=== PATIENT | female | born 1960 | race Caucasian/White ===

== ENCOUNTER 2016-04-21 11:25 | Inpatient (IN) ==
--- NOTE | 2016-04-21 11:43 | Emergency Department Note ---
Disposition Clinical Impression: Non-cardiac chest pain, Acute kidney injury, Dehydration, Hypokalemia, Tachycardia, Elevated lipase, Elevated alkaline phosphatase level Disposition: Admitted As Inpatient Referrals: Abebe Renee DO [Primary Care Provider] - Forms: ED Satisfaction Letter General Adult HPI - General Chief complaint: ED Chest Pain Stated complaint: MAGALIS / CP Time Seen by Provider: 04/21/16 11:43 Source: patient, family Limitations: no limitations - History of Present Illness HPI Narrative: 55-year-old female reports emergency department complaining of chest pressure and shortness of breath. The patient was seen a few days ago in the emergency department for low potassium levels discharged. The patient states she developed chest pressure and shortness of breath today. She states she takes anticoagulant medication for previous thrombus in the intestinal area. She states she has short gut syndrome and frequently has problems with dehydration. She did have some nonbloody emesis and stool a few days ago, she had had some diarrhea as well, but this has abated. There is no history of fever cough and runny nose here pain or sore throat no leg swelling or pain coughing up blood or syncope. No trouble walking talking hearing seeing or speaking apart from feeling slightly dizzy. The patient has had no unilateral arm weakness or numbness. There is no history of slurred speech or confusion. She does describe some anxiety but denies depressive features there is no history of suicidality or homicidality. The patient denies previous lung or heart problems. She has never had a PE. There is no history of diabetes hypertension or hyperlipidemia. Onset (ago): hour(s) Pain Scale: 5 - Related Data Home Medications Medication Instructions Recorded Confirmed Copper Gluconate [Copper] 5 mg PO DAILY 02/25/15 04/21/16 Cyanocobalamin (Vitamin B-12) 1,000 mcg PO DAILY 02/25/15 04/21/16 [Vitamin B-12] Folic Acid 1 mg PO DAILY 02/25/15 04/21/16 Lipase/Protease/Amylase [Creon Dr 5 tab PO TIDWM 02/25/15 04/21/16 24,000 Units Capsule] Magnesium Oxide [Magnesium] 3 tab PO HS 02/25/15 04/21/16 Mercaptopurine 50 mg PO DAILY 02/25/15 04/21/16 Multivitamin Liquid [Cerovite 9 mg PO DAILY 02/25/15 04/21/16 Liquid] Omeprazole [PriLOSEC] 40 mg PO DAILY 02/25/15 04/21/16 PredniSONE 2.5 mg PO QPM 02/25/15 04/21/16 PredniSONE 5 mg PO QAM 02/25/15 04/21/16 Rivaroxaban [Xarelto] 10 mg PO DAILY 02/25/15 04/21/16 Vitamin A Palmitate [Vitamin A] 10,000 unit PO DAILY 02/25/15 04/21/16 Vitamin D3/Folic Acid [Ortho D 50,000 unit PO QWEEK 02/25/15 04/21/16 3,775 Unit-1 mg Cap] Vitamin E (Dl,Tocopheryl Acet) 100 unit PO DAILY 02/25/15 04/21/16 [Vitamin E] Ergocalciferol (VITAMIN D2) 50,000 unit PO DAILY 04/21/16 04/21/16 [Vitamin D2] Zinc Acetate [Galzin] 25 mg PO DAILY 04/21/16 04/21/16 Allergies Allergy/AdvReac Type Severity Reaction Status Date / Time levofloxacin [From Levaquin] Allergy Hives Verified 02/25/15 10:41 All systems ED: reviewed and negative except as stated. Past Medical History - Past Medical History Medical history: Reports: other (Short gut syndrome, intra-abdominal venous thrombus per patient) Surgical history: Reports: other Psychiatric history: Reports: no psych history - Social History Smoking Status: Never smoker Smokeless Tobacco Status: No Alcohol use: Reports: rarely Drug use: Reports: none Physical Exam - General Limitations: no limitations General appearance: alert, in no apparent distress - Head Head exam: atraumatic, normocephalic, normal inspection - Eye Eye exam: Present: normal appearance, PERRL, EOMI. Absent: scleral icterus, conjunctival injection, miosis, mydriasis - ENT ENT exam: normal exam, normal oropharynx, mucous membranes moist, TM's normal bilaterally, normal external ear exam - Neck Neck exam: Present: normal inspection, full ROM, trachea midline - Chest Chest inspection: Present: symmetric chest wall rise. Absent: tenderness - Respiratory Respiratory exam: Present: normal lung sounds bilaterally. Absent: respiratory distress - Cardiovascular Cardiovascular exam: Present: normal rhythm, tachycardia - Abdominal Exam Abdominal exam: Present: soft, Non-Tender. Absent: tenderness, distention, guarding, rebound, rigidity, pulsatile mass - Extremities Exam Extremities exam: Present: normal inspection, full ROM, normal capillary refill. Absent: tenderness, pedal edema, joint swelling, calf tenderness - Expanded Lower Extremity Exam Hip/Pelvis exam: Present: normal inspection Neurovascular/Tendon exam: Absent: motor deficit, sensory deficit, tendon deficit, extremity cold to touch - Back Exam Back exam: Present: normal inspection. Absent: full ROM, tenderness, CVA tenderness (R), CVA tenderness (L), vertebral tenderness - Neurological Exam Neurological exam: Present: alert, oriented X3, CN II-XII intact. Absent: motor sensory deficit - Psychiatric Psychiatric exam: Present: normal affect, normal mood - Skin Skin exam: Present: warm, dry, intact, normal color. Absent: rash, cyanosis, diaphoresis, erythema, pallor, mottled Course Vital Signs Temperature 97.6 F 04/21/16 11:34 Pulse Rate 121 04/21/16 11:34 Respiratory Rate 18 04/21/16 11:34 Blood Pressure 108/77 04/21/16 11:34 O2 Sat by Pulse Oximetry 91 L 04/21/16 11:34 Temperature 97.6 F 04/21/16 11:34 Pulse Rate 104 04/21/16 13:34 Respiratory Rate 18 04/21/16 13:34 Blood Pressure 126/72 04/21/16 13:34 O2 Sat by Pulse Oximetry 100 04/21/16 13:34 Oxygen Delivery Oxygen Delivery Room Air Medical Decision Making - [facility] Narrative Medical decision making narrative: The patient appears to be developing worsening kidney function, she seems to have acute renal failure, she is hypokalemic, the patient was given IV fluids and potassium. She is describes some chest pain which has been nondescript, she has no history of previous coronary artery disease, diabetes, hypertension, or hyperlipidemia. Her EKG and cardiac enzymes are negative. The patient is well anticoagulated. I suspect she has noncardiac chest pain and most of her symptomatology is from tachycardia and hypokalemia. The patient's d-dimer is slightly elevated, she evidences no leg swelling or pain has not been coughing blood. Will not be able to get a CTA done here, V/Q could be considered. The patient is currently stable. She was recently seen in the ED and discharge, she is not improving and her creatinine is rising. Based on her acute kidney injury, complaints of chest pain, hypokalemia, secondary visit to the ED, elevated d-dimer, I think could be appropriate to admit the patient hospital. I discussed case with the hospitalist on-call who has accepted the patient to their care. - Lab Data Lab results reviewed: Yes I reviewed the patient's lab results. Result diagrams: 04/21/16 12:09 04/21/16 12:09 Lab Results 04/21/16 04/21/16 04/21/16 Range/Units 12:09 12:09 12:09 WBC (4.3-11.1) K/mcL RBC (3.82-4.97) M/mcL Hgb (11.5-15.4) g/dL Hct (35.3-44.9) % MCV (83.0-100.0) fL MCH (28.0-33.3) pg MCHC (31.6-35.5) g/dL RDW (11.5-14.5) % Plt Count (140-400) K/mcL MPV (9.4-12.4) fL Immature Gran % (0-4) % Seg Neutrophils % % Lymphocytes % % Monocytes % % Eosinophils % % Basophils % % Neutrophils # (1.6-8.9) K/mcL Lymphocytes # (0.6-4.6) K/mcL Monocytes # (0.0-1.3) K/mcL Eosinophils # (0.0-0.6) K/mcL Basophils # (0.0-0.2) K/mcL PT 22.0 H (9.4-12.1) Seconds INR 2.0 APTT 43.5 H (26.0-36.0) Seconds D-Dimer 517 H (0-500) ng/mLFEU Sodium 139 (136-145) mEq/L Potassium 2.7 L (3.5-4.5) mEq/L Chloride 120 H (98-109) mEq/L Carbon Dioxide 6 L* (19-29) mEq/L BUN 15 (7-20) mg/dL Creatinine 3.08 H (0.57-1.11) mg/dL Est GFR ( Amer) 19 L (> 60) Est GFR (Non-Af Amer) 16 L (> 60) BUN/Creatinine Ratio 5 L (6-26) Glucose 105 H (70-99) mg/dL Calculated Osmolality 289 (280-300) Lactic Acid 1.1 (0.5-2.2) mmol/L Calcium 8.4 L (8.6-10.8) mg/dL Total Bilirubin 0.4 (0.2-1.2) mg/dL Direct Bilirubin 0.2 (0.0-0.5) mg/dL Indirect Bilirubin 0.2 (0.0-1.2) mg/dL AST 14 (5-34) Units/L ALT 22 (0-55) Units/L Alkaline Phosphatase 185 H (38-126) Units/L Troponin I (0-0.03) ng/mL C-Reactive Protein 13 H (Less than 5) mg/L B-Natriuretic Peptide (0-100) pg/mL Serum Total Protein 7.0 (6.0-8.3) g/dL Albumin 3.1 L (3.5-5.0) g/dL Globulin 3.9 H (2.4-3.5) g/dL Albumin/Globulin Ratio 0.8 L (1.1-2.2) Lipase 222 H (8-78) Units/L 04/21/16 04/21/16 04/21/16 Range/Units 12:09 12:09 12:09 WBC 10.1 (4.3-11.1) K/mcL RBC 3.82 (3.82-4.97) M/mcL Hgb 13.5 (11.5-15.4) g/dL Hct 41.0 (35.3-44.9) % MCV 107.3 H (83.0-100.0) fL MCH 35.3 H (28.0-33.3) pg MCHC 32.9 (31.6-35.5) g/dL RDW 14.2 (11.5-14.5) % Plt Count 259 (140-400) K/mcL MPV 10.2 (9.4-12.4) fL Immature Gran % 1.0 (0-4) % Seg Neutrophils % 59.8 % Lymphocytes % 23.0 % Monocytes % 13.8 % Eosinophils % 1.9 % Basophils % 0.5 % Neutrophils # 6.0 (1.6-8.9) K/mcL Lymphocytes # 2.3 (0.6-4.6) K/mcL Monocytes # 1.4 H (0.0-1.3) K/mcL Eosinophils # 0.2 (0.0-0.6) K/mcL Basophils # 0.1 (0.0-0.2) K/mcL PT (9.4-12.1) Seconds INR APTT (26.0-36.0) Seconds D-Dimer (0-500) ng/mLFEU Sodium (136-145) mEq/L Potassium (3.5-4.5) mEq/L Chloride (98-109) mEq/L Carbon Dioxide (19-29) mEq/L BUN (7-20) mg/dL Creatinine (0.57-1.11) mg/dL Est GFR ( Amer) (> 60) Est GFR (Non-Af Amer) (> 60) BUN/Creatinine Ratio (6-26) Glucose (70-99) mg/dL Calculated Osmolality (280-300) Lactic Acid (0.5-2.2) mmol/L Calcium (8.6-10.8) mg/dL Total Bilirubin (0.2-1.2) mg/dL Direct Bilirubin (0.0-0.5) mg/dL Indirect Bilirubin (0.0-1.2) mg/dL AST (5-34) Units/L ALT (0-55) Units/L Alkaline Phosphatase (38-126) Units/L Troponin I 0.00 (0-0.03) ng/mL C-Reactive Protein (Less than 5) mg/L B-Natriuretic Peptide 31 (0-100) pg/mL Serum Total Protein (6.0-8.3) g/dL Albumin (3.5-5.0) g/dL Globulin (2.4-3.5) g/dL Albumin/Globulin Ratio (1.1-2.2) Lipase (8-78) Units/L - Radiology Data Radiology results reviewed: Yes I reviewed the patient's radiology results.
[2016-04-21] MEDS ORDERED: 0.9 % Sodium Chloride 1,000 ML IVC ONE ×2 (11:59→12:58)
[2016-04-21 12:18] LABS: Basophils # 0.1 K/mcL (0.0-0.2); Basophils % 0.5 %; Eosinophils # 0.2 K/mcL (0.0-0.6); Eosinophils % 1.9 %; Hemoglobin 13.5 g/dL (11.5-15.4); Lymphocytes # 2.3 K/mcL (0.6-4.6); Mean Corpuscular HGB Conc 32.9 g/dL (31.6-35.5); Mean Corpuscular Hemoglobin 35.3 pg (28.0-33.3); Mean Corpuscular Volume 107.3 fL (83.0-100.0); Mean Platelet Volume 10.2 fL (9.4-12.4); Monocytes # 1.4 K/mcL (0.0-1.3); Monocytes % 13.8 %; Platelet Count 259 K/mcL (140-400); Red Blood Count 3.82 M/mcL (3.82-4.97); Red Cell Distribution Width 14.2 % (11.5-14.5); Segmented Neutrophils % 59.8 %
[2016-04-21 12:25] LABS: Activated Partial Thrombo Time 43.5 Seconds (26.0-36.0)
[2016-04-21 12:34] LABS: Albumin 3.1 g/dL (3.5-5.0); Albumin/Globulin Ratio 0.8 (1.1-2.2); Bilirubin,Direct 0.2 mg/dL (0.0-0.5); Bilirubin,Indirect 0.2 mg/dL (0.0-1.2); Bilirubin,Total 0.4 mg/dL (0.2-1.2); Calcium 8.4 mg/dL (8.6-10.8); Globulin 3.9 g/dL (2.4-3.5); Potassium 2.7 mEq/L (3.5-4.5)
[2016-04-21] MEDS ORDERED: Naloxone 0.4 MG/ML INJ IVP PRN (15:42)
[2016-04-21] MEDS ORDERED: Acetaminophen 325 MG TABLET PO PRN (15:42)
[2016-04-21] MEDS ORDERED: Ondansetron 4 MG/2 ML VIAL IVP PRN (15:42)
[2016-04-21] MEDS ORDERED: Sodium Bicarbonate 150 MEQ in D5% in Water 1,000 ML IVC SCH ×2 (15:44→21:33)
--- NOTE | 2016-04-21 16:32 | Internal Med History&Physical ---
Date of Encounter: 04/21/16 Time of Encounter: 15:20 Assessment and Plan (1) Nausea Current visit: Yes Status: Acute Likely secondary to electrolyte abnormalities. (2) Dehydration Current visit: Yes Status: Acute Secondary to poor intake after food poisoning a week ago. IV fluid hydration. (3) Tachycardia Current visit: Yes Status: Acute Secondary to dehydration and hypokalemia. IV fluids. Replete potassium. (4) Non-cardiac chest pain Current visit: Yes Status: Acute Secondary to hypokalemia. (5) Acute kidney injury Current visit: Yes Status: Acute Baseline creatinine and GFR is in the 1.4 and 40 range. Secondary to severe dehydration. IV fluids. Close monitoring of kidney function. Avoid nephrotoxins as possible. (6) Metabolic acidosis Current visit: Yes Status: Acute Patient has chronic metabolic acidosis due to short bowel syndrome. She takes sodium bicarbonate 3 times a day. Severe metabolic acidosis with bicarbonate 6. Start IV bicarbonate drip. busher helper. BMP twice daily. (7) Hypokalemia Current visit: Yes Status: Acute replet (8) Acute worsening of stage 3 chronic kidney disease Current visit: Yes Status: Acute plan as above (9) Short bowel syndrome Current visit: Yes Status: Chronic nutrition services consulted for TF. 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 stop Xarelto due to MELANIA. INR is 2. will resume anticoagulation when INR < 2. 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 Qualifiers: Ulcerative colitis location: unspecified ulcerative colitis location Digestive disease complication type: other complication Qualified Code(s): K51.918 - Ulcerative colitis, unspecified with other complication (12) Old cerebrovascular accident (CVA) without late effect Current visit: Yes Status: Acute in 2002 Internal Medicine - H&P: HPI Chief complaint: shortness of breath and chest pain this morning. Admitted From: Home Plans for Post Hospital Care: Home History of present illness: Ms. 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 During that hospitalization, she developed mesenteric vein thrombosis for which she takes Xarelto and had PEG tube placement for nutritional supplementation (she is supposed to eat 6 small meals daily and have 3 cans thru PEG tube). A week ago, the patient ate a bad pizza that made her sick. She felt very nauseous and had multiple episodes of diarrhea. Her diarrhea resolved within 24 hours but her nausea and poor appetite persisted. She has not taken any of her medications for the past week and she feels that the food tastes bad so her oral intake is almost none. No vomiting. No abdominal pain. No fever. No upper respiratory symptoms. No cough. Yesterday, the patient developed generalized malaise associated with muscle ache and this morning she she felt short of breath and had upper chest pain. Her symptoms were mild and lasted less than an hour. No bleeding. No headaches. No urinary complaints. No vision problem. No focal deficit. No LE edema. In the ED, she was tachycardic HR 129, potassium was 2.7, bicarbonate 6, creatinine 3.08, GFR 16, chloride 120. She received IV potassium and IV fluids. Past Med Surg Social Fam HX - Past Medical History Medical history: other (Short gut syndrome, intra-abdominal venous thrombus per patient) Psychiatric history: no psych history - Past Surgical History Surgical History: other - Social History Smoking Status: Never smoker Smokeless Tobacco Status: No Alcohol use: rarely Drug use: none Internal Medicine - H&P: Meds Copper Gluconate [Copper] 5 mg PO DAILY 02/25/15 [History] Cyanocobalamin (Vitamin B-12) [Vitamin B-12] 1,000 mcg PO DAILY 02/25/15 [ History] Folic Acid 1 mg PO DAILY 02/25/15 [History] Lipase/Protease/Amylase [Creon Dr 24,000 Units Capsule] 5 tab PO TIDWM 02/25/15 [History] Magnesium Oxide [Magnesium] 3 tab PO HS 02/25/15 [History] Mercaptopurine 50 mg PO DAILY 02/25/15 [History] Multivitamin Liquid [Cerovite Liquid] 9 mg PO DAILY 02/25/15 [History] Omeprazole [PriLOSEC] 40 mg PO DAILY 02/25/15 [History] PredniSONE 2.5 mg PO QPM 02/25/15 [History] PredniSONE 5 mg PO QAM 02/25/15 [History] Rivaroxaban [Xarelto] 10 mg PO DAILY 02/25/15 [History] Vitamin A Palmitate [Vitamin A] 10,000 unit PO DAILY 02/25/15 [History] Vitamin D3/Folic Acid [Ortho D 3,775 Unit-1 mg Cap] 50,000 unit PO QWEEK [History] Vitamin E (Dl,Tocopheryl Acet) [Vitamin E] 100 unit PO DAILY 02/25/15 [History] Ergocalciferol (VITAMIN D2) [Vitamin D2] 50,000 unit PO DAILY 04/21/16 [History] Zinc Acetate [Galzin] 25 mg PO DAILY 04/21/16 [History] Allergies levofloxacin [From Levaquin] Allergy (Verified 02/25/15 10:41) Hives All Systems PM: A 10-system review of systems was performed and is negative for pertinent findings except as documented above in the HPI. - Constitutional Vitals: Temp Pulse Resp BP Pulse Ox 97.6 F 104 18 121/59 100 04/21/16 11:34 04/21/16 13:34 04/21/16 15:27 04/21/16 15:27 04/21/16 13:34 General appearance: Present: cooperative, A&O X 3, pleasant, no acute distress, answers questions appropriately - Eye Eye exam: Present: PERRL, sclera anicteric - ENT ENT exam: Present: mucous membranes dry - Neck Neck exam general surgery: Present: supple, trachea midline. Absent: lymphadenopathy - Respiratory Respiratory exam: Present: CTAB - Cardiovascular Cardiovascular exam: Present: tachycardia - GI/Abdominal GI/Abdominal exam: Present: normal bowel sounds, soft. Absent: distended, tenderness Additional comments: PEG tube in place. - Extremities Exam Extremities exam: Present: radial pulses palpable and symetrical. Absent: joint swelling, pedal edema - Back Exam Back exam: Absent: CVA tenderness (L), CVA tenderness (R) - Neurological Exam Neurological exam: Present: alert, oriented X3, no focal deficits. Absent: facial droop, speech deficit - Skin Skin exam: Present: rash (small papules in upper back likely contact dermatitis. ) Internal Med - H&P Results - Labs CBC & Chem 7: 04/21/16 12:09 04/21/16 12:09 - EKG Data Prior EKG available for review: yes When compared to previous EKG: there are significant changes EKG comments: 04/21/16 17:11 sinus tachycardia HR 103. No acute ischemic changes. - Diagnostic Studies Chest x-ray Status: image reviewed by me (no acute process)
[2016-04-21] MEDS: Pantoprazole 40 MG VIAL IVP SCH (16:48)
[2016-04-21] MEDS ORDERED: Magnesium Sulfate 1 GM in D5% in Water 100 ML IVPB ONE (16:56)
[2016-04-21] MEDS: predniSONE 5 MG TABLET PO SCH (17:18)
[2016-04-21] MEDS ORDERED: Potassium Chloride Elixir 20 MEQ/15 ML UDC GTUBE ONE (17:20)
[2016-04-21 20:54] LABS: Calcium 7.3 mg/dL (8.6-10.8)
[2016-04-21 22:11] LABS: Ionized Calcium 1.13 mmol/L (1.15-1.35)
[2016-04-21 22:15] LABS: VBG HCO3 8.9 mEq/L (21-27)
[2016-04-21 22:18] LABS: Magnesium 1.4 mg/dL (1.6-2.6); Phosphorous 2.6 mg/dL (2.3-4.7)
[2016-04-21 22:19] LABS: VBG PH 7.16 pH Units (7.32-7.42)
[2016-04-21] MEDS ORDERED: Calcium Gluconate 1,000 MG in D5% in Water 100 ML IVPB ONE (22:32)
[2016-04-21] MEDS ORDERED: Magnesium Sulfate 2 GM in D5% in Water 100 ML IVPB ONE (22:32)
[2016-04-22 06:53] LABS: INR 2.3; Prothrombin Time 25.2 Seconds (9.4-12.1)
[2016-04-22 06:56] LABS: Activated Partial Thrombo Time 36.3 Seconds (26.0-36.0)
[2016-04-22 07:41] LABS: Hematocrit 29.5 % (35.3-44.9); Hemoglobin 10.2 g/dL (11.5-15.4); Immature Platelets 3.6 % (1.1-6.1); Mean Corpuscular HGB Conc 34.6 g/dL (31.6-35.5); Mean Corpuscular Hemoglobin 34.9 pg (28.0-33.3); Mean Platelet Volume 10.3 fL (9.4-12.4); Platelet Count 210 K/mcL (140-400); Red Blood Count 2.92 M/mcL (3.82-4.97); Red Cell Distribution Width 13.7 % (11.5-14.5)
[2016-04-22 08:27] LABS: Basophils # 0.2 K/mcL (0.0-0.2); Eosinophils # 0.2 K/mcL (0.0-0.6); Lymphocytes # 2.7 K/mcL (0.6-4.6); Monocytes # 0.5 K/mcL (0.0-1.3); Neutrophils # 4.1 K/mcL (1.6-8.9); Platelet Clumps Few (Not Present)
[2016-04-22 08:30] LABS: Reactive Lymphocytes Present (Not Present)
[2016-04-22] MEDS: Pantoprazole 40 MG VIAL IVP SCH (08:32)
[2016-04-22] MEDS: Cyanocobalamin (B-12) 1,000 MCG TABLET PO SCH (08:32)
[2016-04-22] MEDS: Folic Acid 1 MG TABLET PO SCH (08:32)
[2016-04-22] MEDS: predniSONE 5 MG TABLET PO SCH ×2 (08:32→17:35)
[2016-04-22] MEDS: (Vitamin A Palmitate [Vitamin A] 10,000 UNIT) PO SCH (08:34)
[2016-04-22] MEDS ORDERED: Sodium Bicarbonate 150 MEQ in D5% in Water 1,000 ML IVC SCH (09:00)
[2016-04-22] MEDS ORDERED: *HR* Rivaroxaban 10 MG TABLET PO SCH (09:00)
[2016-04-22] MEDS ORDERED: Multivitamin Liquid 15 ML UDC PO SCH (09:00)
[2016-04-22] MEDS: COPPER GLUCONATE PO SCH (10:00)
[2016-04-22] MEDS: ZINC GLUCONATE 25 MG PO SCH (10:01)
[2016-04-22] MEDS: VITAMIN E 400 UNIT PO SCH (10:01)
--- NOTE | 2016-04-22 10:25 | Internal Med Progress Note ---
Date of Encounter: 04/22/16 Time of Encounter: 08:00 - Assessment and plan (1) Acute kidney injury Current Visit: Yes Status: Acute Assessment and plan: Continue IV hydration. Awaiting CMP results today. Creatinine improved to 2.36. Moderate risk for complications (2) Acute worsening of stage 3 chronic kidney disease Current Visit: Yes Status: Acute (3) Chronic thrombosis of mesenteric vein Current Visit: Yes Status: Acute Assessment and plan: Currently holding anticoagulation due to acute kidney injury. Will resume xarelto as renal function improves. (4) Metabolic acidosis Current Visit: Yes Status: Acute Assessment and plan: Bicarbonate was 6. Continue intravenous bicarbonate infusion. (5) Non-cardiac chest pain Current Visit: Yes Status: Resolved (6) Tachycardia Current Visit: Yes Status: Resolved (7) Short bowel syndrome Current Visit: Yes Status: Chronic Assessment and plan: Continue Creon, oral supplements. (8) Ulcerative colitis Current Visit: No Status: Chronic Assessment and plan: Supportive care. Patient on prednisone. Qualifiers: Ulcerative colitis location: unspecified ulcerative colitis location Digestive disease complication type: other complication Qualified Code(s): K51.918 - Ulcerative colitis, unspecified with other complication - Constitutional Vitals: Temp Pulse Resp BP Pulse Ox 98.7 F 85 14 84/51 100 04/22/16 06:27 04/22/16 06:27 04/22/16 06:27 04/22/16 06:27 04/22/16 06:27 General appearance: Present: cooperative, A&O X 3, pleasant, no acute distress, answers questions appropriately Internal Medicine: Result - Labs CBC & Chem 7: 04/22/16 07:30 04/21/16 20:09 Labs: Short CBC 04/22/16 Range/Units 07:30 WBC 7.5 (4.3-11.1) K/mcL Hgb 10.2 L D (11.5-15.4) g/dL Hct 29.5 L (35.3-44.9) % Plt Count 210 (140-400) K/mcL Neutrophils # 4.1 (1.6-8.9) K/mcL BMP 04/21/16 20:09 Sodium 139 Potassium 3.0 L Chloride 124 H Carbon Dioxide 6 L* BUN 13 Creatinine 2.36 H Glucose 109 H Calcium 7.3 L - ABG Interpretation ABG results: PT/INR, D-dimer PT 25.2 Seconds (9.4-12.1) H 04/22/16 05:13 D-Dimer 517 ng/mLFEU (0-500) H 04/21/16 12:09 Consult Discharge Plan - Plan Referrals: Abebe Renee DO [Primary Care Provider] - - Attending Attestation This document has been at least partially created by [employer] recognition technology by Dr. Novoa. Errors in grammar, wording or other phrases may exist. If errors are found after the documentation is signed, they will be addressed individually in the addendum section of this document when appropriate.
[2016-04-22 10:40] LABS: Albumin 2.1 g/dL (3.5-5.0); Albumin/Globulin Ratio 0.8 (1.1-2.2); Bilirubin,Total 0.3 mg/dL (0.2-1.2); Calcium 7.2 mg/dL (8.6-10.8); Globulin 2.5 g/dL (2.4-3.5); Magnesium 1.6 mg/dL (1.6-2.6); Phosphorous 1.8 mg/dL (2.3-4.7); Total Protein 4.6 g/dL (6.0-8.3)
[2016-04-22 10:47] LABS: Potassium 2.4 mEq/L (3.5-4.5)
[2016-04-22] MEDS ORDERED: Potassium Chloride 40 MEQ, Lidocaine 1% 2 ML in D5% in Water 500 ML IVPB ONE (10:52)
[2016-04-22] MEDS: Potassium Chloride Elixir 20 MEQ/15 ML UDC PO SCH ×2 (11:53→22:46)
[2016-04-22] MEDS: Multivit/Ca/Min/Fe/FA 1 TAB TABLET PO SCH (11:54)
[2016-04-22] MEDS: Magnesium Oxide 400 MG TABLET PO SCH (22:48)
[2016-04-23 06:20] LABS: Basophils % 0.4 %; Eosinophils # 0.3 K/mcL (0.0-0.6); Eosinophils % 3.4 %; Hematocrit 31.8 % (35.3-44.9); Hemoglobin 10.5 g/dL (11.5-15.4); Immature Granulocytes % 0.6 % (0-4); Lymphocytes # 1.6 K/mcL (0.6-4.6); Lymphocytes % 17.5 %; Mean Corpuscular Hemoglobin 34.3 pg (28.0-33.3); Mean Corpuscular Volume 103.9 fL (83.0-100.0); Mean Platelet Volume 10.1 fL (9.4-12.4); Monocytes % 9.3 %; Nucleated Red Blood Cells 0.2 /100 WBC (0); Platelet Count 223 K/mcL (140-400); Red Blood Count 3.06 M/mcL (3.82-4.97); Red Cell Distribution Width 14.3 % (11.5-14.5); Segmented Neutrophils % 68.8 %
[2016-04-23 06:24] LABS: Monocytes # 0.9 K/mcL (0.0-1.3); Neutrophils # 6.3 K/mcL (1.6-8.9)
[2016-04-23 06:39] LABS: Calcium 7.5 mg/dL (8.6-10.8); Potassium 3.1 mEq/L (3.5-4.5)
[2016-04-23 06:55] LABS: Platelet Estimate Normal (Normal)
[2016-04-23] MEDS ORDERED: 0.9 % Sodium Chloride 1,000 ML IV ONE (06:58)
[2016-04-23] MEDS: predniSONE 5 MG TABLET PO SCH ×2 (07:52→16:40)
[2016-04-23] MEDS: Potassium Chloride Elixir 20 MEQ/15 ML UDC PO SCH ×2 (07:52→20:22)
[2016-04-23] MEDS: Multivit/Ca/Min/Fe/FA 1 TAB TABLET PO SCH (07:52)
[2016-04-23] MEDS: Pantoprazole 40 MG VIAL IVP SCH (07:52)
[2016-04-23] MEDS: Cyanocobalamin (B-12) 1,000 MCG TABLET PO SCH (07:52)
[2016-04-23] MEDS: Folic Acid 1 MG TABLET PO SCH (07:52)
[2016-04-23] MEDS: COPPER GLUCONATE PO SCH (08:02)
[2016-04-23] MEDS: ZINC GLUCONATE 25 MG PO SCH (08:03)
[2016-04-23] MEDS: (Vitamin A Palmitate [Vitamin A] 10,000 UNIT) PO SCH (08:03)
[2016-04-23] MEDS: VITAMIN E 400 UNIT PO SCH (08:03)
[2016-04-23 08:56] LABS: ABG Base Excess -16.4 mEq/L (-2.0 to 3.0); ABG HCO3 9.6 mEQ/L (21-27); ABG Oxygen Saturation 99 % (95-98); ABG PCO2 23 mmHg (35-45); ABG PH 7.23 pH Units (7.32-7.45); ABG PO2 135 mmHg (85-104); ABG TCO2 10.3 mEq/L (20-26)
[2016-04-23 08:58] LABS: Blood Gas FiO2 21 %
--- NOTE | 2016-04-23 14:18 | Discharge Summary ---
Date of Encounter: 04/23/16 Time of Encounter: 10:25 - Discharge Diagnosis (1) Acute kidney injury Priority: Primary Status: Acute (2) Acute worsening of stage 3 chronic kidney disease Priority: Secondary Status: Acute (3) Chronic thrombosis of mesenteric vein Priority: Secondary Status: Acute (4) Metabolic acidosis Priority: Secondary Status: Chronic (5) Non-cardiac chest pain Priority: Secondary Status: Resolved (6) Tachycardia Priority: Secondary Status: Resolved (7) Short bowel syndrome Priority: Secondary Status: Chronic (8) Ulcerative colitis Priority: Secondary Status: Chronic Qualifiers: Ulcerative colitis location: unspecified ulcerative colitis location Digestive disease complication type: other complication Qualified Code(s): K51.918 - Ulcerative colitis, unspecified with other complication - Discharge Medications Home Medications: Copper Gluconate [Copper] 5 mg PO DAILY 02/25/15 [History] Cyanocobalamin (Vitamin B-12) [Vitamin B-12] 1,000 mcg PO DAILY 02/25/15 [ History] Folic Acid 1 mg PO DAILY 02/25/15 [History] Lipase/Protease/Amylase [Creon Dr 24,000 Units Capsule] 5 tab PO TIDWM 02/25/15 [History] Magnesium Oxide [Magnesium] 3 tab PO HS 02/25/15 [History] Mercaptopurine 50 mg PO DAILY 02/25/15 [History] Multivitamin Liquid [Cerovite Liquid] 9 mg PO DAILY 02/25/15 [History] Omeprazole [PriLOSEC] 40 mg PO DAILY 02/25/15 [History] PredniSONE 2.5 mg PO QPM 02/25/15 [History] PredniSONE 5 mg PO QAM 02/25/15 [History] Rivaroxaban [Xarelto] 10 mg PO DAILY 02/25/15 [History] Vitamin A Palmitate [Vitamin A] 10,000 unit PO DAILY 02/25/15 [History] Vitamin D3/Folic Acid [Ortho D 3,775 Unit-1 mg Cap] 50,000 unit PO QWEEK [History] Vitamin E (Dl,Tocopheryl Acet) [Vitamin E] 100 unit PO DAILY 02/25/15 [History] Ergocalciferol (VITAMIN D2) [Vitamin D2] 50,000 unit PO DAILY 04/21/16 [History] Zinc Acetate [Galzin] 25 mg PO DAILY 04/21/16 [History] Sodium Bicarbonate 1,300 mg PO TID tablet 04/23/16 [Rx] Allergies/Adverse Reactions: Allergies levofloxacin [From Levaquin] Allergy (Verified 02/25/15 10:41) Hives Date of admission: 04/21/16 16:04 Primary care physician: Abebe Renee Consults: 04/21/16 16:42 Consult to Nutrition [CONS] Stat Comment: Consulting Provider: NUTRITION Reason for Dietary Consult: TF Start and Manage 04/23/16 10:14 Consult to Occupational Therapy [CONS] Routine Comment: Evaluate, develop and implement POC Consult to Physical Therapy [CONS] Routine Comment: Evaluate, develop and implement POC Discharging clinician: Ashley Novoa Anticipated date of discharge: 04/23/16 - Patient Status Disposition: Home, Self-Care Condition: Good Functional capacity at discharge: independent ambulation Overall status at discharge: patient is progressing back to baseline - Discharge Instructions Follow Up With: Abebe Renee DO [Primary Care Provider] - (In 1-2 weeks) - Diet and Activity Activity: increase activity as tolerated Diet: regular diet Hospital course: Ms. Rice is a 55 year old female - Time Spent with Patient Total time spent providing and/or coordinating discharge services: Greater than 30 minutes (35 min) - Constitutional Vitals: Temp Pulse Resp BP Pulse Ox 98.1 F 78 16 94/58 95 04/23/16 11:35 04/23/16 11:35 04/23/16 11:35 04/23/16 11:35 04/23/16 11:35 General appearance: Present: cooperative, A&O X 3, pleasant, no acute distress, answers questions appropriately - Respiratory Respiratory exam: Present: CTAB. Absent: accessory muscle use, rales, rhonchi, wheezes - Cardiovascular Cardiovascular exam: Present: RRR, +S1, +S2. Absent: diastolic murmur, gallop, rubs, systolic murmur - GI/Abdominal GI/Abdominal exam: Present: normal bowel sounds, soft, no peritoneal signs. Absent: distended, tenderness - Extremities Exam Extremities exam: Present: warm, radial pulses palpable and symetrical. Absent : calf tenderness, cyanotic, pedal edema - Attending Attestation This document has been at least partially created by [employer] recognition technology by Dr. Ameda. Errors in grammar, wording or other phrases may exist. If errors are found after the documentation is signed, they will be addressed individually in the addendum section of this document when appropriate.
[2016-04-23 15:09] LABS: Calcium 7.7 mg/dL (8.6-10.8); Potassium 3.7 mEq/L (3.5-4.5)
--- NOTE | 2016-04-23 15:23 | Internal Med Progress Note ---
Date of Encounter: 04/23/16 Time of Encounter: 15:21 - Assessment and plan (1) Acute kidney injury Current Visit: Yes Status: Acute Assessment and plan: Improving. Continue IV hydration (2) Acute worsening of stage 3 chronic kidney disease Current Visit: Yes Status: Acute (3) Chronic thrombosis of mesenteric vein Current Visit: Yes Status: Acute Assessment and plan: Resume anticoagulation. (4) Metabolic acidosis Current Visit: Yes Status: Chronic Assessment and plan: This persists. Started back on oral sodium bicarbonate. Continue IV sodium bicarbonate as bicarbonate level remains low. Moderate risk for complications. 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 Continue tube feeds per nutrition recommendations. (8) Ulcerative colitis Current Visit: No Status: Chronic Assessment and plan: On prednisone Qualifiers: Ulcerative colitis location: unspecified ulcerative colitis location Digestive disease complication type: other complication Qualified Code(s): K51.918 - Ulcerative colitis, unspecified with other complication - Subjective Interval history: Patient is doing well. Tolerating diet well. No new complaints at this time. - Constitutional Vitals: Temp Pulse Resp BP Pulse Ox 98.1 F 78 16 94/58 95 04/23/16 11:35 04/23/16 11:35 04/23/16 11:35 04/23/16 11:35 04/23/16 11:35 General appearance: Present: cooperative, A&O X 3, pleasant, no acute distress, answers questions appropriately - Respiratory Respiratory exam: Present: CTAB. Absent: accessory muscle use, rales, rhonchi, wheezes - Cardiovascular Cardiovascular exam: Present: RRR, +S1, +S2. Absent: diastolic murmur, gallop, rubs, systolic murmur - GI/Abdominal GI/Abdominal exam: Present: normal bowel sounds, soft, no peritoneal signs. Absent: distended, tenderness - Extremities Exam Extremities exam: Present: warm, radial pulses palpable and symetrical. Absent : calf tenderness, cyanotic, pedal edema - Neurological Exam Neurological exam: Present: alert, oriented X3, no focal deficits, strengths equal and symetr throughout. Absent: facial droop, speech deficit Internal Medicine: Result - Labs CBC & Chem 7: 04/23/16 06:09 04/23/16 14:13 Labs: Short CBC 04/23/16 Range/Units 06:09 WBC 9.1 (4.3-11.1) K/mcL Hgb 10.5 L (11.5-15.4) g/dL Hct 31.8 L (35.3-44.9) % Plt Count 223 (140-400) K/mcL Neutrophils # 6.3 (1.6-8.9) K/mcL BMP 04/23/16 04/23/16 06:09 14:13 Sodium 138 139 Potassium 3.1 L 3.7 Chloride 117 H 122 H Carbon Dioxide 10 L* 7 L* BUN 11 9 Creatinine 1.80 H 1.76 H Glucose 116 H 114 H Calcium 7.5 L 7.7 L - ABG Interpretation ABG results: ABG ABG pH 7.23 pH Units (7.32-7.45) L 04/23/16 08:35 ABG pCO2 23 mmHg (35-45) L 04/23/16 08:35 ABG pO2 135 mmHg (85-104) H 04/23/16 08:35 ABG O2 Saturation 99 % (95-98) H 04/23/16 08:35 PT/INR, D-dimer PT 25.2 Seconds (9.4-12.1) H 04/22/16 05:13 D-Dimer 517 ng/mLFEU (0-500) H 04/21/16 12:09 Consult Discharge Plan - Plan Referrals: Abebe Renee DO [Primary Care Provider] - (In 1-2 weeks) - Attending Attestation This document has been at least partially created by [employer] recognition technology by Dr. Novoa. Errors in grammar, wording or other phrases may exist. If errors are found after the documentation is signed, they will be addressed individually in the addendum section of this document when appropriate.
[2016-04-23] MEDS: Sodium Bicarbonate 150 MEQ in D5% in Water 1,000 ML IVC SCH (16:32)
[2016-04-23] MEDS: Magnesium Oxide 400 MG TABLET PO SCH (20:21)
[2016-04-24] MEDS: Sodium Bicarbonate 150 MEQ in D5% in Water 1,000 ML IVC SCH (01:20)
[2016-04-24 07:30] LABS: Hematocrit 25.3 % (35.3-44.9); Hemoglobin 9.1 g/dL (11.5-15.4); Mean Corpuscular Hemoglobin 36.1 pg (28.0-33.3); Mean Corpuscular Volume 100.4 fL (83.0-100.0); Mean Platelet Volume 10.6 fL (9.4-12.4); Platelet Count 232 K/mcL (140-400); Red Blood Count 2.52 M/mcL (3.82-4.97); Red Cell Distribution Width 13.6 % (11.5-14.5)
[2016-04-24 07:31] VITALS: BP 92/60
[2016-04-24 07:45] LABS: Calcium 7.1 mg/dL (8.6-10.8); Potassium 3.1 mEq/L (3.5-4.5)
[2016-04-24 07:59] LABS: Eosinophils # 0.2 K/mcL (0.0-0.6); Lymphocytes # 1.5 K/mcL (0.6-4.6); Monocytes # 0.4 K/mcL (0.0-1.3); Neutrophils # 5.5 K/mcL (1.6-8.9)
[2016-04-24 08:00] LABS: Platelet Estimate Normal (Normal)
[2016-04-24 08:01] LABS: Toxic Granulation Present (Not Present)
[2016-04-24] MEDS: Folic Acid 1 MG TABLET PO SCH (08:36)
[2016-04-24] MEDS: Cyanocobalamin (B-12) 1,000 MCG TABLET PO SCH (08:37)
[2016-04-24] MEDS: Multivit/Ca/Min/Fe/FA 1 TAB TABLET PO SCH (08:37)
[2016-04-24] MEDS: Potassium Chloride Elixir 20 MEQ/15 ML UDC PO SCH (08:37)
[2016-04-24] MEDS: predniSONE 5 MG TABLET PO SCH (08:37)
[2016-04-24] MEDS: Pantoprazole 40 MG VIAL IVP SCH (08:37)
[2016-04-24] MEDS: (Vitamin A Palmitate [Vitamin A] 10,000 UNIT) PO SCH (08:40)
[2016-04-24] MEDS: VITAMIN E 400 UNIT PO SCH (08:40)
[2016-04-24] MEDS: COPPER GLUCONATE PO SCH (08:40)
[2016-04-24] MEDS: ZINC GLUCONATE 25 MG PO SCH (08:40)
--- NOTE | 2016-04-24 09:00 | Discharge Summary ---
Date of Encounter: 04/24/16 Time of Encounter: 08:45 - Discharge Diagnosis (1) Acute kidney injury Priority: Primary Status: Acute (2) Acute worsening of stage 3 chronic kidney disease Priority: Secondary Status: Acute (3) Chronic thrombosis of mesenteric vein Priority: Secondary Status: Acute (4) Metabolic acidosis Priority: Secondary Status: Chronic (5) Non-cardiac chest pain Priority: Secondary Status: Resolved (6) Tachycardia Priority: Secondary Status: Resolved (7) Short bowel syndrome Priority: Secondary Status: Chronic (8) Ulcerative colitis Priority: Secondary Status: Chronic Qualifiers: Ulcerative colitis location: unspecified ulcerative colitis location Digestive disease complication type: other complication Qualified Code(s): K51.918 - Ulcerative colitis, unspecified with other complication (9) Anemia Priority: Secondary Status: Chronic Comments: Patient has acute on chronic anemia. Presented with a hemoglobin of 13.5 but patient was dehydrated then. With hydration her hemoglobin level has been going on. Patient does have chronic shortness syndrome and ulcerative colitis. She gets colonoscopies done every year at [facility]. No recent abnormalities found. She does have follow-up with [facility] tomorrow. At this time as patient is asymptomatic and has chronic anemia, she is stable to be discharged and will follow up with [facility] for further management. Her anemia could be related to her chronic diseases and dietary deficiency. Qualifiers: Anemia type: other cause Other causes of anemia: chronic disease, other Qualified Code(s): D63.8 - Anemia in other chronic diseases classified elsewhere - Discharge Medications Prescriptions: Potassium Chloride 20 meq PO DAILY #30 packet Home Medications: Copper Gluconate [Copper] 5 mg PO DAILY 02/25/15 [History] Cyanocobalamin (Vitamin B-12) [Vitamin B-12] 1,000 mcg PO DAILY 02/25/15 [ History] Folic Acid 1 mg PO DAILY 02/25/15 [History] Lipase/Protease/Amylase [Creon Dr 24,000 Units Capsule] 5 tab PO TIDWM 02/25/15 [History] Magnesium Oxide [Magnesium] 3 tab PO HS 02/25/15 [History] Mercaptopurine 50 mg PO DAILY 02/25/15 [History] Multivitamin Liquid [Cerovite Liquid] 9 mg PO DAILY 02/25/15 [History] Omeprazole [PriLOSEC] 40 mg PO DAILY 02/25/15 [History] PredniSONE 2.5 mg PO QPM 02/25/15 [History] PredniSONE 5 mg PO QAM 02/25/15 [History] Rivaroxaban [Xarelto] 10 mg PO DAILY 02/25/15 [History] Vitamin A Palmitate [Vitamin A] 10,000 unit PO DAILY 02/25/15 [History] Vitamin D3/Folic Acid [Ortho D 3,775 Unit-1 mg Cap] 50,000 unit PO QWEEK [History] Vitamin E (Dl,Tocopheryl Acet) [Vitamin E] 100 unit PO DAILY 02/25/15 [History] Ergocalciferol (VITAMIN D2) [Vitamin D2] 50,000 unit PO DAILY 04/21/16 [History] Zinc Acetate [Galzin] 25 mg PO DAILY 04/21/16 [History] Sodium Bicarbonate 1,300 mg PO TID tablet 04/23/16 [Rx] Potassium Chloride 20 meq PO DAILY #30 packet 04/24/16 [Rx] Allergies/Adverse Reactions: Allergies levofloxacin [From Levaquin] Allergy (Verified 02/25/15 10:41) Hives Date of admission: 04/21/16 16:04 Primary care physician: Abebe Renee Consults: 04/21/16 16:42 Consult to Nutrition [CONS] Stat Comment: Consulting Provider: NUTRITION Reason for Dietary Consult: TF Start and Manage 04/23/16 10:14 Consult to Occupational Therapy [CONS] Routine Comment: Evaluate, develop and implement POC Consult to Physical Therapy [CONS] Routine Comment: Evaluate, develop and implement POC Discharging clinician: Ashley Novoa Anticipated date of discharge: 04/24/16 - Patient Status Disposition: Home, Self-Care Condition: Good Functional capacity at discharge: independent ambulation Overall status at discharge: patient is back to baseline - Discharge Instructions Follow Up With: Abebe Renee DO [Primary Care Provider] - (web.request 04/23/16) - Diet and Activity Activity: increase activity as tolerated Diet: advance to your usual diet Hospital course: Ms. Rice is a 55 year old female with history of short bowel syndrome, ulcerative colitis who presented to the ER with nausea and multiple episodes of diarrhea after eating pizza. She was diagnosed with dehydration and acute kidney injury with severe metabolic acidosis. Patient has chronic metabolic acidosis and takes sodium bicarbonate at home. She was treated with IV fluids and intravenous sodium bicarbonate with improvement in her acidosis. She was placed back on oral sodium bicarbonate. Her renal function has improved since then. She is feeling much better now and is stable to be discharged home. Patient does have chronic anemia with baseline hemoglobin of around 10. On presentation her hemoglobin was 13 and patient was dehydrated then. She received intravenous fluids and her hemoglobin level today is 9.1. This could be related to hemodilution and chronic anemia. Patient does get colonoscopy every year for her ulcerative colitis at [facility] and she is to follow up in [facility] tomorrow. She is not having any overt hematemesis or melena at this time. As such she is stable to be discharged home and will follow up with her primary care provider and with [facility] as scheduled. - Time Spent with Patient Total time spent providing and/or coordinating discharge services: Less than 30 minutes (25 min) - Constitutional Vitals: Temp Pulse Resp BP Pulse Ox 98.5 F 85 16 92/60 100 04/24/16 07:27 04/24/16 07:27 04/24/16 07:27 04/24/16 07:27 04/24/16 07:27 General appearance: Present: cooperative, A&O X 3, pleasant, no acute distress, answers questions appropriately - Respiratory Respiratory exam: Present: CTAB. Absent: accessory muscle use, rales, rhonchi, wheezes - Cardiovascular Cardiovascular exam: Present: RRR, +S1, +S2. Absent: diastolic murmur, gallop, rubs, systolic murmur - Extremities Exam Extremities exam: Present: warm, radial pulses palpable and symetrical. Absent : calf tenderness, cyanotic, pedal edema - Attending Attestation This document has been at least partially created by [employer] recognition technology by Dr. Novoa. Errors in grammar, wording or other phrases may exist. If errors are found after the documentation is signed, they will be addressed individually in the addendum section of this document when appropriate.
--- NOTE | 2016-04-25 08:17 | Electrocardiograph Report ---
[facility] Test Date: 2016-04-21 Pat Name: Wendy Rice Department: 104 Room: 2A11 Gender: F Nurse Care Manager: : [id number] Requested By: Jose Langford Order Number: [id number] Reading MD: Guy Davila MD Measurements Intervals [place] Rate: 103 P: 69 RI: 145 QRS: 57 QRSD: 98 T: -51 QT: 269 QTc: 329 Interpretive Statements SINUS TACHYCARDIA ST DEVIATION AND MODERATE T-WAVE ABNORMALITY, CONSIDER INFERIOR ISCHEMIA Electronically Signed On 04-25-2016 8:15:44 EST by Guy Davila MD
== END 2016-04-24 11:25 | disposition home or self-care (01) | DRG 682 ==
LOC: EMEROO 11:25 → 2ANU 11:25 → SUATTDRO 16:04 → 2ANU 16:06
PROVIDERS: ADMIT Internal Medicine; ATTEND Internal Medicine

== ENCOUNTER 2016-05-03 09:10 | Observation (INO) ==
[2016-05-03] MEDS ORDERED: *HR* HYDROmorphone (PF) 1 MG/ML SYRINGE IVP ONE ×2 (09:20→12:18)
[2016-05-03] MEDS ORDERED: Ondansetron 4 MG/2 ML VIAL IVP ONE ×2 (09:24→09:27)
--- NOTE | 2016-05-03 09:25 | Emergency Department Note ---
Disposition Clinical Impression: Humerus fracture Qualifiers: Encounter type: subsequent encounter Humerus Location: shaft Fracture type: closed Fracture morphology: unspecified fracture morphology Laterality: unspecified laterality Fracture healing: with routine healing Qualified Code(s) : S42.309D - Unspecified fracture of shaft of humerus, unspecified arm, subsequent encounter for fracture with routine healing Disposition: Admitted As Inpatient Condition: Fair General Adult HPI - General Chief complaint: ED Extremity Injury, Upper Stated complaint: R hand problem Time Seen by Provider: 05/03/16 09:13 Source: patient, EMS Mode of arrival: EMS Limitations: no limitations Nursing Notes Reviewed: Yes Vital Signs Reviewed: Yes - History of Present Illness HPI Narrative: Patient is a 55 year old female who sustained a fall about 2 days ago and was evaluated here at [facility] ED and orthopedic surgeon. Determine to have right humeral fracture, also sustained right knee trauma and lip trauma from fall. Plan to have surgery with Dr. Burrell tomorrow This morning brought in by squad from home. Patient woke up this morning and reports severe 10/10 pain and numbing and pins/needles of her hand and finger on the right. Upon arrival patient appears distressed in pain and uncomfortable with any movement including light touch of right hand. Patient reports some chills and sweats. Patient denies fever, headache, changes in vision or hearing, chest pain, shortness of breath, nausea, vomiting, abdominal pain, changes in bladder. Patient has regular diarrhea due to tpn. Onset (ago): hour(s) Pain Scale: 10 - Related Data Home Medications Medication Instructions Recorded Confirmed Copper Gluconate [Copper] 5 mg PO DAILY 02/25/15 05/03/16 Folic Acid 1 mg PO DAILY 02/25/15 05/03/16 Lipase/Protease/Amylase [Melodyon Dr 5 tab PO TIDWM 02/25/15 05/03/16 24,000 Units Capsule] Magnesium Oxide [Magnesium] 3 tab PO HS 02/25/15 05/03/16 Mercaptopurine 50 mg PO DAILY 02/25/15 05/03/16 Multivitamin Liquid [Cerovite 9 mg PO DAILY 02/25/15 05/03/16 Liquid] Omeprazole [PriLOSEC] 40 mg PO DAILY 02/25/15 05/03/16 PredniSONE 2.5 mg PO QPM 02/25/15 05/03/16 PredniSONE 5 mg PO QAM 02/25/15 05/03/16 Rivaroxaban [Xarelto] 10 mg PO DAILY 02/25/15 05/03/16 Vitamin A Palmitate [Vitamin A] 10,000 unit PO DAILY 02/25/15 05/03/16 Vitamin D3/Folic Acid [Ortho D 50,000 unit PO QWEEK 02/25/15 05/03/16 3,775 Unit-1 mg Cap] Vitamin E (Dl,Tocopheryl Acet) 100 unit PO DAILY 02/25/15 05/03/16 [Vitamin E] Ergocalciferol (VITAMIN D2) 50,000 unit PO DAILY 04/21/16 05/03/16 [Vitamin D2] Zinc Acetate [Galzin] 25 mg PO DAILY 04/21/16 05/03/16 Cyanocobalamin (B-12) [Vitamin B12] 1 ml IJ QMONTH 05/03/16 05/03/16 Nutritional Supplement [Osmolite 1 can GTUBE TID 05/03/16 05/03/16 1.2 Glenn] Previous Rx's Medication Instructions Recorded Sodium Bicarbonate 1,300 mg PO TID tablet 04/23/16 Potassium Chloride 20 meq PO DAILY #30 packet 04/24/16 Allergies Allergy/AdvReac Type Severity Reaction Status Date / Time levofloxacin [From Levaquin] Allergy Hives Verified 02/25/15 10:41 Constitutional: Reports: as per HPI, chills, weakness Eyes: Reports: as per HPI ENT ED: Reports: as per HPI Cardiovascular: Reports: as per HPI. Denies: chest pain Respiratory: Reports: as per HPI. Denies: dyspnea Gastrointestinal: Reports: as per HPI, diarrhea. Denies: abdominal pain, nausea , vomiting, hematemesis, melena Genitourinary: Reports: as per HPI. Denies: dysuria, hematuria Musculoskeletal: Reports: as per HPI Integumentary: Reports: as per HPI, lesions (lip stitches from fall) Neurological: Reports: as per HPI, numbness. Denies: headache Psychiatric: Denies: anxiety, depression, suicidal thoughts, homicidal thoughts , auditory hallucinations, visual hallucinations Hematological/Lymphatic: Reports: as per HPI Allergic/Immunologic: Denies: facial swelling, urticaria Past Medical History - Past Medical History Medical history: Reports: other Surgical history: Reports: other Psychiatric history: Reports: no psych history - Social History Smoking Status: Never smoker Smokeless Tobacco Status: No Alcohol use: Reports: rarely Drug use: Reports: none Physical Exam - General Limitations: no limitations General appearance: alert, in distress - Head Head exam: atraumatic, normocephalic, normal inspection, other (lip lesion with stitches) - Eye Eye exam: Present: normal appearance, PERRL, EOMI - ENT ENT exam: normal exam, normal oropharynx, mucous membranes moist - Neck Neck exam: Present: normal inspection, full ROM, trachea midline - Chest Chest inspection: Present: normal inspection, symmetric chest wall rise, other ( Right upper chest line) - Respiratory Respiratory exam: Present: normal lung sounds bilaterally - Cardiovascular Cardiovascular exam: Present: regular rate, normal rhythm, normal heart sounds - Abdominal Exam Abdominal exam: Present: soft, Non-Tender, normal bowel sounds. Absent: distention - Extremities Exam Extremities exam: Present: other (right arm: in sling, normal capillary refill , normal pulse, warm and dry. No swelling or edema. Severe pain with minimal movement including movement of fingers.) - Expanded Upper Extremity Exam Shoulder exam: Present: normal inspection, tenderness, other (in sling, ROM unable to elicit). Absent: swelling, abrasion Hand exam: Present: normal inspection - Neurological Exam Neurological exam: Present: alert, oriented X3, motor sensory deficit (right hand decreased sensation compared to left hand.) - Skin Skin exam: Present: warm, dry, intact, normal color Course - Consultations Consultation #1: Discussed with Dr. Burrell, recommends admission to Hospitalist. Plan for surgery tomorrow. Time: 11:16 Consultation #2: Spoke with Hospitalist Dr. Potts regarding admission. Recommended additional labs including BC, cmp, PT/INR, and lipids. Will order, but results to be followed by hospitalist. Time: 11:22 Vital Signs Temperature 98.1 F 05/03/16 09:14 Pulse Rate 82 05/03/16 09:14 Respiratory Rate 18 05/03/16 09:14 Blood Pressure 113/64 05/03/16 09:14 O2 Sat by Pulse Oximetry 99 05/03/16 09:14 Temperature 98.2 F 05/03/16 14:18 Pulse Rate 81 05/03/16 14:18 Respiratory Rate 18 05/03/16 14:18 Blood Pressure 103/67 05/03/16 14:18 O2 Sat by Pulse Oximetry 95 05/03/16 14:18 Oxygen Delivery Oxygen Delivery Room Air Medical Decision Making - Lab Data Result diagrams: 05/03/16 11:35 05/03/16 11:35 Lab Results 05/03/16 05/03/16 05/03/16 Range/Units 11:35 11:35 11:35 WBC 10.0 (4.3-11.1) K/mcL RBC 2.46 L (3.82-4.97) M/mcL Hgb 8.7 L (11.5-15.4) g/dL Hct 26.1 L (35.3-44.9) % MCV 106.1 H D (83.0-100.0) fL MCH 35.4 H (28.0-33.3) pg MCHC 33.3 (31.6-35.5) g/dL RDW 14.1 (11.5-14.5) % Plt Count 201 (140-400) K/mcL MPV 9.5 (9.4-12.4) fL Immature Gran % 0.7 (0-4) % Seg Neutrophils % 75.2 % Lymphocytes % 9.9 % Monocytes % 13.1 % Eosinophils % 0.8 % Basophils % 0.3 % Neutrophils # 7.5 (1.6-8.9) K/mcL Lymphocytes # 1.0 (0.6-4.6) K/mcL Monocytes # 1.3 (0.0-1.3) K/mcL Eosinophils # 0.1 (0.0-0.6) K/mcL Basophils # 0.0 (0.0-0.2) K/mcL PT 19.8 H D (9.4-12.1) Seconds INR 1.8 D Sodium 137 (136-145) mEq/L Potassium 5.6 H D (3.5-4.5) mEq/L Chloride 100 (98-109) mEq/L Carbon Dioxide 34 H D (19-29) mEq/L BUN 12 (7-20) mg/dL Creatinine 1.17 H (0.57-1.11) mg/dL Est GFR ( Amer) 58 L (> 60) Est GFR (Non-Af Amer) 48 L (> 60) BUN/Creatinine Ratio 10 (6-26) Glucose 100 H (70-99) mg/dL Calculated Osmolality 284 (280-300) Calcium 7.5 L (8.6-10.8) mg/dL Total Bilirubin 0.4 (0.2-1.2) mg/dL AST 17 (5-34) Units/L ALT 20 (0-55) Units/L Alkaline Phosphatase 112 (38-126) Units/L Serum Total Protein 4.3 L (6.0-8.3) g/dL Albumin 1.9 L (3.5-5.0) g/dL Globulin 2.4 (2.4-3.5) g/dL Albumin/Globulin Ratio 0.8 L (1.1-2.2) Triglycerides 57 (< 150) mg/dL Cholesterol 67 (< 200) mg/dL LDL Cholesterol, Calc 28 (0-99) mg/dL VLDL Cholesterol, Calc 11 (< 31) mg/dL HDL Cholesterol 28 L (40-59) mg/dL Cholesterol/HDL Ratio 2.4 (0-4.9) Attestation Statement - Attestation Attestation: I examined this patient and my medical decision-making was reviewed with the TONE REGULATOR/PA/Advanced Practice Nurse/Resident Physician. I agree with the documented findings, disposition and treatment plan as described except to the extent set forth below. 55-year-old who was seen here 2 days ago with a midshaft humerus fracture. Comes in with severe pain and tingling in the hand. Physical examination patient does have good pulses distally good cap refill. She can feel me touch her fingers but says that they're tingly. We will repeat the x-ray and then we will discuss the case with orthopedics.
[2016-05-03] MEDS ORDERED: 0.9 % Sodium Chloride 1,000 ML ONE (09:32)
[2016-05-03 11:42] LABS: Basophils % 0.3 %; Eosinophils # 0.1 K/mcL (0.0-0.6); Eosinophils % 0.8 %; Hematocrit 26.1 % (35.3-44.9); Hemoglobin 8.7 g/dL (11.5-15.4); Immature Granulocytes % 0.7 % (0-4); Lymphocytes % 9.9 %; Mean Corpuscular HGB Conc 33.3 g/dL (31.6-35.5); Mean Corpuscular Hemoglobin 35.4 pg (28.0-33.3); Mean Corpuscular Volume 106.1 fL (83.0-100.0); Mean Platelet Volume 9.5 fL (9.4-12.4); Monocytes # 1.3 K/mcL (0.0-1.3); Monocytes % 13.1 %; Neutrophils # 7.5 K/mcL (1.6-8.9); Platelet Count 201 K/mcL (140-400); Red Blood Count 2.46 M/mcL (3.82-4.97); Red Cell Distribution Width 14.1 % (11.5-14.5); Segmented Neutrophils % 75.2 %
[2016-05-03 11:48] LABS: INR 1.8; Prothrombin Time 19.8 Seconds (9.4-12.1)
[2016-05-03 11:56] LABS: Albumin/Globulin Ratio 0.8 (1.1-2.2); Bilirubin,Total 0.4 mg/dL (0.2-1.2); Calcium 7.5 mg/dL (8.6-10.8); Chol/HDL Ratio 2.4 (0-4.9); Globulin 2.4 g/dL (2.4-3.5); Total Protein 4.3 g/dL (6.0-8.3)
[2016-05-03 12:01] LABS: Albumin 1.9 g/dL (3.5-5.0); Potassium 5.6 mEq/L (3.5-4.5)
[2016-05-03] MEDS ORDERED: Naloxone 0.4 MG/ML INJ IVP PRN (14:35)
[2016-05-03] MEDS ORDERED: Ondansetron 4 MG/2 ML VIAL IVP PRN (14:35)
[2016-05-03] MEDS ORDERED: *HR* HYDROcodone/Acet 5/325 mg TABLET PO PRN (14:35)
[2016-05-03] MEDS ORDERED: *HR* HYDROmorphone (PF) 1 MG/ML SYRINGE IVP PRN (14:35)
[2016-05-03] MEDS ORDERED: Acetaminophen 325 MG TABLET PO PRN (14:35)
[2016-05-03] MEDS ORDERED: MOM Conc 10 ML UD.LIQ PO PRN (14:35)
[2016-05-03] MEDS ORDERED: 0.9 % Sodium Chloride 1,000 ML IVC SCH (14:45)
--- NOTE | 2016-05-03 14:49 | Internal Med History&Physical ---
<Glenny Gan - Last Filed: 05/03/16 17:14> Date of Encounter: 05/03/16 Time of Encounter: 14:15 Assessment and Plan (1) Humeral shaft fracture Current visit: No Status: Acute Pt fell at home 2 nights ago, slipped on hardwood floor in socks while trying to move IV pole for TPN and her tube feed. Was seen here that night in the ED, dx with R humerus fracture. Today she started experiencing numbness in her R hand and was told by home health to return to ED for evaluation. Dr Burrell was contacted by the ED and requested that she be admitted. Her xray today shows acute traumatic complex mildly angulated displaced fracture of the proximal humeral diaphysis. Her JENNIFER wrap was loosened while in the ED and she received some relief. She is getting minimal relief from her pain medication in the ED. Pt can move her fingers, make a fist, and move her wrist with pain, +1 R radial pulse. Dilaudid 1mg q2h prn Keep sling and splint in place Surgery tomorrow- NPO after midnight Remove rings from R hand Qualifiers: Encounter type: subsequent encounter Fracture type: closed Fracture morphology: comminuted Fracture alignment: displaced Laterality: right Fracture healing: with nonunion Qualified Code(s): S42.351K - Displaced comminuted fracture of shaft of humerus, right arm, subsequent encounter for fracture with nonunion (2) Dehydration Current visit: No Status: Chronic Pt has hospitalizations in the last 2 weeks for dehydration. History of short bowel syndrome, which causes frequent bouts of dehydration. Pt is now receiving TPN that was prescribed at [facility], which was started 4 days ago and that she and her manage at home. Pt's is bringing bag from home and it will be checked into pharmacy. IVF 0.9NS at 75ml/hour TPN from home Monitor labs (3) Anemia Current visit: No Status: Chronic Pt was just diagnosed with anemia at [facility] within the last week. She states that they are uncertain of the cause and that they are working her up for it. Qualifiers: Anemia type: other cause Other causes of anemia: chronic disease, other Qualified Code(s): D63.8 - Anemia in other chronic diseases classified elsewhere (4) Short bowel syndrome Current visit: No Status: Chronic Pt also does tube feeds via PEG, 3 cans of Osmolyte 2.1 at night. She does also eat a regular diet. Abd is distended, hyperactive bs x 4, non tender. We will start the tube feed earlier than normal so that she can be NPO for surgery. TPN will run as scheduled. (5) Stage 3 chronic kidney disease Current visit: Yes Status: Chronic Will continue to monitor labs, avoid nephrotoxins and NSAIDS. (6) Addisons disease Current visit: Yes Status: Chronic Will continue to monitor pt and labs. Continue prednisone home dose. (7) Mesenteric ischemia Current visit: Yes Status: Resolved Pt had DVT in mesenteric artery, was put on Xarelto, has since stopped per order of physician at [facility]. Internal Medicine - H&P: HPI Chief complaint: R humerus fx, increasing pain/numbness Admitted From: Home Plans for Post Hospital Care: Home History of present illness: Ms. Rice is a 55 year old female with a history of ulcerative colitis, Stage III CKD, short bowel syndrome, [place]'s, and newly diagnosed anemia that the [facility] diagnosed in the last few days and are working her up for that. Pt was hospitalized here for nausea and dehydration from 04/21-04/24. On 04/25 she went to her regular check up at [facility] and was found to be dehydrated again and was admitted from 04/25-04/29. They created a TPN for her and she attempted to get up from the couch while the IV was hanging and slipped on the hardwood floor trying to grab the pole to move it. She has a R complex mildly angulated displaced fx of her R proximal humeral diaphysis. Today she experienced numbness to her R hand and her home health aide told her to come to the ER. ER physician has already spoken to Dr. Burrell, she was already scheduled to have surgery tomorrow. Her hand is swollen, she is getting little pain relief from the pain medication. She can move all of her fingers, make a fist, cap refill is brisk, and she does have a +1 R radial pulse. Her arm is splinted with orthoglass and she said that she did receive some relief when ER loosened her JENNIFER wrap. I have spoken with her nurse about removing her rings from her R hand. Past Med Surg Social Fam HX - Past Medical History Medical history: other Psychiatric history: no psych history - Past Surgical History Surgical History: other - Social History Smoking Status: Never smoker Smokeless Tobacco Status: No Alcohol use: rarely Drug use: none Internal Medicine - H&P: Meds Copper Gluconate [Copper] 5 mg PO DAILY 02/25/15 [History] Folic Acid 1 mg PO DAILY 02/25/15 [History] Lipase/Protease/Amylase [Creon Dr 24,000 Units Capsule] 5 tab PO TIDWM 02/25/15 [History] Magnesium Oxide [Magnesium] 3 tab PO HS 02/25/15 [History] Mercaptopurine 50 mg PO DAILY 02/25/15 [History] Multivitamin Liquid [Cerovite Liquid] 9 mg PO DAILY 02/25/15 [History] Omeprazole [PriLOSEC] 40 mg PO DAILY 02/25/15 [History] PredniSONE 2.5 mg PO QPM 02/25/15 [History] PredniSONE 5 mg PO QAM 02/25/15 [History] Rivaroxaban [Xarelto] 10 mg PO DAILY 02/25/15 [History] Vitamin A Palmitate [Vitamin A] 10,000 unit PO DAILY 02/25/15 [History] Vitamin D3/Folic Acid [Ortho D 3,775 Unit-1 mg Cap] 50,000 unit PO QWEEK [History] Vitamin E (Dl,Tocopheryl Acet) [Vitamin E] 100 unit PO DAILY 02/25/15 [History] Ergocalciferol (VITAMIN D2) [Vitamin D2] 50,000 unit PO DAILY 04/21/16 [History] Zinc Acetate [Galzin] 25 mg PO DAILY 04/21/16 [History] Sodium Bicarbonate 1,300 mg PO TID tablet 04/23/16 [Rx] Potassium Chloride 20 meq PO DAILY #30 packet 04/24/16 [Rx] Cyanocobalamin (B-12) [Vitamin B12] 1 ml IJ QMONTH 05/03/16 [History] Nutritional Supplement [Osmolite 1.2 Glenn] 1 can GTUBE TID 05/03/16 [History] Allergies levofloxacin [From Levaquin] Allergy (Verified 02/25/15 10:41) Hives All Systems PM: A 10-system review of systems was performed and is negative for pertinent findings except as documented above in the HPI. - Constitutional Constitutional: falls, no weakness - Cardiovascular Cardiovascular ROS IM: no chest pain, no dyspnea, no dyspnea on exertion, no edema, no palpitations - Respiratory Respiratory: no cough, no wheezing, no chest congestion - Gastrointestinal Gastrointestinal: no abdominal pain, no diarrhea, no nausea, no vomiting - Genitourinary Genitourinary: no dysuria - Musculoskeletal Musculoskeletal ROS IM: limited range of motion, numbness Additional comments: Limited ROM to R arm d/t splint and pain. Numbness to R hand. - Neurological Neurological ROS: no dizziness, no vertigo - Constitutional Vitals: Temp Pulse Resp BP Pulse Ox 98.2 F 81 18 103/67 95 05/03/16 14:18 05/03/16 14:18 05/03/16 14:18 05/03/16 14:18 05/03/16 14:18 General appearance: Present: cooperative, A&O X 3, pleasant, answers questions appropriately. Absent: no acute distress Exam: Pt appears to be in pain, grimacing, wincing if touched. - Head Head exam: Present: atraumatic - ENT ENT exam: Present: mucous membranes moist, normal exam - Neck Neck exam general surgery: Absent: lymphadenopathy, tenderness - Respiratory Respiratory exam: Present: CTAB. Absent: chest wall tenderness, decreased breath sounds, respiratory distress, stridor, wheezes - Cardiovascular Cardiovascular exam: Present: RRR, +S1, +S2. Absent: clicks, distant heart sounds, rubs, systolic murmur, tachycardia - GI/Abdominal GI/Abdominal exam: Present: distended, hyperactive bowel sounds. Absent: tenderness Additional comments: Pt has PEG tube - Extremities Exam Extremities exam: Present: normal capillary refill, warm. Absent: pedal edema, tenderness Additional comments: As per HPI, pt has +1 R radial pulse, +2 L radial. R arm in orthoglass splint, JENNIFER, and sling. R hand swollen and movement is painful. - Expanded Upper Extremities Exam Shoulder exam: Present: normal inspection. Absent: full ROM Upper Arm exam: Present: swelling, tenderness. Absent: full ROM Hand wrist exam: Present: swelling - Neurological Exam Neurological exam: Present: alert, oriented X3, no focal deficits. Absent: facial droop, speech deficit Internal Med - H&P Results - Labs CBC & Chem 7: 05/03/16 11:35 05/03/16 11:35 <Anila Vega Jesenia - Last Filed: 05/04/16 07:29> Date of Encounter: 05/04/16 Internal Medicine - H&P: HPI History of present illness: Ms. Rice is a 55 year old female All Systems PM: A 10-system review of systems was performed and is negative for pertinent findings except as documented above in the HPI. - Constitutional Vitals: Temp Pulse Resp BP Pulse Ox 98.0 F 80 18 100/64 95 05/04/16 06:26 05/04/16 06:26 05/04/16 06:26 05/04/16 06:26 05/04/16 06:26 Internal Med - H&P Results - Labs CBC & Chem 7: 05/03/16 11:35 05/03/16 19:05 - Attending Attestation I examined this patient and reviewed laboratory, imaging and all diagnostic data on 05/03/16. My medical decision-making was reviewed with ZULEIKA Gan. I agree with the documented findings, disposition and treatment plan as described above. 55-year-old female with past medical history significant for ulcerative colitis, short bowel syndrome, Stage III CKD, Kalia's, and newly diagnosed anemia. She was recently started on TPN a few weeks ago at the [facility]. 3 days ago, she fell, sustained a R humerus fracture and was scheduled for an outpatient surgery. She came to our Ed because her pain was unbearable despite taking pain medications. Examination revealed swelling in right arm, present radial pulses and neuro intact. PLAN: pain control with IV dilaudid, dr Burrell to perform ORIF of right humerus today.
[2016-05-03] MEDS ORDERED: VITAMIN D3 PO SCH (17:00)
[2016-05-03] MEDS ORDERED: CYANOCOBALAMIN IJ SCH (17:00)
[2016-05-03] MEDS ORDERED: FOLIC ACID PO SCH (17:00)
[2016-05-03] MEDS ORDERED: Acetaminophen IV 1,000 MG/100 ML INFUS..BTL IVPB PRN (17:38)
[2016-05-03] MEDS: *HR* OxyCODONE Immed Rel 5 MG TABLET PO PRN ×2 (17:48→23:59)
[2016-05-03] MEDS ORDERED: predniSONE 5 MG TABLET PO SCH (18:00)
[2016-05-03] MEDS: 0.9 % Sodium Chloride 1,000 ML IVC SCH (18:55)
[2016-05-03] MEDS ORDERED: NON-FORMULARY MEDICATION 1 EACH EACH IV SCH (20:40)
[2016-05-03] MEDS ORDERED: Magnesium Oxide 400 MG TABLET PO SCH (21:00)
[2016-05-03] MEDS ORDERED: NUTRITIONAL SUPPLEMENT GTUBE SCH (21:00)
[2016-05-03] MEDS ORDERED: TPN MC SCH (21:00)
[2016-05-03] MEDS ORDERED: 0.9 % Sodium Chloride 500 ML IVC ONE (21:13)
[2016-05-03] MEDS: *HR* Morphine 2 MG/ML SYRINGE IVP PRN (22:18)
[2016-05-03] MEDS: Albumin 25% 25gram/100mL 25 GM/100 ML IV.SOLN IVC SCH (22:56)
[2016-05-03 23:17] LABS: Magnesium 1.4 mg/dL (1.6-2.6)
[2016-05-03] MEDS ORDERED: Calcium Gluconate 1,000 MG in D5% in Water 100 ML IVPB ONE (23:52)
[2016-05-03] MEDS ORDERED: Magnesium Sulfate 2 GM in D5% in Water 100 ML IVPB ONE (23:53)
[2016-05-04] MEDS: Albumin 25% 25gram/100mL 25 GM/100 ML IV.SOLN IVC SCH (00:36)
[2016-05-04 01:02] LABS: Bilirubin,Urine Negative (Negative); Blood,Urine Small (Negative); Clarity,Urine Clear (Clear); Color,Urine Yellow (Yellow); Glucose,Urine (UA) Normal (Normal); Ketones,Urine Negative (Negative); Leukocyte Esterase,Urine Negative (Negative); Nitrite,Urine Negative (Negative); Protein,Urine Negative (Neg-Trace); Specific Gravity,Urine 1.012 (1.010-1.025); Urobilinogen,Urine Normal (Normal)
[2016-05-04 01:05] LABS: Bacteria,Urine None Seen per hpf (None-Few); Hyaline Casts,Urine None Seen per lpf (None-Few); RBC,Urine 15-30 per hpf (0-3); Squamous Epithelial Cell,Urine Many per lpf (None-Few); WBC,Urine 0-3 per hpf (0-3)
[2016-05-04] MEDS: *HR* Morphine 2 MG/ML SYRINGE IVP PRN ×3 (03:57→12:06)
--- NOTE | 2016-05-04 06:25 | Orthopedics Progress Note ---
Date of Encounter: 05/04/16 Time of Encounter: 06:23 Subjective Interval history: Patient seen this morning has a displaced right proximal humerus fracture. Patient to surgery today open reduction internal fixation. Physical exam Right upper extremity neurovascularly intact Hand swelling no evidence of compartment syndrome Patient to surgery today open reduction internal fixation right humerus risks benefits as well as recovery were reviewed. Objective Vital signs: Vital Signs Temp Pulse Resp BP BP BP BP 05/04/16 04:39 05/04/16 04:00 97.9 F 82 16 94/54 05/04/16 00:00 98.9 F 84 17 106/59 05/03/16 21:26 103/67 87/59 91/52 05/03/16 20:00 98.1 F 91 16 88/58 05/03/16 14:18 98.2 F 81 18 103/67 05/03/16 13:46 18 91/57 Pulse Ox 05/04/16 04:39 97 05/04/16 04:00 95 05/04/16 00:00 97 05/03/16 21:26 05/03/16 20:00 97 05/03/16 14:18 95 05/03/16 13:46 Intake and Output 05/03/16 05/03/16 05/04/16 15:59 23:59 07:59 Intake Total 0 / 0 100 / 100 414 / 414 Output Total 900 / 900 Balance 0 / 0 100 / 100 -486 / -486 Intake: IV Fluids 100 / 100 414 / 414 Flexbumin 25 gm In 100 ml 200 / 200 @ 60 mls/hr IVC .Q1H40M ARIANE Rx#:[id number] Ofirmev 1,000 mg In 100 100 / 100 ml @ 400 mls/hr IVPB Q6HR PRN Rx#:[id number] Calcium Gluconate 1,000 110 / 110 MG In Dextrose 5% 100 ML @ 220 mls/hr IVPB ONCE ONE Rx#:[id number] Magnesium Sulfate 2 GM In 104 / 104 Dextrose 5% 100 ML @ 100 mls/hr IVPB ONCE ONE Rx# :[id number] Oral 0 / 0 0 / 0 Output: Urine 900 / 900 Other: Blood Glucose* 88 176 - Labs CBC & BMP: 05/03/16 11:35 05/03/16 19:05 Labs: Abnormal lab results RBC 2.46 M/mcL (3.82-4.97) L 05/03/16 11:35 Hgb 8.7 g/dL (11.5-15.4) L 05/03/16 11:35 Hct 26.1 % (35.3-44.9) L 05/03/16 11:35 MCV 106.1 fL (83.0-100.0) H D 05/03/16 11:35 MCH 35.4 pg (28.0-33.3) H 05/03/16 11:35 PT 19.8 Seconds (9.4-12.1) H D 05/03/16 11:35 Potassium 5.1 mEq/L (3.5-4.5) H 05/03/16 19:05 Carbon Dioxide 34 mEq/L (19-29) H D 05/03/16 11:35 Creatinine 1.17 mg/dL (0.57-1.11) H 05/03/16 11:35 Est GFR ( Amer) 58 (> 60) L 05/03/16 11:35 Est GFR (Non-Af Amer) 48 (> 60) L 05/03/16 11:35 Glucose 100 mg/dL (70-99) H 05/03/16 11:35 Calcium 7.5 mg/dL (8.6-10.8) L 05/03/16 11:35 Ionized Calcium 1.02 mmol/L (1.15-1.35) L 05/03/16 22:46 Phosphorus 5.0 mg/dL (2.3-4.7) H 05/03/16 22:46 Magnesium 1.4 mg/dL (1.6-2.6) L 05/03/16 22:46 Serum Total Protein 4.3 g/dL (6.0-8.3) L 05/03/16 11:35 Albumin 1.9 g/dL (3.5-5.0) L 05/03/16 11:35 Albumin/Globulin Ratio 0.8 (1.1-2.2) L 05/03/16 11:35 HDL Cholesterol 28 mg/dL (40-59) L 05/03/16 11:35 Urine Blood Small (Negative) H 05/04/16 00:54 Urine Microscopic RBC 15-30 per hpf (0-3) H 05/04/16 00:54 Ur Squamous Epith Cells Many per lpf (None-Few) H 05/04/16 00:54 Consult Discharge Plan - Plan Referrals: Abebe Renee DO [Primary Care Provider] -
[2016-05-04 07:14] LABS: Calcium 7.9 mg/dL (8.6-10.8); Magnesium 3.1 mg/dL (1.6-2.6); Phosphorous 5.6 mg/dL (2.3-4.7)
[2016-05-04 07:44] LABS: Ionized Calcium 1.04 mmol/L (1.15-1.35)
[2016-05-04] MEDS ORDERED: Patient Taking Own Medication 1 EACH PO SCH (09:00)
[2016-05-04] MEDS ORDERED: COPPER GLUCONATE PO SCH (09:00)
[2016-05-04] MEDS ORDERED: Folic Acid 1 MG TABLET PO SCH (09:00)
[2016-05-04] MEDS ORDERED: predniSONE 5 MG TABLET PO SCH (09:00)
[2016-05-04] MEDS ORDERED: Multivitamin Liquid 15 ML UDC PO SCH (09:00)
[2016-05-04] MEDS ORDERED: VITAMIN A PALMITATE 10000 UNIT PO SCH (09:00)
[2016-05-04] MEDS ORDERED: ZINC ACETATE 25 MG PO SCH (09:00)
[2016-05-04] MEDS ORDERED: Cholecalciferol (D-3) 1,000 UNIT TABLET PO SCH (09:00)
[2016-05-04] MEDS: 0.9 % Sodium Chloride 1,000 ML IVC SCH (11:43)
[2016-05-04] MEDS ORDERED: *HR* Promethazine 25 MG/ML VIAL IVP PRN (13:16)
--- NOTE | 2016-05-04 13:19 | Anesthesia Evaluation PreOp ---
Date of Encounter: 05/04/16 Time of Encounter: 13:19 - Past History Planned Operation: r humerus orif Cardiac History: Denies any Significant Hx Pulmonary History: Snore LANDSCAPE SPECIALIST History: CVA (15 years ago, lost strength in ext's but resolved) Other Medical History: Renal (ckd stage 3), Thyroid, GERD, Other (peg, tube feeds for short bowel syndrome. merced's dz, UC) Anesthesia History: No Prior Anesthetic Complications, Past Anesthesia (small bowel rsxn, peg) Alcohol Use: rarely Drug use: none Medications and Allergies Copper Gluconate [Copper] 5 mg PO DAILY 02/25/15 [History] Folic Acid 1 mg PO DAILY 02/25/15 [History] Lipase/Protease/Amylase [Creon Dr 24,000 Units Capsule] 5 tab PO TIDWM 02/25/15 [History] Magnesium Oxide [Magnesium] 3 tab PO HS 02/25/15 [History] Mercaptopurine 50 mg PO DAILY 02/25/15 [History] Multivitamin Liquid [Cerovite Liquid] 9 mg PO DAILY 02/25/15 [History] Omeprazole [PriLOSEC] 40 mg PO DAILY 02/25/15 [History] PredniSONE 2.5 mg PO QPM 02/25/15 [History] PredniSONE 5 mg PO QAM 02/25/15 [History] Rivaroxaban [Xarelto] 10 mg PO DAILY 02/25/15 [History] Vitamin A Palmitate [Vitamin A] 10,000 unit PO DAILY 02/25/15 [History] Vitamin D3/Folic Acid [Ortho D 3,775 Unit-1 mg Cap] 50,000 unit PO QWEEK [History] Vitamin E (Dl,Tocopheryl Acet) [Vitamin E] 100 unit PO DAILY 02/25/15 [History] Ergocalciferol (VITAMIN D2) [Vitamin D2] 50,000 unit PO DAILY 04/21/16 [History] Zinc Acetate [Galzin] 25 mg PO DAILY 04/21/16 [History] Sodium Bicarbonate 1,300 mg PO TID tablet 04/23/16 [Rx] Potassium Chloride 20 meq PO DAILY #30 packet 04/24/16 [Rx] Cyanocobalamin (B-12) [Vitamin B12] 1 ml IJ QMONTH 05/03/16 [History] Nutritional Supplement [Osmolite 1.2 Glenn] 1 can GTUBE TID 05/03/16 [History] Allergies levofloxacin [From Levaquin] Allergy (Verified 02/25/15 10:41) Hives - Meds/Allergy Pre-op Review Medications Reviewed: Yes (takes xarelto at home) Allergies Reviewed: Yes Beta Blockers on Current Med List: No Anesthesia Results - Labs 05/03/16 11:35 05/04/16 06:40 - Imaging EKG: report reviewed (sr) Anesthesia Exam Vital Signs/O2 Sat/Glucose, Most Current Temp Pulse Resp BP Pulse Ox 05/04/16 11:27 98.4 F 86 18 105/69 97 Height: 1.7 Weight: 58 NPO (# of Hours): >8 - HEENT Pupil (Motor): Pupils equal, EOMI Mallampati: II Teeth: Normal Oral Opening: Greater than 3 (good underbite) - LANDSCAPE SPECIALIST LOC: Oriented LANDSCAPE SPECIALIST Motor: Normal LUE, Normal RLE, Normal LLE, Normal Face, Deficit RUE LANDSCAPE SPECIALIST Sensory: Normal: LUE, RLE, LLE, Face, Deficit: RUE - Cardiac Rhythm: Regular Murmur: None - Pulmonary Breath Sounds: bilateral Clear Respiratory Effort: Symmetrical Anesthesia Assess/Plan ASA Score: 2 Modified Nolan Scale for Level of Consciousness: Cooperative, oriented, and tranquil Anesthetic Plan: General Monitoring Plan: Standard Monitors Recovery Plan: PACU
[2016-05-04] MEDS ORDERED: Hydrocortisone Sodium Succ 100 MG/2 ML VIAL ONE (13:21)
[2016-05-04] MEDS ORDERED: Dexamethasone 4 MG/ML VIAL ONE (13:26)
[2016-05-04] MEDS ORDERED: *HR* Midazolam HCl 2 MG/2 ML VIAL ONE ×2 (13:26→15:31)
[2016-05-04] MEDS ORDERED: *HR* FentaNYL (PF) 100 MCG/2 ML VIAL ONE ×3 (13:26→14:46)
[2016-05-04] MEDS ORDERED: Lidocaine -MPF 4% 5 ML AMPUL ONE (13:26)
[2016-05-04] MEDS ORDERED: *HR* Succinylcholine 200 MG/10 ML VIAL IVP ONE (13:26)
[2016-05-04] MEDS ORDERED: Lidocaine -MPF 2% 2 ML VIAL ONE (13:26)
[2016-05-04] MEDS ORDERED: Ondansetron 4 MG/2 ML VIAL ONE (13:26)
[2016-05-04] MEDS ORDERED: *HR* Propofol 200 MG/20 ML VIAL IVP ONE (13:26)
--- NOTE | 2016-05-04 15:01 | Orthopedic Operative Note ---
Date of procedure: 05/04/16 Pre-op diagnosis: Displaced comminuted right proximal humerus shaft fracture Post-op diagnosis: same Procedure: Procedure: Right open reduction internal fixation Humerus proximal humerus Estimated blood loss: 100 cc Hardware: Synthes 6-hole proximal humeral locking plate, 2 3.5 cortical screws , 8 3.5 Locking screws to superficial Procedural Notes: Comminuted fracture proximal third humeral shaft Operative procedure: The patient was brought to the operating room and placed on the operating room table. After general anesthesia was administered the operative arm was prepped and draped in the sterile surgical fashion The patient received IV antibiotics prior to skin incision. A standard extended deltopectoral approach was made to the humerus, the incision is made to the skin and subcutaneous tissue. Hemostasis was obtained with Bovie cautery. Using careful blunt dissection the deltopectoral interval was developed, exposing the fracture site. The 2 major fragments were reduced and the plate was approximated to the anterolateral aspect of the proximal humerus. It was fixed proximally with 2 locking screws and distally with one 3.5 cortical screw. Position of the hardware as well as fracture reduction was found to be acceptable with fluoroscopic assistance. The butterfly fragment was then reduced to the construct and secured with 2 super cables. These were passed subperiosteally. Fixation was completed with additional one 3.5 cortical screw and 63.5 locking screws fluoroscopic assistance confirmed good position of the hardware and good reduction of the fracture. The wound was irrigated the fracture site was packed with 5 mL of DBX bone similarly protein. the deltopectoral closed with a running #1 PDS suture case tissues irrigated and closed deep with 0 PDS suture superficially with 0 PDS suture the skin waswith skin fletcher, the patient was placed in a sterile dressing and posterior splint The patient was extubated, and then transferred to the recovery room in stable condition. Anesthesia: GETA Surgeon: Nacho Burrell Condition: stable Disposition: PACU
[2016-05-04] MEDS: *HR* HYDROmorphone (PF) 1 MG/ML SYRINGE IVP PRN ×2 (15:21→15:26)
[2016-05-04] MEDS ORDERED: Bupivacaine/Clonidine Syringe 1 EACH SYRINGE ONE (15:34)
[2016-05-04] MEDS ORDERED: *HR* Midazolam HCl 2 MG/2 ML VIAL IVP ONE (15:35)
--- NOTE | 2016-05-04 15:47 | Anesthesia Procedures ---
Date of Encounter: 05/04/16 Time of Encounter: 15:45 Procedures: Anesthesia - Nerve Block Procedure Date: 05/04/16 Time: 15:45 Allergies/Adv Reactions: levaquin Pre-op Diagnosis: r humerus fx Surgical Procedure: r humerus orif Checklist: Correct Patient Identifier, Correct procedure, History checked Correct side: Right Blood Thinner: No Monitor Applied: EKG, BP, Pulse Oximetry Supplemental Oxygen via Nasal Cannula (L/min): 2 Sedation: Versed (mg): 2 Indication: Post Op Analgesia (request by dr hutson) Block Type: Interscalene Catheter placed: No Sterile Technique: Yes Ultrasound used: Yes Anatomy identified: Yes Visual spread of Local: Yes Neuro Stimulation: No Blood on Needle Aspiration: No Smooth Injection of Local: Yes Pain with Injection of Local: No Prep: Chlorhexadine Needle: 22 x 50 mm Stimuplex Local: 0.25% Bupivicaine w/Clonidine 20 mcg/cc Volume (cc): 40 Number of Attempts: 1 Complications: None/effective block Vitals: see rn psychiatric note
[2016-05-04] MEDS ORDERED: Ringers Solution, Lactated 1,000 ML ONE (16:08)
--- NOTE | 2016-05-04 16:23 | Anesthesia Evaluation Post Op ---
Date of Encounter: 05/04/16 Time of Encounter: 16:23 - Vital Signs Vital Signs: Vital Signs/O2 Sat/Glucose, Most Current Temp Pulse Resp BP Pulse Ox 05/04/16 16:14 78 14 88/65 98 05/04/16 16:04 97.0 F L 80 14 86/61 97 05/04/16 15:54 85 14 81/55 97 05/04/16 15:44 81 14 92/58 99 05/04/16 15:34 97.1 F L 84 16 123/72 94 L 05/04/16 15:24 82 16 127/69 94 L 05/04/16 15:14 78 16 139/68 100 05/04/16 15:04 97.0 F L 75 16 141/80 99 - Lungs Lungs: Clear Ascult./Percussion - Airway Airway: Non-obstructed - Cardiovascular Regular Rate - Mental Status Mental Status: Alert & Oriented, Answers Appropriately - Pain Pain Scale: 0 - Nausea Vomiting Nausea Vomiting: Not Present - Hydration Hydration: NPO - Discharge PostOp Status: Transfer Patient to floor
[2016-05-04] MEDS ORDERED: Naloxone 0.4 MG/ML INJ IVP PRN (16:40)
[2016-05-04] MEDS ORDERED: ceFAZolin 2,000 MG in D5% in Water 100 ML IVPB SCH (16:40)
[2016-05-04] MEDS ORDERED: Temazepam 15 MG CAPSULE PO PRN (16:40)
[2016-05-04] MEDS ORDERED: Sennosides 8.6 MG TABLET PO PRN (16:40)
[2016-05-04] MEDS ORDERED: Calcium Gluconate 1,000 MG in D5% in Water 100 ML IVPB ONE (17:12)
[2016-05-04] MEDS ORDERED: Acetaminophen 325 MG TABLET PO PRN (17:12)
--- NOTE | 2016-05-04 17:14 | Internal Med Progress Note ---
<Vladimir Dai - Last Filed: 05/04/16 17:09> Date of Encounter: 05/04/16 Time of Encounter: 17:09 - Assessment and plan (1) Humerus fracture Current Visit: Yes Status: Acute Assessment and plan: Secondary to mechanical fall. POD day # 0 ORIF Postoperative care per orthopedic surgery. Currently pain is well controlled. We will give her a stress dose of steroids as she has Addisons. Qualifiers: Encounter type: subsequent encounter Humerus Location: shaft Fracture type: closed Fracture morphology: unspecified fracture morphology Laterality : unspecified laterality Fracture healing: with routine healing Qualified Code(s): S42.309D - Unspecified fracture of shaft of humerus, unspecified arm, subsequent encounter for fracture with routine healing (2) Addisons disease Current Visit: Yes Status: Chronic Assessment and plan: stress dose of steroids ordered post operatively. continue home dose of prednisone (3) Mesenteric ischemia Current Visit: Yes Status: Resolved Assessment and plan: resume Xarelto in AM (4) Macrocytic anemia Current Visit: Yes Status: Acute Assessment and plan: continue folic acid. Monitor for worsening anemia on the post operative period. (5) Hyperkalemia Current Visit: Yes Status: Acute Assessment and plan: mild trending down (6) Ulcerative colitis Current Visit: Yes Status: Acute Assessment and plan: continue mercaptopurine (7) Short bowel syndrome Current Visit: Yes Status: Acute Assessment and plan: Nutrition consulted continue TPN and tube feeds. (8) CKD (chronic kidney disease) Current Visit: Yes Status: Acute Assessment and plan: CKD 3a stable and at baseline avoid nephrotoxins and renally adjust medications as needed. (9) Hypocalcemia Current Visit: Yes Status: Acute Assessment and plan: replete (10) Hypoalbuminemia Current Visit: Yes Status: Acute Assessment and plan: continue nutrition supplementation (11) Muscular deconditioning Current Visit: Yes Status: Acute Assessment and plan: PT/OT needed agreeable to inpatient rehab if needed. (12) Protein calorie malnutrition Current Visit: Yes Status: Acute (13) DVT prophylaxis Current Visit: Yes Status: Acute Assessment and plan: EPCDs in place - Subjective Interval history: Mrs. Rice is a very pleasant 55 y.o. female with pmh of UC and Short bowel sydrome secondary to mesenteric ischemia. She is admitted after she had a mechanical fall and developed a proximal right humerus fracture. Patient is POD # 0 for right ORIF of the humerus. She also had a interscalene nerve block post surgery due to uncontrolled pain. At this time she is alert and orientated. She states that her pain is well controlled. She has some numbness in the right arm after the nerve block. She has no difficulty moving her fingers. she has no difficulty breathing. she has no further complaints or concerns at this time. Her family is present and do have some concerns that she has not had her TPN in a few days due to her hospitalizations. They will bring in tonight for her. no further complaints or concerns at this time. - Constitutional Vitals: Temp Pulse Resp BP Pulse Ox 97.6 F 94 16 100/66 100 05/04/16 16:44 05/04/16 16:44 05/04/16 16:44 05/04/16 16:44 05/04/16 16:44 General appearance: Present: cooperative, A&O X 3, pleasant, answers questions appropriately. Absent: no acute distress - Head Head exam: Present: atraumatic, normal inspection, normocephalic - Eye Eye exam: Present: PERRL, conjuntiva pink, sclera anicteric Pupils: Present: PERRL - ENT ENT exam: Present: mucous membranes moist - Neck Neck exam general surgery: Present: supple, trachea midline - Respiratory Respiratory exam: Present: CTAB. Absent: accessory muscle use, rales, rhonchi, wheezes Additional comments: she has a port in the right anterior chest wall. - Cardiovascular Cardiovascular exam: Present: RRR, +S1, +S2. Absent: diastolic murmur, gallop, rubs, systolic murmur - GI/Abdominal GI/Abdominal exam: Present: normal bowel sounds, soft, no peritoneal signs. Absent: distended, tenderness Additional comments: Peg tube in place - Extremities Exam Extremities exam: Present: warm, radial pulses palpable and symetrical. Absent : calf tenderness, cyanotic, pedal edema Additional comments: The right hand is warm to the touch. she is able to move all of her digits. radial pulse present 2+ - Skin Skin exam: Present: dry, intact Internal Medicine: Result - Labs CBC & Chem 7: 05/03/16 11:35 05/04/16 06:40 Labs: BMP 05/04/16 06:40 Sodium 139 Potassium 5.0 H Chloride 97 L Carbon Dioxide 34 H BUN 15 Creatinine 1.23 H Glucose 105 H Calcium 7.9 L - ABG Interpretation ABG results: PT/INR, D-dimer PT 19.8 Seconds (9.4-12.1) H D 05/03/16 11:35 - Impressions Impressions Fluoroscopy 05/04/16 13:55 IMPRESSION: Intraprocedural fluoroscopic spot images as above. See separate procedure report for more information. D/ / Tee Cooley MD / Tee Cooley MD Interpreting Provider: Tee Cooley MD Humerus X-Ray 05/04/16 13:55 IMPRESSION: Intraprocedural fluoroscopic spot images as above. See separate procedure report for more information. D/ / Tee Cooley MD / Tee Cooley MD Interpreting Provider: Tee Cooley MD Humerus X-Ray 05/04/16 14:55 IMPRESSION: Intraprocedural fluoroscopic spot images as above. See separate procedure report for more information. D/ / Tee Cooley MD / Tee Cooley MD Interpreting Provider: Tee Cooley MD - VTE Documentation of Mechanical Device: Intermittent pneumatic compression device Consult Discharge Plan - Plan Referrals: Lynn Coyle, PAC [Physician Socket Puller] - 05/13/16 11:00 am Abebe Renee DO [Primary Care Provider] - 10/12/16 10:30 am <Bolivar Finch H - Last Filed: 05/04/16 17:34> - Constitutional Vitals: Temp Pulse Resp BP Pulse Ox 97.7 F 96 16 91/65 98 05/04/16 17:30 05/04/16 17:30 05/04/16 17:30 05/04/16 17:30 05/04/16 17:30 Internal Medicine: Result - Labs CBC & Chem 7: 05/03/16 11:35 05/04/16 06:40 Labs: BMP 05/04/16 06:40 Sodium 139 Potassium 5.0 H Chloride 97 L Carbon Dioxide 34 H BUN 15 Creatinine 1.23 H Glucose 105 H Calcium 7.9 L - ABG Interpretation ABG results: PT/INR, D-dimer PT 19.8 Seconds (9.4-12.1) H D 05/03/16 11:35 - Impressions Impressions Fluoroscopy 05/04/16 13:55 IMPRESSION: Intraprocedural fluoroscopic spot images as above. See separate procedure report for more information. D/ / Tee Cooley MD / Tee Cooley MD Interpreting Provider: Tee Cooley MD Humerus X-Ray 05/04/16 13:55 IMPRESSION: Intraprocedural fluoroscopic spot images as above. See separate procedure report for more information. D/ / Tee Cooley MD / Tee Cooley MD Interpreting Provider: Tee Cooley MD Humerus X-Ray 05/04/16 14:55 IMPRESSION: Intraprocedural fluoroscopic spot images as above. See separate procedure report for more information. D/ / Tee Cooley MD / Tee Cooley MD Interpreting Provider: Tee Cooley MD - Attending Attestation hold Xarelto , hold potassium for mild hyperkalemia 5.1. recheck cbc in am. COntinue prednisone. I examined this patient and my medical decision-making was reviewed with the POWER REACTOR OPERATOR/PA/Advanced Practice Nurse/Resident Physician. I agree with the documented findings, disposition and treatment plan as described except to the extent set forth below.
[2016-05-04] MEDS ORDERED: Ondansetron 4 MG/2 ML VIAL IVP PRN (17:16)
[2016-05-04] MEDS ORDERED: Dexamethasone 4 MG/ML VIAL IVP ONE (17:25)
[2016-05-04] MEDS: predniSONE 5 MG TABLET PO SCH (19:54)
[2016-05-04] MEDS: ceFAZolin 2,000 MG in D5% in Water 100 ML IVPB SCH (23:11)
[2016-05-05] MEDS: ceFAZolin 2,000 MG in D5% in Water 100 ML IVPB SCH (05:31)
[2016-05-05 05:51] LABS: Hematocrit 20.5 % (35.3-44.9); Hemoglobin 6.6 g/dL (11.5-15.4); Immature Platelets 3.4 % (1.1-6.1); Mean Corpuscular HGB Conc 32.2 g/dL (31.6-35.5); Mean Corpuscular Hemoglobin 35.1 pg (28.0-33.3); Mean Platelet Volume 9.7 fL (9.4-12.4); Red Blood Count 1.88 M/mcL (3.82-4.97); Red Cell Distribution Width 14.3 % (11.5-14.5)
[2016-05-05 05:53] LABS: Calcium 7.9 mg/dL (8.6-10.8); Magnesium 1.8 mg/dL (1.6-2.6); Phosphorous 5.2 mg/dL (2.3-4.7); Potassium 4.3 mEq/L (3.5-4.5)
[2016-05-05] MEDS ORDERED: 0.9 % Sodium Chloride 250 ML IVC PRN (06:21)
[2016-05-05] MEDS ORDERED: Furosemide 20 MG/2 ML VIAL IVP ONE ×2 (06:21→15:38)
[2016-05-05] MEDS: *HR* Rivaroxaban 10 MG TABLET PO SCH (07:52)
[2016-05-05] MEDS: predniSONE 5 MG TABLET PO SCH ×2 (07:52→22:03)
[2016-05-05] MEDS: Folic Acid 1 MG TABLET PO SCH (07:52)
--- NOTE | 2016-05-05 08:47 | Orthopedics Progress Note ---
Date of Encounter: 05/05/16 Time of Encounter: 08:47 Subjective Interval history: Patient was seen this morning doing well without complaints. Afebrile vital signs stable. Operative extremity: No status still compromised from interscalene block Dressing clean dry and intact Calves nontender Assessment and plan: Continue with postoperative care Hemoglobin below 7 transfuse 2 units. Objective Vital signs: Vital Signs Temp Pulse Resp BP Pulse Ox 05/05/16 06:21 98.2 F 85 16 102/55 96 05/05/16 05:19 93 L 05/05/16 04:00 98.1 F 77 17 91/57 93 L 05/05/16 00:00 97.9 F 88 17 97/57 98 05/04/16 19:45 98.6 F 110 16 88/63 98 05/04/16 18:15 98.9 F 93 16 99/69 98 05/04/16 17:30 97.7 F 96 16 91/65 98 05/04/16 16:44 97.6 F 94 16 100/66 100 05/04/16 16:24 97.9 F 83 14 92/62 98 05/04/16 16:14 78 14 88/65 98 05/04/16 16:04 97.0 F L 80 14 86/61 97 05/04/16 15:54 85 14 81/55 97 05/04/16 15:44 81 14 92/58 99 05/04/16 15:34 97.1 F L 84 16 123/72 94 L 05/04/16 15:24 82 16 127/69 94 L 05/04/16 15:14 78 16 139/68 100 05/04/16 15:04 97.0 F L 75 16 141/80 99 05/04/16 11:27 98.4 F 86 18 105/69 97 Intake and Output 05/04/16 05/05/16 05/05/16 23:59 07:59 15:59 Intake Total 450 / 450 1026 / 1026 Output Total 450 / 450 350 / 350 Balance 0 / 0 / 676 Intake: IV Fluids 100 / 100 100 / 100 Ancef 2,000 MG In 100 / 100 100 / 100 Dextrose 5% 100 ML @ 200 mls/hr IVPB Q8H COUNTS INCLUDE 234 BEDS AT THE [facility] Rx#: [id number] Oral 350 / 350 250 / 250 Tube Feeding 676 / 676 Output: Urine 450 / 450 350 / 350 Other: Blood Glucose* 139 171 - Labs CBC & BMP: 05/05/16 05:46 05/05/16 04:50 Labs: Abnormal lab results RBC 1.88 M/mcL (3.82-4.97) L 05/05/16 05:46 Hgb 6.6 g/dL (11.5-15.4) L D 05/05/16 05:46 Hct 20.5 % (35.3-44.9) L 05/05/16 05:46 MCV 109.0 fL (83.0-100.0) H 05/05/16 05:46 MCH 35.1 pg (28.0-33.3) H 05/05/16 05:46 PT 19.8 Seconds (9.4-12.1) H D 05/03/16 11:35 Creatinine 1.42 mg/dL (0.57-1.11) H 05/05/16 04:50 Est GFR ( Amer) 47 (> 60) L 05/05/16 04:50 Est GFR (Non-Af Amer) 39 (> 60) L 05/05/16 04:50 Glucose 177 mg/dL (70-99) H 05/05/16 04:50 POC Glucose 219 (58-89) H 05/05/16 00:28 Calcium 7.9 mg/dL (8.6-10.8) L 05/05/16 04:50 Ionized Calcium 1.04 mmol/L (1.15-1.35) L 05/04/16 06:40 Phosphorus 5.2 mg/dL (2.3-4.7) H 05/05/16 04:50 Serum Total Protein 4.3 g/dL (6.0-8.3) L 05/03/16 11:35 Albumin 1.9 g/dL (3.5-5.0) L 05/03/16 11:35 Albumin/Globulin Ratio 0.8 (1.1-2.2) L 05/03/16 11:35 HDL Cholesterol 28 mg/dL (40-59) L 05/03/16 11:35 Urine Blood Small (Negative) H 05/04/16 00:54 Urine Microscopic RBC 15-30 per hpf (0-3) H 05/04/16 00:54 Ur Squamous Epith Cells Many per lpf (None-Few) H 05/04/16 00:54 - VTE Documentation of Mechanical Device: Venous foot pump, device Consult Discharge Plan - Plan Referrals: Lynn Coyle, PAC [Physician Press Tender Smoke Signal] - 05/13/16 11:00 am Abebe Renee DO [Primary Care Provider] - 10/12/16 10:30 am
[2016-05-05] MEDS ORDERED: Multivitamin Liquid 15 ML UDC GTUBE SCH (09:00)
[2016-05-05] MEDS: *HR* OxyCODONE Immed Rel 5 MG TABLET PO PRN ×3 (09:27→22:04)
[2016-05-05] MEDS: *HR* HYDROmorphone (PF) 1 MG/ML SYRINGE IVP PRN ×4 (11:48→23:32)
--- NOTE | 2016-05-05 14:04 | Internal Med Progress Note ---
<Vladimir Dai - Last Filed: 05/05/16 13:56> Date of Encounter: 05/05/16 Time of Encounter: 13:58 - Assessment and plan (1) Humerus fracture Current Visit: Yes Status: Acute Assessment and plan: Secondary to mechanical fall. ORIF of the right humerus on 05/04/15 Postoperative care per orthopedic surgery. Currently pain is well controlled. hand is neurovascularly in tact. Qualifiers: Encounter type: subsequent encounter Humerus Location: shaft Fracture type: closed Fracture morphology: unspecified fracture morphology Laterality : unspecified laterality Fracture healing: with routine healing Qualified Code(s): S42.309D - Unspecified fracture of shaft of humerus, unspecified arm, subsequent encounter for fracture with routine healing (2) Addisons disease Current Visit: Yes Status: Chronic Assessment and plan: continue home dose of prednisone (3) Mesenteric ischemia Current Visit: Yes Status: Resolved Assessment and plan: resume Xarelto (4) Macrocytic anemia Current Visit: Yes Status: Acute Assessment and plan: continue folic acid. Hg dropped to 6.6. Likely from operative losses. 2 orders PRBC ordered this AM. However she is just now receiving her first unit. follow up Hg post transfusion. additionally she states she has not been taking her B12 for several weeks. Has also not been taking her copper ( rare cause of anemia but can happen in patients with short bowel syndrome) check B12 and copper. (5) Hyperkalemia Current Visit: Yes Status: Acute Assessment and plan: resolved (6) Ulcerative colitis Current Visit: Yes Status: Acute Assessment and plan: continue mercaptopurine (7) Short bowel syndrome Current Visit: Yes Status: Acute Assessment and plan: Nutrition consulted continue TPN and tube feeds. (8) CKD (chronic kidney disease) Current Visit: Yes Status: Acute Assessment and plan: CKD 3a mild trend up and at baseline continue hydration. Also getting 2 units of blood. avoid nephrotoxins and renally adjust medications as needed. (9) Hypoalbuminemia Current Visit: Yes Status: Acute Assessment and plan: continue nutrition supplementation (10) Muscular deconditioning Current Visit: Yes Status: Acute Assessment and plan: PT/OT needed agreeable to inpatient rehab if needed. (11) Protein calorie malnutrition Current Visit: Yes Status: Acute (12) DVT prophylaxis Current Visit: Yes Status: Acute Assessment and plan: EPCDs in place On Xarelto - Subjective Interval history: Mrs. Rice is a very pleasant 55 y.o. female with pmh of Ulcerative colitis and Short bowel syndrome secondary to mesenteric ischemia. She is admitted after she had a mechanical fall and developed a proximal right humerus fracture. Patient is POD # 1 for right ORIF of the humerus. She also had a interscalene nerve block post surgery due to uncontrolled pain. Today she states that she is feeling much better. She states that her pain is well controlled. She is using the Incentive spirometer. She denies any chest pain, cough or wheeze. She has had no bowel movements sne surgery. She is passing flatus. Seh states that she has had a meal and tolerated this. she is also receiving her home tube feeds. She denies any syncope or presyncope. She has no further complaints or concerns a this time. - Constitutional Vitals: Temp Pulse Resp BP Pulse Ox 98.8 F 82 16 117/70 98 05/05/16 11:44 05/05/16 11:44 05/05/16 11:44 05/05/16 11:44 05/05/16 11:44 General appearance: Present: cooperative, A&O X 3, pleasant, answers questions appropriately. Absent: no acute distress - Head Head exam: Present: atraumatic, normal inspection, normocephalic - Eye Eye exam: Present: PERRL, conjuntiva pink, sclera anicteric Pupils: Present: PERRL - ENT ENT exam: Present: mucous membranes moist - Neck Neck exam general surgery: Present: supple, trachea midline. Absent: lymphadenopathy - Respiratory Respiratory exam: Present: CTAB. Absent: accessory muscle use, rales, rhonchi, wheezes - Cardiovascular Cardiovascular exam: Present: RRR, +S1, +S2. Absent: diastolic murmur, gallop, rubs, systolic murmur - GI/Abdominal GI/Abdominal exam: Present: normal bowel sounds, soft, no peritoneal signs. Absent: distended, tenderness Additional comments: Peg tube in place. - Extremities Exam Extremities exam: Present: warm, radial pulses palpable and symetrical. Absent : calf tenderness, cyanotic, pedal edema Additional comments: The right hand is wam. She is able to move all her digits. Normal sensation. pulses in tact. - Skin Skin exam: Present: dry, intact Internal Medicine: Result - Labs CBC & Chem 7: 05/05/16 05:46 05/05/16 04:50 Labs: Short CBC 05/05/16 Range/Units 05:46 WBC 7.0 (4.3-11.1) K/mcL Hgb 6.6 L D (11.5-15.4) g/dL Hct 20.5 L (35.3-44.9) % Plt Count 171 (140-400) K/mcL BMP 05/05/16 04:50 Sodium 141 Potassium 4.3 Chloride 106 Carbon Dioxide 26 BUN 18 Creatinine 1.42 H Glucose 177 H Calcium 7.9 L - ABG Interpretation ABG results: PT/INR, D-dimer PT 19.8 Seconds (9.4-12.1) H D 05/03/16 11:35 - Impressions Impressions Fluoroscopy 05/04/16 13:55 IMPRESSION: Intraprocedural fluoroscopic spot images as above. See separate procedure report for more information. D/ / Tee Cooley MD / Tee Cooley MD Interpreting Provider: Tee Cooley MD Humerus X-Ray 05/04/16 13:55 IMPRESSION: Intraprocedural fluoroscopic spot images as above. See separate procedure report for more information. D/ / Tee Cooley MD / Tee Cooley MD Interpreting Provider: Tee Cooley MD Humerus X-Ray 05/04/16 14:55 IMPRESSION: Intraprocedural fluoroscopic spot images as above. See separate procedure report for more information. D/ / Tee Cooley MD / Tee Cooley MD Interpreting Provider: Tee Cooley MD - VTE Documentation of Mechanical Device: Venous foot pump, device Consult Discharge Plan - Plan Referrals: Lynn Coyle, PAC [Physician Hydraulic Boom Operator] - 05/13/16 11:00 am Abebe Renee DO [Primary Care Provider] - 10/12/16 10:30 am <Bolivar Finch H - Last Filed: 05/05/16 15:35> - Constitutional Vitals: Temp Pulse Resp BP Pulse Ox 98.8 F 82 16 117/72 97 05/05/16 15:05 05/05/16 11:44 05/05/16 15:05 05/05/16 15:05 05/05/16 15:05 Internal Medicine: Result - Labs CBC & Chem 7: 05/05/16 05:46 05/05/16 04:50 Labs: Short CBC 05/05/16 Range/Units 05:46 WBC 7.0 (4.3-11.1) K/mcL Hgb 6.6 L D (11.5-15.4) g/dL Hct 20.5 L (35.3-44.9) % Plt Count 171 (140-400) K/mcL BMP 05/05/16 04:50 Sodium 141 Potassium 4.3 Chloride 106 Carbon Dioxide 26 BUN 18 Creatinine 1.42 H Glucose 177 H Calcium 7.9 L - ABG Interpretation ABG results: PT/INR, D-dimer PT 19.8 Seconds (9.4-12.1) H D 05/03/16 11:35 - Attending Attestation transfuse 2 units of RBCs today. May use Lasix 20 mg IV one time recheck CBC in am , consider discharging in am if stable and placement is found I examined this patient and my medical decision-making was reviewed with the TOOL SHARPENER/PA/Advanced Practice Nurse/Resident Physician. I agree with the documented findings, disposition and treatment plan as described except to the extent set forth below.
[2016-05-06] MEDS: *HR* HYDROmorphone (PF) 1 MG/ML SYRINGE IVP PRN ×4 (03:11→13:59)
[2016-05-06 04:01] LABS: Bilirubin,Total 0.6 mg/dL (0.2-1.2); Calcium 8.3 mg/dL (8.6-10.8); Globulin 2.4 g/dL (2.4-3.5); Magnesium 1.6 mg/dL (1.6-2.6); Phosphorous 2.7 mg/dL (2.3-4.7); Potassium 4.8 mEq/L (3.5-4.5); Total Protein 4.8 g/dL (6.0-8.3)
[2016-05-06 04:02] LABS: Hematocrit 28.8 % (35.3-44.9); Immature Granulocytes % 0.7 % (0-4); Lymphocytes # 1.2 K/mcL (0.6-4.6); Lymphocytes % 14.5 %; Mean Corpuscular HGB Conc 32.6 g/dL (31.6-35.5); Mean Corpuscular Hemoglobin 32.4 pg (28.0-33.3); Mean Platelet Volume 9.8 fL (9.4-12.4); Monocytes # 0.5 K/mcL (0.0-1.3); Monocytes % 5.9 %; Neutrophils # 6.3 K/mcL (1.6-8.9); Platelet Count 166 K/mcL (140-400); Red Cell Distribution Width 21.5 % (11.5-14.5); Segmented Neutrophils % 78.9 %
[2016-05-06 04:05] LABS: Albumin 2.4 g/dL (3.5-5.0)
[2016-05-06] MEDS: *HR* OxyCODONE Immed Rel 5 MG TABLET PO PRN ×3 (04:20→18:25)
[2016-05-06 04:30] LABS: Hemoglobin 9.4 g/dL (11.5-15.4); Mean Corpuscular Volume 99.3 fL (83.0-100.0)
[2016-05-06 05:02] LABS: Ionized Calcium 1.19 mmol/L (1.15-1.35)
--- NOTE | 2016-05-06 08:35 | Discharge Summary ---
- Discharge Medications Prescriptions: Clindamycin [Cleocin] 150 mg PO Q6HR #8 capsule OxyCODONE Immed Rel [Roxicodone 5 MG] 5 - 10 mg PO Q6HR PRN #40 tablet PRN Reason: Pain Home Medications: Copper Gluconate [Copper] 5 mg PO DAILY 02/25/15 [History] Folic Acid 1 mg PO DAILY 02/25/15 [History] Lipase/Protease/Amylase [Creon Dr 24,000 Units Capsule] 5 tab PO TIDWM 02/25/15 [History] Magnesium Oxide [Magnesium] 3 tab PO HS 02/25/15 [History] Mercaptopurine 50 mg PO DAILY 02/25/15 [History] Multivitamin Liquid [Cerovite Liquid] 9 mg PO DAILY 02/25/15 [History] Omeprazole [PriLOSEC] 40 mg PO DAILY 02/25/15 [History] PredniSONE 2.5 mg PO QPM 02/25/15 [History] PredniSONE 5 mg PO QAM 02/25/15 [History] Rivaroxaban [Xarelto] 10 mg PO DAILY 02/25/15 [History] Vitamin A Palmitate [Vitamin A] 10,000 unit PO DAILY 02/25/15 [History] Vitamin D3/Folic Acid [Ortho D 3,775 Unit-1 mg Cap] 50,000 unit PO QWEEK [History] Vitamin E (Dl,Tocopheryl Acet) [Vitamin E] 100 unit PO DAILY 02/25/15 [History] Ergocalciferol (VITAMIN D2) [Vitamin D2] 50,000 unit PO DAILY 04/21/16 [History] Zinc Acetate [Galzin] 25 mg PO DAILY 04/21/16 [History] Sodium Bicarbonate 1,300 mg PO TID tablet 04/23/16 [Rx] Potassium Chloride 20 meq PO DAILY #30 packet 04/24/16 [Rx] Cyanocobalamin (B-12) [Vitamin B12] 1 ml IJ QMONTH 05/03/16 [History] Nutritional Supplement [Osmolite 1.2 Glenn] 1 can GTUBE TID 05/03/16 [History] Clindamycin [Cleocin] 150 mg PO Q6HR #8 capsule 05/06/16 [Rx] OxyCODONE Immed Rel [Roxicodone 5 MG] 5 - 10 mg PO Q6HR PRN #40 tablet 05/06/16 [Rx] Allergies/Adverse Reactions: Allergies levofloxacin [From Levaquin] Allergy (Verified 02/25/15 10:41) Hives Labs on day of discharge: Labs from last 24 hours 05/06/16 05/06/16 05/03/16 03:35 03:35 23:25 WBC 8.0 RBC 2.90 L Hgb 9.4 L D Hct 28.8 L MCV 99.3 D MCH 32.4 MCHC 32.6 RDW 21.5 H Plt Count 166 MPV 9.8 Immature Gran % 0.7 Seg Neutrophils % 78.9 Lymphocytes % 14.5 Monocytes % 5.9 Eosinophils % 0.0 Basophils % 0.0 Neutrophils # 6.3 Lymphocytes # 1.2 Monocytes # 0.5 Eosinophils # 0.0 Basophils # 0.0 Sodium 140 Potassium 4.8 H Chloride 107 Carbon Dioxide 26 BUN 18 Creatinine 1.42 H Est GFR ( Amer) 47 L Est GFR (Non-Af Amer) 39 L BUN/Creatinine Ratio 13 Glucose 105 H Calculated Osmolality 292 Calcium 8.3 L Ionized Calcium 1.19 Phosphorus 2.7 Magnesium 1.6 Total Bilirubin 0.6 AST 24 ALT 10 Alkaline Phosphatase 120 Serum Total Protein 4.8 L Albumin 2.4 L D Globulin 2.4 Albumin/Globulin Ratio 1.0 L Blood Type A NEGATIVE Antibody Screen NEGATIVE Crossmatch See Detail - Impressions ITS Impressions Fluoroscopy 05/04/16 13:55 IMPRESSION: Intraprocedural fluoroscopic spot images as above. See separate procedure report for more information. D/ / Tee Cooley MD / Tee Cooley MD Interpreting Provider: Tee Cooley MD Humerus X-Ray 05/04/16 13:55 IMPRESSION: Intraprocedural fluoroscopic spot images as above. See separate procedure report for more information. D/ / Tee Cooley MD / Tee Cooley MD Interpreting Provider: Tee Cooley MD Humerus X-Ray 05/04/16 14:55 IMPRESSION: Intraprocedural fluoroscopic spot images as above. See separate procedure report for more information. D/ / Tee Cooley MD / Tee Cooley MD Interpreting Provider: Tee Cooley MD Date of admission: 05/03/16 13:16 Primary care physician: Abebe Renee Consults: 05/04/16 16:40 Consult to Occupational Therapy [CONS] Routine Comment: post shoulder surgery - wrist motion only Consult to Physical Therapy [CONS] Routine Comment: post shoulder surgery - wrist motion only RT Post Op Consult [CONS] Routine 05/04/16 17:51 Consult to Occupational Therapy [CONS] Routine Comment: Evaluate, develop and implement POC Consult to Physical Therapy [CONS] Routine Comment: Evaluate, develop and implement POC Consult to Coil Winder [CONS] Routine Reason for SW Consult: . - Patient Status Condition: Fair - Discharge Instructions Follow Up With: Lynn Coyle PAC [Physician Hammer Setter] - 05/13/16 11:00 am Abebe Renee DO [Primary Care Provider] - 10/12/16 10:30 am - Hospital Course Hospital course: Ms. Rice is a 55 year old female - Time Spent with Patient Total time spent providing and/or coordinating discharge services: - VTE Documentation of Mechanical Device: Intermittent pneumatic compression device
--- NOTE | 2016-05-06 08:38 | Orthopedics Progress Note ---
Date of Encounter: 05/06/16 Time of Encounter: 08:36 - Assessment and Plan (1) Humerus fracture Current Visit: Yes Status: Acute Patient doing well - Afebrile; Vitals stable. Improved H/H - Transfused yesterday. Dressing - 75% saturated with blood; no erythema, minimal ecchymosis. Shoulder ROM limited. Hand and finger ROM intact; NV intact distally. No Shoulder ROM, Remain in brace at all times. Hand and Wrist ROM as tolerated. ICE and elevate as tolerated Plan for D/C to [facility] today. Ortho Signing off. Subjective Principal diagnosis: Humerus ORIF Interval history: Patient doing well - Afebrile; Vitals stable. Improved H/H Dressing - 75% saturated with blood; no erythema, minimal ecchymosis. Shoulder ROM limited. Hand and finger ROM intact; NV intact distally. No Shoulder ROM, Remain in brace Objective Vital signs: Vital Signs Temp Pulse Resp BP Pulse Ox 05/06/16 06:25 98.6 F 77 18 154/85 100 05/06/16 00:15 98.0 F 91 19 109/99 94 L 05/05/16 19:30 99.2 F 85 14 111/67 97 05/05/16 17:01 99.1 F 84 16 114/75 96 05/05/16 17:00 99.2 F 85 14 111/67 97 05/05/16 16:45 99 F 83 18 126/76 98 05/05/16 15:15 99.4 F 83 16 114/72 97 05/05/16 15:05 98.8 F 16 117/72 97 05/05/16 11:44 98.8 F 82 16 117/70 98 05/05/16 11:29 98.6 F 88 16 114/70 99 05/05/16 10:20 98.6 F 97 16 104/69 97 Intake and Output 05/05/16 05/06/16 05/06/16 23:59 07:59 15:59 Intake Total 500 / 500 Output Total 400 / 400 300 / 300 Balance 100 / 100 -300 / -300 Intake: Oral 200 / 200 Blood Product 300 / 300 Rbcs Leuko Poor As-1 300 / 300 Unit [id number] Output: Urine 400 / 400 300 / 300 Other: Stool Size Large Stool Consistency liquid Stool Characteristics Normal for Patient Stool Color Brown # Voids 2 Incision: swollen, clean and dry - Labs CBC & BMP: 05/06/16 03:35 05/06/16 03:35 Labs: Abnormal lab results RBC 2.90 M/mcL (3.82-4.97) L 05/06/16 03:35 Hgb 9.4 g/dL (11.5-15.4) L D 05/06/16 03:35 Hct 28.8 % (35.3-44.9) L 05/06/16 03:35 RDW 21.5 % (11.5-14.5) H 05/06/16 03:35 PT 19.8 Seconds (9.4-12.1) H D 05/03/16 11:35 Potassium 4.8 mEq/L (3.5-4.5) H 05/06/16 03:35 Creatinine 1.42 mg/dL (0.57-1.11) H 05/06/16 03:35 Est GFR ( Amer) 47 (> 60) L 05/06/16 03:35 Est GFR (Non-Af Amer) 39 (> 60) L 05/06/16 03:35 Glucose 105 mg/dL (70-99) H 05/06/16 03:35 POC Glucose 219 (58-89) H 05/05/16 00:28 Calcium 8.3 mg/dL (8.6-10.8) L 05/06/16 03:35 Serum Total Protein 4.8 g/dL (6.0-8.3) L 05/06/16 03:35 Albumin 2.4 g/dL (3.5-5.0) L D 05/06/16 03:35 Albumin/Globulin Ratio 1.0 (1.1-2.2) L 05/06/16 03:35 HDL Cholesterol 28 mg/dL (40-59) L 05/03/16 11:35 Urine Blood Small (Negative) H 05/04/16 00:54 Urine Microscopic RBC 15-30 per hpf (0-3) H 05/04/16 00:54 Ur Squamous Epith Cells Many per lpf (None-Few) H 05/04/16 00:54 - VTE Documentation of Mechanical Device: Intermittent pneumatic compression device Consult Discharge Plan - Plan Referrals: Lynn Coyle, PAC [Physician Washtub Worker Helper] - 05/13/16 11:00 am Abebe Renee DO [Primary Care Provider] - 10/12/16 10:30 am Prescriptions: Clindamycin [Cleocin] 150 mg PO Q6HR #8 capsule OxyCODONE Immed Rel [Roxicodone 5 MG] 5 - 10 mg PO Q6HR PRN #40 tablet PRN Reason: Pain
[2016-05-06] MEDS ORDERED: Multivit/Ca/Min/Fe/FA 1 TAB TABLET PO SCH (09:00)
[2016-05-06] MEDS: predniSONE 5 MG TABLET PO SCH (09:57)
[2016-05-06] MEDS: *HR* Rivaroxaban 10 MG TABLET PO SCH (09:57)
[2016-05-06] MEDS: Folic Acid 1 MG TABLET PO SCH (09:57)
--- NOTE | 2016-05-06 12:12 | Discharge Summary ---
<SuhasVladimir - Last Filed: 05/06/16 12:52> Date of Encounter: 05/06/16 Time of Encounter: 12:08 - Discharge Diagnosis (1) Humerus fracture Priority: Primary Status: Acute Qualifiers: Encounter type: subsequent encounter Humerus Location: shaft Fracture type: closed Fracture morphology: unspecified fracture morphology Laterality : unspecified laterality Fracture healing: with routine healing Qualified Code(s): S42.309D - Unspecified fracture of shaft of humerus, unspecified arm, subsequent encounter for fracture with routine healing (2) Addisons disease Priority: Secondary Status: Chronic (3) Mesenteric ischemia Priority: Secondary Status: Resolved (4) Macrocytic anemia Priority: Secondary Status: Acute (5) Hyperkalemia Priority: Secondary Status: Acute (6) Ulcerative colitis Priority: Secondary Status: Acute (7) Short bowel syndrome Priority: Secondary Status: Acute (8) CKD (chronic kidney disease) Priority: Secondary Status: Acute (9) Hypoalbuminemia Priority: Secondary Status: Acute (10) Muscular deconditioning Priority: Secondary Status: Acute (11) Protein calorie malnutrition Priority: Secondary Status: Acute (12) DVT prophylaxis Priority: Secondary Status: Acute - Discharge Medications Prescriptions: OxyCODONE Immed Rel [Roxicodone 5 MG] 10 mg PO Q6HR PRN 28 Days PRN Reason: moderate pain Home Medications: Copper Gluconate [Copper] 5 mg PO DAILY 02/25/15 [History] Folic Acid 1 mg PO DAILY 02/25/15 [History] Lipase/Protease/Amylase [Creon Dr 24,000 Units Capsule] 5 tab PO TIDWM 02/25/15 [History] Magnesium Oxide [Magnesium] 3 tab PO HS 02/25/15 [History] Mercaptopurine 50 mg PO DAILY 02/25/15 [History] Multivitamin Liquid [Cerovite Liquid] 9 mg PO DAILY 02/25/15 [History] Omeprazole [PriLOSEC] 40 mg PO DAILY 02/25/15 [History] PredniSONE 2.5 mg PO QPM 02/25/15 [History] PredniSONE 5 mg PO QAM 02/25/15 [History] Rivaroxaban [Xarelto] 10 mg PO DAILY 02/25/15 [History] Vitamin A Palmitate [Vitamin A] 10,000 unit PO DAILY 02/25/15 [History] Vitamin D3/Folic Acid [Ortho D 3,775 Unit-1 mg Cap] 50,000 unit PO QWEEK [History] Vitamin E (Dl,Tocopheryl Acet) [Vitamin E] 100 unit PO DAILY 02/25/15 [History] Ergocalciferol (VITAMIN D2) [Vitamin D2] 50,000 unit PO DAILY 04/21/16 [History] Zinc Acetate [Galzin] 25 mg PO DAILY 04/21/16 [History] Sodium Bicarbonate 1,300 mg PO TID tablet 04/23/16 [Rx] Potassium Chloride 20 meq PO DAILY #30 packet 04/24/16 [Rx] Cyanocobalamin (B-12) [Vitamin B12] 1 ml IJ QMONTH 05/03/16 [History] Nutritional Supplement [Osmolite 1.2 Lgenn] 1 can GTUBE TID 05/03/16 [History] Ergocalciferol (VITAMIN D2) [Drisdol (50,000 Unit)] 50,000 unit PO QWEEK capsule 05/06/16 [Rx] Multivit/Ca/Min/Fe/FA [Thera M Plus] 1 tab PO DAILY tablet 05/06/16 [Rx] OxyCODONE Immed Rel [Roxicodone 5 MG] 10 mg PO Q6HR PRN 28 Days 05/06/16 [Rx] Allergies/Adverse Reactions: Allergies levofloxacin [From Levaquin] Allergy (Verified 02/25/15 10:41) Hives Date of admission: 05/03/16 13:16 Primary care physician: Abebe Renee Consults: 05/04/16 16:40 Consult to Occupational Therapy [CONS] Routine Comment: post shoulder surgery - wrist motion only Consult to Physical Therapy [CONS] Routine Comment: post shoulder surgery - wrist motion only RT Post Op Consult [CONS] Routine 05/04/16 17:51 Consult to Occupational Therapy [CONS] Routine Comment: Evaluate, develop and implement POC Consult to Physical Therapy [CONS] Routine Comment: Evaluate, develop and implement POC Consult to Quarantine Officer [CONS] Routine Reason for SW Consult: . Discharging clinician: Vladimir Dai Anticipated date of discharge: 05/06/16 - Patient Status Disposition: Transfer SNF Condition: Fair Functional capacity at discharge: independent ambulation Overall status at discharge: patient is progressing back to baseline - Ambulatory Orders Ambulatory Orders: Basic Metabolic Panel [CHEM] Time Frame: 3 Days, Location: Any lab Ionized Calcium [CHEM] Time Frame: 3 Days, Location: Any lab Complete Blood Count [HEME] Time Frame: 3 Days, Location: Any lab Magnesium [CHEM] Time Frame: 3 Days, Location: any lab Phosphorous [CHEM] Time Frame: 3 Days, Location: any lab - Discharge Instructions Follow Up With: Lynn Coyle PAC [Physician Roof Bolter Operator] - 05/13/16 11:00 am Abebe Renee DO [Primary Care Provider] - 10/12/16 10:30 am - Diet and Activity Activity: as per physical therapy Diet: advance to your usual diet, other (continue home TPN and tube feedings. ) Hospital course: Ms. Rice is a 55 year old female with PMH of ulcerative colitis, short bowel syndrome, and chronic mesenteric ischemia ( on Xarelto). She was admitted after she had a mechanical fall and had a fracture of the proximal humerus. She would undergo ORIF of the right humerus. She alos had anemia when she was admitted. After The surgical procedure she did require 2 units of PRBC. Her Hg mick appropriately. No signs of any bleeding. She did states that she had been off of her folic acid , copper and B12 for the past several weeks. I think this is likely the etiology of her anemia given it is macrocytic. We did check a MMa and copper which are pending. She will resume her supplements. Today her hand is neurovascularly intact. No major abnormalities on her lab work. Vital stable. Afebrile. She is tolerating a diet and having her normal bowel movements ( loose)We will discharge her to inpatient rehab with f/u to her PCP and Orhtopedics. We will discharge her with some PO pain medications. Other jett no changes to her home med list. She is agreeable to and voices understanding of this plan. - Time Spent with Patient Total time spent providing and/or coordinating discharge services: Greater than 30 minutes (approximately 52 minutes spent discuusing with patient and social sciences chair.) - Constitutional Vitals: Temp Pulse Resp BP Pulse Ox 98.5 F 78 18 131/88 99 05/06/16 11:03 05/06/16 11:03 05/06/16 11:03 05/06/16 11:03 05/06/16 11:03 General appearance: Present: cooperative, A&O X 3, pleasant, answers questions appropriately. Absent: no acute distress - Head Head exam: Present: atraumatic, normocephalic - Eye Eye exam: Present: PERRL, conjuntiva pink, sclera anicteric Pupils: Present: PERRL - Neck Neck exam general surgery: Present: supple, trachea midline. Absent: lymphadenopathy - Respiratory Respiratory exam: Present: CTAB. Absent: accessory muscle use, rales, rhonchi, wheezes - Cardiovascular Cardiovascular exam: Present: RRR, +S1, +S2. Absent: diastolic murmur, gallop, rubs, systolic murmur - GI/Abdominal GI/Abdominal exam: Present: normal bowel sounds, soft, no peritoneal signs. Absent: distended, tenderness Additional comments: PEG tube in place - Extremities Exam Extremities exam: Present: warm, radial pulses palpable and symetrical. Absent : calf tenderness, cyanotic, pedal edema Additional comments: Right arm well dressed with minimal shadowing. right hand is neurovascularly in tact. - Skin Skin exam: Present: dry, intact - VTE Documentation of Mechanical Device: Intermittent pneumatic compression device <Bolivar Finch - Last Filed: 05/06/16 13:21> Date of admission: 05/03/16 13:16 Primary care physician: Abebe Renee Consults: 05/04/16 16:40 Consult to Occupational Therapy [CONS] Routine Comment: post shoulder surgery - wrist motion only Consult to Physical Therapy [CONS] Routine Comment: post shoulder surgery - wrist motion only RT Post Op Consult [CONS] Routine 05/04/16 17:51 Consult to Occupational Therapy [CONS] Routine Comment: Evaluate, develop and implement POC Consult to Physical Therapy [CONS] Routine Comment: Evaluate, develop and implement POC Consult to Quarantine Officer [CONS] Routine Reason for SW Consult: . Hospital course: Ms. Rice is a 55 year old female - Time Spent with Patient Total time spent providing and/or coordinating discharge services: - Constitutional Vitals: Temp Pulse Resp BP Pulse Ox 98.5 F 78 18 131/88 99 05/06/16 11:03 05/06/16 11:03 05/06/16 11:03 05/06/16 11:03 05/06/16 11:03 - Attending Attestation discharge if placement is arranged I examined this patient and my medical decision-making was reviewed with the ETL DATABASE DEVELOPER/PA/Advanced Practice Nurse/Resident Physician. I agree with the documented findings, disposition and treatment plan as described except to the extent set forth below.
--- NOTE | 2016-05-06 12:26 | Physician Discharge Referral ---
<Vladimir Dai - Last Filed: 05/06/16 12:24> [facility] Referral Info Transfer To: ECF Provider in Charge: Dr. Barnett Provider in Charge after Transfer: PCP Institutional Level of Care: Skilled - Diagnosis (1) Humerus fracture Priority: Primary Status: Acute (2) Addisons disease Status: Chronic (3) Mesenteric ischemia Status: Resolved (4) Macrocytic anemia Status: Acute (5) Hyperkalemia Status: Acute (6) Ulcerative colitis Status: Acute (7) Short bowel syndrome Status: Acute (8) CKD (chronic kidney disease) Status: Acute (9) Hypoalbuminemia Status: Acute (10) Muscular deconditioning Status: Acute (11) Protein calorie malnutrition Status: Acute (12) DVT prophylaxis Status: Acute - Transfer Medications Prescriptions: OxyCODONE Immed Rel [Roxicodone 5 MG] 10 mg PO Q6HR PRN 28 Days PRN Reason: moderate pain Home Medications: Copper Gluconate [Copper] 5 mg PO DAILY 02/25/15 [History] Folic Acid 1 mg PO DAILY 02/25/15 [History] Lipase/Protease/Amylase [Lexus Dr 24,000 Units Capsule] 5 tab PO TIDWM 02/25/15 [History] Magnesium Oxide [Magnesium] 3 tab PO HS 02/25/15 [History] Mercaptopurine 50 mg PO DAILY 02/25/15 [History] Multivitamin Liquid [Cerovite Liquid] 9 mg PO DAILY 02/25/15 [History] Omeprazole [PriLOSEC] 40 mg PO DAILY 02/25/15 [History] PredniSONE 2.5 mg PO QPM 02/25/15 [History] PredniSONE 5 mg PO QAM 02/25/15 [History] Rivaroxaban [Xarelto] 10 mg PO DAILY 02/25/15 [History] Vitamin A Palmitate [Vitamin A] 10,000 unit PO DAILY 02/25/15 [History] Vitamin D3/Folic Acid [Ortho D 3,775 Unit-1 mg Cap] 50,000 unit PO QWEEK [History] Vitamin E (Dl,Tocopheryl Acet) [Vitamin E] 100 unit PO DAILY 02/25/15 [History] Ergocalciferol (VITAMIN D2) [Vitamin D2] 50,000 unit PO DAILY 04/21/16 [History] Zinc Acetate [Galzin] 25 mg PO DAILY 04/21/16 [History] Sodium Bicarbonate 1,300 mg PO TID tablet 04/23/16 [Rx] Potassium Chloride 20 meq PO DAILY #30 packet 04/24/16 [Rx] Cyanocobalamin (B-12) [Vitamin B12] 1 ml IJ QMONTH 05/03/16 [History] Nutritional Supplement [Osmolite 1.2 Glenn] 1 can GTUBE TID 05/03/16 [History] Ergocalciferol (VITAMIN D2) [Drisdol (50,000 Unit)] 50,000 unit PO QWEEK capsule 05/06/16 [Rx] Multivit/Ca/Min/Fe/FA [Thera M Plus] 1 tab PO DAILY tablet 05/06/16 [Rx] OxyCODONE Immed Rel [Roxicodone 5 MG] 10 mg PO Q6HR PRN 28 Days 05/06/16 [Rx] Allergies/Adverse Reactions: Allergies levofloxacin [From Levaquin] Allergy (Verified 02/25/15 10:41) Hives - Respiratory Orders Smoking Cessation: Smoking cessation has been advised. For more information, call the [employer] Campaign Line at 6-100-YIYU-NOW. - Advance Directives Living Will: No Power of Rn Tele: No Code Status: Full Code - Mobility Orders Other (As per PT/OT) - Rehabiliation Orders Rehab Potential: Good Rehab Orders: Evaluation for Physical Therapy, Evaluation for Occupational Therapy - Diet Orders Regular (with tube feedings and TPN) CERTIFICATION: I certify that the transfer of the above named patient to an Extended Care Facility is necessary for the continuing treatment of the diagnosis listed. The above information is true and accurate reflection of patient's current condition. Confidential - Redisclosure prohibited without a patient's written consent. <Bolivar Finch - Last Filed: 05/09/16 17:29> - Respiratory Orders Smoking Cessation: Smoking cessation has been advised. For more information, call the [employer] Quit Line at 0-135-ZWIBNOW. CERTIFICATION: I certify that the transfer of the above named patient to an Extended Care Facility is necessary for the continuing treatment of the diagnosis listed. The above information is true and accurate reflection of patient's current condition. Confidential - Redisclosure prohibited without a patient's written consent.
[2016-05-06 14:58] VITALS: BP 113/76
[2016-05-06] MEDS ORDERED: *HR* HYDROmorphone 2 MG TABLET PO ONE (16:43)
[2016-05-10 07:58] LABS: MMA (VIT B12 STATUS) 1.79 umol/L (0.00-0.40)
== END 2016-05-06 19:23 ==
LOC: EMEROO 09:10 → 3NENU 09:10 → SUATTDRO 05-04 06:33
PROVIDERS: ADMIT Internal Medicine; ATTEND Internal Medicine

== ENCOUNTER 2017-08-07 17:03 | Inpatient (IN) ==
--- NOTE | 2017-08-07 18:58 | Emergency Department Note ---
Disposition Clinical Impression: Anemia Qualifiers: Anemia type: unspecified type Qualified Code(s): D64.9 - Anemia, unspecified Chronic kidney disease (CKD) Qualifiers: Chronic kidney disease stage: unspecified stage Qualified Code(s): N18.9 - Chronic kidney disease, unspecified Leukopenia Qualifiers: Leukopenia type: unspecified Qualified Code(s): D72.819 - Decreased white blood cell count, unspecified Disposition: Admitted As Inpatient Condition: Fair Forms: ED Satisfaction Letter Time of Disposition: 20:09 General Adult HPI - General Chief complaint: ED Recheck/Abnormal Lab/Rx Stated complaint: Low hemoglobin Time Seen by Provider: 08/07/17 18:32 Source: patient Mode of arrival: ambulatory Limitations: no limitations Nursing Notes Reviewed: Yes Vital Signs Reviewed: Yes - History of Present Illness HPI Narrative: Patient is a 57-year-old female that presents the emergency department due to low hemoglobin. Patient states that she was notified by an outside provider that her hemoglobin was no low on routine laboratory testing. She stated that she was notified that her hemoglobin was 5.9 and was recommended to come to the emergency department. She states that she has been feeling somewhat tired and fatigued and took a nap in her car yesterday for approximately 20 minutes. Patient also reports that she has been having the sensation of palpitations over the past couple weeks. Patient denies any other symptoms at this time. Patient states that she does take iron regularly. Pain Scale: 0 - Related Data Home Medications Medication Instructions Recorded Confirmed Copper Gluconate [Copper] 5 mg PO DAILY 02/25/15 05/15/17 Folic Acid 1 mg PO DAILY 02/25/15 05/15/17 Lipase/Protease/Amylase [Melodyon Dr 3 cap PO TIDWM 02/25/15 05/15/17 24,000 Units Capsule] Magnesium Oxide [Magnesium] 1,200 mg PO HS 02/25/15 05/15/17 Mercaptopurine 50 mg PO DAILY 02/25/15 05/15/17 Omeprazole [PriLOSEC] 40 mg PO DAILY 02/25/15 05/15/17 Rivaroxaban [Xarelto] 5 mg PO DAILY 02/25/15 05/15/17 Vitamin A Palmitate [Vitamin A] 10,000 unit PO DAILY 02/25/15 05/15/17 Vitamin E (Dl,Tocopheryl Acet) 100 unit PO DAILY 02/25/15 05/15/17 [Vitamin E] predniSONE [PredniSONE] 5 mg PO BID 02/25/15 05/15/17 Zinc Acetate [Galzin] 25 mg PO DAILY 04/21/16 05/15/17 Cyanocobalamin (B-12) [Vitamin B12] 1 ml IJ QWEEK 05/03/16 05/15/17 Nutritional Supplement [Osmolite 3 can GTUBE HS 05/03/16 05/15/17 1.2 Glenn] Ergocalciferol (VITAMIN D2) 100,000 unit PO DAILY 05/15/17 05/15/17 [Drisdol (50,000 Unit)] Ferrous Gluconate 324 mg PO BID 05/15/17 05/15/17 Lipase/Protease/Amylase [Creon Dr 2 each PO AD 05/15/17 05/15/17 24,000 Units Capsule] Multivitamin [Flintstones] 1 each PO DAILY 05/15/17 05/15/17 Previous Rx's Medication Instructions Recorded Sodium Bicarbonate 1,300 mg PO TID tablet 04/23/16 Allergies Allergy/AdvReac Type Severity Reaction Status Date / Time levofloxacin [From Levaquin] Allergy Hives Verified 08/07/17 19:48 All systems ED: reviewed and negative except as stated. Constitutional: Reports: weakness. Denies: fever, chills Cardiovascular: Reports: palpitations. Denies: chest pain Respiratory: Reports: dyspnea Gastrointestinal: Denies: abdominal pain, nausea, vomiting Endocrine: Reports: fatigue Past Medical History - Past Medical History Medical history: Reports: osteoporosis, other Surgical history: Reports: other Psychiatric history: Reports: no psych history GUEST SERVICES AMBASSADOR history: Reports: no GUEST SERVICES AMBASSADOR history - Social History Smoking Status: Never smoker Smokeless Tobacco Status: No Alcohol use: Reports: rarely Drug use: Reports: none Physical Exam - General Limitations: no limitations General appearance: alert, in no apparent distress - Head Head exam: atraumatic, normocephalic - Eye Eye exam: Present: normal appearance, EOMI - Neck Neck exam: Present: normal inspection, full ROM, trachea midline - Respiratory Respiratory exam: Present: normal lung sounds bilaterally. Absent: respiratory distress, wheezes - Cardiovascular Cardiovascular exam: Present: regular rate, normal rhythm, normal heart sounds, +S1, +S2 - Abdominal Exam Abdominal exam: Present: soft, Non-Tender, normal bowel sounds - Neurological Exam Neurological exam: Present: alert, oriented X3 - Psychiatric Psychiatric exam: Present: normal affect, normal mood - Skin Skin exam: Present: warm, dry, intact Course Vital Signs Temperature 98.5 F 08/07/17 17:36 Pulse Rate 88 08/07/17 17:36 Respiratory Rate 18 08/07/17 17:36 Blood Pressure 103/62 08/07/17 17:36 O2 Sat by Pulse Oximetry 95 08/07/17 17:36 Temperature 97.7 F 08/07/17 19:45 Pulse Rate 85 08/07/17 19:45 Respiratory Rate 14 08/07/17 19:45 Blood Pressure 96/51 08/07/17 19:45 O2 Sat by Pulse Oximetry 100 08/07/17 19:45 Oxygen Delivery Oxygen Delivery Room Air Medical Decision Making - MDM Narrative Medical decision making narrative: Due to the patient presenting to the emergency department with a low hemoglobin we will obtain basic laboratory tests including a CBC, BMP, troponin chest x- ray and EKG. We will also obtain a type and screen ordered 2 units of packed red blood cells to be ready to that the patient to be transfused. Patient did have a hemoglobin of 6.4. Patient had an elevated creatinine which is consistent with her chronic kidney disease. Her troponin was negative. Chest x -ray did not show any acute cardial ulnar process. Her EKG was a sinus rhythm with no acute ischemic changes. Due to the patient having a hemoglobin of 6.4 we will transfuse the patient with 2 units and admitted to the hospital for further evaluation and management. The patient's web mobile designer Dr. Rodriges has been contacted and a consult has been placed. I called and spoke with the admitting hospitalist and he has accepted the patient to their service. The patient will be admitted to the hospital at this time for further evaluation and management. - Lab Data Lab results reviewed: Yes I reviewed the patient's lab results. Result diagrams: 08/07/17 19:05 08/07/17 19:05 Lab Results 08/07/17 08/07/17 08/07/17 Range/Units 19:05 19:05 19:05 WBC 4.0 L (4.3-11.1) K/mcL RBC 1.72 L (3.82-4.97) M/mcL Hgb 6.4 L (11.5-15.4) g/dL Hct 20.1 L (35.3-44.9) % MCV 116.9 H (83.0-100.0) fL MCH 37.2 H (28.0-33.3) pg MCHC 31.8 (31.6-35.5) g/dL RDW 15.0 H (11.5-14.5) % Plt Count 157 (140-400) K/mcL MPV 10.0 (9.4-12.4) fL Immature Gran % 0.5 (0-4) % Seg Neutrophils % 72.1 % Lymphocytes % 16.3 % Monocytes % 10.0 % Eosinophils % 0.8 % Basophils % 0.3 % Neutrophils # 2.9 (1.6-8.9) K/mcL Lymphocytes # 0.7 (0.6-4.6) K/mcL Monocytes # 0.4 (0.0-1.3) K/mcL Eosinophils # 0.0 (0.0-0.6) K/mcL Basophils # 0.0 (0.0-0.2) K/mcL Platelet Estimate Normal (Normal) Hypochromasia Present A (Not Present) Macrocytosis Present A (Not Present) PT 10.5 (9.4-12.1) Seconds INR 1.0 APTT 26.7 (26.0-36.0) Seconds Sodium 139 (136-145) mEq/L Potassium 5.0 (3.5-5.1) mEq/L Chloride 111 H (98-107) mEq/L Carbon Dioxide 20 L (23-29) mEq/L BUN 17 (6-20) mg/dL Creatinine 2.19 H (0.60-1.20) mg/dL Est GFR ( Amer) 28 L (> 60) Est GFR (Non-Af Amer) 23 L (> 60) BUN/Creatinine Ratio 8 (6-26) Glucose 117 H (70-105) mg/dL Calculated Osmolality 291 (280-300) Calcium 8.7 (8.6-10.3) mg/dL Troponin I < 0.03 (< 0.04) ng/mL Blood Type Antibody Screen Crossmatch 08/07/17 Range/Units 19:05 WBC (4.3-11.1) K/mcL RBC (3.82-4.97) M/mcL Hgb (11.5-15.4) g/dL Hct (35.3-44.9) % MCV (83.0-100.0) fL MCH (28.0-33.3) pg MCHC (31.6-35.5) g/dL RDW (11.5-14.5) % Plt Count (140-400) K/mcL MPV (9.4-12.4) fL Immature Gran % (0-4) % Seg Neutrophils % % Lymphocytes % % Monocytes % % Eosinophils % % Basophils % % Neutrophils # (1.6-8.9) K/mcL Lymphocytes # (0.6-4.6) K/mcL Monocytes # (0.0-1.3) K/mcL Eosinophils # (0.0-0.6) K/mcL Basophils # (0.0-0.2) K/mcL Platelet Estimate (Normal) Hypochromasia (Not Present) Macrocytosis (Not Present) PT (9.4-12.1) Seconds INR APTT (26.0-36.0) Seconds Sodium (136-145) mEq/L Potassium (3.5-5.1) mEq/L Chloride (98-107) mEq/L Carbon Dioxide (23-29) mEq/L BUN (6-20) mg/dL Creatinine (0.60-1.20) mg/dL Est GFR ( Amer) (> 60) Est GFR (Non-Af Amer) (> 60) BUN/Creatinine Ratio (6-26) Glucose (70-105) mg/dL Calculated Osmolality (280-300) Calcium (8.6-10.3) mg/dL Troponin I (< 0.04) ng/mL Blood Type A NEGATIVE Antibody Screen NEGATIVE Crossmatch See Detail - Radiology Data Radiology results reviewed: Yes I reviewed the patient's radiology results. Chest X-Ray 08/07/17 18:50 IMPRESSION: No acute cardiopulmonary findings. D/ / Mannie Horowitz / Mannie Horowitz Interpreting Provider: Mannie Horowitz - EKG Data EKG #1 EKG attestation: Yes I reviewed and interpreted this EKG. EKG results narrative: EKG shows a sinus rhythm rate of 80 bpm, NE interval of 133, QRS duration of 84 , QTc of 377 with a normal axis.
--- NOTE | 2017-08-07 19:04 | Emergency Department Note ---
START Narrative - START START: I examined this patient and my medical decision-making was reviewed with the Resident Physician. I agree with the documented findings, disposition and treatment plan as described except to the extent set forth below. 57yo F here for anemia. Hg was 5.9. 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 pt is undergoing renal problems now secondary to dehydration due to lack of bowel absorption. has been getting TPN as well. we spoke with Nephro. ok with transfusing pt and admission. vss. not hypotensive. alert and oriented. no abd pain. denies blood in stool. on oral Fe supplements as well
[2017-08-07 19:18] LABS: Basophils % 0.3 %; Eosinophils % 0.8 %; Hematocrit 20.1 % (35.3-44.9); Immature Granulocytes % 0.5 % (0-4); Lymphocytes # 0.7 K/mcL (0.6-4.6); Lymphocytes % 16.3 %; Mean Corpuscular HGB Conc 31.8 g/dL (31.6-35.5); Mean Corpuscular Hemoglobin 37.2 pg (28.0-33.3); Mean Corpuscular Volume 116.9 fL (83.0-100.0); Monocytes # 0.4 K/mcL (0.0-1.3); Neutrophils # 2.9 K/mcL (1.6-8.9); Platelet Count 157 K/mcL (140-400); Red Blood Count 1.72 M/mcL (3.82-4.97); Segmented Neutrophils % 72.1 %
[2017-08-07 19:29] LABS: Prothrombin Time 10.5 Seconds (9.4-12.1)
[2017-08-07 19:30] LABS: Hemoglobin 6.4 g/dL (11.5-15.4)
[2017-08-07 19:32] LABS: Activated Partial Thrombo Time 26.7 Seconds (26.0-36.0)
[2017-08-07 19:37] LABS: BUN/Creatinine Ratio 8 (6-26); Blood Urea Nitrogen 17 mg/dL (6-20); Calcium 8.7 mg/dL (8.6-10.3); Carbon Dioxide 20 mEq/L (23-29); Chloride 111 mEq/L (98-107); Glucose 117 mg/dL (70-105); Osmolality,Calculated 291 (280-300); Sodium 139 mEq/L (136-145); Troponin I < 0.03 ng/mL (< 0.04); eGFR For African Americans 28 (> 60); eGFR For Non-African Americans 23 (> 60)
[2017-08-07 19:44] LABS: Hypochromasia Present (Not Present); Macrocytosis Present (Not Present)
[2017-08-07 19:45] LABS: Platelet Estimate Normal (Normal)
[2017-08-07] MEDS ORDERED: 0.9 % Sodium Chloride 250 ML ONE ×2 (20:40→23:42)
[2017-08-07] MEDS ORDERED: NUTRITIONAL SUPPLEMENT GTUBE SCH (22:15)
[2017-08-07] MEDS ORDERED: Acetaminophen 325 MG TABLET PO PRN (22:41)
[2017-08-07] MEDS ORDERED: *HR* HYDROcodone/Acet 5/325 mg TABLET PO PRN (22:41)
[2017-08-07] MEDS ORDERED: Naloxone 0.4 MG/ML INJ IVP PRN (22:41)
--- NOTE | 2017-08-07 23:11 | Internal Med History&Physical ---
Date of Encounter: 08/07/17 Time of Encounter: 22:54 Internal Medicine - H&P: HPI Chief complaint: "I was told to come in for my low blood count" Admitted From: Emergency Dept Plans for Post Hospital Care: Home History of present illness: Ms. Rice is a pleasant 57 year old female who presented to ED today after she was notified by her doctor about low hemoglobin on routine labwork. She has a history of anemia likely secondary to chronic kidney disease. She is not on dialysis. Her only complaints today is maybe some generalized weakness. ED physician has notified roll plugger machine operator Dr. Valle, who wants patient admitted for blood transfusions, and he will see the patient tomorrow. Patient is resting comfortably in bed in no acute distress. She expresses no needs at this time. She denies chest pain, SOB, abdominal pain, nausea, vomiting, changes in bladder, changes in bowel, fever, or chills. Past Med Surg Social Fam HX - Past Medical History Attestation: Yes The following information was validated with the patient. Medical history: CVA, osteoporosis, renal disease, other (Anemia) Psychiatric history: no psych history - Past Surgical History Surgical History: appendectomy, other - Social History Smoking Status: Never smoker Smokeless Tobacco Status: No Alcohol use: rarely Drug use: none - Family History Mother Living Status: Still Living Hx Family Cardiac Disorders: Yes (HTN) Hx Family Cancer: Yes (eye) Father Living Status: Cause of : alzheimers Hx Family Neurologic Disorders: Yes - Additional Family History Additional family history: Family history reviewed with patient. Internal Medicine - H&P: Meds Copper Gluconate [Copper] 5 mg PO DAILY 02/25/15 [History] Lipase/Protease/Amylase [Creon Dr 24,000 Units Capsule] 3 cap PO TIDWM 02/25/15 [History] Magnesium Oxide [Magnesium] 1,200 mg PO HS 02/25/15 [History] Mercaptopurine 50 mg PO DAILY 02/25/15 [History] Vitamin A Palmitate [Vitamin A] 10,000 unit PO DAILY 02/25/15 [History] Vitamin E (Dl,Tocopheryl Acet) [Vitamin E] 100 unit PO DAILY 02/25/15 [History] predniSONE [PredniSONE] 5 mg PO BID 02/25/15 [History] Zinc Acetate [Galzin] 25 mg PO DAILY 04/21/16 [History] Sodium Bicarbonate 1,300 mg PO TID tablet 04/23/16 [Rx] Cyanocobalamin (B-12) [Vitamin B12] 1 ml IJ QWEEK 05/03/16 [History] Nutritional Supplement [Osmolite 1.2 Glenn] 3 can GTUBE HS 05/03/16 [History] Ergocalciferol (VITAMIN D2) [Drisdol (50,000 Unit)] 100,000 unit PO DAILY [History] Ferrous Gluconate 324 mg PO BID 05/15/17 [History] Multivitamin [Flintstones] 1 each PO DAILY 05/15/17 [History] Folic Acid 1 mg PO DAILY 08/07/17 [History] Omeprazole [PriLOSEC] 20 mg PO DAILY 08/07/17 [History] Rivaroxaban [Xarelto] 5 mg PO DAILY 08/07/17 [History] 3 Allergy/AdvReac Type Severity Reaction Status Date / Time levofloxacin [From Levaquin] Allergy Hives Verified 08/07/17 20:25 All Systems PM: A 10-system review of systems was performed and is negative for pertinent findings except as documented above in the HPI. - Constitutional Vitals: Temp Pulse Resp BP Pulse Ox 98.3 F 67 16 95/60 97 08/07/17 22:18 08/07/17 22:18 08/07/17 22:18 08/07/17 22:18 08/07/17 22:18 General appearance: Present: cooperative, A&O X 3, pleasant, no acute distress, answers questions appropriately - Head Head exam: Present: atraumatic, normal inspection, normocephalic - Eye Eye exam: Present: EOMI, normal appearance, PERRL. Absent: conjunctival injection, nystagmus, scleral icterus - ENT ENT exam: Present: mucous membranes moist, normal external ear exam, normal oropharynx - Neck Neck exam general surgery: Present: supple, trachea midline. Absent: lymphadenopathy, tenderness, thyromegaly - Respiratory Respiratory exam: Present: CTAB. Absent: accessory muscle use, rales, rhonchi, wheezes Additional comments: Normal WOB - Cardiovascular Cardiovascular exam: Present: RRR, +S1, +S2. Absent: diastolic murmur, gallop, rubs, systolic murmur Additional comments: No BLE edema - GI/Abdominal GI/Abdominal exam: Present: normal bowel sounds, soft. Absent: distended, hepatomegaly, mass, splenomegaly, tenderness - Neurological Exam Neurological exam: Present: alert, CN II-XII intact, oriented X3, no focal deficits, strengths equal and symetr throughout. Absent: motor sensory deficit , facial droop, speech deficit - Psychiatric Psychiatric exam: Present: normal affect, normal mood. Absent: agitated, anxious, depressed - Skin Skin exam: Present: dry, intact, warm. Absent: cyanosis, rash Internal Med - H&P Results - Labs CBC & Chem 7: 08/07/17 19:05 08/07/17 19:05 - VTE Reasons for not Prescribing Prophylaxis: Medical contraindication (Anemia Requiring Transfusions) - Assessment and plan (1) Anemia requiring transfusions Current Visit: Yes Status: Acute Assessment and plan: Likely secondary to CKD. No signs or symptoms of bleeding. Will check hemoccult. Admit inpatient for transfusions. Nephrology has been consulted by ED physician; Dr. Valle will see tomorrow. Appreciate his input. Give 2 unitis PRBC stat in ED. Will recheck CBC in AM. (2) Mesenteric ischemia Current Visit: Yes Status: Chronic Assessment and plan: Chronic history. Has gastrostomy tube. Will consult nutrition to manage her feeds. Abdominal exam completely normal today. Will monitor closely. If Hgb not improved in AM after 2 units PRBC, we can pursue CT abdomen/pelvis at that time. (3) Short bowel syndrome Current Visit: Yes Status: Chronic Assessment and plan: Management as per above. (4) Addisons disease Current Visit: Yes Status: Chronic Assessment and plan: Continue home medications. (5) Stage 3 chronic kidney disease Current Visit: No Status: Chronic Assessment and plan: Nephrology consulted; appreciate their input. (6) Ulcerative colitis Current Visit: No Status: Chronic Assessment and plan: Management as per above. Continue home medications. Qualifiers: Ulcerative colitis location: unspecified ulcerative colitis location Digestive disease complication type: other complication Qualified Code(s): K51.918 - Ulcerative colitis, unspecified with other complication (7) DVT prophylaxis Current Visit: No Status: Acute Assessment and plan: Will defer anticoagulation at this time due to acute anemia requiring transfusions. Start SCDs. - Time Spent With Patient Total time spent is greater than 50% in coordination of care (as documented) at patient's floor/unit and/or counseling patient: less than 15 minutes
[2017-08-08] MEDS: Magnesium Oxide 400 MG TABLET PO SCH ×2 (00:54→20:13)
[2017-08-08] MEDS: predniSONE 5 MG TABLET PO SCH ×3 (00:54→20:13)
[2017-08-08] MEDS: 0.9 % Sodium Chloride 1,000 ML IVC SCH ×2 (04:20→22:05)
[2017-08-08 07:23] LABS: Basophils % 0.3 %; Eosinophils % 0.9 %; Hematocrit 24.4 % (35.3-44.9); Immature Granulocytes % 0.3 % (0-4); Lymphocytes # 0.9 K/mcL (0.6-4.6); Lymphocytes % 25.6 %; Mean Corpuscular HGB Conc 32.8 g/dL (31.6-35.5); Mean Corpuscular Hemoglobin 33.6 pg (28.0-33.3); Mean Platelet Volume 10.2 fL (9.4-12.4); Monocytes # 0.4 K/mcL (0.0-1.3); Neutrophils # 2.2 K/mcL (1.6-8.9); Nucleated Red Blood Cells 0.6 /100 WBC (0); Platelet Count 145 K/mcL (140-400); Red Blood Count 2.38 M/mcL (3.82-4.97); Segmented Neutrophils % 61.9 %
[2017-08-08 07:29] LABS: Mean Corpuscular Volume 102.5 fL (83.0-100.0)
[2017-08-08 07:44] LABS: Potassium 5.9 mEq/L (3.5-5.1)
[2017-08-08 07:45] LABS: Calcium 8.2 mg/dL (8.6-10.3)
[2017-08-08] MEDS: Multivit/Ca/Min/Fe/FA 1 TAB TABLET PO SCH (08:57)
[2017-08-08] MEDS: Folic Acid 1 MG TABLET PO SCH (08:58)
[2017-08-08] MEDS ORDERED: Cyanocobalamin (B-12) 1,000 MCG/ML VIAL SQ SCH (09:00)
[2017-08-08] MEDS ORDERED: ZINC ACETATE 25 MG PO SCH (09:00)
[2017-08-08] MEDS ORDERED: COPPER GLUCONATE PO SCH (09:00)
[2017-08-08] MEDS ORDERED: VITAMIN E 100 UNIT PO SCH (09:00)
[2017-08-08] MEDS ORDERED: [UNRECOGNIZED DRUG - OTHER] PO SCH (09:00)
[2017-08-08] MEDS ORDERED: VITAMIN A PALMITATE 10000 UNIT PO SCH (09:00)
[2017-08-08 09:16] LABS: Anisocytosis 2+ (Not Present); Microcytosis Present (Not Present); Platelet Estimate Normal (Normal)
--- NOTE | 2017-08-08 10:59 | Nephrology Consult Note ---
Date of Encounter: 08/08/17 Time of Encounter: 10:45 Assessment and Plan (1) CKD (chronic kidney disease) Current Visit: Yes Status: Acute Avoid nephrotoxins and renal dose all medications. Renal Diet. Could be contributing to Anemia, will start Aranesp and do Iron profile. Scr 2.04 down from 2.19. Qualifiers: Chronic kidney disease stage: unspecified stage Qualified Code(s): N18.9 - Chronic kidney disease, unspecified (2) Anemia requiring transfusions Current Visit: Yes Status: Acute Per primary. (3) Hyperkalemia Current Visit: Yes Status: Acute Serum K 5.9, repeat 5.3, ordered Kayexalate. (4) Short bowel syndrome Current Visit: Yes Status: Chronic Per primary. History of Present Illness - Reason for Consult Consult date: 08/08/17 Chronic Kidney Disease - Chief Complaint Weakness - History of Present Illness Ms Rice is a 57 year old patient with PMH: short bowel syndrome, anemia and CKD IV. She has routine labwork at [facility] and was told to come to ED for a Hgb of 5.9. She did receive 2 units PRBC's. She was supposed to see Dr. Rodriges in the office today, but had to cancel. Denies chest pain, SOB, nausea , vomiting, diarrhea. Past Med Surg Social Fam HX - Past Medical History Medical history: CVA, osteoporosis, renal disease, other (Anemia) Psychiatric history: no psych history - Past Surgical History Surgical History: appendectomy, other - Social History Smoking Status: Never smoker Smokeless Tobacco Status: No Alcohol use: rarely Drug use: none - Family History Mother Living Status: Still Living Hx Family Cardiac Disorders: Yes (HTN) Hx Family Cancer: Yes (eye) Father Living Status: Cause of : alzheimers Hx Family Neurologic Disorders: Yes Medications and Allergies Copper Gluconate [Copper] 5 mg PO DAILY 02/25/15 [History] Lipase/Protease/Amylase [Lexus Mcarthur 24,000 Units Capsule] 3 cap PO TIDWM 02/25/15 [History] Magnesium Oxide [Magnesium] 1,200 mg PO HS 02/25/15 [History] Mercaptopurine 50 mg PO DAILY 02/25/15 [History] Vitamin A Palmitate [Vitamin A] 10,000 unit PO DAILY 02/25/15 [History] Vitamin E (Dl,Tocopheryl Acet) [Vitamin E] 100 unit PO DAILY 02/25/15 [History] predniSONE [PredniSONE] 5 mg PO BID 02/25/15 [History] Zinc Acetate [Galzin] 25 mg PO DAILY 04/21/16 [History] Sodium Bicarbonate 1,300 mg PO TID tablet 04/23/16 [Rx] Cyanocobalamin (B-12) [Vitamin B12] 1 ml IJ QWEEK 05/03/16 [History] Nutritional Supplement [Osmolite 1.2 Glenn] 3 can GTUBE HS 05/03/16 [History] Ergocalciferol (VITAMIN D2) [Drisdol (50,000 Unit)] 100,000 unit PO DAILY [History] Ferrous Gluconate 324 mg PO BID 05/15/17 [History] Multivitamin [Flintstones] 1 each PO DAILY 05/15/17 [History] Folic Acid 1 mg PO DAILY 08/07/17 [History] Omeprazole [PriLOSEC] 20 mg PO DAILY 08/07/17 [History] Rivaroxaban [Xarelto] 5 mg PO DAILY 08/07/17 [History] 3 Allergy/AdvReac Type Severity Reaction Status Date / Time levofloxacin [From Levaquin] Allergy Hives Verified 08/07/17 20:25 Exam - Vital Signs Vital signs: Initial Vital Signs Temp Pulse Resp BP Pulse Ox 98.5 F 88 18 103/62 95 08/07/17 17:36 08/07/17 17:36 08/07/17 17:36 08/07/17 17:36 08/07/17 17:36 Vital Signs - Last 8 Hours Temp Pulse Resp BP Pulse Ox 08/08/17 07:12 98.7 F 63 14 109/62 96 08/08/17 03:50 98.3 F 66 17 115/66 97 08/08/17 03:16 98.4 F 59 16 106/65 96 Intake and Output 08/07/17 08/08/17 08/08/17 23:59 07:59 15:59 Intake Total 350 / 350 700 / 700 Output Total 1100 / 1100 Balance 350 / 350 -400 / -400 Intake: Blood Product 350 / 350 700 / 700 Rbcs Leuko Poor As-1 Unit 350 / 350 [id number] Rbcs Leuko Poor As-1 Unit 700 / 700 [id number] Output: Urine 1100 / 1100 Other: # Voids 1 Weight 59.5 kg Patient Weight 08/08/17 23:59 Weight 59.5 kg Results - Lab Results 08/08/17 04:00 08/08/17 10:50 Most recent lab results Calcium 8.2 mg/dL (8.6-10.3) L 08/08/17 04:00 Consult Discharge Plan - Plan Referrals: Abebe Renee DO [Primary Care Provider] -
--- NOTE | 2017-08-08 17:05 | Electrocardiograph Report ---
[address] [place], [place] [address] Test Date: 2017-08-07 Pat Name: Wendy Rice Department: 103 Room: 3B16 Gender: F Senior Civil Engineer: NAVIN : 1960 Requested By: Sergei Espinoza Order Number: [id number] Reading MD: Jeanne Gaona Measurements Intervals [place] Rate: 80 P: 51 VT: 153 QRS: 26 QRSD: 84 T: 39 QT: 341 QTc: 377 Interpretive Statements SINUS RHYTHM Electronically Signed On 08-08-2017 17:03:07 EDT by Jeanne Gaona
--- NOTE | 2017-08-08 19:23 | Internal Med Progress Note ---
Date of Encounter: 08/08/17 Time of Encounter: 12:00 - Assessment and plan (1) Anemia requiring transfusions Current Visit: Yes Status: Acute Assessment and plan: 1 this is multifactorial she does have a history of anemia CK D she has been receiving IV fluids outpatient -which could have dilutional effect possible GI loss- She had a colonoscopy approximately one year ago which she states was negative she also had an EGD last month and had button PEG tube placed without any difficulty. She also has a history of short bowel syndrome. She is followed by [facility] and was recently started on outpatient IV fluid. Notified of dropping Hgb as outpatient She did receive 2 units PRBCs during this admission. She was seen by nephrology and will be initiated on Aranesp today and will be receiving monthly Aranesp per anemia protocol. Hemoccult was negative We will continue to monitor H&H (2) Ulcerative colitis Current Visit: No Status: Chronic Qualifiers: Ulcerative colitis location: unspecified ulcerative colitis location Digestive disease complication type: other complication Qualified Code(s): K51.918 - Ulcerative colitis, unspecified with other complication (3) Stage 3 chronic kidney disease Current Visit: No Status: Chronic Assessment and plan: Nephrology consulted; progressive CK disease stage IV due to chronic volume depletion was recently started on outpatient IV fluid. (4) Addisons disease Current Visit: Yes Status: Chronic Assessment and plan: Continue home medications. (5) Mesenteric ischemia Current Visit: Yes Status: Chronic Assessment and plan: Chronic history. Has gastrostomy tube which was recently replaced approximately a month ago-nutrition has been consulted-Hemoccult was negative- patient is monitored per [facility]-follow-up as outpatient (6) Short bowel syndrome Current Visit: Yes Status: Chronic Assessment and plan: Patient is seen at [facility] follow-up as outpatient (7) DVT prophylaxis Current Visit: No Status: Acute Assessment and plan: Will defer anticoagulation at this time due to anemia continue SCDs. - Time Spent With Patient Total time spent is greater than 50% in coordination of care (as documented) at patient's floor/unit and/or counseling patient: - Subjective Interval history: This patient is new to me she was seen and examined at bedside. Patient denies any visible blood loss, and urine hemoptysis or stool. She denies any abdominal pain nausea vomiting diarrhea chest pain or shortness of breath. She is tolerating oral intake - Constitutional Vitals: Temp Pulse Resp BP Pulse Ox 97.6 F 72 16 123/77 99 08/08/17 19:13 08/08/17 19:13 08/08/17 19:13 08/08/17 19:13 08/08/17 19:13 General appearance: Present: cooperative, A&O X 3, pleasant, no acute distress, answers questions appropriately - Head Head exam: Present: atraumatic, normocephalic - Eye Eye exam: Present: PERRL, conjuntiva pink, sclera anicteric Pupils: Present: PERRL - Neck Neck exam general surgery: Present: supple, trachea midline. Absent: lymphadenopathy - Respiratory Respiratory exam: Present: CTAB. Absent: accessory muscle use, rales, rhonchi, wheezes - Cardiovascular Cardiovascular exam: Present: RRR, +S1, +S2. Absent: diastolic murmur, gallop, rubs, systolic murmur - GI/Abdominal GI/Abdominal exam: Present: normal bowel sounds, soft, no peritoneal signs. Absent: distended, tenderness - Extremities Exam Extremities exam: Present: warm, radial pulses palpable and symmetrical. Absent : calf tenderness, cyanotic, pedal edema - Neurological Exam Neurological exam: Present: CN II-XII intact, oriented X3, no focal deficits. Absent: pronater drift, facial droop, speech deficit - Skin Skin exam: Present: dry, intact Internal Medicine: Result - Labs CBC & Chem 7: 08/08/17 04:00 08/08/17 10:50 Labs: Short CBC 08/08/17 Range/Units 04:00 WBC 3.5 L (4.3-11.1) K/mcL Hgb 8.0 L D (11.5-15.4) g/dL Hct 24.4 L (35.3-44.9) % Plt Count 145 (140-400) K/mcL Neutrophils # 2.2 (1.6-8.9) K/mcL BMP 08/08/17 08/08/17 04:00 10:50 Sodium 139 Potassium 5.9 H 5.4 H Chloride 111 H Carbon Dioxide 22 L BUN 22 H Creatinine 2.04 H Glucose 83 Calcium 8.2 L - ABG Interpretation ABG results: PT/INR, D-dimer PT 10.5 Seconds (9.4-12.1) 08/07/17 19:05 - VTE Reasons for not Prescribing Prophylaxis: Medical contraindication (Anemia Requiring Transfusions) Consult Discharge Plan - Plan Referrals: Abebe Renee DO [Primary Care Provider] -
[2017-08-09 06:27] LABS: Basophils % 0.3 %; Eosinophils % 0.6 %; Hematocrit 24.5 % (35.3-44.9); Hemoglobin 7.8 g/dL (11.5-15.4); Immature Granulocytes % 0.6 % (0-4); Lymphocytes # 0.7 K/mcL (0.6-4.6); Lymphocytes % 19.5 %; Mean Corpuscular HGB Conc 31.8 g/dL (31.6-35.5); Mean Corpuscular Hemoglobin 33.3 pg (28.0-33.3); Mean Corpuscular Volume 104.7 fL (83.0-100.0); Mean Platelet Volume 9.9 fL (9.4-12.4); Monocytes # 0.3 K/mcL (0.0-1.3); Monocytes % 8.3 %; Neutrophils # 2.5 K/mcL (1.6-8.9); Platelet Count 139 K/mcL (140-400); Red Blood Count 2.34 M/mcL (3.82-4.97); Red Cell Distribution Width 22.5 % (11.5-14.5); Segmented Neutrophils % 70.7 %
[2017-08-09 06:44] LABS: % Iron Saturation 40 % (15-50); Ferritin 392 ng/ml (10-120); Iron 90 mcg/dL (50-170); Transferrin 162 mg/dL (203-362)
[2017-08-09 06:48] LABS: Calcium 7.8 mg/dL (8.6-10.3); Magnesium 1.9 mg/dL (1.6-2.6); Phosphorous 3.9 mg/dL (2.7-4.5); Potassium 3.9 mEq/L (3.5-5.1)
[2017-08-09 07:21] LABS: Folate > 22.3 ng/mL (3.0-16.0); Vitamin B12 > 1500 pg/mL (250-1100)
[2017-08-09] MEDS: Multivit/Ca/Min/Fe/FA 1 TAB TABLET PO SCH (08:07)
[2017-08-09] MEDS: predniSONE 5 MG TABLET PO SCH ×2 (08:07→20:18)
[2017-08-09] MEDS: Folic Acid 1 MG TABLET PO SCH (08:07)
--- NOTE | 2017-08-09 10:44 | Nephrology Progress Note ---
Date of Encounter: 08/09/17 Time of Encounter: 10:41 - Assessment and Plan (1) CKD (chronic kidney disease) Current Visit: Yes Status: Acute Continue to renal dose and avoid nephrotoxins. Scr 2.06 up from 2.04 yesterday. GFR 25 unchanged from yesterday. Recommend getting CBC and BMP in 1 week and follow up with Dr. Rodriges in the office. Qualifiers: Chronic kidney disease stage: unspecified stage Qualified Code(s): N18.9 - Chronic kidney disease, unspecified (2) Anemia requiring transfusions Current Visit: Yes Status: Acute Will defer transfusions to primary team. Iron studies reflect plenty of Iron store, Aranesp started yesterday and should work effectively. (3) Hyperkalemia Current Visit: Yes Status: Acute Resolved K 3.9 today. (4) Short bowel syndrome Current Visit: Yes Status: Chronic Per primary team. Subjective Principal diagnosis: Low Hgb Interval history: Pt seen and examined. No CP,SOB,nausea/vomiting. Objective - Vital Signs Vital signs: Vital Signs Temp Pulse Resp BP Pulse Ox 08/09/17 07:30 98 F 73 16 116/70 98 08/09/17 03:19 98.2 F 72 16 97/64 97 08/08/17 22:33 98.2 F 75 16 102/63 97 08/08/17 19:13 97.6 F 72 16 123/77 99 08/08/17 15:20 98.7 F 63 14 113/63 97 08/08/17 11:30 98.9 F 78 14 124/74 96 Intake and Output 08/08/17 08/09/17 08/09/17 23:59 07:59 15:59 Intake Total 1690 / 1690 360 / 360 Output Total 950 / 950 1300 / 1300 Balance 740 / 740 -1300 / -1300 360 / 360 Intake: IV Fluids 1000 / 1000 0.9 % Sodium Chloride 1,000 ML 1000 / 1000 @ 50 mls/hr IVC .Q20H ARIANE Rx#: [id number] Oral 240 / 240 360 / 360 Free Water 450 / 450 Output: Urine 950 / 950 1300 / 1300 Other: Meal Dinner Breakfast Percent of Meal Consumed 100% 100% Weight 59.3 kg Patient Weight 08/09/17 23:59 Weight 59.3 kg - General Appearance General appearance: Present: chronically ill, fatigue EENT: Present: ATNC, hearing intact, vision intact Neck: Present: supple Respiratory: Present: clear Cardiology: Present: no edema, normal S1, normal S2 Gastrointestinal: Present: normoactive bowel sounds, no tenderness, no guarding Integumentary: Present: no rash, warm and dry Neurologic: Present: alert and oriented x3 Psychiatric: Present: mood/affect appropriate, cooperative - Lab 08/09/17 06:00 08/09/17 06:00 Most recent lab results Calcium 7.8 mg/dL (8.6-10.3) L 08/09/17 06:00 Phosphorus 3.9 mg/dL (2.7-4.5) 08/09/17 06:00 Magnesium 1.9 mg/dL (1.6-2.6) 08/09/17 06:00 - VTE Reasons for not Prescribing Prophylaxis: Medical contraindication (Anemia Requiring Transfusions) Consult Discharge Plan - Plan Referrals: Abebe Renee DO [Primary Care Provider] -
--- NOTE | 2017-08-09 13:13 | Internal Med Progress Note ---
Date of Encounter: 08/09/17 Time of Encounter: 13:13 - Assessment and plan (1) Anemia requiring transfusions Current Visit: Yes Status: Acute Assessment and plan: this is multifactorial she does have a history of anemia CK D she has been receiving IV fluids outpatient -which could have dilutional effect possible GI loss- She had a colonoscopy approximately one year ago which she states was negative she also had an EGD last month and had button PEG tube placed without any difficulty. She also has a history of short bowel syndrome. She is followed by [facility] and was recently started on outpatient IV fluid. Notified of dropping Hgb as outpatient She did receive 2 units PRBCs during this admission. She was seen by nephrology and was initiated on Aranesp and will be receiving monthly Aranesp per anemia protocol. Hemoccult was negative. She is on folate and B12 Iron stores are sufficient. Hgb was 7.8 today I did discuss this case with DR Mccarthy recommending transfusing 2 more units in order to have patient at baseline prior to discharge. I did discuss this with Dr Rodriges who verbalized agreement Recheck CBC in am (2) Ulcerative colitis Current Visit: No Status: Chronic Assessment and plan: Management as per above. Continue home medications. Qualifiers: Ulcerative colitis location: unspecified ulcerative colitis location Digestive disease complication type: other complication Qualified Code(s): K51.918 - Ulcerative colitis, unspecified with other complication (3) Stage 3 chronic kidney disease Current Visit: No Status: Chronic Assessment and plan: Nephrology consulted; progressive CK disease stage IV due to chronic volume depletion was recently started on outpatient IV fluid. Avoid nephrotoxins (4) Addisons disease Current Visit: Yes Status: Chronic Assessment and plan: Continue home medications. (5) Mesenteric ischemia Current Visit: Yes Status: Chronic Assessment and plan: Chronic history. Has gastrostomy tube which was recently replaced approximately a month ago-nutrition has been consulted-Hemoccult was negative- patient is monitored per [facility]-follow-up as outpatient (6) Short bowel syndrome Current Visit: Yes Status: Chronic Assessment and plan: Patient is seen at [facility] follow-up as outpatient continue with TF per nutrition recommendations (7) DVT prophylaxis Current Visit: No Status: Acute Assessment and plan: Will defer anticoagulation at this time due to anemia continue SCDs. - Time Spent With Patient Total time spent is greater than 50% in coordination of care (as documented) at patient's floor/unit and/or counseling patient: - Subjective Interval history: Patient was seen and examined at bedside. States that does feel somewhat better however she is feeling tired. NO CP or SOB - Constitutional Vitals: Temp Pulse Resp BP Pulse Ox 98.4 F 66 16 115/66 98 08/09/17 10:54 08/09/17 10:54 08/09/17 10:54 08/09/17 10:54 08/09/17 10:54 General appearance: Present: cooperative, A&O X 3, pleasant, no acute distress, answers questions appropriately - Head Head exam: Present: atraumatic, normocephalic - Eye Eye exam: Present: PERRL, conjuntiva pink, sclera anicteric Pupils: Present: PERRL - Neck Neck exam general surgery: Present: supple, trachea midline. Absent: lymphadenopathy - Respiratory Respiratory exam: Present: CTAB. Absent: accessory muscle use, rales, rhonchi, wheezes - Cardiovascular Cardiovascular exam: Present: RRR, +S1, +S2. Absent: diastolic murmur, gallop, rubs, systolic murmur - GI/Abdominal GI/Abdominal exam: Present: normal bowel sounds, soft, no peritoneal signs. Absent: distended, tenderness - Extremities Exam Extremities exam: Present: warm, radial pulses palpable and symmetrical. Absent : calf tenderness, cyanotic, pedal edema - Neurological Exam Neurological exam: Present: CN II-XII intact, oriented X3, no focal deficits. Absent: pronater drift, facial droop, speech deficit - Skin Skin exam: Present: dry, intact Internal Medicine: Result - Labs CBC & Chem 7: 08/09/17 06:00 08/09/17 06:00 Labs: Short CBC 08/09/17 Range/Units 06:00 WBC 3.5 L (4.3-11.1) K/mcL Hgb 7.8 L (11.5-15.4) g/dL Hct 24.5 L (35.3-44.9) % Plt Count 139 L (140-400) K/mcL Neutrophils # 2.5 (1.6-8.9) K/mcL BMP 08/09/17 06:00 Sodium 142 Potassium 3.9 D Chloride 113 H Carbon Dioxide 18 L BUN 20 Creatinine 2.06 H Glucose 132 H Calcium 7.8 L - ABG Interpretation ABG results: PT/INR, D-dimer PT 10.5 Seconds (9.4-12.1) 08/07/17 19:05 - VTE Reasons for not Prescribing Prophylaxis: Medical contraindication (Anemia Requiring Transfusions) Consult Discharge Plan - Plan Referrals: Abebe Renee DO [Primary Care Provider] -
[2017-08-09] MEDS ORDERED: 0.9 % Sodium Chloride 500 ML ONE ×2 (14:27→17:39)
[2017-08-09] MEDS: Magnesium Oxide 400 MG TABLET PO SCH (22:16)
[2017-08-09] MEDS: 0.9 % Sodium Chloride 1,000 ML IVC SCH (22:16)
[2017-08-10 05:51] LABS: Basophils % 0.6 %; Eosinophils % 0.6 %; Hematocrit 33.1 % (35.3-44.9); Immature Granulocytes % 0.6 % (0-4); Lymphocytes # 0.7 K/mcL (0.6-4.6); Lymphocytes % 19.7 %; Mean Corpuscular HGB Conc 31.1 g/dL (31.6-35.5); Mean Corpuscular Hemoglobin 31.4 pg (28.0-33.3); Mean Corpuscular Volume 100.9 fL (83.0-100.0); Mean Platelet Volume 9.8 fL (9.4-12.4); Monocytes # 0.4 K/mcL (0.0-1.3); Monocytes % 11.6 %; Neutrophils # 2.3 K/mcL (1.6-8.9); Platelet Count 142 K/mcL (140-400); Red Blood Count 3.28 M/mcL (3.82-4.97); Red Cell Distribution Width 21.4 % (11.5-14.5); Segmented Neutrophils % 66.9 %
[2017-08-10 06:00] LABS: Hemoglobin 10.3 g/dL (11.5-15.4)
[2017-08-10 06:09] LABS: Potassium 3.9 mEq/L (3.5-5.1)
[2017-08-10] MEDS: Multivit/Ca/Min/Fe/FA 1 TAB TABLET PO SCH (10:26)
[2017-08-10] MEDS: Folic Acid 1 MG TABLET PO SCH (10:26)
[2017-08-10] MEDS: predniSONE 5 MG TABLET PO SCH ×2 (10:26→18:13)
--- NOTE | 2017-08-10 10:29 | Nephrology Progress Note ---
Date of Encounter: 08/10/17 Time of Encounter: 10:27 - Assessment and Plan (1) CKD (chronic kidney disease) Current Visit: Yes Status: Acute Continue to renal dose and avoid nephrotoxins. Scr 2.08 up from 2.06 yesterday. GFR 25 unchanged from the last 3 days. Recommend getting CBC and BMP in 1 week and follow up with Dr. Rodriges in the office. Qualifiers: Chronic kidney disease stage: unspecified stage Qualified Code(s): N18.9 - Chronic kidney disease, unspecified (2) Anemia requiring transfusions Current Visit: Yes Status: Acute Will defer transfusions to primary team. Aranesp started 08/09/17. Has received a total of 4 units PRBC's. (3) Hyperkalemia Current Visit: Yes Status: Acute Resolved K 3.9 today. (4) Short bowel syndrome Current Visit: Yes Status: Chronic Per primary team. Subjective Principal diagnosis: Low Hgb Interval history: Pt seen and examined. No CP,SOB,nausea/vomiting. Objective - Vital Signs Vital signs: Vital Signs Temp Pulse Resp BP Pulse Ox 08/10/17 06:43 98.9 F 67 16 122/70 96 08/10/17 04:10 98.1 F 63 16 109/67 97 08/09/17 23:29 98.1 F 68 16 90/55 97 08/09/17 20:33 97 08/09/17 20:15 98.1 F 72 15 90/51 97 08/09/17 20:02 98.2 F 72 16 96/60 95 08/09/17 18:02 98.0 F 62 18 116/70 08/09/17 17:47 98.6 F 70 18 114/67 100 08/09/17 17:23 98.2 F 63 18 103/61 08/09/17 15:29 98.2 F 65 18 100/58 100 08/09/17 15:15 98.3 F 65 18 94/55 99 08/09/17 14:57 98 F 76 16 101/59 98 08/09/17 10:54 98.4 F 66 16 115/66 98 Intake and Output 08/09/17 08/10/17 08/10/17 23:59 07:59 15:59 Intake Total 1847 / 1847 240 / 240 Output Total 700 / 700 Balance 1147 / 1147 240 / 240 Intake: IV Fluids 1000 / 1000 0.9 % Sodium Chloride 1,000 ML 1000 / 1000 @ 50 mls/hr IVC .Q20H [facility] Rx#: [id number] Oral 240 / 240 240 / 240 Blood Product 607 / 607 Rbcs Leuko Poor As-1 Unit 300 / 300 [id number] Rbcs Leuko Poor As-1 Unit 307 / 307 [id number] Output: Urine 700 / 700 Other: Meal Dinner Breakfast Percent of Meal Consumed 10% 100% Weight 60 kg Patient Weight 08/10/17 23:59 Weight 60 kg - General Appearance General appearance: Present: chronically ill EENT: Present: ATNC, hearing intact, vision intact Respiratory: Present: clear Cardiology: Present: no edema, normal S1, normal S2 Gastrointestinal: Present: normoactive bowel sounds, no tenderness, no guarding Integumentary: Present: no rash, warm and dry Neurologic: Present: alert and oriented x3 Psychiatric: Present: mood/affect appropriate, cooperative - Lab 08/10/17 05:22 08/10/17 05:22 Most recent lab results Calcium 8.0 mg/dL (8.6-10.3) L 08/10/17 05:22 Phosphorus 3.9 mg/dL (2.7-4.5) 08/09/17 06:00 Magnesium 1.9 mg/dL (1.6-2.6) 08/09/17 06:00 - VTE Reasons for not Prescribing Prophylaxis: Medical contraindication (Anemia Requiring Transfusions) Consult Discharge Plan - Plan Referrals: Abebe Renee, [Primary Care Provider] - (Your appointment has been webrequested. Our offices will call you with an appointment time and date. If you do not hear from our offices please call [phone])
[2017-08-10 15:21] VITALS: BP 125/72
--- NOTE | 2017-08-10 16:04 | Discharge Summary ---
- NOTES TO OUTPATIENT PROVIDER Notes to Outpatient Provider: Started on Aranesp per nephrology, Hemoccult negative Date of Encounter: 08/10/17 Time of Encounter: 15:58 - Discharge Diagnosis (1) Anemia requiring transfusions Priority: Primary Status: Acute (2) Ulcerative colitis Priority: Secondary Status: Chronic Qualifiers: Ulcerative colitis location: unspecified ulcerative colitis location Digestive disease complication type: other complication Qualified Code(s): K51.918 - Ulcerative colitis, unspecified with other complication (3) Stage 3 chronic kidney disease Priority: Secondary Status: Chronic (4) Addisons disease Priority: Secondary Status: Chronic (5) Mesenteric ischemia Priority: Secondary Status: Chronic (6) Short bowel syndrome Priority: Secondary Status: Chronic Hospital course: Ms. 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 She is closely followed by [facility] and recently started on outpatient IVF. She reports many weeks of fatigue but denies any visible blood lossin stool urine or hemoptysis. She was notified by physician that her Hgb was low and to go to ED. In ED Hgb 6.4 SHe was typed and screened nd was given 2 units of PRBC. Anemia work up was completed . She had adequate Iron stores. Hemoccult was negative. Xarelto was initially held and has been resumed . Nephrology was consulted . IVF continued. HGb improved to 7.8 She was given 2 more units of PRBC, HGB up to 10 which her baseline appears to be around 9. Her TF were continued per dietary and she tolerated well She was started Aranesp- Labwork today did show a drop in her bicarb I did discuss with Dr Rodriges who advised to continue with current bicarb and that patient receives IV bicarb at home. He advises that patient receives IV bicarb at home and to have her follow up with him next week. She has weekly lab draws per home health. Patient states that she feels better there is no s/sx of active bleeding - Advised patient to follow up with PCP [facility] and nephrology. I answered her questions . She is hemodynamically stable and ready for discharge Discharge discussed with: patient - Time Spent with Patient Total time spent providing and/or coordinating discharge services: - Discharge Medications Home Medications: Copper Gluconate [Copper] 5 mg PO DAILY 02/25/15 [History] Lipase/Protease/Amylase [Creon Dr 24,000 Units Capsule] 3 cap PO TIDWM 02/25/15 [History] Magnesium Oxide [Magnesium] 1,200 mg PO HS 02/25/15 [History] Mercaptopurine 50 mg PO DAILY 02/25/15 [History] Vitamin A Palmitate [Vitamin A] 10,000 unit PO DAILY 02/25/15 [History] Vitamin E (Dl,Tocopheryl Acet) [Vitamin E] 100 unit PO DAILY 02/25/15 [History] predniSONE [PredniSONE] 5 mg PO BID 02/25/15 [History] Zinc Acetate [Galzin] 25 mg PO DAILY 04/21/16 [History] Sodium Bicarbonate 1,300 mg PO TID tablet 04/23/16 [Rx] Cyanocobalamin (B-12) [Vitamin B12] 1 ml IJ QWEEK 05/03/16 [History] Nutritional Supplement [Osmolite 1.2 Glenn] 3 can GTUBE HS 05/03/16 [History] Ergocalciferol (VITAMIN D2) [Drisdol (50,000 Unit)] 100,000 unit PO DAILY [History] Ferrous Gluconate 324 mg PO BID 05/15/17 [History] Multivitamin [Flintstones] 1 each PO DAILY 05/15/17 [History] Folic Acid 1 mg PO DAILY 08/07/17 [History] Omeprazole [PriLOSEC] 20 mg PO DAILY 08/07/17 [History] Rivaroxaban [Xarelto] 5 mg PO DAILY 08/07/17 [History] Allergies/Adverse Reactions: 3 Allergy/AdvReac Type Severity Reaction Status Date / Time levofloxacin [From Levaquin] Allergy Hives Verified 08/07/17 20:25 Date of admission: 08/07/17 22:41 Primary care physician: Abebe Renee Discharging clinician: Adela Presley Anticipated date of discharge: 08/10/17 - Constitutional Vitals: Temp Pulse Resp BP Pulse Ox 98.6 F 58 15 125/72 97 08/10/17 15:19 08/10/17 15:19 08/10/17 15:19 08/10/17 15:19 08/10/17 15:19 General appearance: Present: cooperative, A&O X 3, pleasant, no acute distress, answers questions appropriately - Head Head exam: Present: atraumatic, normocephalic - Eye Eye exam: Present: PERRL, conjuntiva pink, sclera anicteric Pupils: Present: PERRL - Neck Neck exam general surgery: Present: supple, trachea midline. Absent: lymphadenopathy - Respiratory Respiratory exam: Present: CTAB. Absent: accessory muscle use, rales, rhonchi, wheezes - Cardiovascular Cardiovascular exam: Present: RRR, +S1, +S2. Absent: diastolic murmur, gallop, rubs, systolic murmur - GI/Abdominal GI/Abdominal exam: Present: normal bowel sounds, soft, no peritoneal signs. Absent: distended, tenderness - Extremities Exam Extremities exam: Present: warm, radial pulses palpable and symmetrical. Absent : calf tenderness, cyanotic, pedal edema - Neurological Exam Neurological exam: Present: CN II-XII intact, oriented X3, no focal deficits. Absent: pronater drift, facial droop, speech deficit - Skin Skin exam: Present: dry, intact - Patient Status Disposition: Home Health Service Condition: Fair - Discharge Instructions Follow Up With: Abebe Renee DO [Primary Care Provider] - (Your appointment has been webrequested. Our offices will call you with an appointment time and date. If you do not hear from our offices please call [phone]) Art Rodriges DO [Partnered Physician] - - Diet and Activity Activity: increase activity as tolerated Diet: advance to your usual diet - VTE Reasons for not Prescribing Prophylaxis: Medical contraindication (Anemia Requiring Transfusions)
[2017-08-10] MEDS ORDERED: *HR* Rivaroxaban 10 MG TABLET PO SCH (17:00)
--- NOTE | 2017-08-10 18:05 | Physician Discharge Referral ---
Home Health/Hosp Referral Info Transfer to: Home Health Attending Provider: Adela Presley Provider in Charge Post Discharge: PCP - Diagnosis (1) Anemia requiring transfusions Priority: Primary Status: Acute (2) Ulcerative colitis Priority: Secondary Status: Chronic (3) Stage 3 chronic kidney disease Priority: Secondary Status: Chronic (4) Addisons disease Priority: Secondary Status: Chronic (5) Mesenteric ischemia Priority: Secondary Status: Chronic (6) Short bowel syndrome Priority: Secondary Status: Chronic - Respiratory Orders Smoking Cessation: Smoking cessation has been advised. For more information, call the [place] Tobacco Quit Line at 2-167-SIFA-NOW. - Diet/Nutrition Diet/Nutrition Orders: Regular - Services Needed Following services are medically necessary services: Nursing - Transfer Medications Home Medications: Copper Gluconate [Copper] 5 mg PO DAILY 02/25/15 [History] Lipase/Protease/Amylase [Creon Dr 24,000 Units Capsule] 3 cap PO TIDWM 02/25/15 [History] Magnesium Oxide [Magnesium] 1,200 mg PO HS 02/25/15 [History] Mercaptopurine 50 mg PO DAILY 02/25/15 [History] Vitamin A Palmitate [Vitamin A] 10,000 unit PO DAILY 02/25/15 [History] Vitamin E (Dl,Tocopheryl Acet) [Vitamin E] 100 unit PO DAILY 02/25/15 [History] predniSONE [PredniSONE] 5 mg PO BID 02/25/15 [History] Zinc Acetate [Galzin] 25 mg PO DAILY 04/21/16 [History] Sodium Bicarbonate 1,300 mg PO TID tablet 04/23/16 [Rx] Cyanocobalamin (B-12) [Vitamin B12] 1 ml IJ QWEEK 05/03/16 [History] Nutritional Supplement [Osmolite 1.2 Glenn] 3 can GTUBE HS 05/03/16 [History] Ergocalciferol (VITAMIN D2) [Drisdol (50,000 Unit)] 100,000 unit PO DAILY [History] Ferrous Gluconate 324 mg PO BID 05/15/17 [History] Multivitamin [Flintstones] 1 each PO DAILY 05/15/17 [History] Folic Acid 1 mg PO DAILY 08/07/17 [History] Omeprazole [PriLOSEC] 20 mg PO DAILY 08/07/17 [History] Rivaroxaban [Xarelto] 5 mg PO DAILY 08/07/17 [History] Allergies/Adverse Reactions: 3 Allergy/AdvReac Type Severity Reaction Status Date / Time levofloxacin [From Levaquin] Allergy Hives Verified 08/07/17 20:25 Certification: Further, I certify that my clinical findings support that this patient is homebound (i.e. absences from home require considerable and taxing effort and are for medical reasons or orthodox services or infrequently or short duration when for other reasons) because: Homebound Reason: Leaving home requires considerable and taxing effort due to condition Attestation: My signature below is to certify that this patient is under my care and that I, or nurse practitioner, or a physician's library serials assistant working with me, has a face-to -face encounter with this patient.
[2017-08-10] MEDS: 0.9 % Sodium Chloride 1,000 ML IVC SCH (18:46)
== END 2017-08-10 18:58 | disposition home health service (06) | DRG 683 ==
LOC: EMEROO 17:03 → 3BNU 17:03
PROVIDERS: ADMIT Family Medicine; ATTEND Family Medicine

== ENCOUNTER 2018-01-01 22:19 | Observation (INO) ==
--- NOTE | 2018-01-01 23:14 | Emergency Department Note ---
Disposition Clinical Impression: Metabolic acidosis Disposition: Admitted As Inpatient Condition: Good Forms: ED Satisfaction Letter Time of Disposition: 01:00 General Adult HPI - General Chief complaint: ED Recheck/Abnormal Lab/Rx Stated complaint: "Abnormal Labs/Dehydration" Time Seen by Provider: 01/01/18 22:58 Source: patient Mode of arrival: ambulatory Limitations: no limitations - History of Present Illness HPI Narrative: This is a 57-year-old female with a history of short bowel syndrome and chronic metabolic acidosis, with a regular regimen of 8 sodium bicarbonate pills daily. , Who comes to emergency department stating that she had a blood test earlier today showing a bicarbonate of only 9. This is quite low for her. She states that she was doing fine 2 days ago, but had diarrhea yesterday because of consumption of inappropriate foods at a green party. She feels very tired. Pain Scale: 4 - Related Data Home Medications Medication Instructions Recorded Confirmed Copper Gluconate [Copper] 5 mg PO DAILY 02/25/15 08/07/17 Lipase/Protease/Amylase [Creon Dr 3 cap PO TIDWM 02/25/15 08/07/17 24,000 Units Capsule] Magnesium Oxide [Magnesium] 1,200 mg PO HS 02/25/15 08/07/17 Mercaptopurine 50 mg PO DAILY 02/25/15 08/07/17 Vitamin A Palmitate [Vitamin A] 10,000 unit PO DAILY 02/25/15 08/07/17 Vitamin E (Dl,Tocopheryl Acet) 100 unit PO DAILY 02/25/15 08/07/17 [Vitamin E] predniSONE [PredniSONE] 5 mg PO BID 02/25/15 08/07/17 Zinc Acetate [Galzin] 25 mg PO DAILY 04/21/16 08/07/17 Cyanocobalamin (B-12) [Vitamin B12] 1 ml IJ QWEEK 05/03/16 08/07/17 Nutritional Supplement [Osmolite 3 can GTUBE HS 05/03/16 08/07/17 1.2 Glenn] Ergocalciferol (VITAMIN D2) 100,000 unit PO DAILY 05/15/17 08/07/17 [Drisdol (50,000 Unit)] Ferrous Gluconate 324 mg PO BID 05/15/17 08/07/17 Multivitamin [Flintstones] 1 each PO DAILY 05/15/17 08/07/17 Folic Acid 1 mg PO DAILY 08/07/17 08/07/17 Omeprazole [PriLOSEC] 20 mg PO DAILY 08/07/17 08/07/17 Rivaroxaban [Xarelto] 5 mg PO DAILY 08/07/17 08/07/17 Previous Rx's Medication Instructions Recorded Sodium Bicarbonate 1,300 mg PO TID tablet 04/23/16 Allergies Allergy/AdvReac Type Severity Reaction Status Date / Time levofloxacin [From Levaquin] Allergy Hives Verified 08/07/17 20:25 All systems ED: reviewed and negative except as stated. Constitutional: Reports: other (Fatigue) Gastrointestinal: Reports: diarrhea Past Medical History - Past Medical History Medical history: Reports: CVA, osteoporosis, renal disease, other Surgical history: Reports: appendectomy, other Psychiatric history: Reports: no psych history NETWORK TECHNICAL ANALYST history: Reports: no NETWORK TECHNICAL ANALYST history - Social History Smoking Status: Never smoker Smokeless Tobacco Status: No Alcohol use: Reports: rarely Drug use: Reports: none Physical Exam - General Limitations: no limitations General appearance: alert, in no apparent distress - Head Head exam: atraumatic, normocephalic, normal inspection - Eye Eye exam: Present: normal appearance, PERRL, EOMI - Chest Chest inspection: Present: normal inspection, symmetric chest wall rise - Respiratory Respiratory exam: Present: normal lung sounds bilaterally - Cardiovascular Cardiovascular exam: Present: regular rate, normal rhythm, normal heart sounds - Abdominal Exam Abdominal exam: Present: soft, Non-Tender. Absent: tenderness, distention, guarding, rebound, rigidity - Extremities Exam Extremities exam: Present: normal inspection, full ROM. Absent: tenderness, pedal edema - Neurological Exam Neurological exam: Present: alert, oriented X3 - Psychiatric Psychiatric exam: Present: normal affect, normal mood - Skin Skin exam: Present: warm, dry, intact, normal color Course Course Narrative: This is a 57-year-old female with metabolic acidosis apparently secondary to short-bowel syndrome. Vital Signs Temperature 98.1 F 01/01/18 22:33 Pulse Rate 84 01/01/18 22:33 Respiratory Rate 16 01/01/18 22:33 Blood Pressure 113/73 01/01/18 22:33 O2 Sat by Pulse Oximetry 100 01/01/18 22:33 Temperature 98.1 F 01/01/18 22:33 Pulse Rate 84 01/01/18 22:33 Respiratory Rate 16 01/01/18 22:33 Blood Pressure 113/73 01/01/18 22:33 O2 Sat by Pulse Oximetry 100 01/01/18 22:33 Oxygen Delivery Oxygen Delivery Room Air Medical Decision Making - MDM Narrative Medical decision making narrative: This is a 57-year-old female with short bowel syndrome and metabolic acidosis secondary to diarrhea. She was started on bicarbonate infusion for treatment and hydration, and I discussed her case with the on-call hospitalist, who accepted her for observation. - Lab Data Lab results reviewed: Yes I reviewed the patient's lab results. Lab results narrative: CBC shows anemia at 7.6 and 23.8 BMP shows elevated chloride at 1:15, bicarbonate is low at 12, creatinine is elevated at 2.74 Lactate is normal at 1.0 Result diagrams: 01/01/18 23:16 01/01/18 23:16 Lab Results 01/01/18 01/01/18 01/01/18 Range/Units 23:16 23:16 23:16 WBC 4.8 (4.3-11.1) K/mcL RBC 2.13 L (3.82-4.97) M/mcL Hgb 7.6 L (11.5-15.4) g/dL Hct 23.8 L (35.3-44.9) % MCV 111.7 H (83.0-100.0) fL MCH 35.7 H (28.0-33.3) pg MCHC 31.9 (31.6-35.5) g/dL RDW 14.1 (11.5-14.5) % Plt Count 151 (140-400) K/mcL MPV 10.8 (9.4-12.4) fL Immature Gran % 0.2 (0-4) % Seg Neutrophils % 67.7 % Lymphocytes % 21.3 % Monocytes % 9.4 % Eosinophils % 1.0 % Basophils % 0.4 % Neutrophils # 3.3 (1.6-8.9) K/mcL Lymphocytes # 1.0 (0.6-4.6) K/mcL Monocytes # 0.5 (0.0-1.3) K/mcL Eosinophils # 0.1 (0.0-0.6) K/mcL Basophils # 0.0 (0.0-0.2) K/mcL Platelet Estimate Normal (Normal) Immature Plt Fraction 4.3 (1.1-6.1) % Macrocytosis Present A (Not Present) Sodium 141 (136-145) mEq/L Potassium 4.1 (3.5-5.1) mEq/L Chloride 115 H (98-107) mEq/L Carbon Dioxide 12 L (23-29) mEq/L BUN 18 (6-20) mg/dL Creatinine 2.74 H (0.60-1.20) mg/dL Est GFR ( Amer) 22 L (> 60) Est GFR (Non-Af Amer) 18 L (> 60) BUN/Creatinine Ratio 7 (6-26) Glucose 85 (70-105) mg/dL Calculated Osmolality 293 (280-300) Lactic Acid 1.0 (0.5-2.2) mmol/L Calcium 8.3 L (8.6-10.3) mg/dL Critical Care Time Critical Care Time: Yes Total Critical Care Time: 20 Attestation: 20 minutes of critical care time was invested independent of separately billable procedures
[2018-01-01 23:34] LABS: Basophils % 0.4 %; Eosinophils # 0.1 K/mcL (0.0-0.6); Hematocrit 23.8 % (35.3-44.9); Hemoglobin 7.6 g/dL (11.5-15.4); Immature Granulocytes % 0.2 % (0-4); Immature Platelets 4.3 % (1.1-6.1); Lymphocytes % 21.3 %; Mean Corpuscular HGB Conc 31.9 g/dL (31.6-35.5); Mean Corpuscular Hemoglobin 35.7 pg (28.0-33.3); Mean Corpuscular Volume 111.7 fL (83.0-100.0); Mean Platelet Volume 10.8 fL (9.4-12.4); Monocytes # 0.5 K/mcL (0.0-1.3); Monocytes % 9.4 %; Neutrophils # 3.3 K/mcL (1.6-8.9); Platelet Count 151 K/mcL (140-400); Red Blood Count 2.13 M/mcL (3.82-4.97); Red Cell Distribution Width 14.1 % (11.5-14.5); Segmented Neutrophils % 67.7 %
[2018-01-01 23:44] LABS: Calcium 8.3 mg/dL (8.6-10.3); Potassium 4.1 mEq/L (3.5-5.1)
[2018-01-01 23:51] LABS: Macrocytosis Present (Not Present); Platelet Estimate Normal (Normal)
--- NOTE | 2018-01-02 00:49 | Internal Med History&Physical ---
<Addy Garcia - Last Filed: 01/02/18 01:39> Date of Encounter: 01/02/18 Time of Encounter: 01:00 Internal Medicine - H&P: HPI Chief complaint: Low bicarb Admitted From: Emergency Dept Plans for Post Hospital Care: Home History of present illness: Ms. Rice is a 57 year old female with history of ulcerative colitis, short bowel syndrome, CVA, CKD, anemia, osteoporosis who presents to the emergency department due to low bicarbonate as reported by her outpatient provider. The patient was at a family get together yesterday and had food which apparently upset her stomach and caused diarrhea over the past 24 hours which stopped as of 8 AM this morning. Additionally, the patient had been noncompliant with medications for the two days prior to this event due to life events which were keeping her occupied. Since that time she has been feeling weak, unsteady on her feet and she felt that maybe her bicarbonate was low. This is not unusual for her since she has had short bowel syndrome for the past 15 years. This is due to her ulcerative colitis which has resulted in a large portion of her small bowel being removed. She contacted her home health agency who then harper blood and shortly thereafter was called because her bicarbonate was 9. According to the patient, she typically runs at approximately 20, and that is because she takes 8 pills per day. She was told to come to the hospital for fluids. The patient does have history of significant nutrient deficiencies requiring tube feeds at night. At this time she has no other acute complaints. She says she is otherwise feeling well. Past Med Surg Social Fam HX - Past Medical History Medical history: CVA, osteoporosis, renal disease, other Additional medical history: Blood clot intestines, Psychiatric history: no psych history - Past Surgical History Surgical History: appendectomy, other Additional surgical history: 07/31/17-RIGHT GROSHONG IN CHEST. replaced 05/2017- FEEDING TUBE LUQ. 2000-small intestine surgically removed except for 2 feet. 2017-shattered JOSEFA has plates and screws. opened up tear ducts in both eyes - Social History Smoking Status: Never smoker Smokeless Tobacco Status: No Alcohol use: rarely Drug use: none - Family History Mother Living Status: Still Living Hx Family Cardiac Disorders: Yes (HTN) Hx Family Cancer: Yes (eye) Father Living Status: Hx Family Neurologic Disorders: Yes Internal Medicine - H&P: Meds Copper Gluconate [Copper] 5 mg PO DAILY 02/25/15 [History] Lipase/Protease/Amylase [Creon Dr 24,000 Units Capsule] 3 cap PO TIDWM 02/25/15 [History] Magnesium Oxide [Magnesium] 1,200 mg PO HS 02/25/15 [History] Mercaptopurine 50 mg PO DAILY 02/25/15 [History] Vitamin A Palmitate [Vitamin A] 10,000 unit PO DAILY 02/25/15 [History] Vitamin E (Dl,Tocopheryl Acet) [Vitamin E] 100 unit PO DAILY 02/25/15 [History] predniSONE [PredniSONE] 5 mg PO BID 02/25/15 [History] Zinc Acetate [Galzin] 25 mg PO DAILY 04/21/16 [History] Sodium Bicarbonate 1,300 mg PO TID tablet 04/23/16 [Rx] Cyanocobalamin (B-12) [Vitamin B12] 1 ml IJ QWEEK 05/03/16 [History] Nutritional Supplement [Osmolite 1.2 Glenn] 3 can GTUBE HS 05/03/16 [History] Ergocalciferol (VITAMIN D2) [Drisdol (50,000 Unit)] 100,000 unit PO DAILY [History] Ferrous Gluconate 324 mg PO BID 05/15/17 [History] Multivitamin [Flintstones] 1 each PO DAILY 05/15/17 [History] Folic Acid 1 mg PO DAILY 08/07/17 [History] Omeprazole [PriLOSEC] 20 mg PO DAILY 08/07/17 [History] Rivaroxaban [Xarelto] 5 mg PO DAILY 08/07/17 [History] 3 Allergy/AdvReac Type Severity Reaction Status Date / Time levofloxacin [From Levaquin] Allergy Hives Verified 08/07/17 20:25 All Systems PM: A 10-system review of systems was performed and is negative for pertinent findings except as documented above in the HPI. Review of systems: Constitutional: Denies fevers, chills, weight loss. Admits to generalized fatigue. Head/Neck: Denies RIDDLE, neck stiffness EENT: Denies vision changes/blurriness, rhinorrhea, congestion, sore throat CVS: Denies chest pain, palpitations, JACOBS, orthopnea, edema, PND Pulm: Denies SOB, cough, sputum, hemoptysis, wheezing GI: Admits to significant diarrhea which has now stopped. Denies abdominal pain , nausea, vomiting, constipation, melena, hematemasis : Denies dysuria, increased frequency, urgency, hematuria Heme: Denies ease of bleeding or bruising MSK: Denies joint pain, limited ROM Skin: Denies rashes, ulcers, color changes Neuro: Denies RIDDLE, paresthesias, focal deficits, ataxia - Constitutional Vitals: Temp Pulse Resp BP Pulse Ox 98.1 F 84 16 113/73 100 01/01/18 22:33 01/01/18 22:33 01/01/18 22:33 01/01/18 22:33 01/01/18 22:33 Exam: Gen: Vitals noted. No acute distress. HEENT: Normocephalic, atraumatic Neck: Supple. No adenopathy. Cardiac: RRR, no murmur, +S1/S2 Chest: Patient has central line that is permanent and right upper chest with no redness or erythema surrounding Pulmonary: CTA bilaterally, no wheezes, rales or rhonchi, equal chest expansion Abdomen: soft, nontender, no guarding Back: Nontender throughout. MSK: ROM intact, no joint swelling noted Extremities: no BLE edema, nontender calf, no cyanosis or clubbing Neuro: moves all extremities, no focal deficits. A&Ox3 Psych: Appropriate mood and behavior Internal Med - H&P Results - Labs CBC & Chem 7: 01/01/18 23:16 01/01/18 23:16 Labs: Short CBC 01/01/18 Range/Units 23:16 WBC 4.8 (4.3-11.1) K/mcL Hgb 7.6 L (11.5-15.4) g/dL Hct 23.8 L (35.3-44.9) % Plt Count 151 (140-400) K/mcL Neutrophils # 3.3 (1.6-8.9) K/mcL BMP 01/01/18 23:16 Sodium 141 Potassium 4.1 Chloride 115 H Carbon Dioxide 12 L BUN 18 Creatinine 2.74 H Glucose 85 Calcium 8.3 L - Assessment and plan (1) Metabolic acidosis Current Visit: Yes Status: Acute Assessment and plan: Metabolic acidosis secondary to short bowel syndrome with acute diarrhea Patient had poor appetite resulting in diarrhea for several hours In addition of this she was noncompliant with medication for several days She was placed on a bicarbonate drip per the ED We will continue this bicarbonate drip overnight, continue oral medications in the morning Recheck bicarbonate in the morning via BMP (2) Anemia Current Visit: Yes Status: Chronic Assessment and plan: Worsening anemia, Hg 7.6 Patient received injections of Aranesp Was scheduled to receive shot tomorrow We will give one dose while she is here Qualifiers: Anemia type: unspecified type Qualified Code(s): D64.9 - Anemia, unspecified (3) CKD (chronic kidney disease) Current Visit: No Status: Chronic Assessment and plan: CKD, typical GFR ~16 Patient GFR is stable at 18 Avoid nephrotoxic agents Qualifiers: Chronic kidney disease stage: unspecified stage Qualified Code(s): N18.9 - Chronic kidney disease, unspecified (4) Short bowel syndrome Current Visit: No Status: Chronic Assessment and plan: History of shortbowel syndrome (5) DVT prophylaxis Current Visit: No Status: Acute Assessment and plan: Patient is on Xarelto - Time Spent With Patient Total time spent is greater than 50% in coordination of care (as documented) at patient's floor/unit and/or counseling patient: <TeressaMart - Last Filed: 01/02/18 05:06> Date of Encounter: 01/02/18 All Systems PM: A 10-system review of systems was performed and is negative for pertinent findings except as documented above in the HPI. 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 She states that yesterday she had a democrat in her house and indulged in excessive eating of numerous meals that left her with diarrhea couple by the fact that she did not take her bicarbonate pills and now she feels significantly fatigued and tired. She had blood drawn by her visiting nurse earlier in the morning and was reported to have a bicarbonate of only 9 however she reports typically being around 20. He was then advised she come to the ER for fluid resuscitation. Here on repeat she seemed to have a level of 12. Based on calculation she has a very mild high anion gap metabolic acidosis at 14. She has been started on bicarbonate infusion and is admitted for observation. At this time she reports feeling well and has no complaints. She denies abdominal pain. She reports a history of ulcerative colitis to begin with as well coupled with her current condition she has intermittent episodes of diarrheic depositions. She denies fever, chills. Medical history remarkable for stage IV chronic kidney disease and anemia of chronic disease for which she receives monthly iron injections. Surgical history remarkable for colectomy. Denies smoking history. Family history is noncontributory. 10 point review of systems was done and negative except as noted above. Physical exam remarkable for a well-appearing white female with pale skin and partially dry mucous membranes. Skin is supple and warm. No LAD or thyromegaly. CTA BL. Normal S1-S2. Abdomen non-distended and soft with no tenderness to palpation. No pedal edema is present. AAO 3. No focal deficits apparent. Affect appropriate. Vitals within normal limits. No inflammatory signs around her tunneled port on her right upper chest. Labs reviewed and noted above. Has decreasing hemoglobin currently at 7.6. Creatinine stable. Will admit for metabolic acidosis due to GI losses and supplement with IV bicarb for now and resume oral medications in the morning. Check electrolytes and supplement accordingly. Can receive EPO tomorrow as scheduled prior to discharge. Continue rivaroxaban. [place] [facility].
[2018-01-02] MEDS: Sodium Bicarbonate 150 MEQ in D5% in Water 1,000 ML IVC SCH ×3 (05:49→10:37)
[2018-01-02 06:07] LABS: Calcium 7.8 mg/dL (8.6-10.3); Magnesium 1.7 mg/dL (1.6-2.6); Phosphorous 2.6 mg/dL (2.7-4.5); Potassium 3.9 mEq/L (3.5-5.1)
[2018-01-02] MEDS ORDERED: *HR* Rivaroxaban 10 MG TABLET PO SCH (09:00)
[2018-01-02] MEDS ORDERED: Folic Acid 1 MG TABLET PO SCH (09:00)
[2018-01-02 10:28] VITALS: BP 99/61
--- NOTE | 2018-01-02 14:02 | Discharge Summary ---
- NOTES TO OUTPATIENT PROVIDER Notes to Outpatient Provider: Follow up bmp within 1 week Date of Encounter: 01/02/18 Time of Encounter: 13:59 Hospital course: Ms. Rice is a 57 year old female with history of ulcerative colitis, short bowel syndrome s/p colectomy, CVA, CKD, anemia, osteoporosis who was admitted due to low bicarbonate as well as fatigue. She has not taken her medication for 2 days. She was also feeling fatigued and weak and unsteady in her feet. She also has history of sort of syndrome and has diarrhea on a usual basis. She has a history of nutritional deficiencies which requires every feeding at night. She was admitted due to metabolic acidosis and was started on IV bicarbonate. Patient improved significantly after IV fluids with bicarbonate. Labs normalized the next day. Patient does run low with her hemoglobin and got EPO shot today. Hemoglobin relatively at her baseline. Patient wants to go home given without any symptoms and normalization of her bicarbonate. We will discharge her home with home health. Asked to resume her oral bicarbonate at home. Discharge discussed with: patient, family, nurse (40) - Time Spent with Patient Total time spent providing and/or coordinating discharge services: Greater than 30 minutes - Discharge Medications Home Medications: Copper Gluconate [Copper] 5 mg PO DAILY 02/25/15 [History] Lipase/Protease/Amylase [Creon Dr 24,000 Units Capsule] 3 cap PO TIDWM 02/25/15 [History] Mercaptopurine 50 mg PO DAILY 02/25/15 [History] Vitamin A Palmitate [Vitamin A] 10,000 unit PO DAILY 02/25/15 [History] Vitamin E (Dl,Tocopheryl Acet) [Vitamin E] 100 unit PO DAILY 02/25/15 [History] predniSONE [PredniSONE] 5 mg PO QAM 02/25/15 [History] Zinc Acetate [Galzin] 25 mg PO DAILY 04/21/16 [History] Cyanocobalamin (B-12) [Vitamin B12] 1 ml IM QMONTH 05/03/16 [History] Nutritional Supplement [Osmolite 1.2 Glenn] 3 can GTUBE HS 05/03/16 [History] Ergocalciferol (VITAMIN D2) [Drisdol (50,000 Unit)] 100,000 unit PO DAILY [History] Multivitamin [Flintstones] 1 each PO DAILY 05/15/17 [History] Folic Acid 1 mg PO DAILY 08/07/17 [History] Omeprazole [PriLOSEC] 20 mg PO DAILY 08/07/17 [History] Rivaroxaban [Xarelto] 5 mg PO DAILY 08/07/17 [History] Calcitriol 0.5 mcg PO DAILY 01/02/18 [History] Darbepoetin [Aranesp] 200 mcg IV QMONTH 01/02/18 [History] Ferrous Sulfate 325 mg PO BID tablet 01/02/18 [Rx] Lipase/Protease/Amylase [Lexus Dr 24,000 Units Capsule] 2 cap PO TID 01/02/18 [ History] Sodium Bicarbonate 1,300 mg PO TID 01/02/18 [History] predniSONE [PredniSONE] 2.5 mg PO QPM 01/02/18 [History] Allergies/Adverse Reactions: 3 Allergy/AdvReac Type Severity Reaction Status Date / Time levofloxacin [From Levaquin] Allergy Hives Verified 08/07/17 20:25 Date of admission: 01/02/18 01:11 Primary care physician: Abebe Renee Consults: 01/02/18 10:20 Consult to Nutrition [CONS] Routine Comment: Consulting Provider: NUTRITION Reason for Dietary Consult: Tube Feed Start & Manage Discharging clinician: Felicitas Whyte - Constitutional Vitals: Temp Pulse Resp BP Pulse Ox 98.2 F 90 16 99/61 98 01/02/18 10:24 01/02/18 10:24 01/02/18 10:24 01/02/18 10:24 01/02/18 10:24 Exam: Gen: Vitals noted. No acute distress. HEENT: Moist mucus membrane. Neck: Supple. No adenopathy. Cardiac: RRR, no MRG, +S1/S2, Has central line that is permanent and right upper chest with no redness or erythema surrounding Pulmonary: CTA bilaterally, no wheezes, rales or rhonchi, equal chest expansion Abdomen: soft, BS present, nontender, no guarding, Extremities: no BLE edema, nontender calf, no cyanosis or clubbing Neuro: A&Ox3 no focal deficits. - Patient Status Disposition: Home Health Service - Discharge Instructions Follow Up With: Abebe Renee DO [Primary Care Provider] - - Diet and Activity Activity: resume usual activities as tolerated
--- NOTE | 2018-01-02 14:09 | Physician Discharge Referral ---
Home Health/Hosp Referral Info Transfer to: Home Health - Respiratory Orders Smoking Cessation: Smoking cessation has been advised. For more information, call the [place] Tobacco Quit Line at 9-013-YHBB-NOW. - Services Needed Following services are medically necessary services: Nursing - Transfer Medications Home Medications: Copper Gluconate [Copper] 5 mg PO DAILY 02/25/15 [History] Lipase/Protease/Amylase [Lexus [place] 24,000 Units Capsule] 3 cap PO TIDWM 02/25/15 [History] Mercaptopurine 50 mg PO DAILY 02/25/15 [History] Vitamin A Palmitate [Vitamin A] 10,000 unit PO DAILY 02/25/15 [History] Vitamin E (Dl,Tocopheryl Acet) [Vitamin E] 100 unit PO DAILY 02/25/15 [History] predniSONE [PredniSONE] 5 mg PO QAM 02/25/15 [History] Zinc Acetate [Galzin] 25 mg PO DAILY 04/21/16 [History] Cyanocobalamin (B-12) [Vitamin B12] 1 ml IM QMONTH 05/03/16 [History] Nutritional Supplement [Osmolite 1.2 Glenn] 3 can GTUBE HS 05/03/16 [History] Ergocalciferol (VITAMIN D2) [Drisdol (50,000 Unit)] 100,000 unit PO DAILY [History] Multivitamin [Flintstones] 1 each PO DAILY 05/15/17 [History] Folic Acid 1 mg PO DAILY 08/07/17 [History] Omeprazole [PriLOSEC] 20 mg PO DAILY 08/07/17 [History] Rivaroxaban [Xarelto] 5 mg PO DAILY 08/07/17 [History] Calcitriol 0.5 mcg PO DAILY 01/02/18 [History] Darbepoetin [Aranesp] 200 mcg IV QMONTH 01/02/18 [History] Lipase/Protease/Amylase [Lexus [place] 24,000 Units Capsule] 2 cap PO TID 01/02/18 [ History] predniSONE [PredniSONE] 2.5 mg PO QPM 01/02/18 [History] Allergies/Adverse Reactions: 3 Allergy/AdvReac Type Severity Reaction Status Date / Time levofloxacin [From Levaquin] Allergy Hives Verified 08/07/17 20:25 Certification: Further, I certify that my clinical findings support that this patient is homebound (i.e. absences from home require considerable and taxing effort and are for medical reasons or mosque services or infrequently or short duration when for other reasons) because: Homebound Reason: Patient requires assistance of a person or device to safely leave home Attestation: My signature below is to certify that this patient is under my care and that I, or nurse practitioner, or a physician's assistant portfolio manager working with me, has a face-to -face encounter with this patient.
[2018-01-02] MEDS ORDERED: predniSONE 5 MG TABLET PO SCH (18:00)
[2018-01-02] MEDS ORDERED: Magnesium Oxide 400 MG TABLET PO SCH (21:00)
[2018-01-03] MEDS ORDERED: Cholecalciferol (D-3) 1,000 UNIT TABLET PO SCH (09:00)
[2018-01-03] MEDS ORDERED: predniSONE 5 MG TABLET PO SCH (09:00)
== END 2018-01-02 18:35 | disposition home health service (06) ==
LOC: EMEROOARM 22:19 → 3ANU 22:19 → SUATTDRO 01-02 01:11 → 3ANU 01-02 01:58
PROVIDERS: ADMIT Internal Medicine; ATTEND Internal Medicine

== ENCOUNTER 2018-07-23 23:29 | Observation (INO) ==
--- NOTE | 2018-07-23 23:34 | Emergency Department Note ---
Disposition Clinical Impression: Elevated troponin Chest pain Qualifiers: Chest pain type: unspecified Qualified Code(s): R07.9 - Chest pain, unspecified Disposition: Admitted As Inpatient Condition: Undetermined Time of Disposition: 04:13 General Adult HPI - General Stated complaint: chest pain Time Seen by Provider: 07/23/18 23:33 Source: patient, family Mode of arrival: ambulatory Limitations: no limitations Nursing Notes Reviewed: Yes Vital Signs Reviewed: Yes - History of Present Illness HPI Narrative: 53-year-old female past medical history of ulcerative colitis, short-bowel syndrome, chronic kidney disease, CVA presenting for one half hour history of chest pain, shortness of breath and left arm pain. Patient states that she has been very nervous about an upcoming graft placement in her left arm at the [facility] for dialysis treatment. Patient feels that her symptoms may be related to anxiety/panic Patient states that she is currently on TPN for supplementation for chronic kidney disease Patient states that she was taking TPN has been for past couple of days which she was very anxious about, patient is concerned she may have had a reaction to the TPN. Patient states partially half hour ago she experienced 10 out of 10 tightness in the midsternal region without radiation, patient stated to be very flushed during this time with mild diaphoresis, patient also reports to left forearm pain with "bulging" veins in her arm. Patient denies any history of cardiac pathology. Patient states that her symptoms are progressively lessening and are now 5 out of 10 on the pain scale without intervention. Onset (ago): Just [employer] Location: chest Radiation: non-radiation Pain Severity: severe Pain Scale: 10 Quality: other (Tightness) Consistency: Improving Improves with: nothing Worsens with: nothing Associated symptoms: Reports: shortness of breath Treatments Prior to Arrival: none - Related Data Home Medications Medication Instructions Recorded Confirmed Copper Gluconate [Copper] 5 mg PO DAILY 02/25/15 07/24/18 Lipase/Protease/Amylase [Creon Dr 3 cap PO TIDWM 02/25/15 07/24/18 24,000 Units Capsule] Mercaptopurine 50 mg PO Q48H 02/25/15 07/24/18 Vitamin A Palmitate [Vitamin A] 10,000 unit PO DAILY 02/25/15 07/24/18 Vitamin E (Dl,Tocopheryl Acet) 100 unit PO DAILY 02/25/15 07/24/18 [Vitamin E] predniSONE [PredniSONE] 5 mg PO QAM 02/25/15 07/24/18 Zinc Acetate [Galzin] 25 mg PO DAILY 04/21/16 07/24/18 Cyanocobalamin (B-12) [Vitamin B12] 1 ml IM QMONTH 05/03/16 07/24/18 Nutritional Supplement [Osmolite 3 can GTUBE HS 05/03/16 07/24/18 1.2 Glenn] Ergocalciferol (VITAMIN D2) 100,000 unit PO DAILY 05/15/17 07/24/18 [Drisdol (50,000 Unit)] Multivitamin [Flintstones] 1 each PO DAILY 05/15/17 07/24/18 Folic Acid 1 mg PO DAILY 08/07/17 07/24/18 Omeprazole [PriLOSEC] 20 mg PO DAILY 08/07/17 07/24/18 Rivaroxaban [Xarelto] 5 mg PO DAILY 08/07/17 07/24/18 Calcitriol 0.5 mcg PO DAILY 01/02/18 07/24/18 Darbepoetin [Aranesp] 200 mcg IV QMONTH 01/02/18 07/24/18 Sodium Bicarbonate 1,300 mg PO TID 01/02/18 07/24/18 predniSONE [PredniSONE] 2.5 mg PO QPM 01/02/18 07/24/18 Ferrous Gluconate 324 mg PO BID 03/31/18 07/24/18 Allergies Allergy/AdvReac Type Severity Reaction Status Date / Time levofloxacin [From Levaquin] Allergy Hives Verified 05/26/18 13:50 NSAIDS (Non-Steroidal AdvReac See Verified 05/26/18 13:50 Anti-Inflamma Comments Review of Systems: Patient admits to chest pain initially 10 out of 10 on the pain scale described as tightness occurred approximately half hour ago. Patient states without intervention chest pain has spontaneously resolved to 5 out of 10 on the pain scale Patient also admits to shortness of breath, flushing, diaphoresis, and pain in her left forearm with prominent veins. Patient denies recent fever/chills, abdominal pain/nausea/vomiting, recent hematochezia/hematuria, no cough, no new neck or back pain, no new numbness or paresthesias. All systems ED: reviewed and negative except as stated. Review of Systems: As Per HPI Past Medical History - Past Medical History Source: patient Medical history: Reports: renal disease Surgical history: Reports: appendectomy, other Psychiatric history: Reports: anxiety, depression INOCULATOR history: Reports: no INOCULATOR history - Social History Smoking Status: Never smoker Smokeless Tobacco Status: No Alcohol use: Reports: occasionally Drug use: Reports: none Physical Exam - General Limitations: no limitations General appearance: alert, in no apparent distress - Head Head exam: atraumatic, normocephalic, normal inspection - Eye Eye exam: Present: normal appearance, PERRL, EOMI, other. Absent: scleral icterus, conjunctival injection - Neck Neck exam: Present: normal inspection, trachea midline - Chest Chest inspection: Present: normal inspection, symmetric chest wall rise. Absent: tenderness - Respiratory Respiratory exam: Present: normal lung sounds bilaterally. Absent: respiratory distress, wheezes, stridor, accessory muscle use, prolonged expiratory phase - Cardiovascular Cardiovascular exam: Present: regular rate, normal rhythm, +S1, +S2. Absent: systolic murmur, diastolic murmur, rubs, gallop, clicks, JVD, +S3, +S4 - Abdominal Exam Abdominal exam: Present: soft, Non-Tender, normal bowel sounds. Absent: distention, guarding, rebound, rigidity, organomegaly - Neurological Exam Neurological exam: Present: alert, oriented X3 - Psychiatric Psychiatric exam: Present: anxious - Skin Skin exam: Present: warm, dry, intact, normal color. Absent: rash, cyanosis, diaphoresis, erythema, pallor, mottled Course Course Narrative: Concern for cardiopulmonary pathology Patient had CBC drawn with CRP this morning by home health care unremarkable results BMP, hepatic panel, troponin, 2 view chest x-ray, EKG/old EKG for further workup. Vital Signs Temperature 98.9 F 07/23/18 23:33 Pulse Rate 76 07/23/18 23:33 Respiratory Rate 18 07/23/18 23:33 Blood Pressure 129/76 07/23/18 23:33 O2 Sat by Pulse Oximetry 100 07/23/18 23:33 Temperature 98.2 F 07/24/18 03:53 Pulse Rate 63 07/24/18 03:53 Respiratory Rate 16 07/24/18 03:53 Blood Pressure 108/66 07/24/18 03:53 O2 Sat by Pulse Oximetry 99 07/24/18 03:53 Oxygen Delivery Oxygen Delivery Room Air Medical Decision Making - MDM Narrative Medical decision making narrative: Patient admitted to hospitalist medicine service for ACS rule out in the setting of elevated troponin and new onset chest pain. Patient verbalizes her understanding and agreement this plan. - Lab Data Lab results reviewed: Yes I reviewed the patient's lab results. Result diagrams: 07/23/18 23:50 Lab Results 07/23/18 Range/Units 23:50 Sodium 138 (136-145) mEq/L Potassium 5.6 H (3.5-5.1) mEq/L Chloride 105 (98-107) mEq/L Carbon Dioxide 24 (23-29) mEq/L BUN 20 (6-20) mg/dL Creatinine 2.76 H (0.60-1.20) mg/dL Est GFR ( Amer) 21 L (> 60) Est GFR (Non-Af Amer) 18 L (> 60) BUN/Creatinine Ratio 7 (6-26) Glucose 82 (70-105) mg/dL Calculated Osmolality 288 (280-300) Calcium 7.5 L (8.6-10.3) mg/dL Total Bilirubin 0.3 (0.3-1.0) mg/dL Direct Bilirubin 0.1 (0.0-0.2) mg/dL Indirect Bilirubin 0.2 (0.0-1.2) mg/dL AST 20 (13-39) Units/L ALT 17 (7-52) Units/L Alkaline Phosphatase 72 (34-104) Units/L Troponin I 0.07 H* (< 0.04) ng/mL Serum Total Protein 5.3 L (6.4-8.9) g/dL Albumin 3.2 L (3.5-5.7) g/dL Globulin 2.1 L (2.4-3.5) g/dL Albumin/Globulin Ratio 1.5 (1.1-2.2) - Radiology Data Radiology results reviewed: Yes I reviewed the patient's radiology results. Chest X-Ray 07/24/18 23:46 IMPRESSION: No acute disease. D/ / Krystal Rajan Cha, MD / Krystal Rajan Cha, MD Interpreting Provider: Krystal Rajan Cha, MD - EKG Data EKG #1 EKG attestation: Yes I reviewed and interpreted this EKG. EKG results narrative: Patient EKG shows a sinus rhythm with a ventricular rate of 73 bpm, OK interval of 160 ms, QRS duration of 90 ms, QT/QTc interval 406/448 ms respectively. There are no significant ST segment elevations, depressions, pathologic Q waves, abnormal T-wave inversions, or other signs of acute ischemic change. This EKG performed today is generally consistent with prior EKG performed on 03/31/2018. Attestation Statement - Attestation Attestation: Dr. Arzate note: Patient seen in conjunction with ER resident Dr. Noah Machado; please see his charting for complete documentation. Spent [id number] time with the patient and I agree with patient's treatment and disposition. Left arm pain and chest pain around 10 PM after taking a bag of TPN through her right chest wall port. She has taken the same TPN 4-5 times a week for the past year. Arrives without any pain or symptoms. Denies prior history of chest pain and left arm pain. Reports a stress test years ago but no known heart disease and no prior heart catheterization initial troponin noted with baseline history of renal disease. Will be admitted for serial enzymes and additional observation. Patient pain- free at time of admission to hospitalist Dr. Davis
[2018-07-24 00:40] LABS: Troponin I 0.07 ng/mL (< 0.04)
[2018-07-24 00:46] LABS: Albumin 3.2 g/dL (3.5-5.7); Albumin/Globulin Ratio 1.5 (1.1-2.2); Bilirubin,Direct 0.1 mg/dL (0.0-0.2); Bilirubin,Indirect 0.2 mg/dL (0.0-1.2); Bilirubin,Total 0.3 mg/dL (0.3-1.0); Calcium 7.5 mg/dL (8.6-10.3); Globulin 2.1 g/dL (2.4-3.5); Potassium 5.6 mEq/L (3.5-5.1); Total Protein 5.3 g/dL (6.4-8.9)
[2018-07-24] MEDS ORDERED: *HR* Rivaroxaban 15 MG TABLET PO STA (02:34)
[2018-07-24] MEDS ORDERED: Aspirin 325 MG TABLET PO ONE (02:35)
[2018-07-24] MEDS ORDERED: *HR* Rivaroxaban 10 MG TABLET PO ONE (02:53)
[2018-07-24] MEDS ORDERED: Ondansetron 4 MG/2 ML VIAL IVP PRN (08:20)
[2018-07-24] MEDS ORDERED: *HR* HYDROcodone/Acet 5/325 mg TABLET PO PRN (08:20)
[2018-07-24] MEDS ORDERED: Naloxone 0.4 MG/ML INJ IVP PRN (08:20)
[2018-07-24] MEDS ORDERED: Acetaminophen 325 MG TABLET PO PRN (08:20)
[2018-07-24] MEDS ORDERED: Multivit/Ca/Min/Fe/FA 1 TAB TABLET PO SCH (09:00)
[2018-07-24] MEDS ORDERED: predniSONE 5 MG TABLET PO SCH ×2 (09:00→18:00)
[2018-07-24] MEDS ORDERED: ZINC ACETATE 25 MG PO SCH (09:00)
[2018-07-24] MEDS ORDERED: Folic Acid 1 MG TABLET PO SCH (09:00)
[2018-07-24] MEDS ORDERED: VITAMIN A PALMITATE 10000 UNIT PO SCH (09:00)
[2018-07-24 09:50] LABS: Chol/HDL Ratio 1.7 (0-4.9)
[2018-07-24 09:55] LABS: Troponin I 0.07 ng/mL (< 0.04)
--- NOTE | 2018-07-24 13:19 | Internal Med History&Physical ---
Date of Encounter: 07/24/18 Time of Encounter: 09:30 Internal Medicine - H&P: HPI Chief complaint: chest pain and left arm pain Admitted From: Emergency Dept Plans for Post Hospital Care: Home History of present illness: Ms. Rice is a 58 year old female past medical history of ulcerative colitis, short-bowel syndrome, chronic kidney disease stage 4, CVA, on chronic anti coag with Xareleto 5mg due to her h/o intra abdominal thrombi, and on TPN through chemo port pt presented to ER with chest pain and left arm pain started last night developed 2 hrs after she took TPN. Pt stated initially she felt severe burning pain in left arm, later it radiated to her left chest wall region. She denied any active CP now. She denied any SOB. Denied any GI / symptoms. In the ER her initial Trop elevated @ 0.07. Her EKG showed normal sinus rhythm, nonspecific T wave changes, no acute ischemic changes noticed. Past Med Surg Social Fam HX - Past Medical History Medical history: CVA, renal disease, other Additional medical history: ulcerative colitis, short bowel syndrome, addisons diease, CKD stage 4, factor 5, Psychiatric history: anxiety, depression, panic disorder - Past Surgical History Surgical History: appendectomy Additional surgical history: fistula placed04/20/18, groshong placement, peg tube placement, bilat eye surgery for tear duct. - Social History Smoking Status: Never smoker Smokeless Tobacco Status: No Alcohol use: occasionally Drug use: none - Family History Mother Living Status: Still Living Hx Family Cardiac Disorders: Yes (HTN) Hx Family Cancer: Yes (eye) Hx Family Endocrine Disorder: Yes Father Living Status: Hx Family Neurologic Disorders: Yes Internal Medicine - H&P: Meds Copper Gluconate [Copper] 5 mg PO DAILY 02/25/15 [History] Lipase/Protease/Amylase [Creon Dr 24,000 Units Capsule] 3 cap PO TIDWM 02/25/15 [History] Mercaptopurine 50 mg PO Q48H 02/25/15 [History] Vitamin A Palmitate [Vitamin A] 10,000 unit PO DAILY 02/25/15 [History] Vitamin E (Dl,Tocopheryl Acet) [Vitamin E] 100 unit PO DAILY 02/25/15 [History] predniSONE [PredniSONE] 5 mg PO QAM 02/25/15 [History] Zinc Acetate [Galzin] 25 mg PO DAILY 04/21/16 [History] Cyanocobalamin (B-12) [Vitamin B12] 1 ml IM QMONTH 05/03/16 [History] Nutritional Supplement [Osmolite 1.2 Glenn] 3 can GTUBE HS 05/03/16 [History] Ergocalciferol (VITAMIN D2) [Drisdol (50,000 Unit)] 100,000 unit PO DAILY 05/15/17 [History] Multivitamin [Flintstones] 1 each PO DAILY 05/15/17 [History] Folic Acid 1 mg PO DAILY 08/07/17 [History] Omeprazole [PriLOSEC] 20 mg PO DAILY 08/07/17 [History] Rivaroxaban [Xarelto] 5 mg PO DAILY 08/07/17 [History] Calcitriol 0.5 mcg PO DAILY 01/02/18 [History] Darbepoetin [Aranesp] 200 mcg IV QMONTH 01/02/18 [History] Sodium Bicarbonate 1,300 mg PO TID 01/02/18 [History] predniSONE [PredniSONE] 2.5 mg PO QPM 01/02/18 [History] Ferrous Gluconate 324 mg PO BID 03/31/18 [History] Allergy/AdvReac Type Severity Reaction Status Date / Time levofloxacin [From Levaquin] Allergy Hives Verified 05/26/18 13:50 NSAIDS (Non-Steroidal AdvReac See Verified 05/26/18 13:50 Anti-Inflamma Comments All Systems PM: A 10-system review of systems was performed and is negative for pertinent findings except as documented above in the HPI. Review of systems: All the systems are reviewed everything is benign except the systems and symptoms I mentioned in the history of present illness - Constitutional Vitals: Temp Pulse Resp BP Pulse Ox 98.2 F 75 14 102/68 99 07/24/18 11:12 07/24/18 11:12 07/24/18 11:12 07/24/18 11:12 07/24/18 11:12 General appearance: Present: A&O X 3, no acute distress, answers questions appropriately Exam: a - Head Head exam: Present: atraumatic, normal inspection - Neck Neck exam general surgery: Present: supple - Respiratory Respiratory exam: Present: decreased breath sounds. Absent: rales, respiratory distress, rhonchi, wheezes - Cardiovascular Cardiovascular exam: Present: RRR, +S1, +S2. Absent: tachycardia - GI/Abdominal GI/Abdominal exam: Present: normal bowel sounds, soft. Absent: rebound, rigid, tenderness - Extremities Exam Extremities exam: Absent: calf tenderness, pedal edema, tenderness - Back Exam Back exam: Absent: CVA tenderness (L), CVA tenderness (R) - Neurological Exam Neurological exam: Present: alert, oriented X3, strengths equal and symetr throughout - Psychiatric Psychiatric exam: Present: normal affect, normal mood - Skin Skin exam: Absent: rash Internal Med - H&P Results - Labs CBC & Chem 7: 07/23/18 23:50 Labs: BMP 07/23/18 23:50 Sodium 138 Potassium 5.6 H Chloride 105 Carbon Dioxide 24 BUN 20 Creatinine 2.76 H Glucose 82 Calcium 7.5 L Cardiac Enzymes 07/23/18 07/24/18 Range/Units 23:50 09:03 Troponin I 0.07 H* 0.07 H* (< 0.04) ng/mL Liver Function 07/23/18 Range/Units 23:50 Total Bilirubin 0.3 (0.3-1.0) mg/dL Direct Bilirubin 0.1 (0.0-0.2) mg/dL AST 20 (13-39) Units/L ALT 17 (7-52) Units/L Alkaline Phosphatase 72 (34-104) Units/L Albumin 3.2 L (3.5-5.7) g/dL - Impressions ITS Impressions Chest X-Ray 07/24/18 23:46 IMPRESSION: No acute disease. D/ / Krystal Rajan Cha, MD / Krystal Rajan Cha, MD Interpreting Provider: Krystal Rajan Cha, MD - Assessment and Plan (1) Chest pain Current Visit: Yes Status: Acute Assessment and plan: Will admit the pt into Tele for observation Will place pt on percher initial troponin slightly elevated at 0.07 check serial troponin EKG reviewed - NSR, No ST changes, no acute ischemic changes noticed Cont pt on ASA and Nitro PRN for pain Will check FLP in AM Consulted Card for further eval 2D Echo - P Qualifiers: Chest pain type: unspecified Qualified Code(s): R07.9 - Chest pain, unspecified (2) Elevated troponin Current Visit: Yes Status: Acute Assessment and plan: Mostly due to demand ischemia and CKD-4 continue trending on troponin so far they are stable and adynamic @ 0.07 (3) Hyperkalemia Current Visit: No Status: Acute Assessment and plan: repeat labs (4) CKD (chronic kidney disease), stage IV Current Visit: No Status: Chronic (5) Short bowel syndrome Current Visit: No Status: Chronic Assessment and plan: resume TPN Cont diet - Time Spent With Patient Total time spent is greater than 50% in coordination of care (as documented) at patient's floor/unit and/or counseling patient:
[2018-07-24] MEDS ORDERED: Nitroglycerin 0.4 MG TAB.SUBL SL PRN (13:55)
--- NOTE | 2018-07-24 14:12 | Cardiology Consult Note ---
<Pearl Dyer - Last Filed: 07/24/18 14:03> Date of Encounter: 07/24/18 Time of Encounter: 13:00 Assessment and Plan (1) Elevated troponin Current Visit: Yes Status: Acute Per cardiology: -Troponins 0.07 x 2 in the setting of CKD. -Atypical symptoms in the setting of possible infusion reaction. -ECG with no acute ischemic changes. -TTE pending. -No previous cardiac history. -Demand ischemia, no cardiac rehab consult warranted. -If LVEF normal, no wall motion abnormalities, no further inpatient cardiac testing warranted. -Can consider outpatient stress test. (2) CKD (chronic kidney disease), stage IV Current Visit: No Status: Chronic Per cardiology: -Known CKD. -Follows with nephrology. -Management per primary service. Discussion w patient/family: The assessment and plan as outlined above was discussed with the patient and/or family members who expressed understanding and agreement. All questions were answered. Thank you for involving us in the care of your patient. Please call with any questions. Discussed and reviewed with . History of Present Illness Consult date: 07/24/18 Requesting physician: Sue Camejo Consult reason: elevated troponin Chief complaint: left arm pain History of present illness: Ms. Rice is a 58 year old female with a relevant past medical history of ulcerative colitis, s/p small bowel resection, short bowel syndrome, CVA, anemia, severe protein malnutrition, thyroid disorder, factor V, CKD stage IV, immature left arm fistula, PEG tube placement, who presented to [facility] with complaints of left arm burning after connecting to her TPN. 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 Patient states she stopped infusion and flushed her line. Pateint states her noticed her TPN was and she states she started to panic. Pateint states she had some chest discomfort. Pateint states her symptoms lessened after disconnecting from TPN and flushing line. Pateint states symptoms lasted about 20 minutes and then resolved. Patient also reports a new rash on her arms. Patient denies recurrence of symptoms. Past Med Surg Social Fam HX - Past Medical History Attestation: Yes The following information was validated with the patient. Source: patient, old records reviewed Medical history: CVA, renal disease, other Additional medical history: ulcerative colitis, short bowel syndrome, addisons diease, CKD stage 4, factor 5, Psychiatric history: anxiety, depression, panic disorder - Past Surgical History Surgical History: appendectomy Additional surgical history: fistula placed04/20/18, groshong placement, peg tube placement, bilat eye surgery for tear duct. - Social History Smoking Status: Never smoker Smokeless Tobacco Status: No Alcohol use: occasionally Drug use: none - Family History Mother Living Status: Still Living Hx Family Cardiac Disorders: Yes (HTN) Hx Family Cancer: Yes (eye) Hx Family Endocrine Disorder: Yes Father Living Status: Hx Family Neurologic Disorders: Yes Medications and Allergies Copper Gluconate [Copper] 5 mg PO DAILY 02/25/15 [History] Lipase/Protease/Amylase [Creon Dr 24,000 Units Capsule] 3 cap PO TIDWM 02/25/15 [History] Mercaptopurine 50 mg PO Q48H 02/25/15 [History] Vitamin A Palmitate [Vitamin A] 10,000 unit PO DAILY 02/25/15 [History] Vitamin E (Dl,Tocopheryl Acet) [Vitamin E] 100 unit PO DAILY 02/25/15 [History] predniSONE [PredniSONE] 5 mg PO QAM 02/25/15 [History] Zinc Acetate [Galzin] 25 mg PO DAILY 04/21/16 [History] Cyanocobalamin (B-12) [Vitamin B12] 1 ml IM QMONTH 05/03/16 [History] Nutritional Supplement [Osmolite 1.2 Glenn] 3 can GTUBE HS 05/03/16 [History] Ergocalciferol (VITAMIN D2) [Drisdol (50,000 Unit)] 100,000 unit PO DAILY 05/15/17 [History] Multivitamin [Flintstones] 1 each PO DAILY 05/15/17 [History] Folic Acid 1 mg PO DAILY 08/07/17 [History] Omeprazole [PriLOSEC] 20 mg PO DAILY 08/07/17 [History] Rivaroxaban [Xarelto] 5 mg PO DAILY 08/07/17 [History] Calcitriol 0.5 mcg PO DAILY 01/02/18 [History] Darbepoetin [Aranesp] 200 mcg IV QMONTH 01/02/18 [History] Sodium Bicarbonate 1,300 mg PO TID 01/02/18 [History] predniSONE [PredniSONE] 2.5 mg PO QPM 01/02/18 [History] Ferrous Gluconate 324 mg PO BID 03/31/18 [History] Allergy/AdvReac Type Severity Reaction Status Date / Time levofloxacin [From Levaquin] Allergy Hives Verified 05/26/18 13:50 NSAIDS (Non-Steroidal AdvReac See Verified 05/26/18 13:50 Anti-Inflamma Comments All Systems Review: The remainder of the systems were reviewed and are negative - Cardiovascular Cardiovascular: as per HPI, chest pain at rest Physical Examination Vital Signs, Last 4 Hours Temp Pulse Resp BP Pulse Ox 07/24/18 11:12 98.2 F 75 14 102/68 99 General: Conversant, No Apparent Distress HEENT: Atraumatic, Normocephaly, Mucus Membranes Moist Neck: No JVD, Normal carotid pulses Cardiac: Reg Rate and Rhythm, Normal S1 and S2, No Murmur Lungs: Normal Breath Sounds, No Wheeze, Rales, Rhonchi Neuro: Alert and responsive, No focal deficits noted Abdomen: Soft, Non-Tender Skin: No rashes noted on visualized skin, Other (Right chest wall port noted. ) Musculoskeletal: No Chest Wall Tenderness Extremities: No Clubbing, No Cyanosis, No Edema, Normal Pulses Results 07/23/18 23:50 Lab Results Impressions Chest X-Ray 07/24/18 23:46 IMPRESSION: No acute disease. D/ / Krystal Rajan Cha, MD / Krystal Rajan Cha, MD Interpreting Provider: Krystal Rajan Cha, MD Active Medications Acetaminophen (Tylenol) 650 mg PO Q6HR PRN PRN Reason: Mild Pain/Fever Stop: 01/23/19 08:21 Hydrocodone Bitart/Acetaminophen (Steele 5-325 Mg) 1 tab PO Q6HR PRN PRN Reason: Moderate Pain Stop: 01/23/19 08:21 Lipase/Protease/Amylase (Creon Dr 6,000 Units Capsule) 12 each PO TIDWM [facility] Stop: 01/23/19 12:01 Aspirin (Aspirin Ec) 81 mg PO DAILY [facility] Stop: 01/24/19 09:01 Calcitriol (Rocaltrol) 0.5 mcg PO DAILY [facility] Stop: 01/23/19 09:01 Ferrous Sulfate (Ferrous Sulfate) 324 mg PO BIDWM [facility] Stop: 01/23/19 09:01 Folic Acid (Folic Acid) 1 mg PO DAILY [facility] Stop: 01/23/19 09:01 Multivitamins/Calcium (Thera M Plus) 1 tab PO DAILY [facility] Stop: 01/23/19 09:01 Naloxone HCl (Narcan) 0.4 mg IVP Q2MPRN PRN PRN Reason: SEE COMMENTS Stop: 01/23/19 08:21 Nitroglycerin (Nitroglycerin) 0.4 mg SL Q5MPRN PRN PRN Reason: Chest Pain Stop: 01/23/19 13:56 Omeprazole (Prilosec) 20 mg PO DAILY [facility]; Protocol Stop: 01/23/19 09:01 Ondansetron HCl (Zofran) 4 mg IVP Q8HR PRN PRN Reason: Nausea And Vomiting Stop: 01/23/19 08:21 Prednisone (Prednisone) 2.5 mg PO QPM [facility] Stop: 01/23/19 18:01 Prednisone (Prednisone) 5 mg PO QAM [facility] Stop: 01/23/19 09:01 Sodium Bicarbonate (Sodium Bicarbonate) 1,300 mg PO TID [facility] Stop: 01/23/19 09:01 Vitamin E (Vitamin E) 200 unit PO DAILY [facility] Stop: 01/23/19 09:01 Laboratory Tests 07/23/18 07/23/18 07/24/18 10:40 23:50 09:03 Hgb 8.4 L Potassium 5.6 H Creatinine 2.76 H Troponin I 0.07 H* 0.07 H* - Imaging and Cardiology Chest Xray: report reviewed Echo: pending - EKG Interpretation EKG results cardiology: personally reviewed (ECG with SR< HR 73.), other (Telemetry reviewed with average HR previous 12 hours noted to be 72, SR. PVCs and PACs noted.) Consult Discharge Plan - Plan Referrals: NONE,PCP [Primary Care Provider] - <Jeanne Gaona - Last Filed: 07/24/18 14:27> Date of Encounter: 07/24/18 - Attending Attestation I examined this patient and my medical decision-making was reviewed with the Resident Physician. I agree with the documented findings, disposition and mark tment plan as described. Ms. Rice presented with atypical chest and arm pain. Describes developing left arm discomfort while infusing her TPN also associated with transient chest tightness. Once infusion stopped, symptoms slowly resolved and have not returned. Troponins flat and adynamic in setting of CKD. ECG without acute findings. Echo pending. Further recommendations to follow. Assessment and Plan Discussion w patient/family: The assessment and plan as outlined above was discussed with the patient and/or family members who expressed understanding and agreement. All questions were answered. Thank you for involving us in the care of your patient. Please call with any questions. History of Present Illness History of present illness: Ms. Rice is a 58 year old female All Systems Review: The remainder of the systems were reviewed and are negative Physical Examination Vital Signs, Last 4 Hours Temp Pulse Resp BP Pulse Ox 07/24/18 11:12 98.2 F 75 14 102/68 99 Results 07/23/18 23:50 Lab Results 07/23/18 07/24/18 23:50 09:03 Sodium 138 Potassium 5.6 H Chloride 105 Carbon Dioxide 24 BUN 20 Creatinine 2.76 H Glucose 82 Calcium 7.5 L Total Bilirubin 0.3 AST 20 ALT 17 Alkaline Phosphatase 72 Troponin I 0.07 H* 0.07 H*
[2018-07-24 15:31] VITALS: BP 92/58
--- NOTE | 2018-07-24 15:45 | Electrocardiograph Report ---
[place] [id number] Test Date: 2018-07-23 Pat Name: Wendy Rice Department: [id number] Room: 3B Gender: F Car Wrecker: : 1960 Requested By: Km Pina Order Number: [id number] Reading MD: Anibal Grullon Measurements Intervals [place] Rate: 73 P: 54 RI: 162 QRS: 33 QRSD: 92 T: 37 QT: 406 QTc: 448 Interpretive Statements Sinus rhythm Low voltage, precordial leads Electronically Signed On 07-24-2018 15:44:13 EDT by Anibal Grullon
[2018-07-24 15:48] LABS: Calcium 7.6 mg/dL (8.6-10.3); Potassium 5.3 mEq/L (3.5-5.1)
[2018-07-24 15:56] LABS: Troponin I 0.07 ng/mL (< 0.04)
--- NOTE | 2018-07-24 16:09 | Discharge Summary ---
- NOTES TO OUTPATIENT PROVIDER Notes to Outpatient Provider: Follow up with PCP in one week. Follow-up with cardiology in one week. Need to go for out pt stress test. Orders not resulted at time of discharge: Pending orders 07/25/18 04:00 Basic Metabolic Panel AM 0400 Magnesium AM 0400 Date of Encounter: 07/24/18 Time of Encounter: 16:07 - Discharge Diagnosis (1) Chest pain Priority: Primary Status: Acute Qualifiers: Chest pain type: unspecified Qualified Code(s): R07.9 - Chest pain, unspecified (2) Elevated troponin Priority: Primary Status: Acute (3) Hyperkalemia Priority: Secondary Status: Acute (4) CKD (chronic kidney disease), stage IV Priority: Secondary Status: Chronic (5) Short bowel syndrome Priority: Secondary Status: Chronic Hospital course: Ms. Rice is a 58 year old female past medical history of ulcerative colitis, short-bowel syndrome, chronic kidney disease stage 4, CVA, on chronic anti coag with Xareleto 5mg due to her h/o intra abdominal thrombi, and on TPN through chemo port pt presented to ER with chest pain and left arm pain started last night developed 2 hrs after she took TPN. Pt stated initially she felt severe burning pain in left arm, later it radiated to her left chest wall region. She denied any active CP now. She denied any SOB. Denied any GI / symptoms. In the ER her initial Trop elevated @ 0.07. Her EKG showed normal sinus rhythm, nonspecific T wave changes, no acute ischemic changes noticed. She was admitted in the hospital placed on cardiac specialist. Her troponin slightly elevated at 0.07 and adynamic. Pt was evaluated by electronic game developer who thinks her elevated troponin mostly due to demand ischemia. Her echocardiogram showed no septal/wall most abnormalities. So at this point cardiology recommended to follow up with them as outpatient for possible outpatient stress test - Time Spent with Patient Total time spent providing and/or coordinating discharge services: - Discharge Medications Prescriptions: Continued predniSONE [PredniSONE] 5 mg PO QAM Vitamin E (Dl,Tocopheryl Acet) [Vitamin E] 100 unit PO DAILY Vitamin A Palmitate [Vitamin A] 10,000 unit PO DAILY Mercaptopurine 50 mg PO Q48H Lipase/Protease/Amylase [Creon Dr 24,000 Units Capsule] 3 cap PO TIDWM Copper Gluconate [Copper] 5 mg PO DAILY Zinc Acetate [Galzin] 25 mg PO DAILY Cyanocobalamin (B-12) [Vitamin B12] 1 ml IM QMONTH Nutritional Supplement [Osmolite 1.2 Glenn] 3 can GTUBE HS Ergocalciferol (VITAMIN D2) [Drisdol (50,000 Unit)] 100,000 unit PO DAILY Multivitamin [Flintstones] 1 each PO DAILY Folic Acid 1 mg PO DAILY Rivaroxaban [Xarelto] 5 mg PO DAILY Omeprazole [PriLOSEC] 20 mg PO DAILY predniSONE [PredniSONE] 2.5 mg PO QPM Darbepoetin [Aranesp] 200 mcg IV QMONTH Calcitriol 0.5 mcg PO DAILY Sodium Bicarbonate 1,300 mg PO TID Ferrous Gluconate 324 mg PO BID Home Medications: Copper Gluconate [Copper] 5 mg PO DAILY 02/25/15 [History] Lipase/Protease/Amylase [Creon Dr 24,000 Units Capsule] 3 cap PO TIDWM 02/25/15 [History] Mercaptopurine 50 mg PO Q48H 02/25/15 [History] Vitamin A Palmitate [Vitamin A] 10,000 unit PO DAILY 02/25/15 [History] Vitamin E (Dl,Tocopheryl Acet) [Vitamin E] 100 unit PO DAILY 02/25/15 [History] predniSONE [PredniSONE] 5 mg PO QAM 02/25/15 [History] Zinc Acetate [Galzin] 25 mg PO DAILY 04/21/16 [History] Cyanocobalamin (B-12) [Vitamin B12] 1 ml IM QMONTH 05/03/16 [History] Nutritional Supplement [Osmolite 1.2 Glenn] 3 can GTUBE HS 05/03/16 [History] Ergocalciferol (VITAMIN D2) [Drisdol (50,000 Unit)] 100,000 unit PO DAILY 05/15/17 [History] Multivitamin [Flintstones] 1 each PO DAILY 05/15/17 [History] Folic Acid 1 mg PO DAILY 08/07/17 [History] Omeprazole [PriLOSEC] 20 mg PO DAILY 08/07/17 [History] Rivaroxaban [Xarelto] 5 mg PO DAILY 08/07/17 [History] Calcitriol 0.5 mcg PO DAILY 01/02/18 [History] Darbepoetin [Aranesp] 200 mcg IV QMONTH 01/02/18 [History] Sodium Bicarbonate 1,300 mg PO TID 01/02/18 [History] predniSONE [PredniSONE] 2.5 mg PO QPM 01/02/18 [History] Ferrous Gluconate 324 mg PO BID 03/31/18 [History] Allergies/Adverse Reactions: Allergy/AdvReac Type Severity Reaction Status Date / Time levofloxacin [From Levaquin] Allergy Hives Verified 05/26/18 13:50 NSAIDS (Non-Steroidal AdvReac See Verified 05/26/18 13:50 Anti-Inflamma Comments Date of admission: 07/24/18 02:22 Primary care physician: PCP NONE Consults: 07/24/18 11:34 Consult to Cardiology [CONS] Routine Comment: Consulting Provider: Cardiology Elmo Reason for Consult: elevated troponin Time Notified: 11:34 Call Completed: Yes 07/24/18 13:54 Consult to Nutrition [CONS] Routine Comment: Consulting Provider: NUTRITION Reason for Dietary Consult: TPN Start and Manage - Constitutional Vitals: Temp Pulse Resp BP Pulse Ox 98.1 F 84 16 92/58 96 07/24/18 15:29 07/24/18 15:29 07/24/18 15:29 07/24/18 15:29 07/24/18 15:29 General appearance: Present: A&O X 3, no acute distress, answers questions appropriately Exam: a - Head Head exam: Present: atraumatic, normal inspection - Cardiovascular Cardiovascular exam: Present: RRR, +S1, +S2. Absent: tachycardia - GI/Abdominal GI/Abdominal exam: Present: normal bowel sounds, soft. Absent: rebound, rigid, tenderness - Extremities Exam Extremities exam: Absent: calf tenderness, pedal edema, tenderness - Back Exam Back exam: Absent: CVA tenderness (L), CVA tenderness (R) - Patient Status Disposition: Home, Self-Care Condition: Good Overall status at discharge: patient is back to baseline - Discharge Instructions Follow Up With: NONE,PCP [Primary Care Provider] - Art Rodriges DO [Partnered Physician] - Jeanne Gaona DO [Partnered Physician] - Forms: ED Satisfaction Letter - Diet and Activity Activity: increase activity as tolerated Diet: low salt diet
[2018-07-24] MEDS ORDERED: NUTRITIONAL SUPPLEMENT GTUBE SCH (21:00)
[2018-07-25] MEDS ORDERED: Aspirin Enteric Coated 81 MG Tablet PO SCH (09:00)
== END 2018-07-24 17:51 | disposition home or self-care (01) ==
LOC: 3BNU 23:29 → EMEROOARM 23:29 → 3BNU 07-24 03:25
PROVIDERS: ADMIT Pediatrics; ATTEND Pediatrics

== ENCOUNTER 2018-08-13 22:01 | Inpatient (IN) ==
[2018-08-13 23:16] LABS: Basophils % 0.2 %; Eosinophils # 0.1 K/mcL (0.0-0.6); Eosinophils % 1.1 %; Hematocrit 17.1 % (35.3-44.9); Immature Granulocytes % 0.4 % (0-4); Lymphocytes # 1.1 K/mcL (0.6-4.6); Lymphocytes % 23.1 %; Mean Corpuscular HGB Conc 30.4 g/dL (31.6-35.5); Mean Corpuscular Hemoglobin 37.1 pg (28.0-33.3); Mean Corpuscular Volume 122.1 fL (83.0-100.0); Mean Platelet Volume 9.7 fL (9.4-12.4); Monocytes # 0.5 K/mcL (0.0-1.3); Monocytes % 9.9 %; Neutrophils # 3.1 K/mcL (1.6-8.9); Platelet Count 198 K/mcL (140-400); Red Cell Distribution Width 15.6 % (11.5-14.5); Segmented Neutrophils % 65.3 %
[2018-08-13 23:22] LABS: Hemoglobin 5.2 g/dL (11.5-15.4)
[2018-08-13 23:23] LABS: INR 1.5; Prothrombin Time 16.5 Seconds (9.4-12.1)
[2018-08-13 23:24] LABS: Macrocytosis Present (Not Present)
[2018-08-13 23:33] LABS: Albumin 3.1 g/dL (3.5-5.7); Albumin/Globulin Ratio 1.6 (1.1-2.2); Bilirubin,Direct 0.1 mg/dL (0.0-0.2); Bilirubin,Indirect 0.3 mg/dL (0.0-1.2); Bilirubin,Total 0.4 mg/dL (0.3-1.0); Globulin 1.9 g/dL (2.4-3.5); Potassium 3.6 mEq/L (3.5-5.1)
[2018-08-14 00:04] LABS: Vitamin B12 > 1500 pg/mL (250-1100)
--- NOTE | 2018-08-14 00:06 | Emergency Department Note ---
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 She had routine outpatient labs this morning and was called to come to the ER as her hemoglobin is in the 5's. Patient feels slightly weak otherwise feels fine. Patient has history of remote small bowel ischemia necessitating substantial resection of her small bowel causing decreased digestion and absorbtion problems. She does take food by mouth however also received TPN and G-tube feeds to maintain hydration and nutrition. CKD IV suspected secondary to prior dehydration. ROS: Pos: mild generalized weakness Neg: fever, chills, nausea, vomiting, diarrhea, constipation, dyspnea, diaphoresis, abdominal pain, hematochezia, melena. - Related Data Home Medications Medication Instructions Recorded Confirmed Copper Gluconate [Copper] 5 mg PO DAILY 02/25/15 08/13/18 Lipase/Protease/Amylase [Creon Dr 3 cap PO TIDWM 02/25/15 08/13/18 24,000 Units Capsule] Mercaptopurine 50 mg PO Q48H 02/25/15 08/13/18 Vitamin A Palmitate [Vitamin A] 10,000 unit PO DAILY 02/25/15 08/13/18 Vitamin E (Dl,Tocopheryl Acet) 100 unit PO DAILY 02/25/15 08/13/18 [Vitamin E] predniSONE [PredniSONE] 5 mg PO QAM 02/25/15 08/13/18 Zinc Acetate [Galzin] 25 mg PO DAILY 04/21/16 08/13/18 Cyanocobalamin (B-12) [Vitamin B12] 1 ml IM QMONTH 05/03/16 08/13/18 Nutritional Supplement [Osmolite 3 can GTUBE HS 05/03/16 08/13/18 1.2 Glenn] Ergocalciferol (VITAMIN D2) 100,000 unit PO DAILY 05/15/17 08/13/18 [Drisdol (50,000 Unit)] Multivitamin [Flintstones] 1 each PO DAILY 05/15/17 08/13/18 Folic Acid 1 mg PO DAILY 08/07/17 08/13/18 Omeprazole [PriLOSEC] 20 mg PO DAILY 08/07/17 08/13/18 Rivaroxaban [Xarelto] 5 mg PO DAILY 08/07/17 08/13/18 Calcitriol 0.5 mcg PO DAILY 01/02/18 08/13/18 Darbepoetin [Aranesp] 200 mcg IV QMONTH 01/02/18 08/13/18 Sodium Bicarbonate 1,300 mg PO TID 01/02/18 08/13/18 predniSONE [PredniSONE] 2.5 mg PO QPM 01/02/18 08/13/18 Ferrous Gluconate 324 mg PO BID 03/31/18 08/13/18 Allergies Allergy/AdvReac Type Severity Reaction Status Date / Time levofloxacin [From Levaquin] Allergy Hives Verified 08/13/18 23:06 NSAIDS (Non-Steroidal AdvReac See Verified 08/13/18 23:06 Anti-Inflamma Comments All systems ED: reviewed and negative except as stated. Review of Systems: As Per HPI Past Medical History - Past Medical History Medical history: Reports: CVA, renal disease, other Surgical history: Reports: appendectomy Psychiatric history: Reports: anxiety, depression, panic disorder COUPLING MACHINE OPERATOR history: Reports: no COUPLING MACHINE OPERATOR history - Social History Smoking Status: Never smoker Smokeless Tobacco Status: No Alcohol use: Reports: occasionally Drug use: Reports: none Physical Exam Vital Signs Reviewed General: Patient is alert, oriented, and in no acute distress. Head: atraumatic, normocephalic Eye: normal appearance, PERRL, EOMI, no scleral icterus, no conjunctival injection ENT: mucous membranes moist, normal external ear exam Neck: normal inspection, trachea midline, full ROM Chest: normal inspection, symmetric chest rise port in midline upper chest wall is well-appearing with no purulence and no strong cellulitis. Respiratory: Good respiratory effort. Bilateral breath sounds are clear without wheezing, crackles, or rhonchi. Cardiovascular: Regular rate and rhythm. No clicks, rubs, gallops, or murmors. Normal heart sounds. G-tube in the left abdominal wall is clean with no surrounding cellulitis. Bilateral radial posterior tibial pulses 2/4 and equal. Abdomen: Bowel sounds present normoactive. Abdomen is soft, nondistended, and nontender. No guarding or rebound. No organomegaly noted. Musculoskeletal: Spontaneously moving all extremities. Skin: warm, dry, intact. Neuro: GCS 15. No focal neurologic deficits observed. Psych: Patient's affect is appropriate for situation. - General Limitations: no limitations General appearance: alert, in no apparent distress Course Course Narrative: Patient feels and appears surprisingly well given her anemia. She appears to be tolerating her anemia well. I am concerned, however, given the severity and acuity of her anemia from an oxygen-carrying and cardiac standpoint. She is chest pain-free. Hemoglobin at 10 AM this morning was 5.9. Repeat hemoglobin approximately 12 hours later was 5.2; greater than 10% loss in a 12 hour period. Patient has macrocytic anemia. Unlikely acute blood loss or iron deficient anemia. Folate and B12 are not low. Fecal occult blood test is negative. Creatinine elevated at 2.99; consistent with patient's baseline values. Patient is receiving 2 units packed red blood cells. She continues to feel fine with no complaint. EKG #1 EKG dated 08/13/2018 at 22:21 interpreted as sinus rhythm with rate of 81. ID [id number], distress 75, QTC 459. Normal axis. Nonspecific ST-T changes. No previous EKG for comparison. EKG #2 EKG dated 08/07/19 1901:33 interpreted as sinus rhythm with rate of 72. ID [id number], curious 98, QTc 449. Normal axis. Nonspecific ST-T changes. No acute ischemic changes compared EKG #1 above. I discussed the above with the admitting hospitalist, Dr. Gannon, who agrees to accept the patient for continued evaluation monitoring. No obvious source for her macrocytic anemia at this time with a caveat that she is on TPN as well as G-tube feeds. Vital Signs Temperature 97.5 F L 08/13/18 22:02 Pulse Rate 84 08/13/18 22:02 Respiratory Rate 16 08/13/18 22:02 Blood Pressure 113/75 08/13/18 22:02 O2 Sat by Pulse Oximetry 100 08/13/18 22:02 Temperature 97.8 F 08/14/18 00:44 Pulse Rate 76 08/14/18 00:44 Respiratory Rate 18 08/14/18 00:44 Blood Pressure 92/70 08/14/18 00:44 O2 Sat by Pulse Oximetry 100 08/14/18 00:44 Oxygen Delivery Oxygen Delivery Room Air Recheck wound or abnormal lab - Lab Data Result diagrams: 08/13/18 22:45 08/13/18 22:45 Lab Results 08/13/18 08/13/18 08/13/18 Range/Units 22:20 22:45 22:45 WBC 4.7 (4.3-11.1) K/mcL RBC 1.40 L (3.82-4.97) M/mcL Hgb 5.2 L* (11.5-15.4) g/dL Hct 17.1 L (35.3-44.9) % MCV 122.1 H (83.0-100.0) fL MCH 37.1 H (28.0-33.3) pg MCHC 30.4 L (31.6-35.5) g/dL RDW 15.6 H (11.5-14.5) % Plt Count 198 (140-400) K/mcL MPV 9.7 (9.4-12.4) fL Immature Gran % 0.4 (0-4) % Seg Neutrophils % 65.3 % Lymphocytes % 23.1 % Monocytes % 9.9 % Eosinophils % 1.1 % Basophils % 0.2 % Neutrophils # 3.1 (1.6-8.9) K/mcL Lymphocytes # 1.1 (0.6-4.6) K/mcL Monocytes # 0.5 (0.0-1.3) K/mcL Eosinophils # 0.1 (0.0-0.6) K/mcL Basophils # 0.0 (0.0-0.2) K/mcL Macrocytosis Present A (Not Present) PT 16.5 H (9.4-12.1) Seconds INR 1.5 Sodium (136-145) mEq/L Potassium (3.5-5.1) mEq/L Chloride (98-107) mEq/L Carbon Dioxide (23-29) mEq/L BUN (6-20) mg/dL Creatinine (0.60-1.20) mg/dL Est GFR ( Amer) (> 60) Est GFR (Non-Af Amer) (> 60) BUN/Creatinine Ratio (6-26) Glucose (70-105) mg/dL Calculated Osmolality (280-300) Calcium (8.6-10.3) mg/dL Total Bilirubin (0.3-1.0) mg/dL Direct Bilirubin (0.0-0.2) mg/dL Indirect Bilirubin (0.0-1.2) mg/dL AST (13-39) Units/L ALT (7-52) Units/L Alkaline Phosphatase (34-104) Units/L Serum Total Protein (6.4-8.9) g/dL Albumin (3.5-5.7) g/dL Globulin (2.4-3.5) g/dL Albumin/Globulin Ratio (1.1-2.2) Vitamin B12 (250-1100) pg/mL Folate (3.0-16.0) ng/mL Stool Occult Bld Scrn Negative (Negative) Blood Type Antibody Screen Crossmatch 08/13/18 08/13/18 08/13/18 Range/Units 22:45 22:45 22:45 WBC (4.3-11.1) K/mcL RBC (3.82-4.97) M/mcL Hgb (11.5-15.4) g/dL Hct (35.3-44.9) % MCV (83.0-100.0) fL MCH (28.0-33.3) pg MCHC (31.6-35.5) g/dL RDW (11.5-14.5) % Plt Count (140-400) K/mcL MPV (9.4-12.4) fL Immature Gran % (0-4) % Seg Neutrophils % % Lymphocytes % % Monocytes % % Eosinophils % % Basophils % % Neutrophils # (1.6-8.9) K/mcL Lymphocytes # (0.6-4.6) K/mcL Monocytes # (0.0-1.3) K/mcL Eosinophils # (0.0-0.6) K/mcL Basophils # (0.0-0.2) K/mcL Macrocytosis (Not Present) PT (9.4-12.1) Seconds INR Sodium 137 (136-145) mEq/L Potassium 3.6 (3.5-5.1) mEq/L Chloride 106 (98-107) mEq/L Carbon Dioxide 19 L (23-29) mEq/L BUN 19 (6-20) mg/dL Creatinine 2.99 H (0.60-1.20) mg/dL Est GFR ( Amer) 20 L (> 60) Est GFR (Non-Af Amer) 16 L (> 60) BUN/Creatinine Ratio 6 (6-26) Glucose 87 (70-105) mg/dL Calculated Osmolality 286 (280-300) Calcium 7.0 L (8.6-10.3) mg/dL Total Bilirubin 0.4 (0.3-1.0) mg/dL Direct Bilirubin 0.1 (0.0-0.2) mg/dL Indirect Bilirubin 0.3 (0.0-1.2) mg/dL AST 14 (13-39) Units/L ALT 10 (7-52) Units/L Alkaline Phosphatase 88 (34-104) Units/L Serum Total Protein 5.0 L (6.4-8.9) g/dL Albumin 3.1 L (3.5-5.7) g/dL Globulin 1.9 L (2.4-3.5) g/dL Albumin/Globulin Ratio 1.6 (1.1-2.2) Vitamin B12 > 1500 H (250-1100) pg/mL Folate 16.0 (3.0-16.0) ng/mL Stool Occult Bld Scrn (Negative) Blood Type A NEGATIVE Antibody Screen NEGATIVE Crossmatch See Detail Critical Care Time Critical Care Time: Yes Total Critical Care Time: 35 Attestation: Acute anemia requiring blood transfusion emergently Attestation Statement - Attestation Attestation: Dr. Arzate note:/ Attestation: Patient seen in conjunction with emergency medicine resident Dr. Lopez. Please see his charting for complete documentation. Spent [id number] time with the patient and I agree with the patient's treatment and disposition. Progressive worsening anemia over the past 3 weeks. No syncope chest pain shortness of breath or exertional dyspnea today. History of prior blood transfusions and patient does report hemoglobin did fall to this level approximately one year ago. Patient were placed in the left arm a few weeks ago as a possible source of red blood cell consumption. Patient has no change in her stools. She has not vomited blood. She has not had any recent bleeding. She will be admitted for blood transfusion. Macrocytic indices noted.
[2018-08-14] MEDS ORDERED: 0.9 % Sodium Chloride 250 ML ONE ×2 (00:11→04:09)
[2018-08-14] MEDS ORDERED: Naloxone 0.4 MG/ML INJ IVP PRN (02:29)
[2018-08-14] MEDS ORDERED: 0.9 % Sodium Chloride 1,000 ML IVC SCH (02:30)
--- NOTE | 2018-08-14 03:26 | Internal Med History&Physical ---
Date of Encounter: 08/14/18 Time of Encounter: 03:25 Internal Medicine - H&P: HPI Chief complaint: Abnormal labs History of present illness: Ms. 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 Patient reports she has been feeling relatively fine aside from some slight fatigue, weakness and brief lightheadedness when arising. Patient has history of remote small bowel ischemia necessitating substantial resection of her small bowel causing decreased digestion and absorption issues. She does take food by mouth however also receives TPN and G-tube feeds to maintain hydration and nutrition. On arrival hemoglobin was 5.2. Fecal occult blood testing in the ED was negative. Patient denies any dark tarry stools or blood in her stool. No reports of gross hematuria. Patient states that she received a Epo injection about 10 days ago through her sweet pickle maker. Her last colonoscopy was 2 years ago she says was normal. Weight has been stable. Denies any recent illness. She does state that she is currently self tapering her dose of mercaptopurine for her ulcerative colitis after reading that it was no longer the standard of care. Patient underwent surgical evaluation of her left upper extremity AV fistula earlier this month. On arrival patient was hemodynamically stable. She was not tachycardic. Patient was started on 2 units of packed red blood cells in the ED. Past Med Surg Social Fam HX - Past Medical History Medical history: CVA, renal disease, other Additional medical history: ulcerative colitis, short bowel syndrome, addisons diease, CKD stage 4, factor 5, Psychiatric history: anxiety, depression, panic disorder - Past Surgical History Surgical History: appendectomy Additional surgical history: fistula placed04/20/18, groshong placement, peg tube placement, bilat eye surgery for tear duct. - Social History Smoking Status: Never smoker Smokeless Tobacco Status: No Alcohol use: occasionally Drug use: none - Family History Mother Living Status: Still Living Hx Family Cardiac Disorders: Yes (HTN) Hx Family Cancer: Yes (eye) Hx Family Endocrine Disorder: Yes Father Living Status: Hx Family Neurologic Disorders: Yes Internal Medicine - H&P: Meds Copper Gluconate [Copper] 5 mg PO DAILY 02/25/15 [History] Lipase/Protease/Amylase [Lexus Dr 24,000 Units Capsule] 3 cap PO TIDWM 02/25/15 [History] Mercaptopurine 50 mg PO Q48H 02/25/15 [History] Vitamin A Palmitate [Vitamin A] 10,000 unit PO DAILY 02/25/15 [History] Vitamin E (Dl,Tocopheryl Acet) [Vitamin E] 100 unit PO DAILY 02/25/15 [History] predniSONE [PredniSONE] 5 mg PO QAM 02/25/15 [History] Zinc Acetate [Galzin] 25 mg PO DAILY 04/21/16 [History] Cyanocobalamin (B-12) [Vitamin B12] 1 ml IM QMONTH 05/03/16 [History] Nutritional Supplement [Osmolite 1.2 Glenn] 3 can GTUBE HS 05/03/16 [History] Ergocalciferol (VITAMIN D2) [Drisdol (50,000 Unit)] 100,000 unit PO DAILY 05/15/17 [History] Multivitamin [Flintstones] 1 each PO DAILY 05/15/17 [History] Folic Acid 1 mg PO DAILY 08/07/17 [History] Omeprazole [PriLOSEC] 20 mg PO DAILY 08/07/17 [History] Rivaroxaban [Xarelto] 5 mg PO DAILY 08/07/17 [History] Calcitriol 0.5 mcg PO DAILY 01/02/18 [History] Darbepoetin [Aranesp] 200 mcg IV QMONTH 01/02/18 [History] Sodium Bicarbonate 1,300 mg PO TID 01/02/18 [History] predniSONE [PredniSONE] 2.5 mg PO QPM 01/02/18 [History] Ferrous Gluconate 324 mg PO BID 03/31/18 [History] Allergy/AdvReac Type Severity Reaction Status Date / Time [facility] [[facility]] Allergy Hives Verified 08/13/18 23:06 NSAIDS (Non-Steroidal AdvReac See Verified 08/13/18 23:06 Anti-Inflamma Comments All Systems PM: A 10-system review of systems was performed and is negative for pertinent findings except as documented above in the HPI. - Constitutional Constitutional: no chills, no fever(s), no night sweats - EENT Eyes: no change in vision, no discharge, no pain, no photophobia Ears: no ear discharge, no ear pain, no tinnitus Nose, mouth and throat: no dysphagia, no nasal discharge, no neck pain, no sore throat - Cardiovascular Cardiovascular ROS IM: no chest pain, no diaphoresis, no dyspnea, no lightheadedness, no palpitations, no syncope - Respiratory Respiratory: no cough, no dyspnea, no wheezing, no excessive phlegm production - Gastrointestinal Gastrointestinal: no abdominal pain, no diarrhea, no hematemesis, no hematochezia, no melena, no nausea, no vomiting - Genitourinary Genitourinary: no change in urinary stream, no dysuria, no flank pain, no hemat uria - Musculoskeletal Musculoskeletal ROS IM: no numbness, no tingling - Integumentary Integumentary IM: no rash, no unusual bruising - Neurological Neurological ROS: no confusion, no convulsions, no focal weakness, no numbness, no tingling, no tremor(s) - Hematologic/Lymphatic Hematologic/Lymphatic: no easy bruising - Constitutional Vitals: Temp Pulse Resp BP Pulse Ox 98.1 F 63 20 93/67 100 08/14/18 02:45 08/14/18 02:45 08/14/18 02:45 08/14/18 02:45 08/14/18 02:45 Exam: General: Alert and oriented 3 lying in bed in no acute distress Skin:Normal color, no rash, no lesions. HEENT:EOM, pupils equal, round and reactive. Cardiovascular:Normal S1 & S2, no rubs, murmurs or gallops. No JVD. Pulse regular. Lungs:Normal breath sounds, no wheezes or crackles. Abdomen:Soft, non-tender, no rigidity. Extremities: No lower extremity edema. There is a 7 cm well-healing incision on the left upper extremity Neurological:Normal cognition and motor skills. Pulses:Carotid and radial pulses normal +2. Rest of the physical exam is non contributory Internal Med - H&P Results - Labs CBC & Chem 7: 08/13/18 22:45 08/13/18 22:45 Labs: Short CBC 08/13/18 Range/Units 22:45 WBC 4.7 (4.3-11.1) K/mcL Hgb 5.2 L* (11.5-15.4) g/dL Hct 17.1 L (35.3-44.9) % Plt Count 198 (140-400) K/mcL Neutrophils # 3.1 (1.6-8.9) K/mcL BMP 08/13/18 22:45 Sodium 137 Potassium 3.6 Chloride 106 Carbon Dioxide 19 L BUN 19 Creatinine 2.99 H Glucose 87 Calcium 7.0 L Liver Function 08/13/18 Range/Units 22:45 Total Bilirubin 0.4 (0.3-1.0) mg/dL Direct Bilirubin 0.1 (0.0-0.2) mg/dL AST 14 (13-39) Units/L ALT 10 (7-52) Units/L Alkaline Phosphatase 88 (34-104) Units/L Albumin 3.1 L (3.5-5.7) g/dL - Assessment and Plan (1) Symptomatic anemia Current Visit: Yes Status: Acute Assessment and plan: Patient presenting with symptomatic anemia with a hemoglobin of 5.2 in the absence of any history or objective evidence of bleed. Hemoglobin was 8.4 earlier this month. MCV of 122. Patient is currently on Xarelto for history of abdominal thrombosis in the setting of reported history of factor V [place]. Patient underwent evaluation of a previously established AV fistula. I examined the lesion and does not appear to be any evidence of hematoma. Fecal occult blood testing was negative. She does have end-stage renal disease however this appears to be stable from a functional point of view. Patient states she received darbepoetin 10 days ago. Currently on oral iron. Folic acid and B12 levels appear to be within normal limits. Has been taking 6-mercaptopurine for many years. -Patient currently on her second unit of blood. We will repeat hemoglobin once finished and reassess. -Check orthostatics -Iron panel ordered. We will check TSH. -We will hold anticoagulation for now. Resume if bone marrow failure rather than GI bleed suspected. -We will obtain GI consult for possible endoscopy -We will hold 6-mercaptopurine for now. Remainder of patient's cell lines appear to be within normal limits. Consider hematology consult if reticulocyte count unexpectedly low for possible bone marrow failure (2) Short bowel syndrome Current Visit: No Status: Chronic Assessment and plan: Short-bowel syndrome currently on TPN and tube feeds. Hold tube feeds for now in the event patient may require endoscopy. Resume TPN. (3) Ulcerative colitis Current Visit: No Status: Chronic Assessment and plan: History of ulcerative colitis currently taking 6 mercaptopurine for many years which she has been tapering. We 6 mercaptopurine for now due to concern for bone marrow suppression.. Qualifiers: Ulcerative colitis location: unspecified ulcerative colitis location Digestive disease complication type: other complication Qualified Code(s): K51.918 - Ulcerative colitis, unspecified with other complication (4) Chronic kidney disease, stage V Current Visit: Yes Status: Acute Assessment and plan: Patient currently followed by Dr. Valle. Not currently on dialysis but has AV fistula maturing in the left upper extremity. (5) DVT prophylaxis Current Visit: No Status: Acute Assessment and plan: Patient currently on Xarelto. We will and patient on pneumatic compression devices - Time Spent With Patient Total time spent is greater than 50% in coordination of care (as documented) at patient's floor/unit and/or counseling patient:
[2018-08-14 07:52] LABS: Bilirubin,Urine Negative (Negative); Blood,Urine Small (Negative); Clarity,Urine Clear (Clear); Color,Urine Yellow (Yellow); Glucose,Urine (UA) Normal (Normal); Ketones,Urine Negative (Negative); Leukocyte Esterase,Urine Trace (Negative); Nitrite,Urine Negative (Negative); PH,Urine 8.5 pH Units (5.0-8.0); Protein,Urine Trace mg/dL (Neg-Trace); Specific Gravity,Urine < 1.005 (1.010-1.025); Urobilinogen,Urine Normal (Normal)
[2018-08-14 07:54] LABS: Bacteria,Urine None Seen per hpf (None-Few); Hyaline Casts,Urine None Seen per lpf (None-Few); Squamous Epithelial Cell,Urine Few per lpf (None-Few)
[2018-08-14] MEDS ORDERED: Pantoprazole 40 MG VIAL IVP SCH (10:36)
[2018-08-14] MEDS ORDERED: D10% in Water 500 ML IVC PRN (11:03)
[2018-08-14 11:09] LABS: Basophils % 0.5 %; Hematocrit 23.3 % (35.3-44.9); Immature Granulocytes % 0.5 % (0-4); Immature Reticulocyte % 29.5 % (11.0-38.0); Lymphocytes # 1.6 K/mcL (0.6-4.6); Lymphocytes % 38.6 %; Mean Corpuscular HGB Conc 31.8 g/dL (31.6-35.5); Mean Corpuscular Hemoglobin 34.1 pg (28.0-33.3); Mean Platelet Volume 9.9 fL (9.4-12.4); Monocytes # 0.4 K/mcL (0.0-1.3); Monocytes % 8.7 %; Neutrophils # 2.1 K/mcL (1.6-8.9); Platelet Count 188 K/mcL (140-400); Red Blood Count 2.17 M/mcL (3.82-4.97); Red Cell Distribution Width 21.7 % (11.5-14.5); Retculocyte # 0.09 M/mcL (0.05-0.10); Segmented Neutrophils % 50.7 %
[2018-08-14 11:19] LABS: INR 1.4; Prothrombin Time 15.6 Seconds (9.4-12.1)
[2018-08-14 11:24] LABS: Hemoglobin 7.4 g/dL (11.5-15.4)
[2018-08-14 11:30] LABS: Mean Corpuscular Volume 107.4 fL (83.0-100.0)
[2018-08-14 12:02] LABS: Albumin 2.8 g/dL (3.5-5.7); Albumin/Globulin Ratio 1.6 (1.1-2.2); Bilirubin,Total 0.6 mg/dL (0.3-1.0); Calcium 6.9 mg/dL (8.6-10.3); Globulin 1.8 g/dL (2.4-3.5); Magnesium 2.1 mg/dL (1.6-2.6); Potassium 5.1 mEq/L (3.5-5.1); Total Protein 4.6 g/dL (6.4-8.9)
[2018-08-14] MEDS ORDERED: *HR* Propofol 200 MG/20 ML VIAL IVP ONE (12:04)
[2018-08-14] MEDS ORDERED: Lidocaine -MPF 2% 2 ML VIAL ONE (12:04)
--- NOTE | 2018-08-14 12:08 | Anesthesia Evaluation PreOp ---
Date of Encounter: 08/14/18 Time of Encounter: 12:51 - Past History Planned Operation: EGD Cardiac History: Other (anemia s/p 2 units PRBC transfused, Factor V leiden on chronic anticoagulation with Xarelto) Pulmonary History: Denies Any Significant HX SENIOR BIOINFORMATICS SPECIALIST History: CVA (> 15 yrs, intially weakness but since resolved) Other Medical History: Renal (CKD stage 4 AVF in E not currently on dialysis), Thyroid (hypo), GERD, Other (TPN for hx UC with multiple bowel resections) Anesthesia History: No Prior Anesthetic Complications, Past Anesthesia : No Alcohol Use: occasionally Drug use: none Medications and Allergies Copper Gluconate [Copper] 5 mg PO DAILY 02/25/15 [History] Lipase/Protease/Amylase [Creon Dr 24,000 Units Capsule] 3 cap PO TIDWM 02/25/15 [History] Mercaptopurine 50 mg PO Q48H 02/25/15 [History] Vitamin A Palmitate [Vitamin A] 10,000 unit PO DAILY 02/25/15 [History] Vitamin E (Dl,Tocopheryl Acet) [Vitamin E] 100 unit PO DAILY 02/25/15 [History] predniSONE [PredniSONE] 5 mg PO QAM 02/25/15 [History] Zinc Acetate [Galzin] 25 mg PO DAILY 04/21/16 [History] Cyanocobalamin (B-12) [Vitamin B12] 1 ml IM QMONTH 05/03/16 [History] Nutritional Supplement [Osmolite 1.2 Glenn] 3 can GTUBE HS 05/03/16 [History] Ergocalciferol (VITAMIN D2) [Drisdol (50,000 Unit)] 100,000 unit PO DAILY 05/15/17 [History] Multivitamin [Flintstones] 1 each PO DAILY 05/15/17 [History] Folic Acid 1 mg PO DAILY 08/07/17 [History] Omeprazole [PriLOSEC] 20 mg PO DAILY 08/07/17 [History] Rivaroxaban [Xarelto] 5 mg PO DAILY 08/07/17 [History] Calcitriol 0.5 mcg PO DAILY 01/02/18 [History] Darbepoetin [Aranesp] 200 mcg IV QMONTH 01/02/18 [History] Sodium Bicarbonate 1,300 mg PO TID 01/02/18 [History] predniSONE [PredniSONE] 2.5 mg PO QPM 01/02/18 [History] Ferrous Gluconate 324 mg PO BID 03/31/18 [History] Allergy/AdvReac Type Severity Reaction Status Date / Time levofloxacin [From Levaquin] Allergy Hives Verified 08/13/18 23:06 NSAIDS (Non-Steroidal AdvReac See Verified 08/13/18 23:06 Anti-Inflamma Comments - Meds/Allergy Pre-op Review Medications Reviewed: Yes Allergies Reviewed: Yes Beta Blockers on Current Med List: No Anesthesia Results - Labs 08/14/18 10:59 08/14/18 10:59 - Imaging EKG: report reviewed Additional studies: 07/2018 echocardiogram Impressions: LVEF 65-70%. Normal LV chamber size, wall thickness and function. Normal left ventricular diastolic function. Normal right ventricular structure and function. No evidence of pulmonary hypertension. No significant valvular dysfunction. Anesthesia Exam Vital Signs/O2 Sat/Glucose, Most Recent Temp Pulse Resp BP Pulse Ox 98.5 F 63 14 102/68 97 08/14/18 11:49 08/14/18 11:49 08/14/18 11:49 08/14/18 11:49 08/14/18 11:49 Weight: 55 kg - HEENT Pupil (Motor): Pupils equal Mallampati: II Denture Type: Upper: Partial - SENIOR BIOINFORMATICS SPECIALIST LOC: Oriented - Cardiac Rhythm: Regular Murmur: None - Pulmonary Breath Sounds: bilateral Clear Respiratory Effort: Symmetrical Anesthesia Assess/Plan ASA Score: 4 (CKD stage 4, CVA, anemia, UC, TPN) Level of consciousness: Cooperative, Oriented Anesthetic Plan: MAC Monitoring Plan: Standard Monitors Recovery Plan: PACU
[2018-08-14] MEDS ORDERED: Tetracaine/Benzocaine/Butamben 1 SPRAY AEROSOL MM ONE (13:36)
[2018-08-14] MEDS ORDERED: Ferumoxytol 510 MG in 0.9 % Sodium Chloride 100 ML IVPB ONE (13:39)
--- NOTE | 2018-08-14 14:00 | Anesthesia Evaluation Post Op ---
Date of Encounter: 08/14/18 Time of Encounter: 14:00 - Vital Signs Vital Signs: Vital Signs/O2 Sat/Glucose, Most Recent Temp Pulse Resp BP Pulse Ox 98.5 F 71 16 110/71 98 08/14/18 11:49 08/14/18 13:12 08/14/18 13:12 08/14/18 13:12 08/14/18 13:12 - Lungs Lungs: Clear Ascult./Percussion - Airway Airway: Non-obstructed - Cardiovascular Regular Rate - Mental Status Mental Status: Alert & Oriented, Answers Appropriately - Pain Pain Scale: 0 - Nausea Vomiting Nausea Vomiting: Not Present - Hydration Hydration: NPO - Discharge PostOp Status: Transfer Patient to floor
--- NOTE | 2018-08-14 14:35 | Discharge Summary ---
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 Rice is a 58 year old female - Time Spent with Patient Total time spent providing and/or coordinating discharge services: 25min - Discharge Medications Prescriptions: Continued predniSONE [PredniSONE] 5 mg PO QAM Vitamin E (Dl,Tocopheryl Acet) [Vitamin E] 100 unit PO DAILY Vitamin A Palmitate [Vitamin A] 10,000 unit PO DAILY Mercaptopurine 50 mg PO Q48H Lipase/Protease/Amylase [Creon Dr 24,000 Units Capsule] 3 cap PO TIDWM Copper Gluconate [Copper] 5 mg PO DAILY Zinc Acetate [Galzin] 25 mg PO DAILY Cyanocobalamin (B-12) [Vitamin B12] 1 ml IM QMONTH Nutritional Supplement [Osmolite 1.2 Glenn] 3 can GTUBE HS Ergocalciferol (VITAMIN D2) [Drisdol (50,000 Unit)] 100,000 unit PO DAILY Multivitamin [Flintstones] 1 each PO DAILY Folic Acid 1 mg PO DAILY Rivaroxaban [Xarelto] 5 mg PO DAILY Omeprazole [PriLOSEC] 20 mg PO DAILY predniSONE [PredniSONE] 2.5 mg PO QPM Darbepoetin [Aranesp] 200 mcg IV QMONTH Calcitriol 0.5 mcg PO DAILY Sodium Bicarbonate 1,300 mg PO TID Ferrous Gluconate 324 mg PO BID Home Medications: Copper Gluconate [Copper] 5 mg PO DAILY 02/25/15 [History] Lipase/Protease/Amylase [Creon Dr 24,000 Units Capsule] 3 cap PO TIDWM 02/25/15 [History] Mercaptopurine 50 mg PO Q48H 02/25/15 [History] Vitamin A Palmitate [Vitamin A] 10,000 unit PO DAILY 02/25/15 [History] Vitamin E (Dl,Tocopheryl Acet) [Vitamin E] 100 unit PO DAILY 02/25/15 [History] predniSONE [PredniSONE] 5 mg PO QAM 02/25/15 [History] Zinc Acetate [Galzin] 25 mg PO DAILY 04/21/16 [History] Cyanocobalamin (B-12) [Vitamin B12] 1 ml IM QMONTH 05/03/16 [History] Nutritional Supplement [Osmolite 1.2 Glenn] 3 can GTUBE HS 05/03/16 [History] Ergocalciferol (VITAMIN D2) [Drisdol (50,000 Unit)] 100,000 unit PO DAILY 05/15/17 [History] Multivitamin [Flintstones] 1 each PO DAILY 05/15/17 [History] Folic Acid 1 mg PO DAILY 08/07/17 [History] Omeprazole [PriLOSEC] 20 mg PO DAILY 08/07/17 [History] Rivaroxaban [Xarelto] 5 mg PO DAILY 08/07/17 [History] Calcitriol 0.5 mcg PO DAILY 01/02/18 [History] Darbepoetin [Aranesp] 200 mcg IV QMONTH 01/02/18 [History] Sodium Bicarbonate 1,300 mg PO TID 01/02/18 [History] predniSONE [PredniSONE] 2.5 mg PO QPM 01/02/18 [History] Ferrous Gluconate 324 mg PO BID 03/31/18 [History] Allergies/Adverse Reactions: Allergy/AdvReac Type Severity Reaction Status Date / Time levofloxacin [From Levaquin] Allergy Hives Verified 08/13/18 23:06 NSAIDS (Non-Steroidal AdvReac See Verified 08/13/18 23:06 Anti-Inflamma Comments Date of admission: 08/14/18 03:03 Primary care physician: Abebe Renee Consults: 08/14/18 05:26 Consult to Gastroenterology [CONS] Routine Consulting Provider: Gastroenterology Michaela Reason for Consult: Patient presenting with anemia currently on anticoagulation. Unclear if GI source of bleed. Please evaluate. Call Completed: No 08/14/18 07:59 Consult to Nutrition [CONS] Routine Comment: Consulting Provider: NUTRITION Reason for Dietary Consult: TPN Start and Manage - Constitutional Vitals: Temp Pulse Resp BP Pulse Ox 98.5 F 71 16 110/71 98 08/14/18 11:49 08/14/18 13:12 08/14/18 13:12 08/14/18 13:12 08/14/18 13:12 - Patient Status Disposition: Home, Self-Care Condition: Fair - Discharge Instructions Follow Up With: Abebe Renee, [Primary Care Provider] - Art Rodriges DO [Partnered Physician] - Additional Instructions: Please follow-up with Dr. Rodriges as scheduled - please call his office to ask when your next anaresp will be due Please follow-up with your primary care physician in 1-2 weeks Return to the hospital if your symptoms return or worsen - Attending Attestation I examined this patient and my medical decision-making was reviewed with the Resident Physician on 08/14/18. I agree with the documented findings, disposition and treatment plan as described except to the extent set forth below. Ms Rice has been admitted for anemia. She received blood and is now near baseline. She has received iron infusion as well. She underwent EGD with no active bleeding found. She is afebrile and ready for discharge home. Exam Alert comfortable Mucus membranes dry Heart not tachy No wheeze Abd soft No edema Plan D/C home today. <Roney Mccall - Last Filed: 08/14/18 16:02> - NOTES TO OUTPATIENT PROVIDER Notes to Outpatient Provider: Hgb 5.2 on admission, recevied 2U pRBCs and increased to 7.4. EGD negative. Anemia secondary to chronic disease and chronic kidney disease. Given feraheme prior to dischage. 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 Rice is a 58 year old female with PMH of UC, CKD stage IV, CVA, hx of mesenteric ischemia on xarelto, short bowel syndrome, and [place]'s disease, admitted for anemia with hgb 5.2. She was at home when she received a call from her bilingual spanish inbound sales's office instructed her to go to the emergency department for further evaluation for hemoglobin of 5.9. She reports that over the past several days she had had slight fatigue, weakness and brief lightheadedness. No history of bleeding, hemoptysis, hematemesis, hematochezia, melena, or worsening bruising. She does state that she is currently self tapering her dose of mercaptopurine for her ulcerative colitis after reading that it was no longer the standard of care. Patient underwent surgical evaluation of her left upper extremity AV fistula earlier this month, but the site was examined with no evidence of hematoma or bleeding. Orthostatic vital signs are negative. Other work-up included stable renal disease, negative fecal occult blood, no leukocytosis, normal electrolytes and hepatic panel. EGD showed no acute bleeding or clots. Anemia work-up included elevated B12, normal folate, normal iron, low transferrin, and elevated ferritin. She received 2U pRBCs and her Hgb improved to 7.4 (chronically she is 7-9). Her symptoms improved greatly. She was tolerating PO intake and hemodynamically stable. She was given a dose of feraheme during her hospitalization. She is to continue her aranesp with nephrology. Discharge discussed with: patient - Time Spent with Patient Total time spent providing and/or coordinating discharge services: Date of admission: 08/14/18 03:03 Primary care physician: Abebe Renee Consults: 08/14/18 05:26 Consult to Gastroenterology [CONS] Routine Consulting Provider: Gastroenterology Michaela Reason for Consult: Patient presenting with anemia currently on anticoagulation. Unclear if GI source of bleed. Please evaluate. Call Completed: No 08/14/18 07:59 Consult to Nutrition [CONS] Routine Comment: Consulting Provider: NUTRITION Reason for Dietary Consult: TPN Start and Manage Discharging clinician: Roney Mccall Anticipated date of discharge: 08/14/18 - Constitutional Vitals: Temp Pulse Resp BP Pulse Ox 98.5 F 71 16 110/71 98 08/14/18 11:49 08/14/18 13:12 08/14/18 13:12 08/14/18 13:12 08/14/18 13:12 Exam: GEN: No acute distress, A&O3 HEAD: Atraumatic, normocephalic EYES: Pupils symmetric, sclera white, conjunctiva pink HEART: RRR, normal S1 and S2, no murmurs LUNGS: Clear to auscultation bilaterally, no wheezes, rhonchi, or crackles ABD: Soft, nontender, nondistended, bowel sounds present EXT: No edema noted, pulses 2/4, There is a 7 cm well-healing incision on the left upper extremity NEURO: No focal deficits, cooperative with exam - Patient Status Functional capacity at discharge: independent ambulation Overall status at discharge: patient is progressing back to baseline - Diet and Activity Activity: increase activity as tolerated Diet: advance to your usual diet
[2018-08-14 15:24] VITALS: BP 109/72
--- NOTE | 2018-08-14 16:36 | Gastroenterology Consult Note ---
<Ifrah Christensen M - Last Filed: 08/14/18 16:31> Date of Encounter: 08/14/18 Time of Encounter: 09:15 - Assessment and plan (1) Anemia Current Visit: No Status: Chronic Assessment and plan: Likely multifactoral will check EGD for esophagitis, gastritis, duodenitis, PUD, MW tear and avm. May also be related to mercaptapurine which was stopped 2 weeks ago due to insurance coverage. Will check labs for hemolysis. Qualifiers: Anemia type: due to chronic kidney disease Chronic kidney disease stage: stage 4 (severe) Qualified Code(s): N18.4 - Chronic kidney disease, stage 4 (severe); D63.1 - Anemia in chronic kidney disease (2) Ulcerative colitis Current Visit: No Status: Chronic Qualifiers: Ulcerative colitis location: unspecified ulcerative colitis location Digestive disease complication type: other complication Qualified Code(s): K51.918 - Ulcerative colitis, unspecified with other complication - Time Spent With Patient Total time spent is greater than 50% in coordination of care (as documented) at patient's floor/unit and/or counseling patient: GI History of Present Illness - Data of Consult Patient: known to practice within the last 3 years Consult date: 08/14/18 Requesting Physician: Rakesh Perera DO - Consult Narrative Reason for consult: anemia History of present illness: Ms. Rice is a 57 year old female with PMHx of CVA, GERD, hyperlipidemia, hypertension, CKD IV, anxiety, depression, Ulcerative colitis, short bowel syndrome secondary to a blood clot from her ulcerative colitis (she follows with [facility] for UC). She presented with anemia. Hgb on routine labs was 5.2. She reports recent fatigue but attributed it to her recent change to a plant based diet. She denies melena or hematocheia. Stool was negative for occult blood. She dneies any recent nausea and vomiting. She denies diarrhea. She is on TPN and tube feeding at home to help with her with her nutrition. Procedures: Colonoscopy 2 years ago at [facility] EGD 03/09/2015 Dr. Kumari: PEG tube placement. NSAIDs: None Anticoagulation: Xarelto Past Med Surg Social Fam HX - Past Medical History Medical history: CVA, renal disease, other Additional medical history: ulcerative colitis, short bowel syndrome, addisons diease, CKD stage 4, factor 5, Psychiatric history: anxiety, depression, panic disorder - Past Surgical History Surgical History: appendectomy Additional surgical history: fistula placed04/20/18, groshong placement, peg tube placement, bilat eye surgery for tear duct. - Social History Smoking Status: Never smoker Smokeless Tobacco Status: No Alcohol use: occasionally Drug use: none - Family History Mother Age: 79 Living Status: Still Living Hx Family Cardiac Disorders: Yes (HTN) Hx Family Cancer: Yes (eye) Hx Family Genitourinary Disorders: Yes (Renal diease) Hx Family Endocrine Disorder: Yes Father Living Status: Age at : 78 Cause of : ALZ Hx Family Neurologic Disorders: Yes Review of Systems: GI: as per [place] [facility] [place] [facility]: denies fever, has some chills EYES: denies yellow discoloration ENT: denies pain with swallowing or difficulty swallowing CARDIO: denies chest pain, palpitations RESP: Shortness of breath with exertion : denies change in color of urine NEURO: weakness HEME: Denies any bruising MS: denies joint pain, joint swelling or back pain. DERM: denies rash or itching PSYCH: Denies history of anxiety or depression - Constitutional Vitals: Temp Pulse Resp BP Pulse Ox 98.3 F 62 14 109/72 98 08/14/18 15:23 08/14/18 15:23 08/14/18 15:23 08/14/18 15:23 08/14/18 15:23 Exam: CONSTITUTIONAL:alert, no acute distress.HEAD:normocephalic.EYES:no jaundice.NECK:no obvious swelling.HEART:regular rate and rhythm, no murmurs.LUNGS:bilateral good air entry.ABDOMEN:non distended, soft, non tender, no masses palpable, no organomegaly, peg tube noted, scars noted.RECTAL EXAM:Deferred.EXTREMITIES:no clubbing, cyanosis or edema.SKIN:pallor noted, no stigmata of chronic liver disease.NEUROLOGIC:no obvious focal defect. Results - Labs CBC & Chem 7: 08/14/18 10:59 08/14/18 10:59 Labs: Last Result 08/14/18 10:59 Calcium 6.9 L Iron 80 % Saturation 44 Transferrin 131 L Ferritin 511 H Entire Visit 08/14/18 08/14/18 08/14/18 10:59 10:59 10:59 Hgb 7.4 L D Hct 23.3 L PT 15.6 H Ferritin 511 H Total Bilirubin 0.6 AST 13 ALT 8 - ABG ABG results: PT/INR, D-dimer PT 15.6 Seconds (9.4-12.1) H 08/14/18 10:59 Consult Discharge Plan - Plan Additional Instructions: Please follow-up with Dr. Rodriges as scheduled - please call his office to ask when your next anaresp will be due Please follow-up with your primary care physician in 1-2 weeks Return to the hospital if your symptoms return or worsen Referrals: Art Rodriges DO [Partnered Physician] - (A referral has been sent to this physcian. The office will call you with appt. ) Abebe Renee DO [Primary Care Provider] - (A referral has been sent to t his physcian. The office will call you with appt. ) <Piedad Garcia - Last Filed: 08/14/18 18:06> Date of Encounter: 08/14/18 Time of Encounter: 13:00 - Time Spent With Patient Total time spent is greater than 50% in coordination of care (as documented) at patient's floor/unit and/or counseling patient: GI History of Present Illness - Data of Consult Requesting Physician: Rakesh Perera DO - Consult Narrative History of present illness: Ms. Rice is a 58 year old female - Constitutional Vitals: Temp Pulse Resp BP Pulse Ox 98.3 F 62 14 109/72 98 08/14/18 15:23 08/14/18 15:23 08/14/18 15:23 08/14/18 15:23 08/14/18 15:23 Results - Labs CBC & Chem 7: 08/14/18 10:59 08/14/18 10:59 Labs: Last Result 08/14/18 10:59 Calcium 6.9 L Iron 80 % Saturation 44 Transferrin 131 L Ferritin 511 H Entire Visit 08/14/18 08/14/18 08/14/18 10:59 10:59 10:59 Hgb 7.4 L D Hct 23.3 L PT 15.6 H Ferritin 511 H Total Bilirubin 0.6 AST 13 ALT 8 - ABG ABG results: PT/INR, D-dimer PT 15.6 Seconds (9.4-12.1) H 08/14/18 10:59 - Attending Attestation I have personally performed a face to face evaluation on this patient. I have reviewed and agree with the care plan. History and Exam by me shows: Patient seen patient with a history of UC currently in remission now with severe anemia. Denies any GI bleeding. On examination: Patient abd is benign. A: Patient with severe anemia which is multifactorial as patient also has UC and chronic kidney disease. Recommendation: EGD to rule out upper GI causes for anemia. As patient is not having any diarrhea or rectal bleeding no need for colonoscopy
[2018-08-14] MEDS ORDERED: Clinimix E 5%-15% SOLUTION 2,000 ML with MVI, adult with vitamin K 10 ML IVC SCH (17:00)
[2018-08-14 17:40] LABS: Immature Reticulocyte % 30.5 % (11.0-38.0); Retculocyte # 0.09 M/mcL (0.05-0.10); Reticulocyte % 3.7 % (1.6-2.8)
--- NOTE | 2018-08-15 09:22 | Electrocardiograph Report ---
[address] [place], [place] [address] Test Date: 2018-08-13 Pat Name: Wendy Rice Department: EXAM3 Room: 3B46 Gender: F Clinical Resource Director: : 1960 Requested By: Gilson Hernandez Order Number: [id number] Reading MD: Ming Dia Measurements Intervals [place] Rate: 81 P: 59 [place]: 164 QRS: 47 QRSD: 95 T: 120 QT: 395 QTc: 459 Interpretive Statements Sinus rhythm Nonspecific repol abnormality, lateral leads Electronically Signed On 08-15-2018 9:20:53 EDT by Ming Dia
--- NOTE | 2018-08-15 09:24 | Electrocardiograph Report ---
[address] [address] Test Date: 2018-08-14 Pat Name: Wendy Rice Department: EXAM3 Room: 3B46 Gender: F Towboat Pilot: : 1960 Requested By: Gilson Hernandez Order Number: [id number] Reading MD: Ming Dia Measurements Intervals [place] Rate: 72 P: 70 [place]: 172 QRS: 48 QRSD: 98 T: 36 QT: 410 QTc: 449 Interpretive Statements Sinus rhythm Low voltage, precordial leads Electronically Signed On 08-15-2018 9:23:12 EDT by Ming Dia
== END 2018-08-14 18:39 | disposition home or self-care (01) | DRG 812 ==
LOC: EMEROOARM 22:01 → 3BNU 22:01 → SUATTDRO 08-14 03:03 → 3BNU 08-14 03:55
PROVIDERS: ADMIT Internal Medicine; ATTEND Internal Medicine

== ENCOUNTER 2018-10-14 16:12 | Inpatient (IN) ==
[2018-10-14] MEDS ORDERED: 0.9 % Sodium Chloride 1,000 ML IVC ONE ×2 (17:23→22:52)
[2018-10-14 17:25] LABS: Bilirubin,Urine Negative (Negative); Blood,Urine Moderate (Negative); Clarity,Urine Cloudy (Clear); Color,Urine Yellow (Yellow); Glucose,Urine (UA) 100 mg/dL (Normal); Ketones,Urine Negative (Negative); Leukocyte Esterase,Urine Moderate (Negative); Nitrite,Urine Negative (Negative); Protein,Urine 30 mg/dL (Neg-Trace); Specific Gravity,Urine 1.012 (1.010-1.025); Urobilinogen,Urine Normal (Normal)
[2018-10-14 17:26] LABS: Bacteria,Urine Many per hpf (None-Few); Hyaline Casts,Urine Few per lpf (None-Few); Squamous Epithelial Cell,Urine Moderate per lpf (None-Few); WBC,Urine TNTC per hpf (0-3)
[2018-10-14 17:40] LABS: RBC,Urine 0-3 per hpf (0-3); Yeast,Urine Few per hpf (None Seen)
[2018-10-14 18:12] LABS: Basophils % 0.4 %; Eosinophils % 0.4 %; Hematocrit 31.9 % (35.3-44.9); Immature Granulocytes % 0.5 % (0-4); Lymphocytes % 12.4 %; Mean Corpuscular HGB Conc 31.3 g/dL (31.6-35.5); Mean Corpuscular Hemoglobin 36.8 pg (28.0-33.3); Mean Corpuscular Volume 117.3 fL (83.0-100.0); Mean Platelet Volume 11.8 fL (9.4-12.4); Monocytes % 8.2 %; Platelet Count 106 K/mcL (140-400); Red Blood Count 2.72 M/mcL (3.82-4.97); Red Cell Distribution Width 15.5 % (11.5-14.5); Segmented Neutrophils % 78.1 %; White Blood Count 7.9 K/mcL (4.3-11.1)
[2018-10-14 18:15] LABS: Monocytes # 0.7 K/mcL (0.0-1.3); Neutrophils # 6.2 K/mcL (1.6-8.9)
[2018-10-14 18:27] LABS: Calcium 8.5 mg/dL (8.6-10.3); Potassium 3.4 mEq/L (3.5-5.1)
[2018-10-14] MEDS ORDERED: cefTRIAXone 1,000 MG in Water for inj. (sterile) 10 ML IVP ONE (20:25)
[2018-10-14] MEDS ORDERED: Naloxone 0.4 MG/ML INJ IVP PRN (22:26)
[2018-10-14] MEDS ORDERED: Hydrocortisone Sodium Succ 100 MG/2 ML VIAL IVP ONE (22:50)
[2018-10-14] MEDS ORDERED: NUTRITIONAL SUPPLEMENT GTUBE SCH (23:00)
[2018-10-14] MEDS ORDERED: Ondansetron 4 MG/2 ML VIAL IVP PRN (23:30)
[2018-10-14] MEDS ORDERED: 0.9 % Sodium Chloride 1,000 ML ONE (23:36)
[2018-10-14] MEDS: Cefepime HCl 1,000 MG in Water for inj. (sterile) 10 ML IVP SCH (23:53)
[2018-10-15] MEDS ORDERED: Potassium Chloride 40 MEQ, Lidocaine 1% 2 ML in D5% in Water 500 ML IVPB ONE
[2018-10-15 01:55] LABS: Hematocrit 29.5 % (35.3-44.9); Hemoglobin 9.2 g/dL (11.5-15.4); Immature Platelets 6.8 % (1.1-6.1); Mean Corpuscular HGB Conc 31.2 g/dL (31.6-35.5); Mean Corpuscular Hemoglobin 36.1 pg (28.0-33.3); Mean Corpuscular Volume 115.7 fL (83.0-100.0); Mean Platelet Volume 11.7 fL (9.4-12.4); Red Blood Count 2.55 M/mcL (3.82-4.97); Red Cell Distribution Width 15.4 % (11.5-14.5); White Blood Count 6.8 K/mcL (4.3-11.1)
[2018-10-15 02:03] LABS: INR 1.1; Prothrombin Time 12.2 Seconds (9.4-12.1)
[2018-10-15 02:12] LABS: Potassium 3.7 mEq/L (3.5-5.1)
[2018-10-15 02:13] LABS: Albumin 2.9 g/dL (3.5-5.7); Albumin/Globulin Ratio 1.5 (1.1-2.2); Bilirubin,Total 0.3 mg/dL (0.3-1.0); Calcium 7.9 mg/dL (8.6-10.3); Magnesium 2.1 mg/dL (1.6-2.6); Phosphorous 4.8 mg/dL (2.7-4.5); Total Protein 4.9 g/dL (6.4-8.9)
[2018-10-15] MEDS ORDERED: VITAMIN E 100 UNITS PO SCH (09:00)
[2018-10-15] MEDS ORDERED: ZINC ACETATE 25 MG PO SCH (09:00)
[2018-10-15] MEDS ORDERED: VITAMIN A 10000 UNIT PO SCH (09:00)
[2018-10-15] MEDS: Cefepime HCl 1,000 MG in Water for inj. (sterile) 10 ML IVP SCH (09:07)
[2018-10-15] MEDS: predniSONE 5 MG TABLET PO SCH ×2 (09:09→17:21)
[2018-10-15] MEDS: *HR* Rivaroxaban 10 MG TABLET PO SCH (09:09)
[2018-10-15] MEDS ORDERED: Cefepime HCl 1,000 MG in Water for inj. (sterile) 10 ML IVP SCH ×2 (18:00→21:00)
[2018-10-16 02:23] LABS: Acinetobacter baumannii by PCR Not Detected (Not Detect); Candida albicans by PCR Not Detected (Not Detect); Candida glabrata by PCR DETECTED (Not Detect); Candida krusei by PCR Not Detected (Not Detect); Candida parapsilosis by PCR Not Detected (Not Detect); Candida tropicalis by PCR Not Detected (Not Detect); Enterobacter cloacae Cmplx PCR Not Detected (Not Detect); Enterobacteriaceae by PCR Not Detected (Not Detect); Enterococcus by PCR Not Detected (Not Detect); Escherichia coli by PCR Not Detected (Not Detect); Klebsiella oxytoca by PCR Not Detected (Not Detect); Klebsiella pneumoniae by PCR Not Detected (Not Detect); Proteus by PCR Not Detected (Not Detect); Pseudomonas aeruginosa by PCR Not Detected (Not Detect); Serratia marcescens by PCR Not Detected (Not Detect); Staphylococcus aureus by PCR Not Detected (Not Detect); Staphylococcus by PCR Not Detected (Not Detect); Streptococcus agalactiae(B)PCR Not Detected (Not Detect); Streptococcus by PCR Not Detected (Not Detect); Streptococcus pneumoniae PCR Not Detected (Not Detect); Streptococcus pyogenes (A) PCR Not Detected (Not Detect)
[2018-10-16 04:10] LABS: Eosinophils % 0.8 %; Hemoglobin 8.6 g/dL (11.5-15.4); Monocytes % 7.2 %
[2018-10-16 04:12] LABS: Basophils % 0.6 %; Hematocrit 27.3 % (35.3-44.9); Immature Granulocytes % 0.2 % (0-4); Immature Platelets 8.7 % (1.1-6.1); Lymphocytes # 1.2 K/mcL (0.6-4.6); Lymphocytes % 22.8 %; Mean Corpuscular HGB Conc 31.5 g/dL (31.6-35.5); Mean Corpuscular Hemoglobin 36.1 pg (28.0-33.3); Mean Corpuscular Volume 114.7 fL (83.0-100.0); Mean Platelet Volume 11.4 fL (9.4-12.4); Monocytes # 0.4 K/mcL (0.0-1.3); Neutrophils # 3.6 K/mcL (1.6-8.9); Red Blood Count 2.38 M/mcL (3.82-4.97); Segmented Neutrophils % 68.4 %; White Blood Count 5.3 K/mcL (4.3-11.1)
[2018-10-16 04:30] LABS: Calcium 7.7 mg/dL (8.6-10.3); Phosphorous 2.8 mg/dL (2.7-4.5); Potassium 4.4 mEq/L (3.5-5.1)
[2018-10-16 04:34] LABS: Platelet Count 82 K/mcL (140-400)
[2018-10-16 04:35] LABS: Platelet Estimate Decreased (Normal)
[2018-10-16] MEDS: Vitamin E 200 UNIT (90MG) CAPSULE PO SCH (07:30)
[2018-10-16] MEDS: *HR* Rivaroxaban 10 MG TABLET PO SCH (07:30)
[2018-10-16] MEDS: Zinc Sulfate 220 MG CAPSULE PO SCH (07:30)
[2018-10-16] MEDS: Cefepime HCl 1,000 MG in Water for inj. (sterile) 10 ML IVP SCH ×2 (07:30→16:59)
[2018-10-16] MEDS: predniSONE 5 MG TABLET PO SCH ×2 (07:31→16:59)
[2018-10-16 08:56] LABS: Hematocrit 28.2 % (35.3-44.9); Hemoglobin 8.9 g/dL (11.5-15.4); Mean Corpuscular HGB Conc 31.6 g/dL (31.6-35.5)
[2018-10-16 08:58] LABS: Eosinophils # 0.1 K/mcL (0.0-0.6); Immature Platelets 8.7 % (1.1-6.1); Mean Corpuscular Volume 114.2 fL (83.0-100.0); Red Blood Count 2.47 M/mcL (3.82-4.97); White Blood Count 5.1 K/mcL (4.3-11.1)
[2018-10-16 09:00] LABS: Platelet Count 86 K/mcL (140-400)
[2018-10-16] MEDS ORDERED: Micafungin 100 MG in 0.9 % Sodium Chloride Mini Bag 100 ML IVPB SCH ×2 (09:00→10:45)
[2018-10-16 09:45] LABS: Basophils # 0.1 K/mcL (0.0-0.2); Lymphocytes # 1.3 K/mcL (0.6-4.6); Monocytes # 0.3 K/mcL (0.0-1.3); Neutrophils # 3.3 K/mcL (1.6-8.9)
[2018-10-16 09:46] LABS: Macrocytosis Present (Not Present)
[2018-10-16 09:47] LABS: Platelet Estimate Decreased (Normal)
[2018-10-16] MEDS: Micafungin 100 MG in 0.9 % Sodium Chloride Mini Bag 100 ML IVPB SCH (11:14)
[2018-10-17 04:05] LABS: Immature Granulocytes % 0.2 % (0-4)
[2018-10-17 04:07] LABS: Basophils % 0.7 %; Eosinophils % 0.7 %; Hematocrit 27.5 % (35.3-44.9); Hemoglobin 8.8 g/dL (11.5-15.4); Immature Platelets 9.7 % (1.1-6.1); Lymphocytes # 1.2 K/mcL (0.6-4.6); Lymphocytes % 26.8 %; Mean Corpuscular Hemoglobin 37.1 pg (28.0-33.3); Mean Platelet Volume 11.9 fL (9.4-12.4); Monocytes % 7.5 %; Red Blood Count 2.37 M/mcL (3.82-4.97); Segmented Neutrophils % 64.1 %; White Blood Count 4.6 K/mcL (4.3-11.1)
[2018-10-17 04:22] LABS: Albumin 2.8 g/dL (3.5-5.7); Albumin/Globulin Ratio 1.5 (1.1-2.2); Bilirubin,Total 0.3 mg/dL (0.3-1.0); Calcium 7.9 mg/dL (8.6-10.3); Globulin 1.9 g/dL (2.4-3.5); Potassium 4.8 mEq/L (3.5-5.1); Total Protein 4.7 g/dL (6.4-8.9)
[2018-10-17 04:55] LABS: Monocytes # 0.4 K/mcL (0.0-1.3); Platelet Count 91 K/mcL (140-400)
[2018-10-17 04:57] LABS: Macrocytosis Present (Not Present); Platelet Estimate Decreased (Normal)
[2018-10-17] MEDS: Cefepime HCl 1,000 MG in Water for inj. (sterile) 10 ML IVP SCH ×2 (05:07→16:56)
[2018-10-17] MEDS: Micafungin 100 MG in 0.9 % Sodium Chloride Mini Bag 100 ML IVPB SCH (09:15)
[2018-10-17] MEDS: predniSONE 5 MG TABLET PO SCH ×2 (09:18→16:56)
[2018-10-17] MEDS: Vitamin E 200 UNIT (90MG) CAPSULE PO SCH (09:18)
[2018-10-17] MEDS: *HR* Rivaroxaban 10 MG TABLET PO SCH (09:18)
[2018-10-17] MEDS: Zinc Sulfate 220 MG CAPSULE PO SCH (09:19)
[2018-10-18] MEDS: Cefepime HCl 1,000 MG in Water for inj. (sterile) 10 ML IVP SCH ×2 (06:15→16:53)
[2018-10-18 06:32] LABS: Basophils % 0.4 %; Immature Granulocytes % 0.2 % (0-4)
[2018-10-18 06:33] LABS: Eosinophils % 0.4 %; Hematocrit 28.3 % (35.3-44.9); Immature Platelets 9.2 % (1.1-6.1); Lymphocytes # 1.4 K/mcL (0.6-4.6); Lymphocytes % 29.2 %; Mean Corpuscular HGB Conc 31.8 g/dL (31.6-35.5); Mean Corpuscular Hemoglobin 36.4 pg (28.0-33.3); Mean Corpuscular Volume 114.6 fL (83.0-100.0); Mean Platelet Volume 11.9 fL (9.4-12.4); Monocytes # 0.4 K/mcL (0.0-1.3); Monocytes % 8.5 %; Neutrophils # 2.9 K/mcL (1.6-8.9); Red Blood Count 2.47 M/mcL (3.82-4.97); Red Cell Distribution Width 14.8 % (11.5-14.5); Segmented Neutrophils % 61.3 %; White Blood Count 4.8 K/mcL (4.3-11.1)
[2018-10-18 06:34] LABS: Platelet Count 92 K/mcL (140-400)
[2018-10-18 06:49] LABS: Calcium 8.3 mg/dL (8.6-10.3); Potassium 5.1 mEq/L (3.5-5.1)
[2018-10-18 07:18] LABS: Anisocytosis 1+ (Not Present); Macrocytosis Present (Not Present); Platelet Estimate Slight Decrease (Normal)
[2018-10-18] MEDS: Micafungin 100 MG in 0.9 % Sodium Chloride Mini Bag 100 ML IVPB SCH (08:58)
[2018-10-18] MEDS: Vitamin E 200 UNIT (90MG) CAPSULE PO SCH (08:58)
[2018-10-18] MEDS: predniSONE 5 MG TABLET PO SCH ×2 (08:58→16:53)
[2018-10-18] MEDS: *HR* Rivaroxaban 10 MG TABLET PO SCH (08:58)
[2018-10-18] MEDS: Zinc Sulfate 220 MG CAPSULE PO SCH (08:58)
[2018-10-19] MEDS: Cefepime HCl 1,000 MG in Water for inj. (sterile) 10 ML IVP SCH (05:57)
[2018-10-19] MEDS: Vitamin E 200 UNIT (90MG) CAPSULE PO SCH (08:48)
[2018-10-19] MEDS: Zinc Sulfate 220 MG CAPSULE PO SCH (08:48)
[2018-10-19] MEDS: *HR* Rivaroxaban 10 MG TABLET PO SCH (08:49)
[2018-10-19] MEDS: Micafungin 100 MG in 0.9 % Sodium Chloride Mini Bag 100 ML IVPB SCH (08:49)
[2018-10-19] MEDS: predniSONE 5 MG TABLET PO SCH (08:49)
[2018-10-19 10:38] VITALS: BP 106/61
== END 2018-10-19 17:37 | disposition home or self-care (01) | DRG 690 ==
LOC: 2ANU 16:12 → EMEROOARM 16:12 → SUATTDRO 21:38 → 2ANU 22:40 → SUATTDRO 10-16 09:23
PROVIDERS: ADMIT Pediatrics; ATTEND Internal Medicine

== ENCOUNTER 2018-10-24 09:04 | Observation (INO) ==
[2018-10-24 10:02] LABS: Basophils % 0.5 %; Eosinophils % 0.4 %; Hematocrit 28.2 % (35.3-44.9); Hemoglobin 8.5 g/dL (11.5-15.4); Immature Granulocytes % 0.5 % (0-4); Lymphocytes # 1.2 K/mcL (0.6-4.6); Lymphocytes % 22.1 %; Mean Corpuscular HGB Conc 30.1 g/dL (31.6-35.5); Mean Corpuscular Hemoglobin 36.3 pg (28.0-33.3); Mean Corpuscular Volume 120.5 fL (83.0-100.0); Mean Platelet Volume 11.3 fL (9.4-12.4); Monocytes # 0.5 K/mcL (0.0-1.3); Neutrophils # 3.8 K/mcL (1.6-8.9); Platelet Count 144 K/mcL (140-400); Red Blood Count 2.34 M/mcL (3.82-4.97); Red Cell Distribution Width 14.9 % (11.5-14.5); Segmented Neutrophils % 68.5 %; White Blood Count 5.6 K/mcL (4.3-11.1)
[2018-10-24 10:10] LABS: INR 0.9; Prothrombin Time 9.8 Seconds (9.4-12.1)
[2018-10-24 10:13] LABS: Activated Partial Thrombo Time 28.4 Seconds (26.0-36.0)
[2018-10-24 10:24] LABS: Alanine Aminotransferase 23 Units/L (7-52); Albumin 3.2 g/dL (3.5-5.7); Albumin/Globulin Ratio 1.6 (1.1-2.2); Alkaline Phosphatase 133 Units/L (34-104); Aspartate Amino Transferase 13 Units/L (13-39); BUN/Creatinine Ratio 7 (6-26); Bilirubin,Direct 0.1 mg/dL (0.0-0.2); Bilirubin,Indirect 0.1 mg/dL (0.0-1.2); Bilirubin,Total 0.2 mg/dL (0.3-1.0); Blood Urea Nitrogen 20 mg/dL (6-20); Carbon Dioxide 12 mEq/L (23-29); Chloride 104 mEq/L (98-107); Ethanol < 10 mg/dL (Less than 10); Glucose 98 mg/dL (70-105); Osmolality,Calculated 299 (280-300); Potassium 4.9 mEq/L (3.5-5.1); Sodium 143 mEq/L (136-145); Total Protein 5.2 g/dL (6.4-8.9); Troponin I < 0.03 ng/mL (< 0.04); eGFR For African Americans 22 (> 60); eGFR For Non-African Americans 18 (> 60)
[2018-10-24 10:27] LABS: Macrocytosis Present (Not Present)
[2018-10-24 10:29] LABS: Platelet Estimate Normal (Normal)
[2018-10-24 10:41] LABS: Bilirubin,Urine Negative (Negative); Blood,Urine Small (Negative); Clarity,Urine Clear (Clear); Color,Urine Yellow (Yellow); Glucose,Urine (UA) 100 mg/dL (Normal); Ketones,Urine Negative (Negative); Leukocyte Esterase,Urine Negative (Negative); Nitrite,Urine Negative (Negative); Protein,Urine 30 mg/dL (Neg-Trace); Specific Gravity,Urine 1.009 (1.010-1.025); Urobilinogen,Urine Normal (Normal)
[2018-10-24 10:44] LABS: Bacteria,Urine None Seen per hpf (None-Few); Hyaline Casts,Urine None Seen per lpf (None-Few); Squamous Epithelial Cell,Urine Moderate per lpf (None-Few); WBC,Urine 0-3 per hpf (0-3)
[2018-10-24 11:31] LABS: Amphetamine Screen,Urine Negative ng/mL (Cutoff=1000); Barbiturate Screen,Urine Negative ng/mL (Cutoff=200); Benzodiazepines Screen,Urine Negative ng/mL (Cutoff=200); Cannabinoid Screen,Urine Negative ng/mL (Cutoff = 50); Cocaine Screen,Urine Negative ng/mL (Cutoff= 300); Opiate Screen,Urine Negative ng/mL (Cutoff=300); Phencyclidine Screen,Urine Negative ng/mL (Cutoff=25)
[2018-10-24] MEDS ORDERED: Ondansetron ODT 4 MG TAB.RAPDIS SL PRN (12:50)
[2018-10-24] MEDS ORDERED: Naloxone 0.4 MG/ML INJ IVP PRN (12:50)
[2018-10-24] MEDS ORDERED: 0.9 % Sodium Chloride w KCl 20 MEQ/1,000 ML MLS IVC SCH (13:00)
[2018-10-24] MEDS: Micafungin 100 MG in 0.9 % Sodium Chloride Mini Bag 100 ML IVPB SCH (14:17)
[2018-10-24] MEDS ORDERED: Hydrocortisone Sodium Succ 100 MG/2 ML VIAL IVP ONE (14:45)
[2018-10-24] MEDS: Sodium Bicarbonate 150 MEQ in D5% in Water 1,000 ML IVC SCH (19:39)
[2018-10-25 03:49] LABS: Hematocrit 23.7 % (35.3-44.9); Hemoglobin 7.4 g/dL (11.5-15.4); Mean Corpuscular HGB Conc 31.2 g/dL (31.6-35.5); Mean Corpuscular Hemoglobin 36.5 pg (28.0-33.3); Mean Corpuscular Volume 116.7 fL (83.0-100.0); Mean Platelet Volume 10.5 fL (9.4-12.4); Platelet Count 129 K/mcL (140-400); Red Blood Count 2.03 M/mcL (3.82-4.97); Red Cell Distribution Width 14.7 % (11.5-14.5); White Blood Count 5.2 K/mcL (4.3-11.1)
[2018-10-25 04:04] LABS: Albumin 2.6 g/dL (3.5-5.7); Albumin/Globulin Ratio 1.5 (1.1-2.2); Bilirubin,Total 0.2 mg/dL (0.3-1.0); Calcium 7.5 mg/dL (8.6-10.3); Globulin 1.7 g/dL (2.4-3.5); Potassium 4.9 mEq/L (3.5-5.1); Total Protein 4.3 g/dL (6.4-8.9)
[2018-10-25] MEDS: Micafungin 100 MG in 0.9 % Sodium Chloride Mini Bag 100 ML IVPB SCH (08:05)
[2018-10-25] MEDS: Multivit/Ca/Min/Fe/FA 1 TAB TABLET PO SCH (08:20)
[2018-10-25] MEDS: Vitamin E 200 UNIT (90MG) CAPSULE PO SCH (08:21)
[2018-10-25] MEDS: Zinc Sulfate 220 MG CAPSULE PO SCH (08:21)
[2018-10-25] MEDS: Cholecalciferol (D-3) 1,000 UNIT (25MCG) TABLET PO SCH (08:21)
[2018-10-25] MEDS: Folic Acid 1 MG TABLET PO SCH (08:21)
[2018-10-25] MEDS: predniSONE 5 MG TABLET PO SCH (08:21)
[2018-10-25] MEDS: Sodium Bicarbonate 150 MEQ in D5% in Water 1,000 ML IVC SCH (08:25)
[2018-10-25] MEDS ORDERED: Cyanocobalamin (B-12) 1,000 MCG/ML VIAL IM SCH (09:00)
[2018-10-25] MEDS: *HR* Rivaroxaban 10 MG TABLET PO SCH (16:53)
[2018-10-25] MEDS ORDERED: predniSONE 5 MG TABLET PO SCH (18:00)
[2018-10-26] MEDS: *HR* Rivaroxaban 10 MG TABLET PO SCH (07:58)
[2018-10-26] MEDS: Cholecalciferol (D-3) 1,000 UNIT (25MCG) TABLET PO SCH (07:59)
[2018-10-26] MEDS: Zinc Sulfate 220 MG CAPSULE PO SCH (07:59)
[2018-10-26] MEDS: Vitamin E 200 UNIT (90MG) CAPSULE PO SCH (07:59)
[2018-10-26] MEDS: Folic Acid 1 MG TABLET PO SCH (07:59)
[2018-10-26] MEDS: Multivit/Ca/Min/Fe/FA 1 TAB TABLET PO SCH (07:59)
[2018-10-26] MEDS: predniSONE 5 MG TABLET PO SCH (07:59)
[2018-10-26] MEDS: Micafungin 100 MG in 0.9 % Sodium Chloride Mini Bag 100 ML IVPB SCH (08:12)
[2018-10-26 08:32] LABS: Basophils % 0.5 %; Eosinophils % 0.7 %; Hematocrit 26.2 % (35.3-44.9); Hemoglobin 8.5 g/dL (11.5-15.4); Immature Granulocytes % 0.7 % (0-4); Lymphocytes # 2.2 K/mcL (0.6-4.6); Lymphocytes % 38.4 %; Mean Corpuscular HGB Conc 32.4 g/dL (31.6-35.5); Mean Corpuscular Volume 113.9 fL (83.0-100.0); Mean Platelet Volume 10.7 fL (9.4-12.4); Monocytes % 9.4 %; Neutrophils # 2.9 K/mcL (1.6-8.9); Platelet Count 161 K/mcL (140-400); Red Cell Distribution Width 14.6 % (11.5-14.5); Segmented Neutrophils % 50.3 %; White Blood Count 5.8 K/mcL (4.3-11.1)
[2018-10-26 08:35] LABS: Monocytes # 0.6 K/mcL (0.0-1.3)
[2018-10-26 08:56] LABS: Calcium 8.1 mg/dL (8.6-10.3); Potassium 5.6 mEq/L (3.5-5.1)
[2018-10-26 09:02] LABS: Macrocytosis Present (Not Present); Platelet Estimate Normal (Normal)
[2018-10-26 11:54] VITALS: BP 118/75
== END 2018-10-26 14:42 | disposition home health service (06) ==
LOC: 2ANU 09:04 → EMEROOARM 09:04 → SUATTDRO 11:34 → 2ANU 11:58
PROVIDERS: ADMIT Internal Medicine; ATTEND Internal Medicine

== ENCOUNTER 2019-02-26 03:31 | Inpatient (IN) ==
[2019-02-26] MEDS ORDERED: cefTRIAXone 1,000 MG in Water for inj. (sterile) 10 ML IVP ONE (03:44)
[2019-02-26 04:12] LABS: Basophils % 0.3 %; Eosinophils % 0.3 %; Hematocrit 25.6 % (35.3-44.9); Hemoglobin 8.3 g/dL (11.5-15.4); Immature Granulocytes % 0.9 % (0-4); Lymphocytes # 1.4 K/mcL (0.6-4.6); Lymphocytes % 13.4 %; Mean Corpuscular HGB Conc 32.4 g/dL (31.6-35.5); Mean Corpuscular Hemoglobin 35.8 pg (28.0-33.3); Mean Corpuscular Volume 110.3 fL (83.0-100.0); Mean Platelet Volume 10.4 fL (9.4-12.4); Monocytes # 1.1 K/mcL (0.0-1.3); Neutrophils # 7.5 K/mcL (1.6-8.9); Platelet Count 267 K/mcL (140-400); Red Blood Count 2.32 M/mcL (3.82-4.97); Red Cell Distribution Width 15.5 % (11.5-14.5); Segmented Neutrophils % 74.1 %; White Blood Count 10.1 K/mcL (4.3-11.1)
[2019-02-26] MEDS ORDERED: 0.9 % Sodium Chloride 1,000 ML IVC ONE ×3 (04:12→05:54)
[2019-02-26] MEDS ORDERED: Acetaminophen IV 1,000 MG/100 ML INFUS..BTL IVPB ONE (04:13)
[2019-02-26 04:30] LABS: INR 1.7; Prothrombin Time 18.8 Seconds (9.4-12.1)
[2019-02-26 04:32] LABS: Activated Partial Thrombo Time 34.6 Seconds (26.0-36.0)
[2019-02-26 04:33] LABS: Anisocytosis 1+ (Not Present); Macrocytosis Present (Not Present); Platelet Estimate Normal (Normal)
[2019-02-26 04:42] LABS: Alanine Aminotransferase 18 Units/L (7-52); Albumin 2.6 g/dL (3.5-5.7); Alkaline Phosphatase 122 Units/L (34-104); Aspartate Amino Transferase 15 Units/L (13-39); BUN/Creatinine Ratio 5 (6-26); Bilirubin,Direct 0.2 mg/dL (0.0-0.2); Bilirubin,Indirect 0.2 mg/dL (0.0-1.0); Bilirubin,Total 0.4 mg/dL (0.3-1.0); Blood Urea Nitrogen 31 mg/dL (6-20); Calcium 6.4 mg/dL (8.6-10.3); Carbon Dioxide 12 mEq/L (23-29); Chloride 100 mEq/L (98-107); Ethanol < 10 mg/dL (Less than 10); Globulin 2.5 g/dL (2.4-3.5); Glucose 119 mg/dL (70-105); Magnesium 1.7 mg/dL (1.6-2.6); Osmolality,Calculated 302 (280-300); Phosphorous 4.4 mg/dL (2.7-4.5); Potassium 2.5 mEq/L (3.5-5.1); Sodium 142 mEq/L (136-145); Total Protein 5.1 g/dL (6.4-8.9); Troponin I 0.05 ng/mL (< 0.04); eGFR For African Americans 9 (> 60); eGFR For Non-African Americans 7 (> 60)
[2019-02-26 04:43] LABS: Bilirubin,Urine Negative (Negative); Blood,Urine Large (Negative); Clarity,Urine Cloudy (Clear); Color,Urine Yellow (Yellow); Glucose,Urine (UA) 100 mg/dL (Normal); Ketones,Urine Negative (Negative); Leukocyte Esterase,Urine Moderate (Negative); Nitrite,Urine Negative (Negative); Protein,Urine 100 mg/dL (Neg-Trace); Specific Gravity,Urine 1.007 (1.010-1.025); Urobilinogen,Urine Normal (Normal)
[2019-02-26 04:46] LABS: Bacteria,Urine None Seen per hpf (None-Few); Hyaline Casts,Urine Few per lpf (None-Few); RBC,Urine 15-30 per hpf (0-3); Squamous Epithelial Cell,Urine None Seen per lpf (None-Few); WBC,Urine TNTC per hpf (0-3)
[2019-02-26] MEDS ORDERED: Piperacillin/Tazobactam 3.375 GM in Water for inj. (sterile) 20 ML IVP ONE (04:52)
[2019-02-26] MEDS ORDERED: Hydrocortisone Sodium Succ 100 MG/2 ML VIAL IVP ONE (05:36)
[2019-02-26] MEDS ORDERED: Naloxone 0.4 MG/ML INJ IVP PRN (07:28)
[2019-02-26] MEDS ORDERED: Ondansetron 4 MG/2 ML VIAL IVP PRN (07:28)
[2019-02-26] MEDS ORDERED: 0.9 % Sodium Chloride w KCl 40 MEQ/1,000 ML MLS IVC SCH ×2 (07:30→09:00)
[2019-02-26] MEDS ORDERED: *HR* Heparin 5,000 UNIT/ML VIAL IVP PRN ×2 (08:46)
[2019-02-26] MEDS: Heparin 25,000 UNIT/250 ML D5W 25,000 UNIT/250 ML IV.SOLN IVC SCH (11:35)
[2019-02-26] MEDS ORDERED: POTASSIUM CHLORIDE IVC SCH (13:00)
[2019-02-26] MEDS ORDERED: SODIUM CHLORIDE 0.9% IVC SCH (13:00)
[2019-02-26] MEDS ORDERED: SODIUM BICARBONATE IVC SCH (13:00)
[2019-02-26] MEDS: SODIUM BICARBONATE IVC SCH (13:51)
[2019-02-26] MEDS: SODIUM CHLORIDE 0.45% IVC SCH (13:51)
[2019-02-26] MEDS: POTASSIUM CHLORIDE IVC SCH (13:51)
[2019-02-26] MEDS: Hydrocortisone Sodium Succ 100 MG/2 ML VIAL IVP SCH ×2 (13:51→17:09)
[2019-02-26 18:21] LABS: Potassium 3.7 mEq/L (3.5-5.1)
[2019-02-26] MEDS: Calcium Gluconate 1gm/50mL 1 GM/50 ML BAG IVPB SCH ×2 (20:52→21:51)
[2019-02-26] MEDS ORDERED: Calcium Gluconate 1gm/50mL 1 GM/50 ML BAG IVPB ONE (23:08)
[2019-02-27] MEDS: Hydrocortisone Sodium Succ 100 MG/2 ML VIAL IVP SCH ×5 (00:13→22:59)
[2019-02-27 01:37] LABS: Basophils % 0.2 %; Hematocrit 22.9 % (35.3-44.9); Hemoglobin 7.2 g/dL (11.5-15.4); Immature Granulocytes % 0.5 % (0-4); Lymphocytes # 1.3 K/mcL (0.6-4.6); Lymphocytes % 13.5 %; Mean Corpuscular HGB Conc 31.4 g/dL (31.6-35.5); Mean Corpuscular Hemoglobin 35.3 pg (28.0-33.3); Mean Corpuscular Volume 112.3 fL (83.0-100.0); Mean Platelet Volume 10.8 fL (9.4-12.4); Monocytes # 0.4 K/mcL (0.0-1.3); Monocytes % 3.7 %; Neutrophils # 7.7 K/mcL (1.6-8.9); Platelet Count 284 K/mcL (140-400); Red Blood Count 2.04 M/mcL (3.82-4.97); Red Cell Distribution Width 15.4 % (11.5-14.5); Segmented Neutrophils % 82.1 %; White Blood Count 9.4 K/mcL (4.3-11.1)
[2019-02-27 01:54] LABS: Macrocytosis Present (Not Present); Platelet Estimate Normal (Normal)
[2019-02-27 01:55] LABS: Anisocytosis 1+ (Not Present)
[2019-02-27 01:59] LABS: Calcium 6.6 mg/dL (8.6-10.3); Magnesium 1.6 mg/dL (1.6-2.6); Potassium 3.3 mEq/L (3.5-5.1)
[2019-02-27] MEDS: POTASSIUM CHLORIDE IVC SCH (02:59)
[2019-02-27] MEDS: SODIUM CHLORIDE 0.45% IVC SCH (02:59)
[2019-02-27] MEDS: SODIUM BICARBONATE IVC SCH (02:59)
[2019-02-27] MEDS ORDERED: Potassium Chloride 40 MEQ, Lidocaine 1% 2 ML in D5% in Water 500 ML IVPB ONE (07:22)
[2019-02-27] MEDS ORDERED: Potassium Chloride 40 MEQ, Lidocaine 1% 2 ML in 0.9 % Sodium Chloride 500 ML IVPB ONE (07:45)
[2019-02-27] MEDS ORDERED: cefTRIAXone 1,000 MG in Water for inj. (sterile) 10 ML IVP SCH (09:00)
[2019-02-27] MEDS: cefTRIAXone 1,000 MG in 0.9 % Sodium Chloride Mini Bag 100 ML IVPB SCH (09:17)
[2019-02-27] MEDS: Heparin 25,000 UNIT/250 ML D5W 25,000 UNIT/250 ML IV.SOLN IVC SCH (09:19)
[2019-02-27 11:44] LABS: Hematocrit 22.7 % (35.3-44.9)
[2019-02-27] MEDS ORDERED: Sodium Bicarbonate 75 MEQ in 0.45 % Sodium Chloride 1,000 ML IVC SCH (12:00)
[2019-02-27] MEDS: *HR* HYDROcodone/Acet 5/325 mg TABLET PO PRN ×2 (13:51→21:11)
[2019-02-27] MEDS: Pantoprazole 40 MG VIAL IVP SCH ×2 (13:52→16:48)
[2019-02-27] MEDS: Sodium Bicarbonate 75 MEQ in 0.45 % Sodium Chloride 1,000 ML IVC SCH (17:45)
[2019-02-27 21:55] LABS: Hematocrit 20.9 % (35.3-44.9); Hemoglobin 6.8 g/dL (11.5-15.4)
[2019-02-28] MEDS: Hydrocortisone Sodium Succ 100 MG/2 ML VIAL IVP SCH (04:56)
[2019-02-28] MEDS: Pantoprazole 40 MG VIAL IVP SCH (04:56)
[2019-02-28 05:18] LABS: Basophils % 0.1 %; Hematocrit 21.9 % (35.3-44.9); Hemoglobin 7.1 g/dL (11.5-15.4); Immature Granulocytes % 0.7 % (0-4); Lymphocytes # 0.9 K/mcL (0.6-4.6); Lymphocytes % 9.2 %; Mean Corpuscular HGB Conc 32.4 g/dL (31.6-35.5); Mean Corpuscular Hemoglobin 34.8 pg (28.0-33.3); Mean Corpuscular Volume 107.4 fL (83.0-100.0); Mean Platelet Volume 10.4 fL (9.4-12.4); Monocytes # 0.2 K/mcL (0.0-1.3); Monocytes % 2.1 %; Neutrophils # 8.8 K/mcL (1.6-8.9); Platelet Count 324 K/mcL (140-400); Red Blood Count 2.04 M/mcL (3.82-4.97); Red Cell Distribution Width 15.2 % (11.5-14.5); Segmented Neutrophils % 87.9 %; White Blood Count 10.1 K/mcL (4.3-11.1)
[2019-02-28 06:06] LABS: Calcium 6.1 mg/dL (8.6-10.3); Potassium 3.9 mEq/L (3.5-5.1)
[2019-02-28] MEDS ORDERED: Calcium Gluconate 1gm/50mL 1 GM/50 ML BAG IVPB PRN (07:20)
[2019-02-28] MEDS ORDERED: NON-FORMULARY MEDICATION 1 EACH EACH (Lipase/Protease/Amylase [Creon Dr 24,000 Units Capsu PO SCH (07:30)
[2019-02-28] MEDS ORDERED: NON-FORMULARY MEDICATION 1 EACH EACH (Cyanocobalamin (B-12) 1,000 MCG) IM SCH (07:30)
[2019-02-28] MEDS: Folic Acid 1 MG TABLET PO SCH (08:59)
[2019-02-28] MEDS: predniSONE 20 MG TABLET PO SCH (08:59)
[2019-02-28] MEDS: *HR* HYDROcodone/Acet 5/325 mg TABLET PO PRN ×2 (08:59→18:08)
[2019-02-28] MEDS: cefTRIAXone 1,000 MG in 0.9 % Sodium Chloride Mini Bag 100 ML IVPB SCH (08:59)
[2019-02-28] MEDS: Sodium Bicarbonate 75 MEQ in 0.45 % Sodium Chloride 1,000 ML IVC SCH ×3 (09:00→18:12)
[2019-02-28] MEDS: Heparin 25,000 UNIT/250 ML D5W 25,000 UNIT/250 ML IV.SOLN IVC SCH (09:01)
[2019-02-28] MEDS: Calcium Gluconate 1gm/50mL 1 GM/50 ML BAG IVPB SCH ×2 (10:31→12:58)
[2019-02-28] MEDS: Cefepime HCl 1,000 MG in 0.9 % Sodium Chloride Mini Bag 100 ML IVPB SCH (18:03)
[2019-03-01] MEDS: *HR* HYDROcodone/Acet 5/325 mg TABLET PO PRN ×3 (04:37→18:18)
[2019-03-01] MEDS: Cefepime HCl 1,000 MG in 0.9 % Sodium Chloride Mini Bag 100 ML IVPB SCH ×2 (04:38→18:23)
[2019-03-01 05:02] LABS: Hematocrit 21.1 % (35.3-44.9); Hemoglobin 6.6 g/dL (11.5-15.4); Immature Granulocytes % 1.2 % (0-4); Lymphocytes # 1.1 K/mcL (0.6-4.6); Lymphocytes % 16.7 %; Mean Corpuscular HGB Conc 31.3 g/dL (31.6-35.5); Mean Corpuscular Hemoglobin 34.7 pg (28.0-33.3); Mean Corpuscular Volume 111.1 fL (83.0-100.0); Mean Platelet Volume 10.7 fL (9.4-12.4); Monocytes # 0.2 K/mcL (0.0-1.3); Monocytes % 3.5 %; Platelet Count 298 K/mcL (140-400); Red Cell Distribution Width 15.3 % (11.5-14.5); Segmented Neutrophils % 78.6 %; White Blood Count 6.8 K/mcL (4.3-11.1)
[2019-03-01 05:11] LABS: Neutrophils # 5.3 K/mcL (1.6-8.9)
[2019-03-01 05:20] LABS: Calcium 5.7 mg/dL (8.6-10.3); Magnesium 1.5 mg/dL (1.6-2.6); Potassium 3.4 mEq/L (3.5-5.1)
[2019-03-01 05:34] LABS: Platelet Estimate Normal (Normal)
[2019-03-01 05:35] LABS: Macrocytosis Present (Not Present)
[2019-03-01] MEDS: Sodium Bicarbonate 75 MEQ in 0.45 % Sodium Chloride 1,000 ML IVC SCH ×3 (05:59→23:39)
[2019-03-01] MEDS: predniSONE 20 MG TABLET PO SCH (08:36)
[2019-03-01] MEDS: Folic Acid 1 MG TABLET PO SCH (08:36)
[2019-03-01] MEDS: Calcium Gluconate 1gm/50mL 1 GM/50 ML BAG IVPB SCH ×6 (08:38→21:00)
[2019-03-01] MEDS: Heparin 25,000 UNIT/250 ML D5W 25,000 UNIT/250 ML IV.SOLN IVC SCH (08:39)
[2019-03-01] MEDS ORDERED: 0.9 % Sodium Chloride 250 ML ONE (11:18)
[2019-03-01 15:54] LABS: Calcium 5.4 mg/dL (8.6-10.3); Potassium 3.7 mEq/L (3.5-5.1)
[2019-03-01 22:06] LABS: Calcium 6.6 mg/dL (8.6-10.3); Potassium 3.7 mEq/L (3.5-5.1)
[2019-03-02] MEDS: Cefepime HCl 1,000 MG in 0.9 % Sodium Chloride Mini Bag 100 ML IVPB SCH ×3 (06:39→22:22)
[2019-03-02 07:05] LABS: Eosinophils % 0.3 %
[2019-03-02 07:07] LABS: Hematocrit 16.8 % (35.3-44.9); Immature Granulocytes % 3.5 % (0-4); Lymphocytes % 28.7 %; Mean Corpuscular HGB Conc 30.4 g/dL (31.6-35.5); Mean Corpuscular Hemoglobin 33.6 pg (28.0-33.3); Mean Corpuscular Volume 110.5 fL (83.0-100.0); Mean Platelet Volume 10.3 fL (9.4-12.4); Monocytes # 0.2 K/mcL (0.0-1.3); Neutrophils # 2.1 K/mcL (1.6-8.9); Nucleated Red Blood Cells 0.6 /100 WBC (0); Platelet Count 171 K/mcL (140-400); Red Blood Count 1.52 M/mcL (3.82-4.97); Red Cell Distribution Width 18.1 % (11.5-14.5); Segmented Neutrophils % 60.5 %; White Blood Count 3.4 K/mcL (4.3-11.1)
[2019-03-02 07:18] LABS: Hemoglobin 5.1 g/dL (11.5-15.4)
[2019-03-02 07:31] LABS: Calcium 5.9 mg/dL (8.6-10.3); Magnesium 1.8 mg/dL (1.6-2.6); Potassium 3.7 mEq/L (3.5-5.1)
[2019-03-02] MEDS: Folic Acid 1 MG TABLET PO SCH (08:54)
[2019-03-02] MEDS: predniSONE 20 MG TABLET PO SCH (08:54)
[2019-03-02] MEDS: Sodium Bicarbonate 75 MEQ in 0.45 % Sodium Chloride 1,000 ML IVC SCH ×2 (09:10→10:28)
[2019-03-02] MEDS: Calcium Gluconate 1gm/50mL 1 GM/50 ML BAG IVPB SCH ×2 (09:14→10:24)
[2019-03-02] MEDS: Heparin 25,000 UNIT/250 ML D5W 25,000 UNIT/250 ML IV.SOLN IVC SCH (10:27)
[2019-03-02] MEDS: *HR* HYDROcodone/Acet 5/325 mg TABLET PO PRN ×2 (13:26→20:56)
[2019-03-02 21:00] LABS: Hematocrit 37.5 % (35.3-44.9)
[2019-03-02 21:01] LABS: Immature Reticulocyte % 27.8 % (11.0-38.0); Retculocyte # 0.05 M/mcL (0.05-0.10); Reticulocyte % 1.2 % (1.6-2.8)
[2019-03-02 21:29] LABS: Prothrombin Time 11.9 Seconds (9.4-12.1)
[2019-03-03] MEDS: *HR* HYDROcodone/Acet 5/325 mg TABLET PO PRN ×3 (02:56→17:07)
[2019-03-03 03:02] LABS: Basophils # 0.1 K/mcL (0.0-0.2); Basophils % 0.9 %; Hematocrit 38.3 % (35.3-44.9); Hemoglobin 13.2 g/dL (11.5-15.4); Immature Granulocytes % 5.2 % (0-4); Lymphocytes # 1.2 K/mcL (0.6-4.6); Lymphocytes % 20.8 %; Mean Corpuscular HGB Conc 34.5 g/dL (31.6-35.5); Mean Corpuscular Hemoglobin 32.8 pg (28.0-33.3); Mean Platelet Volume 10.4 fL (9.4-12.4); Monocytes # 0.3 K/mcL (0.0-1.3); Monocytes % 5.9 %; Nucleated Red Blood Cells 2.1 /100 WBC (0); Platelet Count 245 K/mcL (140-400); Red Blood Count 4.03 M/mcL (3.82-4.97); Red Cell Distribution Width 19.8 % (11.5-14.5); Segmented Neutrophils % 67.2 %
[2019-03-03 03:03] LABS: Neutrophils # 3.8 K/mcL (1.6-8.9); White Blood Count 5.7 K/mcL (4.3-11.1)
[2019-03-03 03:24] LABS: Albumin 2.6 g/dL (3.5-5.7); Albumin/Globulin Ratio 1.2 (1.1-2.2); Bilirubin,Total 0.5 mg/dL (0.3-1.0); Calcium 6.5 mg/dL (8.6-10.3); Globulin 2.1 g/dL (2.4-3.5); Potassium 3.7 mEq/L (3.5-5.1); Total Protein 4.7 g/dL (6.4-8.9)
[2019-03-03 03:46] LABS: Folate 17.7 ng/mL (3.0-16.0)
[2019-03-03] MEDS ORDERED: predniSONE 20 MG TABLET PO SCH (09:00)
[2019-03-03] MEDS: Cefepime HCl 1,000 MG in 0.9 % Sodium Chloride Mini Bag 100 ML IVPB SCH ×2 (09:59→21:33)
[2019-03-03] MEDS: Folic Acid 1 MG TABLET PO SCH (10:25)
[2019-03-03] MEDS ORDERED: Furosemide 20 MG/2 ML VIAL IVP ONE (13:44)
[2019-03-03] MEDS: *HR* OxyCODONE Immed Rel 5 MG TABLET PO PRN ×2 (13:55→22:00)
[2019-03-04] MEDS: *HR* HYDROcodone/Acet 5/325 mg TABLET PO PRN ×3 (00:05→21:52)
[2019-03-04 02:43] LABS: Basophils % 0.9 %; Eosinophils # 0.1 K/mcL (0.0-0.6); Eosinophils % 1.4 %; Hematocrit 36.6 % (35.3-44.9); Hemoglobin 11.9 g/dL (11.5-15.4); Immature Granulocytes % 4.9 % (0-4); Lymphocytes # 0.9 K/mcL (0.6-4.6); Lymphocytes % 21.1 %; Mean Corpuscular HGB Conc 32.5 g/dL (31.6-35.5); Mean Corpuscular Hemoglobin 32.7 pg (28.0-33.3); Mean Corpuscular Volume 100.5 fL (83.0-100.0); Mean Platelet Volume 10.3 fL (9.4-12.4); Monocytes # 0.3 K/mcL (0.0-1.3); Neutrophils # 2.8 K/mcL (1.6-8.9); Nucleated Red Blood Cells 3.3 /100 WBC (0); Platelet Count 165 K/mcL (140-400); Red Blood Count 3.64 M/mcL (3.82-4.97); Red Cell Distribution Width 19.6 % (11.5-14.5); Segmented Neutrophils % 64.7 %; White Blood Count 4.3 K/mcL (4.3-11.1)
[2019-03-04 02:50] LABS: INR 1.3; Prothrombin Time 14.9 Seconds (9.4-12.1)
[2019-03-04 03:55] LABS: Calcium 5.9 mg/dL (8.6-10.3); Potassium 3.3 mEq/L (3.5-5.1)
[2019-03-04] MEDS ORDERED: Calcium Gluconate 1gm/50mL 1 GM/50 ML BAG IVPB ONE ×2 (04:04→23:00)
[2019-03-04] MEDS: *HR* OxyCODONE Immed Rel 5 MG TABLET PO PRN ×2 (06:09→17:25)
[2019-03-04] MEDS ORDERED: 0.9 % Sodium Chloride 250 ML IVC PRN (06:53)
[2019-03-04] MEDS ORDERED: 0.9 % Sodium Chloride 1,000 ML PRIME SCH (07:00)
[2019-03-04] MEDS ORDERED: Cyanocobalamin (B-12) 1,000 MCG/ML VIAL IM SCH (07:30)
[2019-03-04] MEDS ORDERED: Heparin 1,000 UNITS/500 mL 500 ML ONE (08:05)
[2019-03-04] MEDS ORDERED: *HR* Midazolam HCl 2 MG/2 ML VIAL IVP ONE (09:00)
[2019-03-04] MEDS ORDERED: *HR* FentaNYL (PF) 100 MCG/2 ML VIAL IVP ONE (09:00)
[2019-03-04] MEDS ORDERED: CeFAZolin Premix DUPLEX 2,000 MG/50 ML BAG IVPB ONE (09:00)
[2019-03-04] MEDS ORDERED: 0.9 % Sodium Chloride 500 ML ONE (09:04)
[2019-03-04] MEDS ORDERED: *HR* Midazolam HCl 2 MG/2 ML VIAL ONE (09:12)
[2019-03-04] MEDS ORDERED: *HR* FentaNYL (PF) 100 MCG/2 ML VIAL ONE (09:12)
[2019-03-04] MEDS ORDERED: *HR* Heparin 5,000 UNIT/ML VIAL ONE (09:42)
[2019-03-04] MEDS ORDERED: Isovue-300 50ML VIAL IVP ONE (09:45)
[2019-03-04] MEDS: Folic Acid 1 MG TABLET PO SCH (10:20)
[2019-03-04] MEDS: Cefepime HCl 1,000 MG in 0.9 % Sodium Chloride Mini Bag 100 ML IVPB SCH ×2 (10:21→17:28)
[2019-03-04] MEDS: predniSONE 20 MG TABLET PO SCH (10:55)
[2019-03-04 11:22] LABS: Calcium 6.4 mg/dL (8.6-10.3); Potassium 3.1 mEq/L (3.5-5.1)
[2019-03-04 11:41] LABS: Hepatitis B Surface Antibody 19.95 mIU/mL
[2019-03-04 11:52] LABS: Hepatitis B Surface Antigen Nonreactive (Nonreactive)
[2019-03-04 14:23] LABS: Hepatitis B Core IgM Nonreactive (Nonreactive)
[2019-03-04] MEDS ORDERED: Potassium Chloride Elixir 20 MEQ/15 ML UDC PO ONE (22:50)
[2019-03-05 03:39] LABS: Basophils % 0.7 %; Eosinophils % 0.7 %; Hematocrit 36.7 % (35.3-44.9); Hemoglobin 12.2 g/dL (11.5-15.4); Immature Granulocytes % 3.8 % (0-4); Lymphocytes # 1.1 K/mcL (0.6-4.6); Lymphocytes % 19.3 %; Mean Corpuscular HGB Conc 33.2 g/dL (31.6-35.5); Mean Corpuscular Hemoglobin 32.7 pg (28.0-33.3); Mean Corpuscular Volume 98.4 fL (83.0-100.0); Mean Platelet Volume 11.2 fL (9.4-12.4); Monocytes # 0.4 K/mcL (0.0-1.3); Monocytes % 7.4 %; Nucleated Red Blood Cells 1.7 /100 WBC (0); Platelet Count 143 K/mcL (140-400); Red Blood Count 3.73 M/mcL (3.82-4.97); Red Cell Distribution Width 19.2 % (11.5-14.5); Segmented Neutrophils % 68.1 %; White Blood Count 5.8 K/mcL (4.3-11.1)
[2019-03-05 04:10] LABS: Calcium 6.8 mg/dL (8.6-10.3); Magnesium 1.6 mg/dL (1.6-2.6); Potassium 4.3 mEq/L (3.5-5.1)
[2019-03-05] MEDS: Cefepime HCl 1,000 MG in 0.9 % Sodium Chloride Mini Bag 100 ML IVPB SCH ×2 (05:46→17:31)
[2019-03-05] MEDS ORDERED: Calcium Gluconate 1gm/50mL 1 GM/50 ML BAG IVPB ONE (06:37)
[2019-03-05] MEDS ORDERED: 0.9 % Sodium Chloride 250 ML IVC PRN (06:56)
[2019-03-05] MEDS: Folic Acid 1 MG TABLET PO SCH (08:01)
[2019-03-05] MEDS: predniSONE 20 MG TABLET PO SCH (08:02)
[2019-03-05] MEDS ORDERED: *HR* Heparin 10,000 UNIT/10 ML VIAL IV PRN (11:12)
[2019-03-05] MEDS: *HR* HYDROcodone/Acet 5/325 mg TABLET PO PRN ×2 (12:29→21:51)
[2019-03-05] MEDS: *HR* OxyCODONE Immed Rel 5 MG TABLET PO PRN (15:40)
[2019-03-06] MEDS: *HR* OxyCODONE Immed Rel 5 MG TABLET PO PRN ×2 (00:53→09:03)
[2019-03-06] MEDS: *HR* HYDROcodone/Acet 5/325 mg TABLET PO PRN ×3 (04:41→17:51)
[2019-03-06 05:28] LABS: Calcium 7.3 mg/dL (8.6-10.3); Potassium 3.8 mEq/L (3.5-5.1)
[2019-03-06 05:35] LABS: Basophils % 0.8 %; Eosinophils # 0.1 K/mcL (0.0-0.6); Eosinophils % 2.3 %; Hematocrit 36.2 % (35.3-44.9); Hemoglobin 11.9 g/dL (11.5-15.4); Immature Granulocytes % 4.4 % (0-4); Lymphocytes # 1.3 K/mcL (0.6-4.6); Lymphocytes % 24.4 %; Mean Corpuscular HGB Conc 32.9 g/dL (31.6-35.5); Mean Corpuscular Volume 100.3 fL (83.0-100.0); Mean Platelet Volume 11.5 fL (9.4-12.4); Monocytes # 0.5 K/mcL (0.0-1.3); Nucleated Red Blood Cells 1.2 /100 WBC (0); Platelet Count 121 K/mcL (140-400); Red Blood Count 3.61 M/mcL (3.82-4.97); Red Cell Distribution Width 18.8 % (11.5-14.5); Segmented Neutrophils % 58.1 %; White Blood Count 5.2 K/mcL (4.3-11.1)
[2019-03-06] MEDS: Cefepime HCl 1,000 MG in 0.9 % Sodium Chloride Mini Bag 100 ML IVPB SCH (06:31)
[2019-03-06] MEDS: Folic Acid 1 MG TABLET PO SCH (08:21)
[2019-03-06] MEDS ORDERED: predniSONE 5 MG TABLET PO SCH (09:00)
[2019-03-06 12:37] VITALS: BP 126/72
== END 2019-03-06 18:39 | disposition home or self-care (01) | DRG 853 ==
LOC: CDU 03:31 → EMEROOARM 03:31 → CDU 09:30 → 2ANU 02-27 00:51 → SUATTDRO 02-27 08:43
PROVIDERS: ADMIT Internal Medicine; ATTEND Internal Medicine
PROC: IRPERMA (2019-03-04 10:00)

== ENCOUNTER 2019-04-13 04:26 | Observation (INO) ==
[2019-04-13] MEDS ORDERED: 0.9 % Sodium Chloride 1,000 ML IVC ONE (04:56)
[2019-04-13] MEDS ORDERED: 0.9 % Sodium Chloride 1,000 ML ONE (05:12)
[2019-04-13 05:26] LABS: Bilirubin,Urine Negative (Negative); Blood,Urine Moderate (Negative); Clarity,Urine Turbid (Clear); Color,Urine Yellow (Yellow); Glucose,Urine (UA) 100 mg/dL (Normal); Ketones,Urine Negative (Negative); Leukocyte Esterase,Urine Large (Negative); Nitrite,Urine Positive (Negative); PH,Urine 6.5 pH Units (5.0-8.0); Protein,Urine 30 mg/dL (Neg-Trace); Specific Gravity,Urine 1.009 (1.010-1.025); Urobilinogen,Urine Normal (Normal)
[2019-04-13 05:27] LABS: Bacteria,Urine Moderate per hpf (None-Few); Squamous Epithelial Cell,Urine Many per lpf (None-Few); WBC,Urine TNTC per hpf (0-3)
[2019-04-13 05:32] LABS: Basophils # 0.1 K/mcL (0.0-0.2); Basophils % 0.6 %; Eosinophils # 0.1 K/mcL (0.0-0.6); Eosinophils % 0.7 %; Hematocrit 26.6 % (35.3-44.9); Hemoglobin 8.7 g/dL (11.5-15.4); Immature Granulocytes % 0.7 % (0-4); Lymphocytes # 1.6 K/mcL (0.6-4.6); Lymphocytes % 19.8 %; Mean Corpuscular HGB Conc 32.7 g/dL (31.6-35.5); Mean Corpuscular Hemoglobin 33.1 pg (28.0-33.3); Mean Corpuscular Volume 101.1 fL (83.0-100.0); Mean Platelet Volume 10.4 fL (9.4-12.4); Monocytes # 0.7 K/mcL (0.0-1.3); Monocytes % 8.2 %; Neutrophils # 5.7 K/mcL (1.6-8.9); Platelet Count 221 K/mcL (140-400); Red Blood Count 2.63 M/mcL (3.82-4.97); Red Cell Distribution Width 16.6 % (11.5-14.5); White Blood Count 8.1 K/mcL (4.3-11.1)
[2019-04-13 05:36] LABS: INR 1.3; Prothrombin Time 14.8 Seconds (9.4-12.1)
[2019-04-13 05:55] LABS: Albumin 2.9 g/dL (3.5-5.7); Albumin/Globulin Ratio 1.4 (1.1-2.2); Bilirubin,Total 0.3 mg/dL (0.3-1.0); Calcium 8.4 mg/dL (8.6-10.3); Globulin 2.1 g/dL (2.4-3.5); Magnesium 1.8 mg/dL (1.6-2.6); Phosphorous 3.4 mg/dL (2.7-4.5); Potassium 3.8 mEq/L (3.5-5.1)
[2019-04-13 05:56] LABS: Troponin I 0.03 ng/mL (< 0.04)
[2019-04-13] MEDS ORDERED: Cefepime HCl 1,000 MG in 0.9 % Sodium Chloride Mini Bag 100 ML IVPB ONE (06:19)
[2019-04-13] MEDS ORDERED: Naloxone 0.4 MG/ML INJ IVP PRN (09:57)
[2019-04-13] MEDS ORDERED: *HR* Heparin 10,000 UNIT/10 ML VIAL IV PRN (11:13)
[2019-04-13] MEDS ORDERED: 0.9 % Sodium Chloride 250 ML IVC PRN (11:13)
[2019-04-13] MEDS ORDERED: Cyanocobalamin (B-12) 1,000 MCG/ML VIAL IM SCH (14:00)
[2019-04-13] MEDS: 0.9 % Sodium Chloride 1,000 ML PRIME SCH (19:40)
[2019-04-14 05:03] LABS: Basophils # 0.1 K/mcL (0.0-0.2); Basophils % 0.8 %; Eosinophils # 0.1 K/mcL (0.0-0.6); Eosinophils % 1.8 %; Hematocrit 24.7 % (35.3-44.9); Hemoglobin 8.3 g/dL (11.5-15.4); Immature Granulocytes % 0.3 % (0-4); Lymphocytes # 1.9 K/mcL (0.6-4.6); Lymphocytes % 30.3 %; Mean Corpuscular HGB Conc 33.6 g/dL (31.6-35.5); Mean Corpuscular Hemoglobin 33.1 pg (28.0-33.3); Mean Corpuscular Volume 98.4 fL (83.0-100.0); Mean Platelet Volume 10.1 fL (9.4-12.4); Monocytes # 0.6 K/mcL (0.0-1.3); Monocytes % 9.4 %; Neutrophils # 3.5 K/mcL (1.6-8.9); Platelet Count 223 K/mcL (140-400); Red Blood Count 2.51 M/mcL (3.82-4.97); Red Cell Distribution Width 16.3 % (11.5-14.5); Segmented Neutrophils % 57.4 %; White Blood Count 6.2 K/mcL (4.3-11.1)
[2019-04-14 05:22] LABS: Calcium 7.7 mg/dL (8.6-10.3); Potassium 3.8 mEq/L (3.5-5.1)
[2019-04-14] MEDS: Cefepime HCl 1,000 MG in Water for inj. (sterile) 10 ML IVPB SCH (06:09)
[2019-04-14] MEDS: predniSONE 5 MG TABLET PO SCH (09:11)
[2019-04-14] MEDS: Folic Acid 1 MG TABLET PO SCH (09:11)
[2019-04-14] MEDS: Multivit/Ca/Min/Fe/FA 1 TAB TABLET PO SCH (09:11)
[2019-04-14] MEDS ORDERED: predniSONE 5 MG TABLET PO SCH (18:00)
[2019-04-15] MEDS: Cefepime HCl 1,000 MG in Water for inj. (sterile) 10 ML IVPB SCH (05:57)
[2019-04-15 06:31] LABS: Basophils % 0.4 %; Eosinophils # 0.1 K/mcL (0.0-0.6); Eosinophils % 2.3 %; Hematocrit 22.7 % (35.3-44.9); Hemoglobin 7.5 g/dL (11.5-15.4); Immature Granulocytes % 0.6 % (0-4); Lymphocytes # 1.7 K/mcL (0.6-4.6); Lymphocytes % 31.4 %; Mean Corpuscular Hemoglobin 33.2 pg (28.0-33.3); Mean Corpuscular Volume 100.4 fL (83.0-100.0); Mean Platelet Volume 10.5 fL (9.4-12.4); Monocytes # 0.5 K/mcL (0.0-1.3); Monocytes % 8.8 %; Platelet Count 231 K/mcL (140-400); Red Blood Count 2.26 M/mcL (3.82-4.97); Red Cell Distribution Width 16.5 % (11.5-14.5); Segmented Neutrophils % 56.5 %; White Blood Count 5.3 K/mcL (4.3-11.1)
[2019-04-15 07:23] VITALS: BP 93/60
[2019-04-15] MEDS: predniSONE 5 MG TABLET PO SCH (08:33)
[2019-04-15] MEDS: Folic Acid 1 MG TABLET PO SCH (08:33)
[2019-04-15] MEDS: Multivit/Ca/Min/Fe/FA 1 TAB TABLET PO SCH (08:33)
== END 2019-04-15 13:43 | disposition home or self-care (01) ==
LOC: EMEROOARM 04:26 → 3BNU 04:26
PROVIDERS: ADMIT Internal Medicine; ATTEND Internal Medicine

== ENCOUNTER 2019-05-05 15:52 | Observation (INO) ==
[2019-05-05 16:36] LABS: Basophils % 0.4 %; Eosinophils # 0.1 K/mcL (0.0-0.6); Eosinophils % 1.4 %; Hematocrit 24.9 % (35.3-44.9); Hemoglobin 7.4 g/dL (11.5-15.4); Immature Granulocytes % 0.5 % (0-4); Lymphocytes # 0.8 K/mcL (0.6-4.6); Lymphocytes % 10.2 %; Mean Corpuscular HGB Conc 29.7 g/dL (31.6-35.5); Mean Corpuscular Hemoglobin 34.1 pg (28.0-33.3); Mean Platelet Volume 10.6 fL (9.4-12.4); Monocytes # 0.6 K/mcL (0.0-1.3); Monocytes % 8.1 %; Neutrophils # 6.3 K/mcL (1.6-8.9); Platelet Count 177 K/mcL (140-400); Red Blood Count 2.17 M/mcL (3.82-4.97); Red Cell Distribution Width 21.5 % (11.5-14.5); Segmented Neutrophils % 79.4 %; White Blood Count 7.9 K/mcL (4.3-11.1)
[2019-05-05 16:41] LABS: Mean Corpuscular Volume 114.7 fL (83.0-100.0)
[2019-05-05 16:47] LABS: INR 1.2; Prothrombin Time 13.5 Seconds (9.4-12.1)
[2019-05-05 17:13] LABS: Alanine Aminotransferase 19 Units/L (7-52); Albumin 2.9 g/dL (3.5-5.7); Albumin/Globulin Ratio 1.5 (1.1-2.2); Alkaline Phosphatase 116 Units/L (34-104); Aspartate Amino Transferase 11 Units/L (13-39); BUN/Creatinine Ratio 4 (6-26); Bilirubin,Indirect 0.3 mg/dL (0.0-1.0); Bilirubin,Total 0.3 mg/dL (0.3-1.0); Blood Urea Nitrogen 10 mg/dL (6-20); Calcium 8.3 mg/dL (8.6-10.3); Carbon Dioxide 10 mEq/L (23-29); Chloride 114 mEq/L (98-107); Ethanol < 10 mg/dL (Less than 10); Globulin 1.9 g/dL (2.4-3.5); Glucose 102 mg/dL (70-105); Osmolality,Calculated 297 (280-300); Potassium 2.9 mEq/L (3.5-5.1); Sodium 144 mEq/L (136-145); Total Protein 4.8 g/dL (6.4-8.9); Troponin I 0.05 ng/mL (< 0.04); eGFR For African Americans 23 (> 60); eGFR For Non-African Americans 19 (> 60)
[2019-05-05 17:14] LABS: Hypochromasia Present (Not Present); Macrocytosis Present (Not Present); Platelet Estimate Normal (Normal)
[2019-05-05] MEDS ORDERED: Potassium Chloride 40 MEQ, Lidocaine 1% 2 ML in 0.9 % Sodium Chloride 500 ML IVPB ONE (17:16)
[2019-05-05] MEDS ORDERED: Potassium Chloride Elixir 20 MEQ/15 ML UDC PO ONE (17:37)
[2019-05-05 18:03] LABS: Salicylate < 2.5 mg/dL (15.0-30.0); Thyroid Stimulating Hormone 4.202 mcIU/mL (0.340-5.600)
[2019-05-05] MEDS ORDERED: Naloxone 0.4 MG/ML INJ IVP PRN (18:32)
[2019-05-05] MEDS ORDERED: Ondansetron 4 MG/2 ML VIAL IVP PRN (18:32)
[2019-05-05] MEDS ORDERED: Acetaminophen 325 MG TABLET PO PRN (18:32)
[2019-05-05 18:36] LABS: ABG Base Excess -13 mEq/L (-2 to 3); ABG HCO3 12 mEq/L (21-27); ABG Oxygen Saturation 98 % (95-98); ABG PCO2 22 mmHg (35-45); ABG PH 7.32 pH Units (7.32-7.45); ABG PO2 110 mmHg (85-104); ABG TCO2 12 mEq/L (20-26)
[2019-05-05] MEDS ORDERED: *HR* LORazepam 0.5 MG TABLET PO PRN (21:01)
[2019-05-05] MEDS ORDERED: Ondansetron ODT 4 MG TAB.RAPDIS PO PRN (21:01)
[2019-05-05] MEDS ORDERED: Sodium Bicarbonate 50 MEQ/50 ML VIAL IVP ONE (21:04)
[2019-05-05] MEDS: 0.9 % Sodium Chloride 1,000 ML IVC SCH (21:50)
[2019-05-05 22:24] LABS: Potassium 3.6 mEq/L (3.5-5.1)
[2019-05-05] MEDS ORDERED: Cyanocobalamin (B-12) 1,000 MCG/ML VIAL IM SCH (23:00)
[2019-05-06 05:37] LABS: Bilirubin,Urine Negative (Negative); Blood,Urine Trace (Negative); Color,Urine Yellow (Yellow); Glucose,Urine (UA) 100 mg/dL (Normal); Ketones,Urine Negative (Negative); Leukocyte Esterase,Urine Trace (Negative); Nitrite,Urine Negative (Negative); Protein,Urine Trace mg/dL (Neg-Trace); Specific Gravity,Urine 1.011 (1.010-1.025); Urobilinogen,Urine Normal (Normal)
[2019-05-06 05:38] LABS: Bacteria,Urine None Seen per hpf (None-Few); Hyaline Casts,Urine None Seen per lpf (None-Few); Squamous Epithelial Cell,Urine Many per lpf (None-Few); WBC,Urine 0-3 per hpf (0-3)
[2019-05-06 05:40] LABS: Clarity,Urine Clear (Clear)
[2019-05-06 05:47] LABS: Amphetamine Screen,Urine Negative ng/mL (Cutoff=1000); Barbiturate Screen,Urine Negative ng/mL (Cutoff=200); Benzodiazepines Screen,Urine Negative ng/mL (Cutoff=200); Cannabinoid Screen,Urine Negative ng/mL (Cutoff = 50); Chloride,Urine 82 mEq/L; Cocaine Screen,Urine Negative ng/mL (Cutoff= 300); Opiate Screen,Urine Negative ng/mL (Cutoff=300); Phencyclidine Screen,Urine Negative ng/mL (Cutoff=25); Potassium,Urine 8.8 mEq/L; Sodium, Urine 117.1 mEq/L
[2019-05-06 05:48] LABS: Calcium 7.8 mg/dL (8.6-10.3); Magnesium 1.6 mg/dL (1.6-2.6); Potassium 4.2 mEq/L (3.5-5.1)
[2019-05-06] MEDS: *HR* Heparin 5,000 UNIT/ML VIAL SQ SCH ×2 (07:00→17:06)
[2019-05-06] MEDS ORDERED: 0.9 % Sodium Chloride 250 ML IVC PRN (07:07)
[2019-05-06] MEDS ORDERED: 0.9 % Sodium Chloride 1,000 ML PRIME SCH (07:15)
[2019-05-06 07:18] LABS: Basophils % 0.5 %; Eosinophils # 0.1 K/mcL (0.0-0.6); Eosinophils % 1.6 %; Hematocrit 21.3 % (35.3-44.9); Hemoglobin 6.5 g/dL (11.5-15.4); Immature Granulocytes % 0.2 % (0-4); Lymphocytes # 1.4 K/mcL (0.6-4.6); Lymphocytes % 25.7 %; Mean Corpuscular HGB Conc 30.5 g/dL (31.6-35.5); Mean Corpuscular Hemoglobin 34.2 pg (28.0-33.3); Mean Corpuscular Volume 112.1 fL (83.0-100.0); Mean Platelet Volume 10.4 fL (9.4-12.4); Monocytes # 0.6 K/mcL (0.0-1.3); Monocytes % 9.8 %; Neutrophils # 3.5 K/mcL (1.6-8.9); Platelet Count 159 K/mcL (140-400); Red Cell Distribution Width 21.7 % (11.5-14.5); Segmented Neutrophils % 62.2 %; White Blood Count 5.6 K/mcL (4.3-11.1)
[2019-05-06] MEDS: Multivit/Ca/Min/Fe/FA 1 TAB TABLET PO SCH (07:21)
[2019-05-06] MEDS: Folic Acid 1 MG TABLET PO SCH (07:22)
[2019-05-06] MEDS: Cholecalciferol (D-3) 1,000 UNIT (25MCG) TABLET PO SCH (07:22)
[2019-05-06] MEDS: predniSONE 20 MG TABLET PO SCH (07:22)
[2019-05-06 07:34] LABS: Anisocytosis 1+ (Not Present); Macrocytosis Present (Not Present); Platelet Estimate Normal (Normal); Polychromasia 1+ (Not Present)
[2019-05-06] MEDS ORDERED: Iron Sucrose Complex 400 MG in 0.9 % Sodium Chloride 250 ML IVPB ONE (08:31)
[2019-05-06] MEDS ORDERED: [UNRECOGNIZED DRUG - OTHER] PO SCH (09:00)
[2019-05-06] MEDS ORDERED: VITAMIN E 100 UNIT PO SCH (09:00)
[2019-05-06] MEDS ORDERED: ZINC ACETATE 25 MG PO SCH (09:00)
[2019-05-06] MEDS ORDERED: VITAMIN A PALMITATE 10000 UNIT PO SCH (09:00)
[2019-05-06] MEDS ORDERED: 0.9 % Sodium Chloride 250 ML ONE (10:08)
[2019-05-06] MEDS: 0.9 % Sodium Chloride 1,000 ML IVC SCH (17:20)
[2019-05-06 20:43] LABS: Hematocrit 28.9 % (35.3-44.9)
[2019-05-06] MEDS ORDERED: NUTRITIONAL SUPPLEMENT PO SCH (21:00)
[2019-05-06 21:01] LABS: Hemoglobin 9.6 g/dL (11.5-15.4)
[2019-05-07 04:22] LABS: Basophils % 0.5 %; Calcium 7.7 mg/dL (8.6-10.3); Eosinophils # 0.1 K/mcL (0.0-0.6); Eosinophils % 1.3 %; Hemoglobin 9.4 g/dL (11.5-15.4); Immature Granulocytes % 0.3 % (0-4); Lymphocytes # 2.1 K/mcL (0.6-4.6); Lymphocytes % 33.3 %; Magnesium 1.6 mg/dL (1.6-2.6); Mean Corpuscular HGB Conc 32.4 g/dL (31.6-35.5); Mean Corpuscular Hemoglobin 34.1 pg (28.0-33.3); Mean Corpuscular Volume 105.1 fL (83.0-100.0); Mean Platelet Volume 10.8 fL (9.4-12.4); Monocytes # 0.5 K/mcL (0.0-1.3); Monocytes % 7.1 %; Neutrophils # 3.7 K/mcL (1.6-8.9); Phosphorous 1.5 mg/dL (2.7-4.5); Platelet Count 170 K/mcL (140-400); Potassium 5.1 mEq/L (3.5-5.1); Red Blood Count 2.76 M/mcL (3.82-4.97); Red Cell Distribution Width 22.1 % (11.5-14.5); Segmented Neutrophils % 57.5 %; White Blood Count 6.4 K/mcL (4.3-11.1)
[2019-05-07] MEDS: *HR* Heparin 5,000 UNIT/ML VIAL SQ SCH (05:38)
[2019-05-07] MEDS ORDERED: 0.9 % Sodium Chloride 250 ML IVC PRN (07:00)
[2019-05-07] MEDS: predniSONE 20 MG TABLET PO SCH (07:38)
[2019-05-07] MEDS: Folic Acid 1 MG TABLET PO SCH (07:38)
[2019-05-07] MEDS: Cholecalciferol (D-3) 1,000 UNIT (25MCG) TABLET PO SCH (07:38)
[2019-05-07] MEDS: Multivit/Ca/Min/Fe/FA 1 TAB TABLET PO SCH (07:38)
[2019-05-07] MEDS ORDERED: 0.9 % Sodium Chloride 1,000 ML ONE (08:55)
[2019-05-07] MEDS ORDERED: *HR* Heparin 5,000 UNIT/ML VIAL IVP ONE (09:06)
[2019-05-07] MEDS ORDERED: *HR* Heparin 10,000 UNIT/10 ML VIAL IV PRN (09:06)
[2019-05-07] MEDS ORDERED: 0.9 % Sodium Chloride 1,000 ML IVC ONE ×2 (09:08)
[2019-05-07 11:49] VITALS: BP 131/80
== END 2019-05-07 17:16 | disposition home or self-care (01) ==
LOC: EMEROOARM 15:52 → 2ANU 15:52
PROVIDERS: ADMIT Pharmacist; ATTEND Pharmacist

== ENCOUNTER 2019-06-08 05:45 | Inpatient (IN) ==
[2019-06-08] MEDS ORDERED: 0.9 % Sodium Chloride 1,000 ML IVC ONE (05:53)
[2019-06-08] MEDS ORDERED: Ondansetron 4 MG/2 ML VIAL IVP ONE ×2 (06:02→08:02)
[2019-06-08 06:43] LABS: Bilirubin,Urine Negative (Negative); Blood,Urine Large (Negative); Clarity,Urine Turbid (Clear); Color,Urine Yellow (Yellow); Glucose,Urine (UA) 100 mg/dL (Normal); Ketones,Urine Negative (Negative); Leukocyte Esterase,Urine Large (Negative); Nitrite,Urine Negative (Negative); PH,Urine 6.5 pH Units (5.0-8.0); Protein,Urine 100 mg/dL (Neg-Trace); Specific Gravity,Urine 1.012 (1.010-1.025); Urobilinogen,Urine Normal (Normal)
[2019-06-08 06:45] LABS: Bacteria,Urine None Seen per hpf (None-Few); Hyaline Casts,Urine None Seen per lpf (None-Few); Squamous Epithelial Cell,Urine Many per lpf (None-Few); WBC,Urine TNTC per hpf (0-3)
[2019-06-08 07:04] LABS: RBC,Urine 0-3 per hpf (0-3)
[2019-06-08 07:06] LABS: Basophils # 0.1 K/mcL (0.0-0.2); Basophils % 0.7 %; Eosinophils # 0.2 K/mcL (0.0-0.6); Eosinophils % 1.7 %; Hematocrit 32.7 % (35.3-44.9); Hemoglobin 10.3 g/dL (11.5-15.4); Immature Granulocytes % 0.6 % (0-4); Immature Platelets 13.5 % (1.1-6.1); Lymphocytes % 10.8 %; Mean Corpuscular HGB Conc 31.5 g/dL (31.6-35.5); Mean Corpuscular Hemoglobin 33.3 pg (28.0-33.3); Mean Corpuscular Volume 105.8 fL (83.0-100.0); Mean Platelet Volume 12.6 fL (9.4-12.4); Monocytes # 0.5 K/mcL (0.0-1.3); Monocytes % 5.2 %; Neutrophils # 7.1 K/mcL (1.6-8.9); Nucleated Red Blood Cells 0.6 /100 WBC (0); Red Blood Count 3.09 M/mcL (3.82-4.97); Red Cell Distribution Width 16.1 % (11.5-14.5); White Blood Count 8.8 K/mcL (4.3-11.1)
[2019-06-08 07:26] LABS: Alanine Aminotransferase 27 Units/L (7-52); Albumin 3.2 g/dL (3.5-5.7); Albumin/Globulin Ratio 1.5 (1.1-2.2); Alkaline Phosphatase 167 Units/L (34-104); Amylase 108 Units/L (29-103); Aspartate Amino Transferase 14 Units/L (13-39); BUN/Creatinine Ratio 6 (6-26); Bilirubin,Direct 0.1 mg/dL (0.0-0.2); Bilirubin,Indirect 0.2 mg/dL (0.0-1.0); Bilirubin,Total 0.3 mg/dL (0.3-1.0); Blood Urea Nitrogen 25 mg/dL (6-20); Calcium 7.9 mg/dL (8.6-10.3); Carbon Dioxide 15 mEq/L (23-29); Chloride 107 mEq/L (98-107); Globulin 2.1 g/dL (2.4-3.5); Glucose 116 mg/dL (70-105); Lipase < 3 Units/L (11-82); Osmolality,Calculated 293 (280-300); Potassium 3.5 mEq/L (3.5-5.1); Sodium 139 mEq/L (136-145); Total Protein 5.3 g/dL (6.4-8.9); Troponin I < 0.03 ng/mL (< 0.04); eGFR For African Americans 12 (> 60); eGFR For Non-African Americans 10 (> 60)
[2019-06-08] MEDS ORDERED: CEFEPIME HCL IVPB ONE (07:29)
[2019-06-08] MEDS ORDERED: SODIUM CHLORIDE MINI 0.9% IVPB ONE (07:29)
[2019-06-08] MEDS ORDERED: Cefepime HCl 500 MG in 0.9 % Sodium Chloride Mini Bag 100 ML IVPB ONE (07:32)
[2019-06-08] MEDS ORDERED: WATER FOR INJ IVP ONE (07:45)
[2019-06-08] MEDS ORDERED: CEFEPIME HCL IVP ONE (07:45)
[2019-06-08 07:50] LABS: Platelet Count 59 K/mcL (140-400)
[2019-06-08] MEDS ORDERED: Naloxone 0.4 MG/ML INJ IVP PRN (09:23)
[2019-06-08] MEDS ORDERED: Ondansetron 4 MG/2 ML VIAL IVP PRN (09:23)
[2019-06-08] MEDS: predniSONE 5 MG TABLET PO SCH (11:08)
[2019-06-08] MEDS: Folic Acid 1 MG TABLET PO SCH (11:08)
[2019-06-08] MEDS: Pantoprazole 40 MG VIAL IVP SCH (11:09)
[2019-06-08] MEDS ORDERED: 0.9 % Sodium Chloride 250 ML IVC PRN (11:17)
[2019-06-08] MEDS ORDERED: *HR* Heparin 10,000 UNIT/10 ML VIAL IV PRN ×2 (11:17)
[2019-06-08] MEDS ORDERED: 0.9 % Sodium Chloride 1,000 ML PRIME SCH (11:30)
[2019-06-08 11:52] LABS: C.difficile Toxin A/B Gene PCR Not detected (Not detect); Campylobacter by PCR Not detected (Not detect); Enteroaggregative E.coli(EAEC) Not detected (Not detect); Enteropathogenic E.coli(EPEC) Not detected (Not detect); Enterotoxigenic E.coli (ETEC) Not detected (Not detect); Plesiomonas shigelloides PCR Not detected (Not detect); Salmonella PCR Not detected (Not detect); Vibrio PCR Not detected (Not detect); Vibrio cholerae PCR Not detected (Not detect); Yersinia enterocolitica PCR Not detected (Not detect)
[2019-06-08 11:53] LABS: Adenovirus F 40/41 PCR Not detected (Not detect); Astrovirus PCR Not detected (Not detect); Cryptosporidium by PCR Not detected (Not detect); Cyclospora cayetanensis PCR Not detected (Not detect); E. coli O157 by PCR Not detected (Not detect); Entamoeba histolytica PCR Not detected (Not detect); Giardia lamblia PCR Not detected (Not detect); Norovirus GI/GII PCR Not detected (Not detect); Rotavirus A PCR Not detected (Not detect); Sapovirus PCR Not detected (Not detect); Shig/EnteroinvasiveE coli EIEC Not detected (Not detect); Shigalike tox-prod E coli STEC Not detected (Not detect)
[2019-06-08] MEDS ORDERED: 0.9 % Sodium Chloride 1,000 ML IVC SCH (14:45)
[2019-06-08] MEDS ORDERED: *HR* Heparin 10,000 UNIT/10 ML VIAL ONE (16:08)
[2019-06-08] MEDS: *HR* Heparin 5,000 UNIT/ML VIAL SQ SCH (17:06)
[2019-06-08] MEDS ORDERED: predniSONE 5 MG TABLET PO SCH (21:00)
[2019-06-09] MEDS ORDERED: 0.9 % Sodium Chloride 250 ML ONE (01:05)
[2019-06-09] MEDS ORDERED: 0.9 % Sodium Chloride 250 ML IVC PRN (01:15)
[2019-06-09] MEDS ORDERED: 0.9 % Sodium Chloride 250 ML IVC ONE (02:04)
[2019-06-09] MEDS: *HR* Heparin 5,000 UNIT/ML VIAL SQ SCH ×2 (05:01→18:04)
[2019-06-09 05:36] LABS: Basophils # 0.1 K/mcL (0.0-0.2); Eosinophils # 0.1 K/mcL (0.0-0.6); Eosinophils % 1.4 %; Hematocrit 33.4 % (35.3-44.9); Hemoglobin 10.3 g/dL (11.5-15.4); Immature Granulocytes % 0.5 % (0-4); Lymphocytes # 1.9 K/mcL (0.6-4.6); Lymphocytes % 23.9 %; Mean Corpuscular HGB Conc 30.8 g/dL (31.6-35.5); Mean Corpuscular Hemoglobin 33.8 pg (28.0-33.3); Mean Corpuscular Volume 109.5 fL (83.0-100.0); Monocytes # 0.5 K/mcL (0.0-1.3); Monocytes % 5.9 %; Neutrophils # 5.3 K/mcL (1.6-8.9); Platelet Count 100 K/mcL (140-400); Red Blood Count 3.05 M/mcL (3.82-4.97); Red Cell Distribution Width 16.2 % (11.5-14.5); Segmented Neutrophils % 67.3 %; White Blood Count 7.9 K/mcL (4.3-11.1)
[2019-06-09 05:48] LABS: Calcium 8.2 mg/dL (8.6-10.3); Magnesium 1.8 mg/dL (1.6-2.6); Phosphorous 4.4 mg/dL (2.7-4.5); Potassium 3.4 mEq/L (3.5-5.1)
[2019-06-09] MEDS: Folic Acid 1 MG TABLET PO SCH (08:09)
[2019-06-09] MEDS: predniSONE 5 MG TABLET PO SCH (08:09)
[2019-06-09] MEDS: Multivit/Ca/Min/Fe/FA 1 TAB TABLET PO SCH (08:09)
[2019-06-09] MEDS: Cholecalciferol (D-3) 1,000 UNIT (25MCG) TABLET PO SCH (08:09)
[2019-06-09] MEDS: Pantoprazole 40 MG VIAL IVP SCH (08:10)
[2019-06-09] MEDS ORDERED: VITAMIN E 100 UNIT PO SCH (09:00)
[2019-06-09] MEDS ORDERED: [UNRECOGNIZED DRUG - OTHER] PO SCH (09:00)
[2019-06-09] MEDS ORDERED: ZINC ACETATE 25 MG PO SCH (09:00)
[2019-06-09] MEDS ORDERED: VITAMIN A PALMITATE 10000 UNIT PO SCH (09:00)
[2019-06-09] MEDS: Hydrocortisone Sodium Succ 100 MG/2 ML VIAL IVP SCH ×3 (09:19→18:04)
[2019-06-10] MEDS: Hydrocortisone Sodium Succ 100 MG/2 ML VIAL IVP SCH ×5 (00:08→23:58)
[2019-06-10 02:56] LABS: Hemoglobin 9.1 g/dL (11.5-15.4); Immature Granulocytes % 0.4 % (0-4); Red Cell Distribution Width 16.2 % (11.5-14.5)
[2019-06-10 02:58] LABS: Basophils % 0.4 %; Hematocrit 28.8 % (35.3-44.9); Immature Platelets 9.3 % (1.1-6.1); Lymphocytes # 0.8 K/mcL (0.6-4.6); Lymphocytes % 10.4 %; Mean Corpuscular HGB Conc 31.6 g/dL (31.6-35.5); Mean Corpuscular Hemoglobin 33.8 pg (28.0-33.3); Mean Corpuscular Volume 107.1 fL (83.0-100.0); Mean Platelet Volume 12.5 fL (9.4-12.4); Monocytes # 0.3 K/mcL (0.0-1.3); Monocytes % 3.8 %; Neutrophils # 6.3 K/mcL (1.6-8.9); Red Blood Count 2.69 M/mcL (3.82-4.97); White Blood Count 7.4 K/mcL (4.3-11.1)
[2019-06-10 03:00] LABS: Platelet Count 92 K/mcL (140-400)
[2019-06-10 03:19] LABS: Calcium 7.9 mg/dL (8.6-10.3); Potassium 3.9 mEq/L (3.5-5.1)
[2019-06-10] MEDS: *HR* Heparin 5,000 UNIT/ML VIAL SQ SCH ×2 (03:55→18:24)
[2019-06-10] MEDS ORDERED: 0.9 % Sodium Chloride 250 ML IVC ONE (05:39)
[2019-06-10] MEDS: Pantoprazole 40 MG VIAL IVP SCH (09:23)
[2019-06-10] MEDS: Cholecalciferol (D-3) 1,000 UNIT (25MCG) TABLET PO SCH (09:29)
[2019-06-10] MEDS: Folic Acid 1 MG TABLET PO SCH (09:29)
[2019-06-10] MEDS: Multivit/Ca/Min/Fe/FA 1 TAB TABLET PO SCH (09:29)
[2019-06-11 04:40] LABS: Hematocrit 27.9 % (35.3-44.9); Hemoglobin 8.8 g/dL (11.5-15.4); Mean Corpuscular HGB Conc 31.5 g/dL (31.6-35.5); Mean Corpuscular Hemoglobin 33.6 pg (28.0-33.3); Mean Corpuscular Volume 106.5 fL (83.0-100.0); Mean Platelet Volume 12.8 fL (9.4-12.4); Platelet Count 110 K/mcL (140-400); Red Blood Count 2.62 M/mcL (3.82-4.97); Red Cell Distribution Width 16.2 % (11.5-14.5); White Blood Count 9.4 K/mcL (4.3-11.1)
[2019-06-11 05:16] LABS: Calcium 7.8 mg/dL (8.6-10.3); Potassium 2.3 mEq/L (3.5-5.1)
[2019-06-11] MEDS ORDERED: Potassium Chloride 40 MEQ, Lidocaine 1% 2 ML in 0.9 % Sodium Chloride 500 ML IVPB ONE (05:30)
[2019-06-11] MEDS: *HR* Heparin 5,000 UNIT/ML VIAL SQ SCH ×2 (05:59→17:21)
[2019-06-11] MEDS: Hydrocortisone Sodium Succ 100 MG/2 ML VIAL IVP SCH ×4 (05:59→22:57)
[2019-06-11] MEDS ORDERED: 0.9 % Sodium Chloride 250 ML IVC PRN (07:37)
[2019-06-11] MEDS ORDERED: *HR* Heparin 10,000 UNIT/10 ML VIAL IV PRN ×2 (07:37)
[2019-06-11] MEDS ORDERED: 0.9 % Sodium Chloride 1,000 ML PRIME SCH (07:45)
[2019-06-11] MEDS: Cholecalciferol (D-3) 1,000 UNIT (25MCG) TABLET PO SCH (08:19)
[2019-06-11] MEDS: Multivit/Ca/Min/Fe/FA 1 TAB TABLET PO SCH (08:19)
[2019-06-11] MEDS: Folic Acid 1 MG TABLET PO SCH (08:19)
[2019-06-11] MEDS: Pantoprazole 40 MG VIAL IVP SCH (08:20)
[2019-06-11 18:26] LABS: Calcium 7.5 mg/dL (8.6-10.3); Potassium 2.7 mEq/L (3.5-5.1)
[2019-06-11] MEDS ORDERED: Potassium Chloride Elixir 20 MEQ/15 ML UDC PO ONE ×2 (18:34→23:00)
[2019-06-11 18:50] LABS: Magnesium 1.5 mg/dL (1.6-2.6)
[2019-06-11] MEDS: Calcium Gluconate 1gm/50mL 1 GM/50 ML BAG IVPB SCH ×2 (19:38→20:01)
[2019-06-12 05:25] LABS: Hematocrit 27.1 % (35.3-44.9); Hemoglobin 8.7 g/dL (11.5-15.4); Mean Corpuscular HGB Conc 32.1 g/dL (31.6-35.5); Mean Corpuscular Hemoglobin 33.5 pg (28.0-33.3); Mean Corpuscular Volume 104.2 fL (83.0-100.0); Mean Platelet Volume 12.3 fL (9.4-12.4); Platelet Count 101 K/mcL (140-400); Red Cell Distribution Width 16.3 % (11.5-14.5); White Blood Count 9.8 K/mcL (4.3-11.1)
[2019-06-12 05:27] LABS: VBG Ionized Calcium 1.18 mmol/L (1.15-1.35)
[2019-06-12 05:48] LABS: Calcium 8.2 mg/dL (8.6-10.3); Magnesium 2.5 mg/dL (1.6-2.6); Phosphorous 1.2 mg/dL (2.7-4.5); Potassium 3.7 mEq/L (3.5-5.1)
[2019-06-12] MEDS: Hydrocortisone Sodium Succ 100 MG/2 ML VIAL IVP SCH ×3 (06:10→16:39)
[2019-06-12] MEDS: *HR* Heparin 5,000 UNIT/ML VIAL SQ SCH ×2 (06:10→16:43)
[2019-06-12] MEDS: Folic Acid 1 MG TABLET PO SCH (08:06)
[2019-06-12] MEDS: Cholecalciferol (D-3) 1,000 UNIT (25MCG) TABLET PO SCH (08:07)
[2019-06-12] MEDS: Multivit/Ca/Min/Fe/FA 1 TAB TABLET PO SCH (08:07)
[2019-06-12 11:00] VITALS: BP 129/81
[2019-06-14] MEDS ORDERED: Cyanocobalamin (B-12) 1,000 MCG/ML VIAL IM SCH (09:00)
== END 2019-06-12 17:31 | disposition home health service (06) | DRG 391 ==
LOC: EMEROOARM 05:45 → 2ANU 05:45 → SUATTDRO 06-09 17:46
PROVIDERS: ADMIT Internal Medicine; ATTEND Student in an Organized Health Care Education/Training Program

== ENCOUNTER 2019-07-04 11:05 | Observation (INO) ==
[2019-07-04 12:05] LABS: Basophils % 0.5 %; Hematocrit 19.9 % (35.3-44.9); Hemoglobin 6.5 g/dL (11.5-15.4); Immature Granulocytes % 0.2 % (0-4); Lymphocytes # 1.1 K/mcL (0.6-4.6); Lymphocytes % 25.7 %; Mean Corpuscular HGB Conc 32.7 g/dL (31.6-35.5); Mean Corpuscular Hemoglobin 34.8 pg (28.0-33.3); Mean Corpuscular Volume 106.4 fL (83.0-100.0); Mean Platelet Volume 10.2 fL (9.4-12.4); Monocytes # 0.4 K/mcL (0.0-1.3); Monocytes % 8.8 %; Neutrophils # 2.7 K/mcL (1.6-8.9); Platelet Count 171 K/mcL (140-400); Red Blood Count 1.87 M/mcL (3.82-4.97); Red Cell Distribution Width 15.2 % (11.5-14.5); Segmented Neutrophils % 63.8 %; White Blood Count 4.2 K/mcL (4.3-11.1)
[2019-07-04 12:09] LABS: INR 1.6; Prothrombin Time 17.7 Seconds (9.4-12.1)
[2019-07-04 12:18] LABS: Activated Partial Thrombo Time 30.9 Seconds (26.0-36.0)
[2019-07-04 12:22] LABS: Albumin 2.8 g/dL (3.5-5.7); Albumin/Globulin Ratio 1.5 (1.1-2.2); Bilirubin,Total 0.3 mg/dL (0.3-1.0); Calcium 7.4 mg/dL (8.6-10.3); Globulin 1.9 g/dL (2.4-3.5); Total Protein 4.7 g/dL (6.4-8.9)
[2019-07-04] MEDS ORDERED: Potassium Effervescent 25 MEQ TABLET.EFF PO ONE (12:41)
[2019-07-04] MEDS ORDERED: 0.9 % Sodium Chloride 250 ML ONE ×2 (13:04→17:25)
[2019-07-04] MEDS ORDERED: Ondansetron 4 MG/2 ML VIAL IVP PRN (13:08)
[2019-07-04] MEDS ORDERED: Naloxone 0.4 MG/ML INJ IVP PRN (13:08)
[2019-07-04 19:09] LABS: Bilirubin,Urine Negative (Negative); Blood,Urine Trace (Negative); Clarity,Urine Clear (Clear); Color,Urine Yellow (Yellow); Glucose,Urine (UA) 100 mg/dL (Normal); Ketones,Urine Negative (Negative); Leukocyte Esterase,Urine Trace (Negative); Nitrite,Urine Negative (Negative); PH,Urine 8.5 pH Units (5.0-8.0); Protein,Urine 30 mg/dL (Neg-Trace); Urobilinogen,Urine Normal (Normal)
[2019-07-04 19:11] LABS: Bacteria,Urine None Seen per hpf (None-Few); Hyaline Casts,Urine None Seen per lpf (None-Few); RBC,Urine 0-3 per hpf (0-3); Squamous Epithelial Cell,Urine Many per lpf (None-Few); WBC,Urine 15-30 per hpf (0-3)
[2019-07-05 04:18] LABS: Basophils % 0.8 %; Eosinophils # 0.1 K/mcL (0.0-0.6); Eosinophils % 1.5 %; Hematocrit 26.2 % (35.3-44.9); Hemoglobin 8.1 g/dL (11.5-15.4); Immature Granulocytes % 0.8 % (0-4); Lymphocytes # 1.6 K/mcL (0.6-4.6); Lymphocytes % 38.8 %; Mean Corpuscular HGB Conc 30.9 g/dL (31.6-35.5); Mean Corpuscular Hemoglobin 30.8 pg (28.0-33.3); Mean Corpuscular Volume 99.6 fL (83.0-100.0); Mean Platelet Volume 10.5 fL (9.4-12.4); Monocytes # 0.5 K/mcL (0.0-1.3); Monocytes % 11.3 %; Neutrophils # 1.9 K/mcL (1.6-8.9); Platelet Count 149 K/mcL (140-400); Red Blood Count 2.63 M/mcL (3.82-4.97); Red Cell Distribution Width 19.3 % (11.5-14.5); Segmented Neutrophils % 46.8 %
[2019-07-05 04:33] LABS: Calcium 7.5 mg/dL (8.6-10.3); Magnesium 1.6 mg/dL (1.6-2.6); Phosphorous 2.1 mg/dL (2.7-4.5); Potassium 3.5 mEq/L (3.5-5.1)
[2019-07-05 06:31] VITALS: BP 120/72
== END 2019-07-05 12:43 | disposition home or self-care (01) ==
LOC: 2ANU 11:05 → EMEROOARM 11:05 → SUATTDRO 13:08 → 2ANU 14:45
PROVIDERS: ADMIT Internal Medicine; ATTEND Internal Medicine

== ENCOUNTER 2019-07-27 06:27 | Observation (INO) ==
[2019-07-27 07:05] LABS: INR 1.9; Prothrombin Time 21.2 Seconds (9.4-12.1)
[2019-07-27 07:06] LABS: Bilirubin,Urine Negative (Negative); Blood,Urine Small (Negative); Clarity,Urine Turbid (Clear); Color,Urine Yellow (Yellow); Glucose,Urine (UA) 250 mg/dL (Normal); Ketones,Urine Negative (Negative); Leukocyte Esterase,Urine Large (Negative); Nitrite,Urine Negative (Negative); Protein,Urine 30 mg/dL (Neg-Trace); Specific Gravity,Urine 1.012 (1.010-1.025); Urobilinogen,Urine Normal (Normal)
[2019-07-27 07:08] LABS: Activated Partial Thrombo Time 45.8 Seconds (26.0-36.0)
[2019-07-27 07:08] LABS: Bacteria,Urine Moderate per hpf (None-Few); Hyaline Casts,Urine None Seen per lpf (None-Few); Squamous Epithelial Cell,Urine Many per lpf (None-Few); WBC,Urine TNTC per hpf (0-3)
[2019-07-27 07:09] LABS: Basophils # 0.1 K/mcL (0.0-0.2); Basophils % 0.6 %; Eosinophils # 0.2 K/mcL (0.0-0.6); Eosinophils % 2.3 %; Hematocrit 39.2 % (35.3-44.9); Hemoglobin 11.5 g/dL (11.5-15.4); Immature Granulocytes % 0.8 % (0-4); Lymphocytes # 1.4 K/mcL (0.6-4.6); Lymphocytes % 17.3 %; Mean Corpuscular HGB Conc 29.3 g/dL (31.6-35.5); Mean Corpuscular Hemoglobin 33.1 pg (28.0-33.3); Mean Platelet Volume 11.7 fL (9.4-12.4); Monocytes # 0.5 K/mcL (0.0-1.3); Monocytes % 6.6 %; Neutrophils # 5.7 K/mcL (1.6-8.9); Nucleated Red Blood Cells 0.3 /100 WBC (0); Platelet Count 173 K/mcL (140-400); Red Blood Count 3.47 M/mcL (3.82-4.97); Red Cell Distribution Width 22.9 % (11.5-14.5); Segmented Neutrophils % 72.4 %; White Blood Count 7.9 K/mcL (4.3-11.1)
[2019-07-27] MEDS ORDERED: cefTRIAXone 1,000 MG in 0.9 % Sodium Chloride Mini Bag 100 ML IVPB ONE (07:24)
[2019-07-27 07:25] LABS: Anisocytosis 1+ (Not Present); Macrocytosis Present (Not Present); Platelet Estimate Normal (Normal); Polychromasia 1+ (Not Present)
[2019-07-27 07:29] LABS: Amphetamine Screen,Urine Negative ng/mL (Cutoff=1000); Barbiturate Screen,Urine Negative ng/mL (Cutoff=200); Benzodiazepines Screen,Urine Negative ng/mL (Cutoff=200); Cannabinoid Screen,Urine Negative ng/mL (Cutoff = 50); Cocaine Screen,Urine Negative ng/mL (Cutoff= 300); Opiate Screen,Urine Negative ng/mL (Cutoff=300); Phencyclidine Screen,Urine Negative ng/mL (Cutoff=25)
[2019-07-27 07:30] LABS: Ethanol < 10 mg/dL (Less than 10); Troponin I 0.03 ng/mL (< 0.04)
[2019-07-27] MEDS ORDERED: Cefepime HCl 1,000 MG in 0.9 % Sodium Chloride Mini Bag 100 ML IVPB STA (07:34)
[2019-07-27 08:33] LABS: Albumin/Globulin Ratio 1.5 (1.1-2.2); Bilirubin,Direct 0.1 mg/dL (0.0-0.2); Bilirubin,Indirect 0.2 mg/dL (0.0-1.0); Bilirubin,Total 0.3 mg/dL (0.3-1.0); Calcium 9.4 mg/dL (8.6-10.3); Magnesium 2.1 mg/dL (1.6-2.6); Phosphorous 3.9 mg/dL (2.7-4.5); Potassium 3.8 mEq/L (3.5-5.1)
[2019-07-27] MEDS ORDERED: Naloxone 0.4 MG/ML INJ IVP PRN (09:31)
[2019-07-27] MEDS ORDERED: Ondansetron 4 MG/2 ML VIAL IVP PRN (09:31)
[2019-07-27] MEDS ORDERED: Cefepime HCl 1,000 MG in 0.9 % Sodium Chloride Mini Bag 100 ML IVPB SCH (10:00)
[2019-07-27] MEDS ORDERED: 0.9 % Sodium Chloride 1,000 ML ONE (10:01)
[2019-07-27 10:10] LABS: Thyroid Stimulating Hormone 4.901 mcIU/mL (0.340-5.600)
[2019-07-27] MEDS ORDERED: 0.9 % Sodium Chloride 250 ML IVC PRN (10:40)
[2019-07-27] MEDS ORDERED: *HR* Heparin 10,000 UNIT/10 ML VIAL IV PRN (10:40)
[2019-07-27] MEDS ORDERED: 0.9 % Sodium Chloride 1,000 ML PRIME SCH (10:45)
[2019-07-27] MEDS: *HR* Heparin 5,000 UNIT/ML VIAL SQ SCH ×2 (14:32→21:02)
[2019-07-27] MEDS ORDERED: NUTRITIONAL SUPPLEMENT PO SCH (21:00)
[2019-07-28 05:18] LABS: Basophils % 0.6 %; Eosinophils # 0.1 K/mcL (0.0-0.6); Hematocrit 29.5 % (35.3-44.9); Immature Granulocytes % 0.4 % (0-4); Lymphocytes # 1.5 K/mcL (0.6-4.6); Lymphocytes % 30.1 %; Mean Corpuscular HGB Conc 31.2 g/dL (31.6-35.5); Mean Corpuscular Hemoglobin 32.9 pg (28.0-33.3); Mean Platelet Volume 10.8 fL (9.4-12.4); Monocytes # 0.5 K/mcL (0.0-1.3); Neutrophils # 2.9 K/mcL (1.6-8.9); Platelet Count 143 K/mcL (140-400); Red Cell Distribution Width 21.9 % (11.5-14.5); Segmented Neutrophils % 57.9 %
[2019-07-28 05:19] LABS: Hemoglobin 9.2 g/dL (11.5-15.4); Mean Corpuscular Volume 105.4 fL (83.0-100.0)
[2019-07-28 05:28] LABS: Calcium 7.7 mg/dL (8.6-10.3); Potassium 4.1 mEq/L (3.5-5.1)
[2019-07-28] MEDS: *HR* Heparin 5,000 UNIT/ML VIAL SQ SCH (05:37)
[2019-07-28] MEDS ORDERED: 0.9 % Sodium Chloride 250 ML ONE (05:44)
[2019-07-28] MEDS ORDERED: 0.9 % Sodium Chloride 250 ML IVC ONE (05:59)
[2019-07-28] MEDS ORDERED: Multivit/Ca/Min/Fe/FA 1 TAB TABLET PO SCH (09:00)
[2019-07-28] MEDS ORDERED: Zinc Sulfate 220 MG CAPSULE PO SCH (09:00)
[2019-07-28] MEDS ORDERED: Vitamin E 200 UNIT (90MG) CAPSULE PO SCH (09:00)
[2019-07-28] MEDS ORDERED: Cholecalciferol (D-3) 1,000 UNIT (25MCG) TABLET PO SCH (09:00)
[2019-07-28] MEDS ORDERED: Folic Acid 1 MG TABLET PO SCH (09:00)
[2019-07-28 11:43] VITALS: BP 102/69
[2019-07-28] MEDS ORDERED: Cefepime HCl 500 MG in 0.9 % Sodium Chloride Mini Bag 100 ML IVPB SCH (16:00)
[2019-08-03] MEDS ORDERED: Cyanocobalamin (B-12) 1,000 MCG/ML VIAL IM SCH (09:00)
== END 2019-07-28 12:53 | disposition home or self-care (01) ==
LOC: 2ANU 06:27 → EMEROOARM 06:27 → 2ANU 10:08
PROVIDERS: ADMIT Family Medicine; ATTEND Family Medicine

== ENCOUNTER 2019-09-17 08:58 | Observation (INO) ==
[2019-09-17 09:37] LABS: Basophils % 0.7 %; Eosinophils # 0.2 K/mcL (0.0-0.6); Eosinophils % 3.2 %; Hematocrit 28.6 % (35.3-44.9); Hemoglobin 9.5 g/dL (11.5-15.4); Immature Granulocytes % 0.4 % (0-4); Lymphocytes # 1.6 K/mcL (0.6-4.6); Lymphocytes % 28.2 %; Mean Corpuscular HGB Conc 33.2 g/dL (31.6-35.5); Mean Corpuscular Hemoglobin 35.7 pg (28.0-33.3); Mean Platelet Volume 11.1 fL (9.4-12.4); Monocytes # 0.5 K/mcL (0.0-1.3); Monocytes % 8.8 %; Neutrophils # 3.3 K/mcL (1.6-8.9); Nucleated Red Blood Cells 0.5 /100 WBC (0); Platelet Count 101 K/mcL (140-400); Red Blood Count 2.66 M/mcL (3.82-4.97); Red Cell Distribution Width 17.6 % (11.5-14.5); Segmented Neutrophils % 58.7 %; White Blood Count 5.5 K/mcL (4.3-11.1)
[2019-09-17 09:39] LABS: Mean Corpuscular Volume 107.5 fL (83.0-100.0)
[2019-09-17 09:59] LABS: INR 6.8
[2019-09-17 10:00] LABS: Prothrombin Time 77.5 Seconds (9.4-12.1)
[2019-09-17 10:42] LABS: Alanine Aminotransferase 17 Units/L (7-52); Albumin 2.7 g/dL (3.5-5.7); Albumin/Globulin Ratio 1.6 (1.1-2.2); Alkaline Phosphatase 113 Units/L (34-104); Aspartate Amino Transferase 11 Units/L (13-39); BUN/Creatinine Ratio 3 (6-26); Bilirubin,Total 0.3 mg/dL (0.3-1.0); Blood Urea Nitrogen 12 mg/dL (6-20); Calcium 6.4 mg/dL (8.6-10.3); Carbon Dioxide 19 mEq/L (23-29); Chloride 104 mEq/L (98-107); Globulin 1.7 g/dL (2.4-3.5); Glucose 84 mg/dL (70-105); Magnesium 1.8 mg/dL (1.6-2.6); Osmolality,Calculated 289 (280-300); Phosphorous 2.1 mg/dL (2.7-4.5); Potassium 2.9 mEq/L (3.5-5.1); Sodium 140 mEq/L (136-145); Total Protein 4.4 g/dL (6.4-8.9); Troponin I < 0.03 ng/mL (< 0.04); eGFR For African Americans 14 (> 60); eGFR For Non-African Americans 12 (> 60)
[2019-09-17 10:52] LABS: Thyroid Stimulating Hormone 6.957 mcIU/mL (0.340-5.600)
[2019-09-17] MEDS ORDERED: Naloxone 0.4 MG/ML INJ IVP PRN (12:25)
[2019-09-17] MEDS ORDERED: Ondansetron 4 MG/2 ML VIAL IVP PRN (12:25)
[2019-09-17] MEDS ORDERED: Cyanocobalamin (B-12) 1,000 MCG/ML VIAL IM SCH (12:30)
[2019-09-17 13:19] LABS: INR 7.1
[2019-09-17 13:29] LABS: Prothrombin Time 81.2 Seconds (9.4-12.1)
[2019-09-17] MEDS: predniSONE 5 MG TABLET PO SCH (16:34)
[2019-09-17 16:43] LABS: Activated Partial Thrombo Time 66.1 Seconds (26.0-36.0)
[2019-09-17] MEDS ORDERED: NUTRITIONAL SUPPLEMENT PO SCH (21:00)
[2019-09-18 00:30] LABS: INR 1.5
[2019-09-18 04:41] LABS: Mean Corpuscular HGB Conc 32.7 g/dL (31.6-35.5); Mean Corpuscular Hemoglobin 35.9 pg (28.0-33.3)
[2019-09-18 04:43] LABS: Basophils % 0.4 %; Eosinophils # 0.1 K/mcL (0.0-0.6); Eosinophils % 2.5 %; Hematocrit 25.7 % (35.3-44.9); Hemoglobin 8.4 g/dL (11.5-15.4); Immature Granulocytes % 0.4 % (0-4); Immature Platelets 6.6 % (1.1-6.1); Lymphocytes # 1.2 K/mcL (0.6-4.6); Lymphocytes % 22.9 %; Mean Corpuscular Volume 109.8 fL (83.0-100.0); Mean Platelet Volume 10.9 fL (9.4-12.4); Monocytes # 0.5 K/mcL (0.0-1.3); Monocytes % 8.7 %; Neutrophils # 3.5 K/mcL (1.6-8.9); Red Blood Count 2.34 M/mcL (3.82-4.97); Red Cell Distribution Width 17.2 % (11.5-14.5); Segmented Neutrophils % 65.1 %; White Blood Count 5.3 K/mcL (4.3-11.1)
[2019-09-18 04:45] LABS: INR 1.2
[2019-09-18 04:46] LABS: Platelet Count 78 K/mcL (140-400)
[2019-09-18 05:02] LABS: Anisocytosis 1+ (Not Present); Macrocytosis Present (Not Present); Platelet Estimate Decreased (Normal)
[2019-09-18 05:04] LABS: Calcium 5.9 mg/dL (8.6-10.3); Magnesium 1.8 mg/dL (1.6-2.6); Potassium 3.3 mEq/L (3.5-5.1)
[2019-09-18] MEDS: Calcium Gluconate 1gm/50mL 1 GM/50 ML BAG IVPB SCH ×2 (05:31→06:26)
[2019-09-18 07:01] LABS: Bacteria,Urine Few per hpf (None-Few); Bilirubin,Urine Negative (Negative); Blood,Urine Small (Negative); Clarity,Urine Turbid (Clear); Color,Urine Light-Yellow (Yellow); Glucose,Urine (UA) 200 mg/dL (Normal); Ketones,Urine Trace mg/dL (Negative); Leukocyte Esterase,Urine Large (Negative); Mucus,Urine Few per lpf (None-Few); Nitrite,Urine Negative (Negative); Protein,Urine 30 mg/dL (Neg-Trace); RBC,Urine 15-30 per hpf (0-3); Specific Gravity,Urine 1.008 (1.010-1.025); Squamous Epithelial Cell,Urine Few per hpf (None-Few); Urobilinogen,Urine Normal (Normal); WBC,Urine TNTC per hpf (0-3)
[2019-09-18] MEDS ORDERED: 0.9 % Sodium Chloride 250 ML IVC PRN (07:23)
[2019-09-18] MEDS ORDERED: 0.9 % Sodium Chloride 1,000 ML PRIME SCH (07:30)
[2019-09-18] MEDS: predniSONE 5 MG TABLET PO SCH ×2 (08:02→17:25)
[2019-09-18] MEDS: Folic Acid 1 MG TABLET PO SCH (08:02)
[2019-09-18 17:58] LABS: Hematocrit 26.6 % (35.3-44.9); Hemoglobin 8.7 g/dL (11.5-15.4)
[2019-09-18 23:38] LABS: Hematocrit 24.7 % (35.3-44.9); Hemoglobin 8.2 g/dL (11.5-15.4)
[2019-09-19 05:51] LABS: Hematocrit 26.2 % (35.3-44.9); Hemoglobin 8.2 g/dL (11.5-15.4); Mean Corpuscular HGB Conc 31.3 g/dL (31.6-35.5); Mean Corpuscular Hemoglobin 35.8 pg (28.0-33.3); Mean Corpuscular Volume 114.4 fL (83.0-100.0); Mean Platelet Volume 11.4 fL (9.4-12.4); Red Blood Count 2.29 M/mcL (3.82-4.97); Red Cell Distribution Width 17.1 % (11.5-14.5); White Blood Count 3.7 K/mcL (4.3-11.1)
[2019-09-19 05:52] LABS: Platelet Count 71 K/mcL (140-400)
[2019-09-19 06:10] LABS: Calcium 6.6 mg/dL (8.6-10.3); Potassium 3.1 mEq/L (3.5-5.1)
[2019-09-19 06:35] LABS: Folate 12.8 ng/mL (3.0-16.0)
[2019-09-19 06:41] LABS: Vitamin B12 > 1500 pg/mL (250-1100)
[2019-09-19] MEDS ORDERED: *HR* Heparin 10,000 UNIT/10 ML VIAL IV PRN (07:25)
[2019-09-19] MEDS ORDERED: 0.9 % Sodium Chloride 250 ML IVC PRN (07:25)
[2019-09-19] MEDS: predniSONE 5 MG TABLET PO SCH (07:48)
[2019-09-19] MEDS: Folic Acid 1 MG TABLET PO SCH (07:48)
[2019-09-19 11:57] VITALS: BP 124/83
[2019-09-19] MEDS ORDERED: Cefepime HCl 1,000 MG in Water for inj. (sterile) 10 ML IVP ONE (17:27)
== END 2019-09-19 17:38 | disposition home or self-care (01) ==
LOC: 2ANU 08:58 → EMEROOARM 08:58 → SUATTDRO 12:25 → 2ANU 15:11
PROVIDERS: ADMIT Internal Medicine; ATTEND Student in an Organized Health Care Education/Training Program

== ENCOUNTER 2019-10-15 13:30 | Observation (INO) ==
[2019-10-15] MEDS ORDERED: 0.9 % Sodium Chloride 1,000 ML IVC ONE (13:48)
[2019-10-15 14:27] LABS: Basophils % 0.6 %; Eosinophils # 0.1 K/mcL (0.0-0.6); Eosinophils % 2.1 %; Hematocrit 30.1 % (35.3-44.9); Hemoglobin 9.9 g/dL (11.5-15.4); Immature Granulocytes % 0.6 % (0-4); Lymphocytes # 1.9 K/mcL (0.6-4.6); Lymphocytes % 39.7 %; Mean Corpuscular HGB Conc 32.9 g/dL (31.6-35.5); Mean Corpuscular Hemoglobin 35.7 pg (28.0-33.3); Mean Corpuscular Volume 108.7 fL (83.0-100.0); Mean Platelet Volume 11.1 fL (9.4-12.4); Monocytes # 0.5 K/mcL (0.0-1.3); Monocytes % 11.4 %; Neutrophils # 2.2 K/mcL (1.6-8.9); Nucleated Red Blood Cells 0.4 /100 WBC (0); Platelet Count 100 K/mcL (140-400); Red Blood Count 2.77 M/mcL (3.82-4.97); Red Cell Distribution Width 16.3 % (11.5-14.5); Segmented Neutrophils % 45.6 %; White Blood Count 4.7 K/mcL (4.3-11.1)
[2019-10-15 14:46] LABS: Albumin 2.8 g/dL (3.5-5.7); Albumin/Globulin Ratio 1.9 (1.1-2.2); Bilirubin,Total 0.6 mg/dL (0.3-1.0); Calcium 6.5 mg/dL (8.6-10.3); Globulin 1.5 g/dL (2.4-3.5); Potassium 2.6 mEq/L (3.5-5.1); Total Protein 4.3 g/dL (6.4-8.9)
[2019-10-15 14:48] LABS: INR 1.5; Magnesium 1.5 mg/dL (1.6-2.6); Phosphorous < 1.0 mg/dL (2.7-4.5); Prothrombin Time 16.5 Seconds (9.4-12.1)
[2019-10-15] MEDS ORDERED: Potassium Chloride 40 MEQ, Lidocaine 1% 2 ML in 0.9 % Sodium Chloride 500 ML IVPB ONE (14:51)
[2019-10-15] MEDS ORDERED: Magnesium Sulfate 1 GM/102 ML PIGGYBACK IVPB ONE ×2 (14:52→15:30)
[2019-10-15 15:00] LABS: Thyroid Stimulating Hormone 12.338 mcIU/mL (0.340-5.600)
[2019-10-15] MEDS ORDERED: Calcium Gluconate 1gm/50mL 1 GM/50 ML BAG IVPB SCH (15:00)
[2019-10-15 15:27] LABS: Bacteria,Urine Few per hpf (None-Few); Bilirubin,Urine Negative (Negative); Blood,Urine Trace (Negative); Clarity,Urine Turbid (Clear); Color,Urine Light-Yellow (Yellow); Glucose,Urine (UA) Normal (Normal); Ketones,Urine Negative (Negative); Leukocyte Esterase,Urine Large (Negative); Nitrite,Urine Negative (Negative); Protein,Urine 30 mg/dL (Neg-Trace); Specific Gravity,Urine 1.006 (1.010-1.025); Squamous Epithelial Cell,Urine Few per hpf (None-Few); Urobilinogen,Urine Normal (Normal); WBC,Urine TNTC per hpf (0-3)
[2019-10-15] MEDS ORDERED: 0.9 % Sodium Chloride 500 ML IVC ONE (15:41)
[2019-10-15 15:51] LABS: Triiodothyronine (T3) Free 2.26 pg/mL (2.50-3.90)
[2019-10-15 15:55] LABS: Triiodothyronine (T3) Total 0.38 ng/mL (0.87-1.78)
[2019-10-15] MEDS ORDERED: Calcium Gluconate 1gm/50mL 1 GM/50 ML BAG IVPB PRN (17:08)
[2019-10-15] MEDS ORDERED: Potassium Phosphate 44 MEQ in 0.9 % Sodium Chloride 250 ML IVPB PRN (17:08)
[2019-10-15] MEDS ORDERED: Cyanocobalamin (B-12) 1,000 MCG/ML VIAL IM SCH (17:15)
[2019-10-15] MEDS: Magnesium Oxide 400 MG TABLET PO SCH (20:16)
[2019-10-15] MEDS ORDERED: COPPER GLUCONATE 2 MG PO SCH (21:00)
[2019-10-15] MEDS: predniSONE 5 MG TABLET PO SCH (21:35)
[2019-10-16 00:46] LABS: ABG Ionized Calcium 0.93 mmol/L (1.15-1.35)
[2019-10-16 01:02] LABS: Magnesium 1.8 mg/dL (1.6-2.6); Phosphorous 1.8 mg/dL (2.7-4.5)
[2019-10-16 01:27] LABS: VBG Ionized Calcium 0.93 mmol/L (1.15-1.35)
[2019-10-16] MEDS: Acetaminophen 325 MG TABLET PO PRN ×2 (02:42→12:47)
[2019-10-16 02:58] LABS: VBG Ionized Calcium 0.96 mmol/L (1.15-1.35)
[2019-10-16 03:03] LABS: Hematocrit 27.6 % (35.3-44.9); Hemoglobin 8.8 g/dL (11.5-15.4); Mean Corpuscular HGB Conc 31.9 g/dL (31.6-35.5)
[2019-10-16 03:05] LABS: Immature Platelets 9.7 % (1.1-6.1); Mean Corpuscular Hemoglobin 35.5 pg (28.0-33.3); Mean Corpuscular Volume 111.3 fL (83.0-100.0); Mean Platelet Volume 11.5 fL (9.4-12.4); Red Blood Count 2.48 M/mcL (3.82-4.97); Red Cell Distribution Width 16.6 % (11.5-14.5); White Blood Count 3.6 K/mcL (4.3-11.1)
[2019-10-16 03:20] LABS: Calcium 6.3 mg/dL (8.6-10.3); Phosphorous 1.8 mg/dL (2.7-4.5); Potassium 4.9 mEq/L (3.5-5.1)
[2019-10-16 07:56] LABS: Magnesium 2.5 mg/dL (1.6-2.6); Phosphorous 2.5 mg/dL (2.7-4.5)
[2019-10-16] MEDS: Magnesium Oxide 400 MG TABLET PO SCH ×2 (08:57→19:46)
[2019-10-16] MEDS: predniSONE 5 MG TABLET PO SCH ×2 (08:57→17:28)
[2019-10-16] MEDS: calcitrioL 0.25 MCG CAPSULE PO SCH (08:58)
[2019-10-16] MEDS: Cholecalciferol (D-3) 1,000 UNIT (25MCG) TABLET PO SCH (08:58)
[2019-10-16] MEDS: Folic Acid 1 MG TABLET PO SCH (08:58)
[2019-10-16] MEDS: Vitamin E 200 UNIT (90MG) CAPSULE PO SCH (08:58)
[2019-10-16] MEDS ORDERED: VITAMIN A 10000 UNIT PO SCH (09:00)
[2019-10-16] MEDS: *HR* Heparin 5,000 UNIT/ML VIAL SQ SCH (17:28)
[2019-10-16] MEDS: Calcium Gluconate 1gm/50mL 1 GM/50 ML BAG IVPB SCH ×2 (17:29→19:45)
[2019-10-16] MEDS: PrednisoLONE Acetate 1% Opth 5 ML BOTTLE BOTH EYES SCH (21:31)
[2019-10-16] MEDS: Tobramycin Opth SOLN 5 ML BOTTLE RIGHT EYE SCH (21:32)
[2019-10-17 03:42] LABS: VBG Ionized Calcium 1.07 mmol/L (1.15-1.35)
[2019-10-17 03:42] LABS: Mean Corpuscular Hemoglobin 35.4 pg (28.0-33.3); Mean Corpuscular Volume 114.2 fL (83.0-100.0); Mean Platelet Volume 11.5 fL (9.4-12.4); Red Blood Count 2.54 M/mcL (3.82-4.97); Red Cell Distribution Width 16.8 % (11.5-14.5); White Blood Count 4.3 K/mcL (4.3-11.1)
[2019-10-17 03:59] LABS: Calcium 7.2 mg/dL (8.6-10.3); Magnesium 2.5 mg/dL (1.6-2.6); Phosphorous 3.9 mg/dL (2.7-4.5); Potassium 4.6 mEq/L (3.5-5.1)
[2019-10-17] MEDS: *HR* Heparin 5,000 UNIT/ML VIAL SQ SCH (05:52)
[2019-10-17] MEDS: Magnesium Oxide 400 MG TABLET PO SCH (08:16)
[2019-10-17] MEDS: Vitamin E 200 UNIT (90MG) CAPSULE PO SCH (08:16)
[2019-10-17] MEDS: Folic Acid 1 MG TABLET PO SCH (08:16)
[2019-10-17] MEDS: predniSONE 5 MG TABLET PO SCH (08:17)
[2019-10-17] MEDS: Cholecalciferol (D-3) 1,000 UNIT (25MCG) TABLET PO SCH (08:17)
[2019-10-17] MEDS: calcitrioL 0.25 MCG CAPSULE PO SCH (08:17)
[2019-10-17] MEDS: PrednisoLONE Acetate 1% Opth 5 ML BOTTLE BOTH EYES SCH ×2 (08:17→14:38)
[2019-10-17] MEDS: Tobramycin Opth SOLN 5 ML BOTTLE RIGHT EYE SCH ×2 (08:17→14:38)
[2019-10-17 11:04] VITALS: BP 112/87
== END 2019-10-17 17:20 | disposition home or self-care (01) ==
LOC: EMEROOARM 13:30 → 2ANU 13:30 → SUATTDRO 16:19 → 2ANU 17:38 → 2NNU 17:49
PROVIDERS: ADMIT Internal Medicine; ATTEND Internal Medicine

== ENCOUNTER 2019-11-08 08:57 | Inpatient (IN) ==
[2019-11-08] MEDS ORDERED: Morphine Sulfate 2 MG/ML SYRINGE IVP ONE (09:41)
[2019-11-08] MEDS ORDERED: 0.9 % Sodium Chloride 500 ML IVC ONE ×2 (09:42→14:43)
[2019-11-08] MEDS ORDERED: *HR* FentaNYL (PF) 100 MCG/2 ML VIAL IVP ONE (09:43)
[2019-11-08 09:51] LABS: Basophils % 0.1 %; Eosinophils % 0.2 %
[2019-11-08 09:52] LABS: Hematocrit 35.4 % (35.3-44.9); Hemoglobin 11.7 g/dL (11.5-15.4); Immature Granulocytes % 0.4 % (0-4); Immature Platelets 15.4 % (1.1-6.1); Lymphocytes % 23.1 %; Mean Corpuscular HGB Conc 33.1 g/dL (31.6-35.5); Mean Corpuscular Hemoglobin 36.2 pg (28.0-33.3); Mean Corpuscular Volume 109.6 fL (83.0-100.0); Mean Platelet Volume 12.4 fL (9.4-12.4); Monocytes # 0.5 K/mcL (0.0-1.3); Monocytes % 5.3 %; Red Blood Count 3.23 M/mcL (3.82-4.97); Red Cell Distribution Width 17.3 % (11.5-14.5); Segmented Neutrophils % 70.9 %; White Blood Count 8.5 K/mcL (4.3-11.1)
[2019-11-08 09:54] LABS: Platelet Count 84 K/mcL (140-400)
[2019-11-08 10:00] LABS: Bacteria,Urine Few per hpf (None-Few); Bilirubin,Urine Negative (Negative); Blood,Urine Trace (Negative); Clarity,Urine Turbid (Clear); Color,Urine Light-Yellow (Yellow); Glucose,Urine (UA) Normal (Normal); Ketones,Urine Negative (Negative); Leukocyte Esterase,Urine Large (Negative); Nitrite,Urine Negative (Negative); PH,Urine 8.5 pH Units (5.0-8.0); Protein,Urine 50 mg/dL (Neg-Trace); Specific Gravity,Urine 1.009 (1.010-1.025); Squamous Epithelial Cell,Urine Few per hpf (None-Few); Urobilinogen,Urine Normal (Normal); WBC,Urine TNTC per hpf (0-3)
[2019-11-08 10:12] LABS: Alanine Aminotransferase 38 Units/L (7-52); Albumin 2.7 g/dL (3.5-5.7); Albumin/Globulin Ratio 1.7 (1.1-2.2); Alkaline Phosphatase 113 Units/L (34-104); Amylase 55 Units/L (29-103); Aspartate Amino Transferase 20 Units/L (13-39); BUN/Creatinine Ratio 6 (6-26); Bilirubin,Direct 0.2 mg/dL (0.0-0.2); Bilirubin,Indirect 0.6 mg/dL (0.0-1.0); Bilirubin,Total 0.8 mg/dL (0.3-1.0); Blood Urea Nitrogen 22 mg/dL (6-20); Carbon Dioxide 37 mEq/L (23-29); Chloride 89 mEq/L (98-107); Globulin 1.6 g/dL (2.4-3.5); Glucose 99 mg/dL (70-105); Osmolality,Calculated 289 (280-300); Potassium 3.4 mEq/L (3.5-5.1); Sodium 138 mEq/L (136-145); Total Protein 4.3 g/dL (6.4-8.9); eGFR For African Americans 15 (> 60); eGFR For Non-African Americans 12 (> 60)
[2019-11-08 13:27] LABS: Lipase < 3 Units/L (11-82)
[2019-11-08] MEDS ORDERED: Ondansetron 4 MG/2 ML VIAL IVP PRN (15:05)
[2019-11-08] MEDS ORDERED: Naloxone 0.4 MG/ML INJ IVP PRN (15:05)
[2019-11-08] MEDS ORDERED: polyethylene glycoL 3350 17 GM POWD.PACK PO ONE (15:13)
[2019-11-08] MEDS ORDERED: Acetaminophen 325 MG TABLET PO PRN (15:14)
[2019-11-08] MEDS ORDERED: 0.9 % Sodium Chloride 500 ML IVC SCH (15:15)
[2019-11-08] MEDS ORDERED: 0.9 % Sodium Chloride 1,000 ML IV ONE ×2 (15:43→16:40)
[2019-11-08] MEDS ORDERED: Albumin 25% 25gram/100mL 25 GM/100 ML IV.SOLN IVPB ONE (16:02)
[2019-11-08] MEDS ORDERED: Hydrocortisone Sodium Succ 100 MG/2 ML VIAL IVP ONE (16:18)
[2019-11-08] MEDS: Cefepime HCl 2,000 MG in 0.9 % Sodium Chloride Mini Bag 100 ML IVPB SCH (17:33)
[2019-11-08] MEDS: Hydrocortisone Sodium Succ 100 MG/2 ML VIAL IVP SCH (22:10)
[2019-11-09 03:03] LABS: Lymphocytes % 11.2 %
[2019-11-09 03:05] LABS: Hemoglobin 8.1 g/dL (11.5-15.4); Immature Granulocytes % 0.4 % (0-4); Immature Platelets 11.1 % (1.1-6.1); Lymphocytes # 0.6 K/mcL (0.6-4.6); Mean Corpuscular HGB Conc 32.4 g/dL (31.6-35.5); Mean Corpuscular Hemoglobin 36.8 pg (28.0-33.3); Mean Corpuscular Volume 113.6 fL (83.0-100.0); Mean Platelet Volume 12.7 fL (9.4-12.4); Monocytes # 0.1 K/mcL (0.0-1.3); Neutrophils # 4.3 K/mcL (1.6-8.9); Red Cell Distribution Width 17.5 % (11.5-14.5); Segmented Neutrophils % 86.4 %
[2019-11-09 03:23] LABS: Platelet Count 62 K/mcL (140-400)
[2019-11-09 03:24] LABS: Anisocytosis 1+ (Not Present); Macrocytosis Present (Not Present); Platelet Estimate Decreased (Normal)
[2019-11-09 03:28] LABS: Calcium 5.8 mg/dL (8.6-10.3); Magnesium 2.2 mg/dL (1.6-2.6); Phosphorous 3.1 mg/dL (2.7-4.5); Potassium 3.2 mEq/L (3.5-5.1)
[2019-11-09] MEDS: Calcium Gluconate 1gm/50mL 1 GM/50 ML BAG IVPB SCH ×3 (04:35→06:34)
[2019-11-09] MEDS: Hydrocortisone Sodium Succ 100 MG/2 ML VIAL IVP SCH ×4 (04:35→21:45)
[2019-11-09] MEDS: Cefepime HCl 2,000 MG in 0.9 % Sodium Chloride Mini Bag 100 ML IVPB SCH (05:03)
[2019-11-09] MEDS ORDERED: Albumin 25% 25gram/100mL 25 GM/100 ML IV.SOLN IVPB PRN (07:13)
[2019-11-09] MEDS ORDERED: 0.9 % Sodium Chloride 250 ML IVC PRN (07:13)
[2019-11-09] MEDS ORDERED: 0.9 % Sodium Chloride 1,000 ML PRIME SCH (07:15)
[2019-11-09] MEDS ORDERED: *HR* Heparin 10,000 UNIT/10 ML VIAL IV PRN (07:52)
[2019-11-09 08:28] LABS: Calcium 6.6 mg/dL (8.6-10.3); Potassium 3.1 mEq/L (3.5-5.1)
[2019-11-09] MEDS ORDERED: polyethylene glycoL 3350 17 GM POWD.PACK PO PRN (13:08)
[2019-11-09 13:52] LABS: Hematocrit 33.3 % (35.3-44.9)
[2019-11-09] MEDS: Cefepime HCl 1,000 MG in 0.9 % Sodium Chloride Mini Bag 100 ML IVPB SCH (16:51)
[2019-11-09] MEDS: 0.9 % Sodium Chloride 1,000 ML IVC SCH (18:32)
[2019-11-10] MEDS: Hydrocortisone Sodium Succ 100 MG/2 ML VIAL IVP SCH ×3 (03:59→20:15)
[2019-11-10 04:49] LABS: Monocytes % 3.2 %; Red Cell Distribution Width 18.1 % (11.5-14.5)
[2019-11-10 04:51] LABS: Hematocrit 26.8 % (35.3-44.9); Hemoglobin 8.5 g/dL (11.5-15.4); Immature Granulocytes % 0.5 % (0-4); Immature Platelets 11.6 % (1.1-6.1); Lymphocytes # 1.3 K/mcL (0.6-4.6); Lymphocytes % 17.6 %; Mean Corpuscular HGB Conc 31.7 g/dL (31.6-35.5); Mean Corpuscular Hemoglobin 36.8 pg (28.0-33.3); Mean Platelet Volume 12.5 fL (9.4-12.4); Monocytes # 0.2 K/mcL (0.0-1.3); Neutrophils # 5.9 K/mcL (1.6-8.9); Red Blood Count 2.31 M/mcL (3.82-4.97); Segmented Neutrophils % 78.7 %; White Blood Count 7.5 K/mcL (4.3-11.1)
[2019-11-10 04:59] LABS: Platelet Count 72 K/mcL (140-400)
[2019-11-10 05:06] LABS: Calcium 6.9 mg/dL (8.6-10.3); Potassium 2.9 mEq/L (3.5-5.1)
[2019-11-10 05:42] LABS: Macrocytosis Present (Not Present); Platelet Estimate Decreased (Normal)
[2019-11-10] MEDS: 0.9 % Sodium Chloride 1,000 ML IVC SCH (07:51)
[2019-11-10] MEDS ORDERED: Cyanocobalamin (B-12) 1,000 MCG/ML VIAL IM SCH (08:00)
[2019-11-10] MEDS: Folic Acid 1 MG TABLET PO SCH (08:31)
[2019-11-10] MEDS: Cholecalciferol (D-3) 1,000 UNIT (25MCG) TABLET PO SCH (08:31)
[2019-11-10] MEDS: VITAMIN E ACID SUCCINATE 100 UNIT PO SCH (08:33)
[2019-11-10] MEDS: (Vitamin A 10,000 UNIT) PO SCH (08:33)
[2019-11-10 08:43] LABS: Hematocrit 26.5 % (35.3-44.9); Hemoglobin 8.3 g/dL (11.5-15.4)
[2019-11-10] MEDS ORDERED: NON-FORMULARY MEDICATION 1 EACH EACH (Nut.Tx.Impaired Renal Fxn,Soy [Nepro Carb Steady] 23 PO SCH (09:00)
[2019-11-10] MEDS ORDERED: *HR* OxyCODONE/APAP 5/325 TABLET PO PRN ×2 (10:40→10:45)
[2019-11-10] MEDS: Cefepime HCl 1,000 MG in 0.9 % Sodium Chloride Mini Bag 100 ML IVPB SCH (15:33)
[2019-11-11 00:15] LABS: ABG Base Excess -11 mEq/L (-2 to 3); ABG HCO3 13 mEq/L (21-27); ABG Oxygen Saturation 98 % (95-98); ABG PCO2 23 mmHg (35-45); ABG PH 7.37 pH Units (7.32-7.45); ABG PO2 97 mmHg (85-104); ABG TCO2 14 mEq/L (20-26)
[2019-11-11 00:43] LABS: Hematocrit 29.3 % (35.3-44.9); Hemoglobin 9.2 g/dL (11.5-15.4); Immature Granulocytes % 0.4 % (0-4); Immature Platelets 10.6 % (1.1-6.1); Lymphocytes # 1.1 K/mcL (0.6-4.6); Lymphocytes % 14.1 %; Mean Corpuscular HGB Conc 31.4 g/dL (31.6-35.5); Mean Corpuscular Hemoglobin 36.5 pg (28.0-33.3); Mean Corpuscular Volume 116.3 fL (83.0-100.0); Mean Platelet Volume 12.4 fL (9.4-12.4); Monocytes # 0.3 K/mcL (0.0-1.3); Monocytes % 3.5 %; Neutrophils # 6.3 K/mcL (1.6-8.9); Red Blood Count 2.52 M/mcL (3.82-4.97); Red Cell Distribution Width 17.9 % (11.5-14.5); White Blood Count 7.7 K/mcL (4.3-11.1)
[2019-11-11 00:47] LABS: Platelet Count 72 K/mcL (140-400)
[2019-11-11 01:01] LABS: Calcium 6.7 mg/dL (8.6-10.3); Magnesium 1.9 mg/dL (1.6-2.6); Potassium 3.1 mEq/L (3.5-5.1)
[2019-11-11 01:26] LABS: Anisocytosis 1+ (Not Present); Platelet Estimate Decreased (Normal)
[2019-11-11] MEDS ORDERED: Potassium Chloride 40 MEQ, Lidocaine 1% 2 ML in 0.9 % Sodium Chloride 500 ML IVPB ONE (01:30)
[2019-11-11] MEDS: Hydrocortisone Sodium Succ 100 MG/2 ML VIAL IVP SCH ×2 (03:39→15:25)
[2019-11-11] MEDS: Cholecalciferol (D-3) 1,000 UNIT (25MCG) TABLET PO SCH (09:38)
[2019-11-11] MEDS: Folic Acid 1 MG TABLET PO SCH (09:38)
[2019-11-11] MEDS: (Vitamin A 10,000 UNIT) PO SCH (10:31)
[2019-11-11] MEDS: VITAMIN E ACID SUCCINATE 100 UNIT PO SCH (10:31)
[2019-11-11] MEDS ORDERED: Calcium Chloride 1,000 MG in 0.9 % Sodium Chloride 100 ML IVPB ONE (10:35)
[2019-11-11] MEDS ORDERED: 0.9 % Sodium Chloride 250 ML IVC PRN (10:35)
[2019-11-11] MEDS ORDERED: 0.9 % Sodium Chloride 1,000 ML PRIME SCH (10:45)
[2019-11-11] MEDS ORDERED: *HR* Heparin 10,000 UNIT/10 ML VIAL IV PRN (18:21)
[2019-11-11] MEDS ORDERED: *HR* Heparin 10,000 UNIT/10 ML VIAL ONE (18:27)
[2019-11-11] MEDS: Cefepime HCl 1,000 MG in 0.9 % Sodium Chloride Mini Bag 100 ML IVPB SCH (19:41)
[2019-11-11 20:31] LABS: Potassium 3.8 mEq/L (3.5-5.1)
[2019-11-12] MEDS: Hydrocortisone Sodium Succ 100 MG/2 ML VIAL IVP SCH (03:31)
[2019-11-12 04:03] LABS: Basophils % 0.1 %; Hemoglobin 9.1 g/dL (11.5-15.4); Mean Corpuscular Hemoglobin 36.7 pg (28.0-33.3); Mean Platelet Volume 12.5 fL (9.4-12.4); Red Blood Count 2.48 M/mcL (3.82-4.97)
[2019-11-12 04:05] LABS: VBG Ionized Calcium 1.03 mmol/L (1.15-1.35)
[2019-11-12 04:06] LABS: Eosinophils % 0.4 %; Immature Granulocytes % 0.7 % (0-4); Immature Platelets 11.4 % (1.1-6.1); Lymphocytes # 2.5 K/mcL (0.6-4.6); Lymphocytes % 24.1 %; Mean Corpuscular HGB Conc 32.5 g/dL (31.6-35.5); Mean Corpuscular Volume 112.9 fL (83.0-100.0); Monocytes # 0.5 K/mcL (0.0-1.3); Monocytes % 4.7 %; Neutrophils # 7.3 K/mcL (1.6-8.9); Nucleated Red Blood Cells 0.2 /100 WBC (0); Red Cell Distribution Width 17.7 % (11.5-14.5); White Blood Count 10.4 K/mcL (4.3-11.1)
[2019-11-12 04:16] LABS: Calcium 7.6 mg/dL (8.6-10.3)
[2019-11-12 04:20] LABS: Platelet Count 54 K/mcL (140-400)
[2019-11-12 05:10] LABS: Anisocytosis 1+ (Not Present); Platelet Estimate Decreased (Normal)
[2019-11-12] MEDS: Folic Acid 1 MG TABLET PO SCH (08:46)
[2019-11-12] MEDS: Cholecalciferol (D-3) 1,000 UNIT (25MCG) TABLET PO SCH (08:47)
[2019-11-12] MEDS ORDERED: Furosemide 40 MG/4 ML VIAL IVP ONE (10:10)
[2019-11-12 15:07] LABS: Calcium 7.7 mg/dL (8.6-10.3); Potassium 3.8 mEq/L (3.5-5.1)
[2019-11-12] MEDS: Cefepime HCl 1,000 MG in 0.9 % Sodium Chloride Mini Bag 100 ML IVPB SCH (16:09)
[2019-11-13 01:44] LABS: Hemoglobin 7.9 g/dL (11.5-15.4)
[2019-11-13 01:46] LABS: Basophils % 0.1 %; Eosinophils # 0.1 K/mcL (0.0-0.6); Hematocrit 24.8 % (35.3-44.9); Immature Granulocytes % 0.6 % (0-4); Immature Platelets 9.8 % (1.1-6.1); Lymphocytes # 2.2 K/mcL (0.6-4.6); Lymphocytes % 31.1 %; Mean Corpuscular HGB Conc 31.9 g/dL (31.6-35.5); Mean Corpuscular Hemoglobin 36.4 pg (28.0-33.3); Mean Corpuscular Volume 114.3 fL (83.0-100.0); Mean Platelet Volume 11.9 fL (9.4-12.4); Monocytes # 0.4 K/mcL (0.0-1.3); Monocytes % 4.9 %; Neutrophils # 4.4 K/mcL (1.6-8.9); Red Blood Count 2.17 M/mcL (3.82-4.97); Red Cell Distribution Width 17.5 % (11.5-14.5); Segmented Neutrophils % 62.3 %; White Blood Count 7.1 K/mcL (4.3-11.1)
[2019-11-13 01:48] LABS: Platelet Count 31 K/mcL (140-400)
[2019-11-13 01:58] LABS: Albumin 2.1 g/dL (3.5-5.7); Albumin/Globulin Ratio 1.6 (1.1-2.2); Bilirubin,Direct 0.1 mg/dL (0.0-0.2); Bilirubin,Indirect 0.4 mg/dL (0.0-1.0); Bilirubin,Total 0.5 mg/dL (0.3-1.0); Globulin 1.3 g/dL (2.4-3.5); Total Protein 3.4 g/dL (6.4-8.9)
[2019-11-13 01:59] LABS: Potassium 3.6 mEq/L (3.5-5.1)
[2019-11-13 02:23] LABS: Anisocytosis 1+ (Not Present); Macrocytosis Present (Not Present); Platelet Estimate Marked Decrease (Normal)
[2019-11-13] MEDS ORDERED: 0.9 % Sodium Chloride 250 ML IVC PRN (07:13)
[2019-11-13] MEDS ORDERED: 0.9 % Sodium Chloride 1,000 ML PRIME SCH (07:15)
[2019-11-13] MEDS ORDERED: Calcium Chloride 1,000 MG in 0.9 % Sodium Chloride 100 ML IVPB ONE (07:45)
[2019-11-13] MEDS: Folic Acid 1 MG TABLET PO SCH (08:47)
[2019-11-13] MEDS: Cholecalciferol (D-3) 1,000 UNIT (25MCG) TABLET PO SCH (08:48)
[2019-11-13] MEDS: predniSONE 5 MG TABLET PO SCH ×2 (08:48→17:56)
[2019-11-13] MEDS ORDERED: *HR* Heparin 10,000 UNIT/10 ML VIAL IV PRN (12:02)
[2019-11-13] MEDS: calcitrioL 0.25 MCG CAPSULE PO SCH (13:18)
[2019-11-14 04:49] LABS: Immature Granulocytes % 0.4 % (0-4)
[2019-11-14 04:51] LABS: Eosinophils # 0.1 K/mcL (0.0-0.6); Eosinophils % 1.7 %; Hematocrit 23.4 % (35.3-44.9); Hemoglobin 7.3 g/dL (11.5-15.4); Immature Platelets 16.1 % (1.1-6.1); Lymphocytes # 1.9 K/mcL (0.6-4.6); Lymphocytes % 33.9 %; Mean Corpuscular HGB Conc 31.2 g/dL (31.6-35.5); Mean Corpuscular Hemoglobin 36.3 pg (28.0-33.3); Mean Corpuscular Volume 116.4 fL (83.0-100.0); Mean Platelet Volume 13.5 fL (9.4-12.4); Monocytes # 0.3 K/mcL (0.0-1.3); Monocytes % 6.2 %; Neutrophils # 3.2 K/mcL (1.6-8.9); Red Blood Count 2.01 M/mcL (3.82-4.97); Red Cell Distribution Width 17.1 % (11.5-14.5); Segmented Neutrophils % 57.8 %; White Blood Count 5.5 K/mcL (4.3-11.1)
[2019-11-14 05:13] LABS: BUN/Creatinine Ratio 6 (6-26); Blood Urea Nitrogen 11 mg/dL (6-20); Calcium 7.5 mg/dL (8.6-10.3); Carbon Dioxide 28 mEq/L (23-29); Chloride 106 mEq/L (98-107); Glucose 107 mg/dL (70-105); Iron 57 mcg/dL (50-170); Magnesium 1.9 mg/dL (1.6-2.6); Osmolality,Calculated 294 (280-300); Potassium 4.1 mEq/L (3.5-5.1); Sodium 142 mEq/L (136-145); Transferrin < 75 mg/dL (203-362); eGFR For African Americans 33 (> 60); eGFR For Non-African Americans 27 (> 60)
[2019-11-14 05:19] LABS: Ferritin > 1500 ng/mL (10-120); Platelet Count 25 K/mcL (140-400)
[2019-11-14 05:20] LABS: Folate 10.2 ng/mL (3.0-16.0)
[2019-11-14 05:23] LABS: Vitamin B12 > 1500 pg/mL (250-1100)
[2019-11-14 05:49] LABS: Anisocytosis 1+ (Not Present); Macrocytosis Present (Not Present); Platelet Estimate Marked Decrease (Normal)
[2019-11-14] MEDS: predniSONE 5 MG TABLET PO SCH ×2 (07:20→16:57)
[2019-11-14] MEDS: calcitrioL 0.25 MCG CAPSULE PO SCH (07:20)
[2019-11-14] MEDS: Folic Acid 1 MG TABLET PO SCH (07:20)
[2019-11-14] MEDS ORDERED: Potassium Phosphate 44 MEQ in 0.9 % Sodium Chloride 250 ML IVPB ONE (07:36)
[2019-11-14] MEDS ORDERED: 0.9 % Sodium Chloride 250 ML IVC SCH (07:45)
[2019-11-14] MEDS ORDERED: 0.9 % Sodium Chloride 250 ML ONE (10:25)
[2019-11-15] MEDS ORDERED: Acetaminophen IV 500 MG/50 ML INFUS..BTL IVPB ONE (01:30)
[2019-11-15 05:18] LABS: Hemoglobin 6.5 g/dL (11.5-15.4); Red Cell Distribution Width 17.2 % (11.5-14.5)
[2019-11-15 05:19] LABS: Eosinophils # 0.1 K/mcL (0.0-0.6); Eosinophils % 1.7 %; Hematocrit 20.2 % (35.3-44.9); Immature Granulocytes % 0.4 % (0-4); Immature Platelets 10.7 % (1.1-6.1); Lymphocytes % 25.9 %; Mean Corpuscular HGB Conc 32.2 g/dL (31.6-35.5); Mean Corpuscular Hemoglobin 37.6 pg (28.0-33.3); Mean Corpuscular Volume 116.8 fL (83.0-100.0); Mean Platelet Volume 12.5 fL (9.4-12.4); Monocytes # 0.4 K/mcL (0.0-1.3); Monocytes % 7.5 %; Red Blood Count 1.73 M/mcL (3.82-4.97); Segmented Neutrophils % 64.5 %; White Blood Count 5.2 K/mcL (4.3-11.1)
[2019-11-15 05:27] LABS: Lymphocytes # 1.4 K/mcL (0.6-4.6); Neutrophils # 3.4 K/mcL (1.6-8.9); Platelet Count 51 K/mcL (140-400)
[2019-11-15 05:49] LABS: Magnesium 1.8 mg/dL (1.6-2.6); Phosphorous 5.3 mg/dL (2.7-4.5); Potassium 3.8 mEq/L (3.5-5.1)
[2019-11-15 06:05] LABS: Anisocytosis 1+ (Not Present); Macrocytosis Present (Not Present); Platelet Estimate Marked Decrease (Normal)
[2019-11-15] MEDS ORDERED: 0.9 % Sodium Chloride 250 ML IVC PRN (06:56)
[2019-11-15] MEDS: predniSONE 5 MG TABLET PO SCH ×2 (07:26→17:29)
[2019-11-15] MEDS: calcitrioL 0.25 MCG CAPSULE PO SCH (07:26)
[2019-11-15] MEDS: Folic Acid 1 MG TABLET PO SCH (07:27)
[2019-11-15] MEDS ORDERED: *HR* Heparin 10,000 UNIT/10 ML VIAL IV PRN (10:42)
[2019-11-15] MEDS ORDERED: Acetaminophen IV 1,000 MG/100 ML INFUS..BTL IVPB ONE (22:30)
[2019-11-16 04:09] LABS: Mean Corpuscular HGB Conc 31.9 g/dL (31.6-35.5)
[2019-11-16 04:11] LABS: Hematocrit 25.4 % (35.3-44.9); Hemoglobin 8.1 g/dL (11.5-15.4); Immature Platelets 14.2 % (1.1-6.1); Mean Corpuscular Hemoglobin 35.4 pg (28.0-33.3); Mean Corpuscular Volume 110.9 fL (83.0-100.0); Mean Platelet Volume 13.3 fL (9.4-12.4); Red Blood Count 2.29 M/mcL (3.82-4.97); Red Cell Distribution Width 19.2 % (11.5-14.5); White Blood Count 5.4 K/mcL (4.3-11.1)
[2019-11-16 04:25] LABS: Calcium 7.4 mg/dL (8.6-10.3); Magnesium 1.8 mg/dL (1.6-2.6); Phosphorous 3.1 mg/dL (2.7-4.5); Potassium 3.6 mEq/L (3.5-5.1)
[2019-11-16] MEDS: Folic Acid 1 MG TABLET PO SCH (10:18)
[2019-11-16] MEDS: calcitrioL 0.25 MCG CAPSULE PO SCH (10:18)
[2019-11-16] MEDS: predniSONE 5 MG TABLET PO SCH ×2 (10:18→16:44)
[2019-11-17 03:37] LABS: Hematocrit 26.8 % (35.3-44.9); Hemoglobin 8.3 g/dL (11.5-15.4); Immature Platelets 15.8 % (1.1-6.1); Mean Corpuscular Hemoglobin 35.6 pg (28.0-33.3); Mean Platelet Volume 13.6 fL (9.4-12.4); Red Blood Count 2.33 M/mcL (3.82-4.97); Red Cell Distribution Width 18.7 % (11.5-14.5); White Blood Count 5.5 K/mcL (4.3-11.1)
[2019-11-17 03:55] LABS: Calcium 7.3 mg/dL (8.6-10.3); Magnesium 1.9 mg/dL (1.6-2.6); Phosphorous 3.4 mg/dL (2.7-4.5); Potassium 3.2 mEq/L (3.5-5.1)
[2019-11-17] MEDS: Folic Acid 1 MG TABLET PO SCH (09:29)
[2019-11-17] MEDS: calcitrioL 0.25 MCG CAPSULE PO SCH (09:29)
[2019-11-17] MEDS: predniSONE 5 MG TABLET PO SCH ×2 (09:29→18:21)
[2019-11-18 03:22] LABS: Hematocrit 25.1 % (35.3-44.9); Hemoglobin 7.9 g/dL (11.5-15.4); Immature Platelets 10.6 % (1.1-6.1); Mean Corpuscular HGB Conc 31.5 g/dL (31.6-35.5); Mean Corpuscular Hemoglobin 35.9 pg (28.0-33.3); Mean Corpuscular Volume 114.1 fL (83.0-100.0); Mean Platelet Volume 13.2 fL (9.4-12.4); Red Blood Count 2.2 M/mcL (3.82-4.97); Red Cell Distribution Width 18.8 % (11.5-14.5); White Blood Count 5.9 K/mcL (4.3-11.1)
[2019-11-18 03:40] LABS: Calcium 6.9 mg/dL (8.6-10.3)
[2019-11-18] MEDS ORDERED: 0.9 % Sodium Chloride 250 ML IVC PRN (07:58)
[2019-11-18] MEDS ORDERED: *HR* Heparin 10,000 UNIT/10 ML VIAL IV PRN ×2 (07:58)
[2019-11-18] MEDS: Folic Acid 1 MG TABLET PO SCH (08:25)
[2019-11-18] MEDS: calcitrioL 0.25 MCG CAPSULE PO SCH (08:25)
[2019-11-18] MEDS: predniSONE 5 MG TABLET PO SCH ×2 (08:26→16:44)
[2019-11-19] MEDS ORDERED: Acetaminophen IV 1,000 MG/100 ML INFUS..BTL IVPB ONE (00:23)
[2019-11-19 07:57] VITALS: BP 126/79
[2019-11-19] MEDS: Folic Acid 1 MG TABLET PO SCH (09:18)
[2019-11-19] MEDS: predniSONE 5 MG TABLET PO SCH (09:19)
[2019-11-19] MEDS: calcitrioL 0.25 MCG CAPSULE PO SCH (09:19)
[2019-11-19 11:09] LABS: Hematocrit 28.5 % (35.3-44.9); Mean Platelet Volume 13.1 fL (9.4-12.4)
[2019-11-19 11:10] LABS: Immature Platelets 13.7 % (1.1-6.1); Mean Corpuscular HGB Conc 31.6 g/dL (31.6-35.5); Mean Corpuscular Hemoglobin 35.6 pg (28.0-33.3); Mean Corpuscular Volume 112.6 fL (83.0-100.0); Red Blood Count 2.53 M/mcL (3.82-4.97); Red Cell Distribution Width 18.1 % (11.5-14.5)
[2019-11-19 11:27] LABS: Calcium 7.9 mg/dL (8.6-10.3); Magnesium 1.8 mg/dL (1.6-2.6); Phosphorous 2.3 mg/dL (2.7-4.5); Potassium 4.1 mEq/L (3.5-5.1)
== END 2019-11-19 16:22 | disposition home health service (06) | DRG 689 ==
LOC: EMEROOARM 08:57 → 2NNU 08:57 → SUATTDRO 15:39 → 2NNU 16:31 → SUATTDRO 11-09 15:28 → 2ANU 11-10 17:58
PROVIDERS: ADMIT Internal Medicine; ATTEND Pharmacist

== ENCOUNTER 2019-11-21 20:22 | Observation (INO) ==
[2019-11-21] MEDS ORDERED: Ondansetron 4 MG/2 ML VIAL IVP PRN (20:38)
[2019-11-21] MEDS ORDERED: Naloxone 0.4 MG/ML INJ IVP PRN (20:38)
[2019-11-22 05:41] LABS: INR 1.2; Prothrombin Time 13.3 Seconds (9.4-12.1)
[2019-11-22 05:45] LABS: Hematocrit 24.6 % (35.3-44.9); Hemoglobin 7.8 g/dL (11.5-15.4); Mean Corpuscular HGB Conc 31.7 g/dL (31.6-35.5); Mean Corpuscular Hemoglobin 35.5 pg (28.0-33.3); Mean Corpuscular Volume 111.8 fL (83.0-100.0); Mean Platelet Volume 12.8 fL (9.4-12.4); Red Cell Distribution Width 17.6 % (11.5-14.5); White Blood Count 5.3 K/mcL (4.3-11.1)
[2019-11-22 05:47] LABS: Platelet Count 53 K/mcL (140-400)
[2019-11-22 05:56] LABS: Albumin 2.2 g/dL (3.5-5.7); Albumin/Globulin Ratio 1.5 (1.1-2.2); Bilirubin,Total 0.5 mg/dL (0.3-1.0); Calcium 7.1 mg/dL (8.6-10.3); Globulin 1.5 g/dL (2.4-3.5); Magnesium 1.7 mg/dL (1.6-2.6); Phosphorous 2.6 mg/dL (2.7-4.5); Potassium 4.7 mEq/L (3.5-5.1); Total Protein 3.7 g/dL (6.4-8.9)
[2019-11-22] MEDS ORDERED: 0.9 % Sodium Chloride 250 ML IVC PRN (07:32)
[2019-11-22] MEDS ORDERED: *HR* Heparin 10,000 UNIT/10 ML VIAL IV PRN ×2 (07:32)
[2019-11-22] MEDS ORDERED: 0.9 % Sodium Chloride 1,000 ML PRIME SCH (07:45)
[2019-11-22] MEDS: predniSONE 5 MG TABLET PO SCH ×2 (08:21→18:52)
[2019-11-22] MEDS: Folic Acid 1 MG TABLET PO SCH (08:21)
[2019-11-22] MEDS: calcitrioL 0.25 MCG CAPSULE PO SCH (08:21)
[2019-11-22] MEDS ORDERED: COPPER GLUCONATE 2 MG PO SCH (09:00)
[2019-11-22] MEDS ORDERED: VITAMIN E ACID SUCCINATE 100 UNIT PO SCH (09:00)
[2019-11-22] MEDS ORDERED: VITAMIN A 10000 UNIT PO SCH (09:00)
[2019-11-22] MEDS ORDERED: NON-FORMULARY MEDICATION 1 EACH EACH (Nut.Tx.Impaired Renal Fxn,Soy [Nepro Carb Steady] 23 PO SCH (09:00)
[2019-11-22] MEDS ORDERED: NUTRITIONAL SUPPLEMENT GTUBE SCH (21:00)
[2019-11-23 05:03] LABS: Hematocrit 24.2 % (35.3-44.9); Hemoglobin 7.6 g/dL (11.5-15.4); Mean Corpuscular HGB Conc 31.4 g/dL (31.6-35.5); Mean Corpuscular Hemoglobin 35.3 pg (28.0-33.3); Mean Corpuscular Volume 112.6 fL (83.0-100.0); Red Blood Count 2.15 M/mcL (3.82-4.97)
[2019-11-23 05:05] LABS: Immature Platelets 13.7 % (1.1-6.1); Mean Platelet Volume 12.5 fL (9.4-12.4); Red Cell Distribution Width 17.3 % (11.5-14.5); White Blood Count 5.2 K/mcL (4.3-11.1)
[2019-11-23 05:33] LABS: Calcium 6.7 mg/dL (8.6-10.3); Potassium 4.4 mEq/L (3.5-5.1)
[2019-11-23 05:47] LABS: Ferritin 1350 ng/mL (10-120); Iron 58 mcg/dL (50-170); Transferrin < 75 mg/dL (203-362)
[2019-11-23] MEDS: calcitrioL 0.25 MCG CAPSULE PO SCH (09:38)
[2019-11-23] MEDS: predniSONE 5 MG TABLET PO SCH ×2 (09:38→17:32)
[2019-11-23] MEDS: Folic Acid 1 MG TABLET PO SCH (09:38)
[2019-11-24 04:48] LABS: Hematocrit 25.6 % (35.3-44.9); Hemoglobin 8.2 g/dL (11.5-15.4); Immature Platelets 11.1 % (1.1-6.1); Mean Corpuscular Volume 112.3 fL (83.0-100.0); Mean Platelet Volume 12.3 fL (9.4-12.4); Red Blood Count 2.28 M/mcL (3.82-4.97); Red Cell Distribution Width 17.5 % (11.5-14.5); White Blood Count 5.6 K/mcL (4.3-11.1)
[2019-11-24 04:55] LABS: Magnesium 1.7 mg/dL (1.6-2.6); Phosphorous 2.3 mg/dL (2.7-4.5)
[2019-11-24 04:57] LABS: Calcium 6.8 mg/dL (8.6-10.3); Potassium 4.5 mEq/L (3.5-5.1)
[2019-11-24] MEDS: predniSONE 5 MG TABLET PO SCH ×2 (09:49→18:27)
[2019-11-24] MEDS: Folic Acid 1 MG TABLET PO SCH (09:49)
[2019-11-24] MEDS: calcitrioL 0.25 MCG CAPSULE PO SCH (09:50)
[2019-11-24] MEDS: Cyanocobalamin (B-12) 1,000 MCG/ML VIAL IM SCH (10:12)
[2019-11-25 04:37] LABS: Red Cell Distribution Width 18.2 % (11.5-14.5)
[2019-11-25 04:39] LABS: Hematocrit 24.3 % (35.3-44.9); Hemoglobin 7.7 g/dL (11.5-15.4); Immature Platelets 9.6 % (1.1-6.1); Mean Corpuscular HGB Conc 31.7 g/dL (31.6-35.5); Mean Corpuscular Volume 113.6 fL (83.0-100.0); Mean Platelet Volume 12.1 fL (9.4-12.4); Red Blood Count 2.14 M/mcL (3.82-4.97); White Blood Count 5.5 K/mcL (4.3-11.1)
[2019-11-25 04:56] LABS: Calcium 6.4 mg/dL (8.6-10.3); Potassium 4.8 mEq/L (3.5-5.1)
[2019-11-25 04:57] LABS: Magnesium 1.6 mg/dL (1.6-2.6); Phosphorous 2.4 mg/dL (2.7-4.5)
[2019-11-25] MEDS ORDERED: *HR* Heparin 10,000 UNIT/10 ML VIAL IV PRN (09:05)
[2019-11-25] MEDS ORDERED: 0.9 % Sodium Chloride 250 ML IVC PRN (09:05)
[2019-11-25] MEDS: calcitrioL 0.25 MCG CAPSULE PO SCH (09:06)
[2019-11-25] MEDS: predniSONE 5 MG TABLET PO SCH ×2 (09:06→16:52)
[2019-11-25] MEDS: Folic Acid 1 MG TABLET PO SCH (09:06)
[2019-11-26 02:40] LABS: Hematocrit 25.2 % (35.3-44.9); Hemoglobin 7.9 g/dL (11.5-15.4); Immature Platelets 11.3 % (1.1-6.1); Mean Corpuscular HGB Conc 31.3 g/dL (31.6-35.5); Mean Corpuscular Hemoglobin 35.4 pg (28.0-33.3); Mean Platelet Volume 11.6 fL (9.4-12.4); Red Blood Count 2.23 M/mcL (3.82-4.97); Red Cell Distribution Width 18.8 % (11.5-14.5); White Blood Count 6.5 K/mcL (4.3-11.1)
[2019-11-26 02:51] LABS: Calcium 6.7 mg/dL (8.6-10.3); Magnesium 1.7 mg/dL (1.6-2.6); Phosphorous 2.2 mg/dL (2.7-4.5); Potassium 4.9 mEq/L (3.5-5.1)
[2019-11-26] MEDS ORDERED: Morphine Sulfate 2 MG/ML SYRINGE IVP ONE (03:16)
[2019-11-26] MEDS: predniSONE 5 MG TABLET PO SCH ×2 (08:43→17:34)
[2019-11-26] MEDS: calcitrioL 0.25 MCG CAPSULE PO SCH (08:43)
[2019-11-26] MEDS: Folic Acid 1 MG TABLET PO SCH (08:43)
[2019-11-27] MEDS ORDERED: Acetaminophen 325 MG TABLET PO ONE (00:30)
[2019-11-27 02:45] LABS: Hematocrit 22.8 % (35.3-44.9); Hemoglobin 7.1 g/dL (11.5-15.4); Immature Platelets 9.1 % (1.1-6.1); Mean Corpuscular HGB Conc 31.1 g/dL (31.6-35.5); Mean Corpuscular Hemoglobin 35.9 pg (28.0-33.3); Mean Corpuscular Volume 115.2 fL (83.0-100.0); Mean Platelet Volume 11.6 fL (9.4-12.4); Red Blood Count 1.98 M/mcL (3.82-4.97); White Blood Count 5.2 K/mcL (4.3-11.1)
[2019-11-27 03:03] LABS: Calcium 6.3 mg/dL (8.6-10.3); Potassium 5.3 mEq/L (3.5-5.1)
[2019-11-27] MEDS ORDERED: 0.9 % Sodium Chloride 250 ML IVC PRN (07:55)
[2019-11-27] MEDS ORDERED: *HR* Heparin 10,000 UNIT/10 ML VIAL IV PRN (07:55)
[2019-11-27] MEDS: calcitrioL 0.25 MCG CAPSULE PO SCH (08:06)
[2019-11-27] MEDS: Folic Acid 1 MG TABLET PO SCH (08:06)
[2019-11-27] MEDS: predniSONE 5 MG TABLET PO SCH ×2 (08:06→17:03)
[2019-11-28 07:44] LABS: Hematocrit 24.4 % (35.3-44.9); Hemoglobin 7.5 g/dL (11.5-15.4); Mean Corpuscular HGB Conc 30.7 g/dL (31.6-35.5)
[2019-11-28 07:46] LABS: Basophils % 0.4 %; Eosinophils # 0.1 K/mcL (0.0-0.6); Eosinophils % 1.7 %; Immature Granulocytes % 0.6 % (0-4); Immature Platelets 10.1 % (1.1-6.1); Lymphocytes # 2.2 K/mcL (0.6-4.6); Lymphocytes % 39.9 %; Mean Corpuscular Hemoglobin 36.1 pg (28.0-33.3); Mean Corpuscular Volume 117.3 fL (83.0-100.0); Mean Platelet Volume 12.1 fL (9.4-12.4); Monocytes # 0.5 K/mcL (0.0-1.3); Neutrophils # 2.6 K/mcL (1.6-8.9); Nucleated Red Blood Cells 0.6 /100 WBC (0); Red Blood Count 2.08 M/mcL (3.82-4.97); Red Cell Distribution Width 19.3 % (11.5-14.5); Segmented Neutrophils % 47.4 %; White Blood Count 5.4 K/mcL (4.3-11.1)
[2019-11-28 07:53] LABS: Platelet Count 92 K/mcL (140-400)
[2019-11-28 08:04] LABS: Calcium 6.8 mg/dL (8.6-10.3); Magnesium 1.7 mg/dL (1.6-2.6); Phosphorous 2.3 mg/dL (2.7-4.5); Potassium 4.6 mEq/L (3.5-5.1)
[2019-11-28 08:11] LABS: Hypochromasia Present (Not Present); Large Platelets Present (Not Present); Macrocytosis Present (Not Present); Platelet Estimate Slight Decrease (Normal)
[2019-11-28] MEDS: Folic Acid 1 MG TABLET PO SCH (09:52)
[2019-11-28] MEDS: predniSONE 5 MG TABLET PO SCH ×2 (09:52→18:58)
[2019-11-28] MEDS: calcitrioL 0.25 MCG CAPSULE PO SCH (09:52)
[2019-11-29 06:38] LABS: Basophils % 0.2 %; Eosinophils % 0.9 %; Hematocrit 23.3 % (35.3-44.9); Hemoglobin 7.2 g/dL (11.5-15.4); Immature Granulocytes % 0.9 % (0-4); Lymphocytes # 1.2 K/mcL (0.6-4.6); Lymphocytes % 28.2 %; Mean Corpuscular HGB Conc 30.9 g/dL (31.6-35.5); Mean Corpuscular Hemoglobin 36.2 pg (28.0-33.3); Mean Corpuscular Volume 117.1 fL (83.0-100.0); Mean Platelet Volume 11.6 fL (9.4-12.4); Monocytes # 0.4 K/mcL (0.0-1.3); Monocytes % 9.5 %; Neutrophils # 2.5 K/mcL (1.6-8.9); Nucleated Red Blood Cells 0.5 /100 WBC (0); Platelet Count 102 K/mcL (140-400); Red Blood Count 1.99 M/mcL (3.82-4.97); Red Cell Distribution Width 18.8 % (11.5-14.5); Segmented Neutrophils % 60.3 %; White Blood Count 4.2 K/mcL (4.3-11.1)
[2019-11-29 06:52] LABS: Calcium 6.2 mg/dL (8.6-10.3); Magnesium 1.6 mg/dL (1.6-2.6); Phosphorous 5.3 mg/dL (2.7-4.5); Potassium 5.5 mEq/L (3.5-5.1)
[2019-11-29] MEDS ORDERED: *HR* Heparin 10,000 UNIT/10 ML VIAL IV PRN (07:16)
[2019-11-29] MEDS ORDERED: 0.9 % Sodium Chloride 250 ML IVC PRN (07:16)
[2019-11-29 07:21] LABS: Anisocytosis 1+ (Not Present); Microcytosis Present (Not Present); Platelet Estimate Decreased (Normal)
[2019-11-29] MEDS ORDERED: 0.9 % Sodium Chloride 1,000 ML PRIME SCH (07:30)
[2019-11-29] MEDS: calcitrioL 0.25 MCG CAPSULE PO SCH (08:25)
[2019-11-29] MEDS: predniSONE 5 MG TABLET PO SCH ×2 (08:25→16:45)
[2019-11-29] MEDS: Folic Acid 1 MG TABLET PO SCH (08:25)
[2019-11-29] MEDS: Cyanocobalamin (B-12) 1,000 MCG/ML VIAL IM SCH (12:52)
[2019-11-29 16:28] VITALS: BP 90/61
== END 2019-11-29 18:32 ==
LOC: 2ANU → SUATTDRO 20:23 → 2ANU 11-29 11:57
PROVIDERS: ADMIT Internal Medicine; ATTEND Pharmacist

== ENCOUNTER 2020-01-05 11:05 | Inpatient (IN) ==
[2020-01-05 12:12] LABS: Amphetamine Screen,Urine Negative ng/mL (Cutoff=1000); Barbiturate Screen,Urine Negative ng/mL (Cutoff=200); Benzodiazepines Screen,Urine Negative ng/mL (Cutoff=200); Cannabinoid Screen,Urine Negative ng/mL (Cutoff = 50); Cocaine Screen,Urine Negative ng/mL (Cutoff= 300); Opiate Screen,Urine Negative ng/mL (Cutoff=300); Phencyclidine Screen,Urine Negative ng/mL (Cutoff=25)
[2020-01-05 12:13] LABS: Bacteria,Urine Few per hpf (None-Few); Bilirubin,Urine Negative (Negative); Blood,Urine Trace (Negative); Budding Yeast,Urine Many per hpf (None Seen); Clarity,Urine Turbid (Clear); Color,Urine Light-Yellow (Yellow); Glucose,Urine (UA) 70 mg/dL (Normal); Ketones,Urine Negative (Negative); Leukocyte Esterase,Urine Large (Negative); Nitrite,Urine Negative (Negative); Protein,Urine 30 mg/dL (Neg-Trace); Squamous Epithelial Cell,Urine Few per hpf (None-Few); Urobilinogen,Urine Normal (Normal); WBC,Urine TNTC per hpf (0-3)
[2020-01-05 12:36] LABS: Basophils # 0.1 K/mcL (0.0-0.2); Basophils % 0.9 %; Eosinophils # 0.1 K/mcL (0.0-0.6); Eosinophils % 1.3 %; Hematocrit 31.6 % (35.3-44.9); Hemoglobin 9.7 g/dL (11.5-15.4); Immature Granulocytes % 0.6 % (0-4); Lymphocytes # 1.4 K/mcL (0.6-4.6); Lymphocytes % 18.5 %; Mean Corpuscular HGB Conc 30.7 g/dL (31.6-35.5); Mean Corpuscular Hemoglobin 37.5 pg (28.0-33.3); Mean Platelet Volume 11.7 fL (9.4-12.4); Monocytes # 0.7 K/mcL (0.0-1.3); Monocytes % 9.2 %; Neutrophils # 5.4 K/mcL (1.6-8.9); Platelet Count 105 K/mcL (140-400); Red Blood Count 2.59 M/mcL (3.82-4.97); Red Cell Distribution Width 15.3 % (11.5-14.5); Segmented Neutrophils % 69.5 %; White Blood Count 7.7 K/mcL (4.3-11.1)
[2020-01-05 12:37] LABS: INR 1.1
[2020-01-05 12:40] LABS: Activated Partial Thrombo Time 31.3 Seconds (26.0-36.0)
[2020-01-05 12:55] LABS: Alanine Aminotransferase 18 Units/L (7-52); Albumin 2.5 g/dL (3.5-5.7); Albumin/Globulin Ratio 1.3 (1.1-2.2); Alkaline Phosphatase 98 Units/L (34-104); Aspartate Amino Transferase 9 Units/L (13-39); BUN/Creatinine Ratio 5 (6-26); Bilirubin,Direct 0.1 mg/dL (0.0-0.2); Bilirubin,Indirect 0.3 mg/dL (0.0-1.0); Bilirubin,Total 0.4 mg/dL (0.3-1.0); Blood Urea Nitrogen 18 mg/dL (6-20); Calcium 7.3 mg/dL (8.6-10.3); Carbon Dioxide 15 mEq/L (23-29); Chloride 107 mEq/L (98-107); Creatine Kinase 10 Units/L (30-223); Ethanol < 10 mg/dL (Less than 10); Globulin 1.9 g/dL (2.4-3.5); Glucose 77 mg/dL (70-105); Magnesium 1.9 mg/dL (1.6-2.6); Osmolality,Calculated 301 (280-300); Potassium 4.9 mEq/L (3.5-5.1); Sodium 145 mEq/L (136-145); Total Protein 4.4 g/dL (6.4-8.9); Troponin I < 0.03 ng/mL (< 0.04); eGFR For African Americans 17 (> 60); eGFR For Non-African Americans 14 (> 60)
[2020-01-05] MEDS ORDERED: Cefepime HCl 1,000 MG in Water for inj. (sterile) 10 ML IVP ONE (12:59)
[2020-01-05] MEDS ORDERED: Acetaminophen 325 MG TABLET PO PRN (14:39)
[2020-01-05] MEDS ORDERED: Ondansetron ODT 4 MG TAB.RAPDIS SL PRN (14:39)
[2020-01-05] MEDS ORDERED: Naloxone 0.4 MG/ML INJ IVP PRN (14:39)
[2020-01-05] MEDS ORDERED: Sodium Bicarbonate 50 MEQ in 0.45 % Sodium Chloride 1,000 ML IVC SCH (14:45)
[2020-01-05] MEDS ORDERED: 0.9 % Sodium Chloride 500 ML IVC ONE (15:03)
[2020-01-05] MEDS: *HR* OxyCODONE Immed Rel 5 MG TABLET PO SCH ×2 (16:56→22:26)
[2020-01-05] MEDS: predniSONE 5 MG TABLET PO SCH (16:56)
[2020-01-05] MEDS: *HR* Heparin 5,000 UNIT/ML VIAL SQ SCH ×2 (16:57→17:04)
[2020-01-06 03:28] LABS: Hematocrit 25.3 % (35.3-44.9); Hemoglobin 7.8 g/dL (11.5-15.4); Immature Platelets 6.7 % (1.1-6.1); Mean Corpuscular HGB Conc 30.8 g/dL (31.6-35.5); Mean Corpuscular Hemoglobin 38.4 pg (28.0-33.3); Mean Corpuscular Volume 124.6 fL (83.0-100.0); Mean Platelet Volume 11.7 fL (9.4-12.4); Red Blood Count 2.03 M/mcL (3.82-4.97); Red Cell Distribution Width 14.9 % (11.5-14.5); White Blood Count 6.6 K/mcL (4.3-11.1)
[2020-01-06 03:39] LABS: Calcium 6.5 mg/dL (8.6-10.3); Potassium 5.6 mEq/L (3.5-5.1)
[2020-01-06 04:02] LABS: Folate > 22.3 ng/mL (3.0-16.0); Vitamin B12 > 1500 pg/mL (250-1100)
[2020-01-06] MEDS: *HR* OxyCODONE Immed Rel 5 MG TABLET PO SCH ×4 (04:39→22:32)
[2020-01-06] MEDS: *HR* Heparin 5,000 UNIT/ML VIAL SQ SCH ×2 (04:40→17:02)
[2020-01-06 06:14] LABS: Hemoglobin 7.6 g/dL (11.5-15.4)
[2020-01-06 06:15] LABS: Hematocrit 25.7 % (35.3-44.9); Immature Platelets 8.1 % (1.1-6.1); Mean Corpuscular HGB Conc 29.6 g/dL (31.6-35.5); Mean Corpuscular Hemoglobin 37.4 pg (28.0-33.3); Mean Corpuscular Volume 126.6 fL (83.0-100.0); Mean Platelet Volume 11.8 fL (9.4-12.4); Red Blood Count 2.03 M/mcL (3.82-4.97); Red Cell Distribution Width 14.9 % (11.5-14.5)
[2020-01-06 06:23] LABS: Calcium 6.4 mg/dL (8.6-10.3); Potassium 5.6 mEq/L (3.5-5.1)
[2020-01-06] MEDS ORDERED: 0.9 % Sodium Chloride 250 ML IVC PRN (07:25)
[2020-01-06] MEDS ORDERED: *HR* Heparin 10,000 UNIT/10 ML VIAL IV PRN (07:25)
[2020-01-06] MEDS ORDERED: 0.9 % Sodium Chloride 1,000 ML PRIME SCH (07:30)
[2020-01-06] MEDS: predniSONE 5 MG TABLET PO SCH ×2 (08:21→17:03)
[2020-01-06] MEDS: Folic Acid 1 MG TABLET PO SCH (08:22)
[2020-01-06] MEDS ORDERED: Cefepime HCl 1,000 MG in Water for inj. (sterile) 10 ML IVP SCH (13:00)
[2020-01-06 13:40] LABS: Mean Platelet Volume 11.6 fL (9.4-12.4); Red Cell Distribution Width 14.6 % (11.5-14.5)
[2020-01-06 13:42] LABS: Hematocrit 28.7 % (35.3-44.9); Hemoglobin 9.1 g/dL (11.5-15.4); Immature Platelets 11.4 % (1.1-6.1); Mean Corpuscular HGB Conc 31.7 g/dL (31.6-35.5); Mean Corpuscular Hemoglobin 37.8 pg (28.0-33.3); Mean Corpuscular Volume 119.1 fL (83.0-100.0); Red Blood Count 2.41 M/mcL (3.82-4.97)
[2020-01-06] MEDS: Ampicillin/Sulbactam 3,000 MG in 0.9 % Sodium Chloride Mini Bag 100 ML IVPB SCH (15:17)
[2020-01-07] MEDS: *HR* Heparin 5,000 UNIT/ML VIAL SQ SCH ×2 (04:29→16:44)
[2020-01-07] MEDS: *HR* OxyCODONE Immed Rel 5 MG TABLET PO SCH ×4 (04:29→21:18)
[2020-01-07 04:33] LABS: Hemoglobin 8.1 g/dL (11.5-15.4); Mean Corpuscular Hemoglobin 37.2 pg (28.0-33.3); Mean Platelet Volume 11.6 fL (9.4-12.4); Red Blood Count 2.18 M/mcL (3.82-4.97)
[2020-01-07 04:35] LABS: Hematocrit 26.6 % (35.3-44.9); Immature Platelets 8.9 % (1.1-6.1); Mean Corpuscular HGB Conc 30.5 g/dL (31.6-35.5); Red Cell Distribution Width 14.8 % (11.5-14.5); White Blood Count 5.7 K/mcL (4.3-11.1)
[2020-01-07 04:52] LABS: Calcium 6.2 mg/dL (8.6-10.3); Potassium 4.3 mEq/L (3.5-5.1)
[2020-01-07] MEDS ORDERED: Cyanocobalamin (B-12) 1,000 MCG/ML VIAL IM SCH (07:45)
[2020-01-07] MEDS: predniSONE 5 MG TABLET PO SCH ×2 (08:34→16:42)
[2020-01-07] MEDS: Folic Acid 1 MG TABLET PO SCH (08:35)
[2020-01-07] MEDS: Cholecalciferol (D-3) 1,000 UNIT (25MCG) TABLET PO SCH (08:35)
[2020-01-07] MEDS: Ampicillin/Sulbactam 3,000 MG in 0.9 % Sodium Chloride Mini Bag 100 ML IVPB SCH (14:32)
[2020-01-07] MEDS: Lactobacillus 1 EACH CAP.SPRINK PO SCH (21:16)
[2020-01-08] MEDS: *HR* Heparin 5,000 UNIT/ML VIAL SQ SCH ×2 (05:38→17:13)
[2020-01-08] MEDS: *HR* OxyCODONE Immed Rel 5 MG TABLET PO SCH ×2 (05:38→07:51)
[2020-01-08 05:57] LABS: Red Cell Distribution Width 14.6 % (11.5-14.5)
[2020-01-08 05:59] LABS: Hematocrit 24.2 % (35.3-44.9); Hemoglobin 7.7 g/dL (11.5-15.4); Immature Platelets 8.5 % (1.1-6.1); Mean Corpuscular HGB Conc 31.8 g/dL (31.6-35.5); Mean Corpuscular Hemoglobin 38.1 pg (28.0-33.3); Mean Corpuscular Volume 119.8 fL (83.0-100.0); Mean Platelet Volume 11.7 fL (9.4-12.4); Red Blood Count 2.02 M/mcL (3.82-4.97)
[2020-01-08 06:16] LABS: Potassium 4.6 mEq/L (3.5-5.1)
[2020-01-08] MEDS: Calcium Gluconate 1gm/50mL 1 GM/50 ML BAG IVPB SCH ×2 (07:00→07:52)
[2020-01-08] MEDS ORDERED: 0.9 % Sodium Chloride 250 ML IVC PRN (07:37)
[2020-01-08] MEDS ORDERED: *HR* Heparin 10,000 UNIT/10 ML VIAL IV PRN (07:37)
[2020-01-08] MEDS ORDERED: 0.9 % Sodium Chloride 1,000 ML PRIME SCH (07:45)
[2020-01-08] MEDS: predniSONE 5 MG TABLET PO SCH ×2 (07:51→17:14)
[2020-01-08] MEDS: Lactobacillus 1 EACH CAP.SPRINK PO SCH ×2 (07:51→21:00)
[2020-01-08] MEDS: Cholecalciferol (D-3) 1,000 UNIT (25MCG) TABLET PO SCH (07:51)
[2020-01-08] MEDS: Folic Acid 1 MG TABLET PO SCH (07:51)
[2020-01-08] MEDS ORDERED: 0.9 % Sodium Chloride 500 ML IVC ONE (14:41)
[2020-01-08] MEDS: Ampicillin/Sulbactam 3,000 MG in 0.9 % Sodium Chloride Mini Bag 100 ML IVPB SCH (16:06)
[2020-01-08 16:12] LABS: VBG Ionized Calcium 0.99 mmol/L (1.15-1.35)
[2020-01-08] MEDS ORDERED: Calcium Gluconate 1gm/50mL 1 GM/50 ML BAG IVPB ONE (17:30)
[2020-01-08] MEDS ORDERED: Vancomycin 500 MG in 0.9 % Sodium Chloride Mini Bag 100 ML IVPB ONE (18:00)
[2020-01-09 02:40] LABS: Hemoglobin 7.3 g/dL (11.5-15.4)
[2020-01-09 02:42] LABS: Hematocrit 23.8 % (35.3-44.9); Mean Corpuscular HGB Conc 30.7 g/dL (31.6-35.5); Mean Corpuscular Hemoglobin 37.4 pg (28.0-33.3); Mean Corpuscular Volume 122.1 fL (83.0-100.0); Mean Platelet Volume 11.4 fL (9.4-12.4); Red Blood Count 1.95 M/mcL (3.82-4.97); Red Cell Distribution Width 14.7 % (11.5-14.5); White Blood Count 3.9 K/mcL (4.3-11.1)
[2020-01-09 03:00] LABS: Calcium 6.7 mg/dL (8.6-10.3); Potassium 4.2 mEq/L (3.5-5.1)
[2020-01-09] MEDS: *HR* Heparin 5,000 UNIT/ML VIAL SQ SCH ×2 (06:12→07:25)
[2020-01-09] MEDS: Folic Acid 1 MG TABLET PO SCH (07:19)
[2020-01-09] MEDS: Cholecalciferol (D-3) 1,000 UNIT (25MCG) TABLET PO SCH (07:19)
[2020-01-09] MEDS: predniSONE 5 MG TABLET PO SCH ×2 (07:19→16:50)
[2020-01-09] MEDS: Lactobacillus 1 EACH CAP.SPRINK PO SCH (07:20)
[2020-01-09 09:48] LABS: VBG Ionized Calcium 0.97 mmol/L (1.15-1.35)
[2020-01-09 15:53] VITALS: BP 115/74
[2020-01-09] MEDS: Ampicillin/Sulbactam 3,000 MG in 0.9 % Sodium Chloride Mini Bag 100 ML IVPB SCH (16:39)
[2020-01-09] MEDS: Calcium Gluconate 1gm/50mL 1 GM/50 ML BAG IVPB SCH ×2 (17:33→18:42)
== END 2020-01-09 19:40 | disposition home or self-care (01) | DRG 871 ==
LOC: EMEROOARM 11:05 → 2ANU 11:05 → SUATTDRO 13:39 → 2ANU 13:55 → SUATTDRO 01-07 16:46
PROVIDERS: ADMIT Internal Medicine; ATTEND Internal Medicine

== ENCOUNTER 2020-02-13 15:31 | Observation (INO) ==
[2020-02-13] MEDS ORDERED: Cefepime HCl 1,000 MG in Water for inj. (sterile) 10 ML IVP ONE (15:49)
[2020-02-13 16:02] LABS: Basophils # 0.1 K/mcL (0.0-0.2); Basophils % 0.6 %; Eosinophils # 0.1 K/mcL (0.0-0.6); Hematocrit 33.1 % (35.3-44.9); Hemoglobin 9.9 g/dL (11.5-15.4); Immature Granulocytes % 0.5 % (0-4); Lymphocytes # 1.9 K/mcL (0.6-4.6); Lymphocytes % 24.4 %; Mean Corpuscular HGB Conc 29.9 g/dL (31.6-35.5); Mean Corpuscular Hemoglobin 36.7 pg (28.0-33.3); Mean Corpuscular Volume 122.6 fL (83.0-100.0); Mean Platelet Volume 11.2 fL (9.4-12.4); Monocytes % 6.9 %; Red Cell Distribution Width 17.2 % (11.5-14.5); Segmented Neutrophils % 66.6 %; White Blood Count 7.9 K/mcL (4.3-11.1)
[2020-02-13 16:03] LABS: Monocytes # 0.6 K/mcL (0.0-1.3); Neutrophils # 5.3 K/mcL (1.6-8.9); Platelet Count 88 K/mcL (140-400)
[2020-02-13 16:06] LABS: VBG HCO3 15 mEq/L (21-27); VBG PCO2 28 mmHg (41-51); VBG PH 7.35 pH Units (7.32-7.42); VBG PO2 108 mmHg (25-50)
[2020-02-13 16:07] LABS: Amorphous Sediment,Urine Few per hpf (None-Few); Bacteria,Urine Few per hpf (None-Few); Bilirubin,Urine Negative (Negative); Blood,Urine Small (Negative); Clarity,Urine Turbid (Clear); Color,Urine Light-Yellow (Yellow); Glucose,Urine (UA) 50 mg/dL (Normal); Hyaline Casts,Urine Few per lpf (None Seen); Ketones,Urine Negative (Negative); Leukocyte Esterase,Urine Moderate (Negative); Mucus,Urine Few per lpf (None-Few); Nitrite,Urine Negative (Negative); PH,Urine 6.5 pH Units (5.0-8.0); Protein,Urine 30 mg/dL (Neg-Trace); RBC,Urine 0-3 per hpf (0-3); Specific Gravity,Urine 1.009 (1.010-1.025); Squamous Epithelial Cell,Urine Few per hpf (None-Few); Urobilinogen,Urine Normal (Normal); WBC,Urine 50-100 per hpf (0-3)
[2020-02-13 16:09] LABS: INR 1.3; Prothrombin Time 15.1 Seconds (9.4-12.1)
[2020-02-13 16:12] LABS: Activated Partial Thrombo Time 30.4 Seconds (26.0-36.0)
[2020-02-13 16:13] LABS: Amphetamine Screen,Urine Negative ng/mL (Cutoff=1000); Barbiturate Screen,Urine Negative ng/mL (Cutoff=200); Benzodiazepines Screen,Urine Negative ng/mL (Cutoff=200); Cannabinoid Screen,Urine Negative ng/mL (Cutoff = 50); Cocaine Screen,Urine Negative ng/mL (Cutoff= 300); Opiate Screen,Urine Negative ng/mL (Cutoff=300); Phencyclidine Screen,Urine Negative ng/mL (Cutoff=25)
[2020-02-13 16:23] LABS: Platelet Estimate Decreased (Normal)
[2020-02-13 16:32] LABS: Alanine Aminotransferase 20 Units/L (7-52); Albumin 2.7 g/dL (3.5-5.7); Albumin/Globulin Ratio 1.7 (1.1-2.2); Alkaline Phosphatase 93 Units/L (34-104); Aspartate Amino Transferase 12 Units/L (13-39); BUN/Creatinine Ratio 3 (6-26); Bilirubin,Direct 0.1 mg/dL (0.0-0.2); Bilirubin,Indirect 0.3 mg/dL (0.0-1.0); Bilirubin,Total 0.4 mg/dL (0.3-1.0); Blood Urea Nitrogen 12 mg/dL (6-20); Calcium 8.5 mg/dL (8.6-10.3); Carbon Dioxide 13 mEq/L (23-29); Chloride 107 mEq/L (98-107); Creatine Kinase 19 Units/L (30-223); Ethanol < 10 mg/dL (Less than 10); Globulin 1.6 g/dL (2.4-3.5); Glucose 82 mg/dL (70-105); Osmolality,Calculated 305 (280-300); Potassium 3.8 mEq/L (3.5-5.1); Sodium 148 mEq/L (136-145); Total Protein 4.3 g/dL (6.4-8.9); Troponin I < 0.03 ng/mL (< 0.04); eGFR For African Americans 15 (> 60); eGFR For Non-African Americans 12 (> 60)
[2020-02-13 16:46] LABS: Thyroid Stimulating Hormone 8.856 mcIU/mL (0.340-5.600)
[2020-02-13] MEDS ORDERED: 0.9 % Sodium Chloride 500 ML IVC ONE (16:50)
[2020-02-13] MEDS ORDERED: Ondansetron 4 MG/2 ML VIAL IVP PRN (17:20)
[2020-02-13] MEDS ORDERED: Naloxone 0.4 MG/ML INJ IVP PRN (17:20)
[2020-02-13] MEDS ORDERED: *HR* HYDROcodone/Acet 5/325 mg TABLET PO PRN (17:20)
[2020-02-13 17:29] LABS: Acetaminophen < 10 mcg/mL (10-20)
[2020-02-13] MEDS: predniSONE 5 MG TABLET PO SCH (19:43)
[2020-02-13] MEDS: *HR* Heparin 5,000 UNIT/ML VIAL SQ SCH (19:43)
[2020-02-14] MEDS: Cefepime HCl 1,000 MG in Water for inj. (sterile) 10 ML IVP SCH ×3 (00:23→16:53)
[2020-02-14 02:51] LABS: Hemoglobin 8.8 g/dL (11.5-15.4); Mean Platelet Volume 11.6 fL (9.4-12.4); Segmented Neutrophils % 75.7 %
[2020-02-14 02:53] LABS: Basophils % 0.7 %; Eosinophils # 0.1 K/mcL (0.0-0.6); Eosinophils % 0.8 %; Hematocrit 29.5 % (35.3-44.9); Immature Granulocytes % 0.5 % (0-4); Immature Platelets 6.5 % (1.1-6.1); Lymphocytes % 16.3 %; Mean Corpuscular HGB Conc 29.8 g/dL (31.6-35.5); Mean Corpuscular Hemoglobin 36.5 pg (28.0-33.3); Mean Corpuscular Volume 122.4 fL (83.0-100.0); Monocytes # 0.4 K/mcL (0.0-1.3); Neutrophils # 4.7 K/mcL (1.6-8.9); Nucleated Red Blood Cells 0.3 /100 WBC (0); Red Blood Count 2.41 M/mcL (3.82-4.97); Red Cell Distribution Width 17.1 % (11.5-14.5); White Blood Count 6.2 K/mcL (4.3-11.1)
[2020-02-14 02:55] LABS: Platelet Count 69 K/mcL (140-400)
[2020-02-14 03:01] LABS: Calcium 7.3 mg/dL (8.6-10.3); Phosphorous 5.3 mg/dL (2.7-4.5); Potassium 4.1 mEq/L (3.5-5.1)
[2020-02-14 04:25] LABS: Anisocytosis 1+ (Not Present); Macrocytosis Present (Not Present); Platelet Estimate Decreased (Normal)
[2020-02-14] MEDS: *HR* Heparin 5,000 UNIT/ML VIAL SQ SCH ×2 (04:45→16:54)
[2020-02-14] MEDS ORDERED: 0.9 % Sodium Chloride 1,000 ML ONE (08:15)
[2020-02-14] MEDS ORDERED: 0.9 % Sodium Chloride 250 ML IVC PRN (08:28)
[2020-02-14] MEDS ORDERED: *HR* Heparin 10,000 UNIT/10 ML VIAL IV PRN (08:28)
[2020-02-14] MEDS ORDERED: 0.9 % Sodium Chloride 1,000 ML PRIME SCH (08:30)
[2020-02-14] MEDS: Folic Acid 1 MG TABLET PO SCH (16:52)
[2020-02-14] MEDS: predniSONE 5 MG TABLET PO SCH ×2 (16:53→16:54)
[2020-02-15] MEDS: Cefepime HCl 1,000 MG in Water for inj. (sterile) 10 ML IVP SCH ×2 (00:24→08:17)
[2020-02-15] MEDS: *HR* Heparin 5,000 UNIT/ML VIAL SQ SCH ×2 (02:28→16:22)
[2020-02-15 05:55] LABS: Hemoglobin 8.7 g/dL (11.5-15.4)
[2020-02-15 05:56] LABS: Hematocrit 28.3 % (35.3-44.9); Immature Platelets 7.8 % (1.1-6.1); Mean Corpuscular HGB Conc 30.7 g/dL (31.6-35.5); Mean Corpuscular Hemoglobin 36.9 pg (28.0-33.3); Mean Corpuscular Volume 119.9 fL (83.0-100.0); Red Blood Count 2.36 M/mcL (3.82-4.97); Red Cell Distribution Width 17.2 % (11.5-14.5); White Blood Count 5.5 K/mcL (4.3-11.1)
[2020-02-15 06:16] LABS: Calcium 7.1 mg/dL (8.6-10.3); Phosphorous 4.3 mg/dL (2.7-4.5); Potassium 4.7 mEq/L (3.5-5.1)
[2020-02-15] MEDS: Folic Acid 1 MG TABLET PO SCH (08:16)
[2020-02-15] MEDS: predniSONE 5 MG TABLET PO SCH ×2 (08:17→16:22)
[2020-02-16 03:57] LABS: Hematocrit 27.3 % (35.3-44.9); Mean Corpuscular Volume 120.8 fL (83.0-100.0); Red Blood Count 2.26 M/mcL (3.82-4.97); Red Cell Distribution Width 17.2 % (11.5-14.5)
[2020-02-16 03:59] LABS: Hemoglobin 8.2 g/dL (11.5-15.4); Immature Platelets 8.2 % (1.1-6.1); Mean Corpuscular Hemoglobin 36.3 pg (28.0-33.3); Mean Platelet Volume 12.2 fL (9.4-12.4); White Blood Count 4.4 K/mcL (4.3-11.1)
[2020-02-16 04:11] LABS: Calcium 6.9 mg/dL (8.6-10.3); Potassium 4.5 mEq/L (3.5-5.1)
[2020-02-16] MEDS: *HR* Heparin 5,000 UNIT/ML VIAL SQ SCH (05:59)
[2020-02-16 07:32] VITALS: BP 99/61
[2020-02-16] MEDS: Folic Acid 1 MG TABLET PO SCH (09:11)
[2020-02-16] MEDS: predniSONE 5 MG TABLET PO SCH (09:11)
[2020-02-16] MEDS ORDERED: Cefepime HCl 1,000 MG in Water for inj. (sterile) 10 ML IVP SCH (16:00)
== END 2020-02-16 12:36 | disposition home or self-care (01) ==
LOC: EMEROOARM 15:31 → 3BNU 15:31
PROVIDERS: ADMIT Internal Medicine; ATTEND Internal Medicine

== ENCOUNTER 2020-04-10 11:41 | Inpatient (IN) ==
[2020-04-10 12:41] LABS: Hematocrit 37.3 % (35.3-44.9); Hemoglobin 11.5 g/dL (11.5-15.4); Mean Corpuscular HGB Conc 30.8 g/dL (31.6-35.5); Mean Corpuscular Hemoglobin 38.9 pg (28.0-33.3); Red Blood Count 2.96 M/mcL (3.82-4.97)
[2020-04-10 12:43] LABS: Immature Platelets 12.2 % (1.1-6.1); Mean Platelet Volume 12.8 fL (9.4-12.4); White Blood Count 6.1 K/mcL (4.3-11.1)
[2020-04-10 13:05] LABS: Alanine Aminotransferase 33 Units/L (7-52); Albumin 2.7 g/dL (3.5-5.7); Albumin/Globulin Ratio 1.4 (1.1-2.2); Alkaline Phosphatase 109 Units/L (34-104); Aspartate Amino Transferase 16 Units/L (13-39); BUN/Creatinine Ratio 4 (6-26); Bilirubin,Direct 0.1 mg/dL (0.0-0.2); Bilirubin,Indirect 0.2 mg/dL (0.0-1.0); Bilirubin,Total 0.3 mg/dL (0.3-1.0); Blood Urea Nitrogen 14 mg/dL (6-20); Calcium 9.3 mg/dL (8.6-10.3); Carbon Dioxide 15 mEq/L (23-29); Chloride 108 mEq/L (98-107); Globulin 1.9 g/dL (2.4-3.5); Glucose 123 mg/dL (70-105); Osmolality,Calculated 310 (280-300); Potassium 3.1 mEq/L (3.5-5.1); Sodium 149 mEq/L (136-145); Total Protein 4.6 g/dL (6.4-8.9); eGFR For African Americans 15 (> 60); eGFR For Non-African Americans 12 (> 60)
[2020-04-10 13:13] LABS: VBG HCO3 17 mEq/L (21-27); VBG PCO2 43 mmHg (41-51); VBG PH 7.21 pH Units (7.32-7.42); VBG PO2 44 mmHg (25-50)
[2020-04-10 13:15] LABS: Troponin I < 0.03 ng/mL (< 0.04)
[2020-04-10] MEDS ORDERED: Potassium Chloride Elixir 20 MEQ/15 ML UDC PO ONE (14:26)
[2020-04-10] MEDS ORDERED: 0.9 % Sodium Chloride 500 ML IVC ONE (16:22)
[2020-04-10] MEDS ORDERED: Ondansetron 4 MG/2 ML VIAL IVP PRN (17:19)
[2020-04-10] MEDS ORDERED: Acetaminophen 325 MG TABLET PO PRN (17:19)
[2020-04-10] MEDS ORDERED: Naloxone 0.4 MG/ML INJ IVP PRN (17:19)
[2020-04-11 02:54] LABS: Hemoglobin 10.5 g/dL (11.5-15.4); Immature Granulocytes % 0.5 % (0-4); Segmented Neutrophils % 64.7 %
[2020-04-11 02:57] LABS: Basophils # 0.1 K/mcL (0.0-0.2); Basophils % 0.9 %; Eosinophils # 0.2 K/mcL (0.0-0.6); Eosinophils % 3.1 %; Hematocrit 34.6 % (35.3-44.9); Immature Platelets 9.1 % (1.1-6.1); Lymphocytes # 1.3 K/mcL (0.6-4.6); Lymphocytes % 22.3 %; Mean Corpuscular HGB Conc 30.3 g/dL (31.6-35.5); Mean Corpuscular Hemoglobin 38.6 pg (28.0-33.3); Mean Corpuscular Volume 127.2 fL (83.0-100.0); Mean Platelet Volume 12.4 fL (9.4-12.4); Monocytes # 0.5 K/mcL (0.0-1.3); Monocytes % 8.5 %; Neutrophils # 3.8 K/mcL (1.6-8.9); Nucleated Red Blood Cells 0.5 /100 WBC (0); Red Blood Count 2.72 M/mcL (3.82-4.97); Red Cell Distribution Width 17.9 % (11.5-14.5); White Blood Count 5.9 K/mcL (4.3-11.1)
[2020-04-11 03:07] LABS: Platelet Count 71 K/mcL (140-400)
[2020-04-11 03:15] LABS: Albumin 2.2 g/dL (3.5-5.7); Albumin/Globulin Ratio 1.3 (1.1-2.2); Bilirubin,Total 0.3 mg/dL (0.3-1.0); Calcium 8.7 mg/dL (8.6-10.3); Globulin 1.7 g/dL (2.4-3.5); Magnesium 2.1 mg/dL (1.6-2.6); Phosphorous 4.8 mg/dL (2.7-4.5); Potassium 3.3 mEq/L (3.5-5.1); Total Protein 3.9 g/dL (6.4-8.9)
[2020-04-11 03:39] LABS: Anisocytosis 1+ (Not Present); Macrocytosis Present (Not Present); Platelet Estimate Decreased (Normal)
[2020-04-11] MEDS ORDERED: Sodium Bicarbonate 150 MEQ in D5% in Water 1,000 ML IVC SCH (04:00)
[2020-04-11 04:08] LABS: ABG Base Excess -13 mEq/L (-2 to 3); ABG HCO3 11 mEq/L (21-27); ABG Oxygen Saturation 98 % (95-98); ABG PCO2 21 mmHg (35-45); ABG PH 7.35 pH Units (7.32-7.45); ABG PO2 107 mmHg (85-104); ABG TCO2 12 mEq/L (20-26)
[2020-04-11] MEDS ORDERED: 0.9 % Sodium Chloride 250 ML IVC PRN (07:02)
[2020-04-11] MEDS ORDERED: 0.9 % Sodium Chloride 1,000 ML PRIME SCH (07:15)
[2020-04-11] MEDS: Cholecalciferol (D-3) 1,000 UNIT (25MCG) TABLET PO SCH (08:25)
[2020-04-11] MEDS: Folic Acid 1 MG TABLET PO SCH (08:25)
[2020-04-11] MEDS: Zinc Sulfate 220 MG CAPSULE PO SCH (08:25)
[2020-04-11] MEDS: Renal Vitamin 1 CAP CAPSULE PO SCH (08:25)
[2020-04-11] MEDS: predniSONE 5 MG TABLET PO SCH ×2 (08:25→18:17)
[2020-04-11] MEDS ORDERED: VITAMIN A 10000 UNIT PO SCH (09:00)
[2020-04-11] MEDS ORDERED: VITAMIN E ACID SUCCINATE 100 UNIT PO SCH (09:00)
[2020-04-11] MEDS ORDERED: Cyanocobalamin (B-12) 1,000 MCG/ML VIAL IM SCH (09:00)
[2020-04-11] MEDS ORDERED: COPPER GLUCONATE 2 MG PO SCH (09:00)
[2020-04-11 10:03] LABS: Hepatitis B Surface Antibody < 3.10 mIU/mL
[2020-04-11 10:14] LABS: Hepatitis B Surface Antigen Nonreactive (Nonreactive)
[2020-04-11 17:28] LABS: Calcium 8.2 mg/dL (8.6-10.3); Potassium 3.6 mEq/L (3.5-5.1)
[2020-04-11] MEDS ORDERED: NUTRITIONAL SUPPLEMENT GTUBE SCH (21:00)
[2020-04-12 01:48] LABS: Sodium, Urine 125.5 mEq/L
[2020-04-12 01:54] LABS: Bacteria,Urine Few per hpf (None-Few); Bilirubin,Urine Negative (Negative); Blood,Urine Negative (Negative); Budding Yeast,Urine Few per hpf (None Seen); Clarity,Urine Turbid (Clear); Color,Urine Light-Yellow (Yellow); Glucose,Urine (UA) 70 mg/dL (Normal); Ketones,Urine Negative (Negative); Leukocyte Esterase,Urine Moderate (Negative); Nitrite,Urine Negative (Negative); Protein,Urine 50 mg/dL (Neg-Trace); Specific Gravity,Urine 1.009 (1.010-1.025); Squamous Epithelial Cell,Urine Few per hpf (None-Few); Urobilinogen,Urine Normal (Normal); WBC,Urine TNTC per hpf (0-3)
[2020-04-12] MEDS: Renal Vitamin 1 CAP CAPSULE PO SCH (08:27)
[2020-04-12] MEDS: Folic Acid 1 MG TABLET PO SCH (08:27)
[2020-04-12] MEDS: predniSONE 5 MG TABLET PO SCH ×2 (08:27→16:37)
[2020-04-12] MEDS: Cholecalciferol (D-3) 1,000 UNIT (25MCG) TABLET PO SCH (08:27)
[2020-04-12] MEDS: Zinc Sulfate 220 MG CAPSULE PO SCH (08:27)
[2020-04-12] MEDS ORDERED: Ergocalciferol (VIT D2) 50,000 UNIT (1.25MG) CAP PO SCH (09:00)
[2020-04-12 11:05] LABS: Hemoglobin 11.3 g/dL (11.5-15.4); Monocytes % 9.4 %
[2020-04-12 11:07] LABS: Basophils % 0.6 %; Eosinophils # 0.1 K/mcL (0.0-0.6); Eosinophils % 1.7 %; Hematocrit 35.7 % (35.3-44.9); Immature Granulocytes % 0.5 % (0-4); Immature Platelets 11.9 % (1.1-6.1); Lymphocytes # 1.3 K/mcL (0.6-4.6); Lymphocytes % 20.1 %; Mean Corpuscular HGB Conc 31.7 g/dL (31.6-35.5); Mean Corpuscular Hemoglobin 39.5 pg (28.0-33.3); Mean Corpuscular Volume 124.8 fL (83.0-100.0); Mean Platelet Volume 12.6 fL (9.4-12.4); Monocytes # 0.6 K/mcL (0.0-1.3); Neutrophils # 4.5 K/mcL (1.6-8.9); Nucleated Red Blood Cells 0.3 /100 WBC (0); Red Blood Count 2.86 M/mcL (3.82-4.97); Red Cell Distribution Width 18.1 % (11.5-14.5); Segmented Neutrophils % 67.7 %; White Blood Count 6.6 K/mcL (4.3-11.1)
[2020-04-12 11:08] LABS: Platelet Count 69 K/mcL (140-400)
[2020-04-12 11:46] LABS: Calcium 8.2 mg/dL (8.6-10.3); Magnesium 1.9 mg/dL (1.6-2.6); Phosphorous 2.7 mg/dL (2.7-4.5); Potassium 3.4 mEq/L (3.5-5.1); Thyroid Stimulating Hormone 13.564 mcIU/mL (0.340-5.600)
[2020-04-12 14:26] LABS: Triiodothyronine (T3) Total 0.5 ng/mL (0.87-1.78)
[2020-04-12] MEDS: *HR* Heparin 5,000 UNIT/ML VIAL SQ SCH (16:38)
[2020-04-13 02:02] LABS: Basophils % 0.4 %; Immature Granulocytes % 0.4 % (0-4)
[2020-04-13 02:04] LABS: Eosinophils # 0.1 K/mcL (0.0-0.6); Eosinophils % 1.4 %; Hemoglobin 9.7 g/dL (11.5-15.4); Immature Platelets 8.4 % (1.1-6.1); Lymphocytes # 1.6 K/mcL (0.6-4.6); Lymphocytes % 32.3 %; Mean Corpuscular HGB Conc 31.3 g/dL (31.6-35.5); Mean Corpuscular Hemoglobin 39.9 pg (28.0-33.3); Mean Corpuscular Volume 127.6 fL (83.0-100.0); Mean Platelet Volume 12.6 fL (9.4-12.4); Monocytes # 0.3 K/mcL (0.0-1.3); Monocytes % 6.7 %; Neutrophils # 2.9 K/mcL (1.6-8.9); Nucleated Red Blood Cells 0.4 /100 WBC (0); Red Blood Count 2.43 M/mcL (3.82-4.97); Red Cell Distribution Width 17.3 % (11.5-14.5); Segmented Neutrophils % 58.8 %; White Blood Count 4.9 K/mcL (4.3-11.1)
[2020-04-13 02:05] LABS: Platelet Count 70 K/mcL (140-400)
[2020-04-13 02:19] LABS: Calcium 8.1 mg/dL (8.6-10.3); Potassium 3.2 mEq/L (3.5-5.1)
[2020-04-13 02:35] LABS: Macrocytosis Present (Not Present); Platelet Estimate Slight Decrease (Normal); Toxic Granulation Present (Not Present)
[2020-04-13] MEDS: *HR* Heparin 5,000 UNIT/ML VIAL SQ SCH ×2 (05:13→17:12)
[2020-04-13] MEDS ORDERED: 0.9 % Sodium Chloride 250 ML IVC PRN (06:53)
[2020-04-13] MEDS: Renal Vitamin 1 CAP CAPSULE PO SCH (08:19)
[2020-04-13] MEDS: Folic Acid 1 MG TABLET PO SCH (08:19)
[2020-04-13] MEDS: Cholecalciferol (D-3) 1,000 UNIT (25MCG) TABLET PO SCH (08:19)
[2020-04-13] MEDS: Zinc Sulfate 220 MG CAPSULE PO SCH (08:19)
[2020-04-13] MEDS: predniSONE 5 MG TABLET PO SCH ×2 (08:19→17:08)
[2020-04-14 01:35] LABS: Red Blood Count 2.34 M/mcL (3.82-4.97)
[2020-04-14 01:37] LABS: Hematocrit 29.7 % (35.3-44.9); Immature Platelets 10.7 % (1.1-6.1); Mean Corpuscular HGB Conc 30.3 g/dL (31.6-35.5); Mean Corpuscular Hemoglobin 38.5 pg (28.0-33.3); Mean Corpuscular Volume 126.9 fL (83.0-100.0); Mean Platelet Volume 13.1 fL (9.4-12.4); Red Cell Distribution Width 17.3 % (11.5-14.5); White Blood Count 5.3 K/mcL (4.3-11.1)
[2020-04-14 02:06] LABS: Magnesium 1.7 mg/dL (1.6-2.6); Phosphorous 2.6 mg/dL (2.7-4.5); Potassium 3.1 mEq/L (3.5-5.1)
[2020-04-14] MEDS ORDERED: 0.9 % Sodium Chloride 250 ML IVC ONE (03:41)
[2020-04-14] MEDS: *HR* Heparin 5,000 UNIT/ML VIAL SQ SCH ×2 (05:08→18:02)
[2020-04-14] MEDS: Cholecalciferol (D-3) 1,000 UNIT (25MCG) TABLET PO SCH (08:00)
[2020-04-14] MEDS: Renal Vitamin 1 CAP CAPSULE PO SCH (08:04)
[2020-04-14] MEDS: Zinc Sulfate 220 MG CAPSULE PO SCH (08:04)
[2020-04-14] MEDS: Folic Acid 1 MG TABLET PO SCH (08:04)
[2020-04-14] MEDS: predniSONE 5 MG TABLET PO SCH ×2 (08:04→17:48)
[2020-04-14 10:39] LABS: Magnesium 1.8 mg/dL (1.6-2.6); Phosphorous 3.5 mg/dL (2.7-4.5)
[2020-04-15] MEDS: *HR* Heparin 5,000 UNIT/ML VIAL SQ SCH (05:20)
[2020-04-15 06:17] LABS: Hemoglobin 8.5 g/dL (11.5-15.4)
[2020-04-15 06:19] LABS: Hematocrit 26.4 % (35.3-44.9); Immature Platelets 11.5 % (1.1-6.1); Mean Corpuscular HGB Conc 32.2 g/dL (31.6-35.5); Mean Corpuscular Hemoglobin 40.3 pg (28.0-33.3); Mean Corpuscular Volume 125.1 fL (83.0-100.0); Mean Platelet Volume 13.2 fL (9.4-12.4); Red Blood Count 2.11 M/mcL (3.82-4.97); Red Cell Distribution Width 17.2 % (11.5-14.5); White Blood Count 5.5 K/mcL (4.3-11.1)
[2020-04-15 06:39] LABS: Calcium 8.2 mg/dL (8.6-10.3); Potassium 4.4 mEq/L (3.5-5.1)
[2020-04-15] MEDS ORDERED: 0.9 % Sodium Chloride 2,000 ML ONE (06:39)
[2020-04-15] MEDS ORDERED: 0.9 % Sodium Chloride 250 ML IVC PRN (06:56)
[2020-04-15] MEDS: Cholecalciferol (D-3) 1,000 UNIT (25MCG) TABLET PO SCH (09:01)
[2020-04-15] MEDS: Renal Vitamin 1 CAP CAPSULE PO SCH (09:01)
[2020-04-15] MEDS: Zinc Sulfate 220 MG CAPSULE PO SCH (09:01)
[2020-04-15] MEDS: Folic Acid 1 MG TABLET PO SCH (09:01)
[2020-04-15] MEDS: predniSONE 5 MG TABLET PO SCH ×2 (09:02→17:14)
[2020-04-16 01:25] LABS: Hemoglobin 8.8 g/dL (11.5-15.4)
[2020-04-16 01:27] LABS: Basophils % 0.7 %; Eosinophils # 0.1 K/mcL (0.0-0.6); Eosinophils % 1.7 %; Hematocrit 28.9 % (35.3-44.9); Immature Granulocytes % 0.4 % (0-4); Immature Platelets 12.7 % (1.1-6.1); Lymphocytes % 36.5 %; Mean Corpuscular HGB Conc 30.4 g/dL (31.6-35.5); Mean Corpuscular Hemoglobin 38.6 pg (28.0-33.3); Mean Corpuscular Volume 126.8 fL (83.0-100.0); Mean Platelet Volume 13.3 fL (9.4-12.4); Monocytes # 0.5 K/mcL (0.0-1.3); Monocytes % 8.4 %; Neutrophils # 2.8 K/mcL (1.6-8.9); Red Blood Count 2.28 M/mcL (3.82-4.97); Red Cell Distribution Width 17.1 % (11.5-14.5); Segmented Neutrophils % 52.3 %; White Blood Count 5.4 K/mcL (4.3-11.1)
[2020-04-16 01:35] LABS: Platelet Count 51 K/mcL (140-400)
[2020-04-16 01:45] LABS: Calcium 7.9 mg/dL (8.6-10.3); Potassium 3.6 mEq/L (3.5-5.1)
[2020-04-16 02:19] LABS: Macrocytosis Present (Not Present); Platelet Estimate Decreased (Normal)
[2020-04-16] MEDS: Cholecalciferol (D-3) 1,000 UNIT (25MCG) TABLET PO SCH (08:17)
[2020-04-16] MEDS: Folic Acid 1 MG TABLET PO SCH (08:17)
[2020-04-16] MEDS: Renal Vitamin 1 CAP CAPSULE PO SCH (08:17)
[2020-04-16] MEDS: predniSONE 5 MG TABLET PO SCH ×2 (08:17→16:19)
[2020-04-16] MEDS: Zinc Sulfate 220 MG CAPSULE PO SCH (08:18)
[2020-04-16 16:24] VITALS: BP 80/52
== END 2020-04-16 18:21 | DRG 314 ==
LOC: EMEROOARM 11:41 → 2ANU 11:41 → SUATTDRO 16:39 → 2ANU 17:38 → SUATTDRO 04-12 13:57 → 2ANU 04-15 08:26
PROVIDERS: ADMIT Internal Medicine; ATTEND Family Medicine

== ENCOUNTER 2020-05-08 11:20 | Observation (INO) ==
[2020-05-08 12:03] LABS: Bacteria,Urine Few per hpf (None-Few); Bilirubin,Urine Negative (Negative); Blood,Urine Trace (Negative); Clarity,Urine Clear (Clear); Color,Urine Light-Yellow (Yellow); Glucose,Urine (UA) 100 mg/dL (Normal); Ketones,Urine Negative (Negative); Leukocyte Esterase,Urine Negative (Negative); Nitrite,Urine Negative (Negative); PH,Urine 5.5 pH Units (5.0-8.0); Protein,Urine 30 mg/dL (Neg-Trace); RBC,Urine 0-3 per hpf (0-3); Specific Gravity,Urine 1.009 (1.010-1.025); Urobilinogen,Urine Normal (Normal); WBC,Urine 0-3 per hpf (0-3)
[2020-05-08 12:17] LABS: Basophils % 0.5 %; Eosinophils % 1.3 %; Hematocrit 30.2 % (35.3-44.9); Mean Corpuscular Volume 129.1 fL (83.0-100.0); Nucleated Red Blood Cells 0.7 /100 WBC (0); Red Blood Count 2.34 M/mcL (3.82-4.97)
[2020-05-08 12:19] LABS: Eosinophils # 0.1 K/mcL (0.0-0.6); Hemoglobin 9.5 g/dL (11.5-15.4); Immature Granulocytes % 0.5 % (0-4); Lymphocytes # 0.8 K/mcL (0.6-4.6); Lymphocytes % 14.4 %; Mean Corpuscular HGB Conc 31.5 g/dL (31.6-35.5); Mean Corpuscular Hemoglobin 40.6 pg (28.0-33.3); Mean Platelet Volume 11.8 fL (9.4-12.4); Monocytes # 0.4 K/mcL (0.0-1.3); Monocytes % 7.7 %; Red Cell Distribution Width 17.1 % (11.5-14.5); Segmented Neutrophils % 75.6 %; White Blood Count 5.5 K/mcL (4.3-11.1)
[2020-05-08 12:21] LABS: Neutrophils # 4.2 K/mcL (1.6-8.9); Platelet Count 76 K/mcL (140-400)
[2020-05-08 12:25] LABS: INR 1.5; Prothrombin Time 17.5 Seconds (9.4-12.1)
[2020-05-08 12:26] LABS: VBG HCO3 7 mEq/L (21-27); VBG PCO2 19 mmHg (41-51); VBG PH 7.19 pH Units (7.32-7.42); VBG PO2 133 mmHg (25-50)
[2020-05-08 13:03] LABS: Alanine Aminotransferase 28 Units/L (7-52); Albumin 2.5 g/dL (3.5-5.7); Albumin/Globulin Ratio 1.4 (1.1-2.2); Alkaline Phosphatase 93 Units/L (34-104); Aspartate Amino Transferase 15 Units/L (13-39); BUN/Creatinine Ratio 2 (6-26); Bilirubin,Direct 0.1 mg/dL (0.0-0.2); Bilirubin,Indirect 0.2 mg/dL (0.0-1.0); Bilirubin,Total 0.3 mg/dL (0.3-1.0); Blood Urea Nitrogen 8 mg/dL (6-20); Calcium 8.9 mg/dL (8.6-10.3); Carbon Dioxide 7 mEq/L (23-29); Chloride 110 mEq/L (98-107); Globulin 1.8 g/dL (2.4-3.5); Glucose 115 mg/dL (70-105); Osmolality,Calculated 297 (280-300); Potassium 3.1 mEq/L (3.5-5.1); Sodium 144 mEq/L (136-145); Total Protein 4.3 g/dL (6.4-8.9); Troponin I < 0.03 ng/mL (< 0.04); eGFR For African Americans 17 (> 60); eGFR For Non-African Americans 14 (> 60)
[2020-05-08 13:10] LABS: Anisocytosis 1+ (Not Present); Macrocytosis Present (Not Present); Platelet Estimate Decreased (Normal)
[2020-05-08] MEDS ORDERED: Azithromycin 500 MG in 0.9 % Sodium Chloride 250 ML IVPB ONE (14:25)
[2020-05-08] MEDS ORDERED: cefTRIAXone 1,000 MG in Water for inj. (sterile) 10 ML IVP ONE (14:25)
[2020-05-08] MEDS ORDERED: 0.9 % Sodium Chloride 250 ML IVC PRN (14:39)
[2020-05-08] MEDS ORDERED: 0.9 % Sodium Chloride 1,000 ML PRIME SCH (14:45)
[2020-05-08 16:07] LABS: Hepatitis B Surface Antibody < 3.10 mIU/mL
[2020-05-08 16:18] LABS: Hepatitis B Surface Antigen Nonreactive (Nonreactive)
[2020-05-08] MEDS: Sodium Bicarbonate 150 MEQ in D5% in Water 1,000 ML IVC SCH (21:42)
[2020-05-08 23:02] LABS: Calcium 7.6 mg/dL (8.6-10.3); Potassium 3.8 mEq/L (3.5-5.1)
[2020-05-09 01:20] LABS: Basophils % 0.5 %; Red Cell Distribution Width 16.2 % (11.5-14.5)
[2020-05-09 01:21] LABS: Eosinophils # 0.1 K/mcL (0.0-0.6); Hematocrit 25.7 % (35.3-44.9); Hemoglobin 8.4 g/dL (11.5-15.4); Immature Granulocytes % 0.3 % (0-4); Immature Platelets 10.5 % (1.1-6.1); Lymphocytes # 1.9 K/mcL (0.6-4.6); Lymphocytes % 29.6 %; Mean Corpuscular HGB Conc 32.7 g/dL (31.6-35.5); Mean Corpuscular Hemoglobin 39.6 pg (28.0-33.3); Mean Corpuscular Volume 121.2 fL (83.0-100.0); Monocytes # 0.5 K/mcL (0.0-1.3); Monocytes % 7.8 %; Neutrophils # 3.9 K/mcL (1.6-8.9); Nucleated Red Blood Cells 0.5 /100 WBC (0); Red Blood Count 2.12 M/mcL (3.82-4.97); Segmented Neutrophils % 59.8 %; White Blood Count 6.5 K/mcL (4.3-11.1)
[2020-05-09 01:28] LABS: Calcium 7.6 mg/dL (8.6-10.3); Potassium 3.6 mEq/L (3.5-5.1)
[2020-05-09 01:31] LABS: Platelet Count 69 K/mcL (140-400)
[2020-05-09] MEDS: Fluconazole 100 MG TABLET PO ONE ×2 (06:48→07:34)
[2020-05-09] MEDS: Sodium Bicarbonate 150 MEQ in D5% in Water 1,000 ML IVC SCH (08:14)
[2020-05-09] MEDS ORDERED: predniSONE 5 MG TABLET PO ONE (10:40)
[2020-05-09 13:22] VITALS: BP 93/75
== END 2020-05-09 15:03 | disposition home or self-care (01) ==
LOC: 2NNU 11:20 → EMEROOARM 11:20 → 2NNU 16:59
PROVIDERS: ADMIT Internal Medicine; ATTEND Internal Medicine

== ENCOUNTER 2020-05-15 08:57 | Observation (INO) ==
[2020-05-15] MEDS ORDERED: 0.9 % Sodium Chloride 250 ML IVC ONE ×2 (09:02→23:23)
[2020-05-15] MEDS ORDERED: *HR* Dextrose 50 % in Water (Vial) 50 ML VIAL ONE (09:04)
[2020-05-15] MEDS ORDERED: *HR* Dextrose 50 % in Water (Vial) 50 ML VIAL IVP ONE (09:15)
[2020-05-15 10:17] LABS: ABG Base Excess 10 mEq/L (-2 to 3); ABG HCO3 33 mEq/L (21-27); ABG Oxygen Saturation 98 % (95-98); ABG PCO2 39 mmHg (35-45); ABG PH 7.54 pH Units (7.32-7.45); ABG PO2 85 mmHg (85-104); ABG TCO2 34 mEq/L (20-26)
[2020-05-15] MEDS ORDERED: *HR* LORazepam 2 MG/ML VIAL IVP ONE (11:33)
[2020-05-15 11:34] LABS: Alanine Aminotransferase 24 Units/L (7-52); Albumin 2.5 g/dL (3.5-5.7); Albumin/Globulin Ratio 1.5 (1.1-2.2); Alkaline Phosphatase 77 Units/L (34-104); Aspartate Amino Transferase 18 Units/L (13-39); BUN/Creatinine Ratio 4 (6-26); Bilirubin,Total 0.5 mg/dL (0.3-1.0); Blood Urea Nitrogen 11 mg/dL (6-20); Carbon Dioxide 32 mEq/L (23-29); Chloride 97 mEq/L (98-107); Globulin 1.7 g/dL (2.4-3.5); Glucose 82 mg/dL (70-105); Osmolality,Calculated 288 (280-300); Potassium 5.2 mEq/L (3.5-5.1); Sodium 140 mEq/L (136-145); Thyroid Stimulating Hormone 20.816 mcIU/mL (0.340-5.600); Total Protein 4.2 g/dL (6.4-8.9); Troponin I < 0.03 ng/mL (< 0.04); eGFR For African Americans 21 (> 60); eGFR For Non-African Americans 17 (> 60)
[2020-05-15 11:42] LABS: Bilirubin,Urine Negative (Negative); Blood,Urine Negative (Negative); Clarity,Urine Clear (Clear); Color,Urine Colorless (Yellow); Glucose,Urine (UA) 50 mg/dL (Normal); Ketones,Urine Negative (Negative); Leukocyte Esterase,Urine Negative (Negative); Nitrite,Urine Negative (Negative); PH,Urine 8.5 pH Units (5.0-8.0); Protein,Urine 30 mg/dL (Neg-Trace); Specific Gravity,Urine 1.007 (1.010-1.025); Urobilinogen,Urine Normal (Normal); WBC,Urine 0-3 per hpf (0-3)
[2020-05-15] MEDS ORDERED: Acetaminophen 325 MG TABLET PO PRN (13:55)
[2020-05-15] MEDS ORDERED: Naloxone 0.4 MG/ML INJ IVP PRN (13:55)
[2020-05-15] MEDS ORDERED: 0.9 % Sodium Chloride 500 ML IVC ONE (14:22)
[2020-05-15] MEDS ORDERED: 0.9 % Sodium Chloride 250 ML IVC PRN (14:31)
[2020-05-15] MEDS ORDERED: 0.9 % Sodium Chloride 1,000 ML PRIME SCH (14:45)
[2020-05-15] MEDS: 0.9 % Sodium Chloride 1,000 ML IVC SCH (14:52)
[2020-05-15 18:28] LABS: Basophils % 0.2 %; Eosinophils # 0.1 K/mcL (0.0-0.6); Eosinophils % 1.1 %; Hematocrit 21.9 % (35.3-44.9); Hemoglobin 7.1 g/dL (11.5-15.4); Immature Granulocytes % 0.4 % (0-4); Lymphocytes # 1.6 K/mcL (0.6-4.6); Lymphocytes % 28.7 %; Mean Corpuscular HGB Conc 32.4 g/dL (31.6-35.5); Mean Corpuscular Hemoglobin 39.7 pg (28.0-33.3); Mean Corpuscular Volume 122.3 fL (83.0-100.0); Mean Platelet Volume 11.1 fL (9.4-12.4); Monocytes # 0.5 K/mcL (0.0-1.3); Monocytes % 9.7 %; Neutrophils # 3.3 K/mcL (1.6-8.9); Platelet Count 103 K/mcL (140-400); Red Blood Count 1.79 M/mcL (3.82-4.97); Red Cell Distribution Width 15.3 % (11.5-14.5); Segmented Neutrophils % 59.9 %; White Blood Count 5.5 K/mcL (4.3-11.1)
[2020-05-15 19:00] LABS: Platelet Estimate Slight Decrease (Normal)
[2020-05-15 19:01] LABS: Toxic Granulation Present (Not Present)
[2020-05-15 19:02] LABS: Anisocytosis 1+ (Not Present)
[2020-05-15] MEDS: Cefepime HCl 1,000 MG in 0.9 % Sodium Chloride Mini Bag 100 ML IVPB SCH (21:34)
[2020-05-15] MEDS: *HR* Heparin 5,000 UNIT/ML VIAL SQ SCH (21:35)
[2020-05-15] MEDS ORDERED: 0.9 % Sodium Chloride 1,000 ML IVC SCH (23:30)
[2020-05-16] MEDS: *HR* Heparin 5,000 UNIT/ML VIAL SQ SCH ×2 (05:51→18:05)
[2020-05-16 06:29] LABS: Monocytes # 0.4 K/mcL (0.0-1.3); Monocytes % 10.5 %; Red Blood Count 1.88 M/mcL (3.82-4.97); White Blood Count 3.9 K/mcL (4.3-11.1)
[2020-05-16 06:31] LABS: Basophils % 0.3 %; Eosinophils # 0.1 K/mcL (0.0-0.6); Eosinophils % 1.8 %; Hematocrit 23.7 % (35.3-44.9); Hemoglobin 7.3 g/dL (11.5-15.4); Immature Granulocytes % 0.5 % (0-4); Immature Platelets 4.7 % (1.1-6.1); Lymphocytes # 1.5 K/mcL (0.6-4.6); Lymphocytes % 38.1 %; Mean Corpuscular HGB Conc 30.8 g/dL (31.6-35.5); Mean Corpuscular Hemoglobin 38.8 pg (28.0-33.3); Mean Corpuscular Volume 126.1 fL (83.0-100.0); Neutrophils # 1.9 K/mcL (1.6-8.9); Red Cell Distribution Width 15.5 % (11.5-14.5); Segmented Neutrophils % 48.8 %
[2020-05-16 06:38] LABS: Platelet Count 96 K/mcL (140-400)
[2020-05-16 06:43] LABS: VBG HCO3 33 mEq/L (21-27); VBG PCO2 35 mmHg (41-51); VBG PH 7.58 pH Units (7.32-7.42); VBG PO2 162 mmHg (25-50)
[2020-05-16 06:51] LABS: Calcium 6.7 mg/dL (8.6-10.3); Potassium 4.1 mEq/L (3.5-5.1)
[2020-05-16] MEDS: 0.9 % Sodium Chloride 1,000 ML IVC SCH (08:30)
[2020-05-16] MEDS ORDERED: Calcium Chloride 1,000 MG in 0.9 % Sodium Chloride 100 ML IVPB ONE (10:16)
[2020-05-16] MEDS: predniSONE 5 MG TABLET PO SCH ×2 (11:34→18:06)
[2020-05-16] MEDS: Levothyroxine Sodium 100 MCG VIAL IVP SCH (12:34)
[2020-05-16] MEDS ORDERED: Levothyroxine Sodium 100 MCG VIAL IVP ONE (14:23)
[2020-05-16] MEDS ORDERED: Cyanocobalamin (B-12) 1,000 MCG/ML VIAL SQ ONE (15:09)
[2020-05-16] MEDS: Cefepime HCl 1,000 MG in 0.9 % Sodium Chloride Mini Bag 100 ML IVPB SCH (18:04)
[2020-05-16] MEDS ORDERED: VITAMIN A 10000 UNIT PO SCH (18:30)
[2020-05-16] MEDS ORDERED: VITAMIN E ACID SUCCINATE 100 UNIT PO SCH (18:30)
[2020-05-16] MEDS ORDERED: COPPER GLUCONATE 2 MG PO SCH (18:30)
[2020-05-16] MEDS: Zinc Sulfate 220 MG CAPSULE PO SCH (20:09)
[2020-05-16] MEDS: Cholecalciferol (D-3) 1,000 UNIT (25MCG) TABLET PO SCH (20:09)
[2020-05-16] MEDS: Folic Acid 1 MG TABLET PO SCH (20:09)
[2020-05-16] MEDS ORDERED: NUTRITIONAL SUPPLEMENT GTUBE SCH (21:00)
[2020-05-17] MEDS: *HR* Heparin 5,000 UNIT/ML VIAL SQ SCH ×2 (05:20→17:11)
[2020-05-17 09:48] LABS: Basophils % 0.6 %; Eosinophils # 0.1 K/mcL (0.0-0.6); Eosinophils % 1.9 %; Hematocrit 29.2 % (35.3-44.9); Immature Granulocytes % 0.2 % (0-4); Lymphocytes # 1.6 K/mcL (0.6-4.6); Lymphocytes % 33.3 %; Mean Corpuscular HGB Conc 31.8 g/dL (31.6-35.5); Mean Corpuscular Hemoglobin 39.6 pg (28.0-33.3); Mean Corpuscular Volume 124.3 fL (83.0-100.0); Mean Platelet Volume 11.1 fL (9.4-12.4); Monocytes # 0.4 K/mcL (0.0-1.3); Monocytes % 9.2 %; Neutrophils # 2.6 K/mcL (1.6-8.9); Platelet Count 133 K/mcL (140-400); Red Blood Count 2.35 M/mcL (3.82-4.97); Red Cell Distribution Width 15.1 % (11.5-14.5); Segmented Neutrophils % 54.8 %; White Blood Count 4.8 K/mcL (4.3-11.1)
[2020-05-17 10:02] LABS: Hemoglobin 9.3 g/dL (11.5-15.4)
[2020-05-17 10:07] LABS: Calcium 7.8 mg/dL (8.6-10.3); Potassium 4.5 mEq/L (3.5-5.1)
[2020-05-17 10:12] LABS: VBG Ionized Calcium 1.06 mmol/L (1.15-1.35)
[2020-05-17 10:24] LABS: Platelet Estimate Normal (Normal)
[2020-05-17 10:26] LABS: Macrocytosis Present (Not Present)
[2020-05-17] MEDS: Folic Acid 1 MG TABLET PO SCH (10:36)
[2020-05-17] MEDS: Levothyroxine Sodium 100 MCG VIAL IVP SCH (10:36)
[2020-05-17] MEDS: Cholecalciferol (D-3) 1,000 UNIT (25MCG) TABLET PO SCH (10:36)
[2020-05-17] MEDS: predniSONE 5 MG TABLET PO SCH ×2 (10:36→17:32)
[2020-05-17] MEDS: Zinc Sulfate 220 MG CAPSULE PO SCH (10:48)
[2020-05-17] MEDS: Folic Acid 1 MG in 0.9 % Sodium Chloride 50 ML IVPB SCH (16:14)
[2020-05-17] MEDS: Cefepime HCl 1,000 MG in 0.9 % Sodium Chloride Mini Bag 100 ML IVPB SCH (17:31)
[2020-05-18 05:37] LABS: Basophils % 0.4 %; Eosinophils # 0.1 K/mcL (0.0-0.6); Eosinophils % 1.6 %; Hematocrit 31.6 % (35.3-44.9); Hemoglobin 10.2 g/dL (11.5-15.4); Immature Granulocytes % 0.2 % (0-4); Lymphocytes # 1.9 K/mcL (0.6-4.6); Lymphocytes % 38.4 %; Mean Corpuscular HGB Conc 32.3 g/dL (31.6-35.5); Mean Corpuscular Hemoglobin 41.1 pg (28.0-33.3); Mean Corpuscular Volume 127.4 fL (83.0-100.0); Mean Platelet Volume 11.4 fL (9.4-12.4); Monocytes # 0.4 K/mcL (0.0-1.3); Monocytes % 7.2 %; Neutrophils # 2.6 K/mcL (1.6-8.9); Platelet Count 117 K/mcL (140-400); Red Blood Count 2.48 M/mcL (3.82-4.97); Red Cell Distribution Width 14.6 % (11.5-14.5); Segmented Neutrophils % 52.2 %
[2020-05-18 05:51] LABS: Calcium 7.9 mg/dL (8.6-10.3); Potassium 4.9 mEq/L (3.5-5.1)
[2020-05-18 06:12] LABS: Anisocytosis 1+ (Not Present); Macrocytosis Present (Not Present); Platelet Estimate Slight Decrease (Normal)
[2020-05-18] MEDS: *HR* Heparin 5,000 UNIT/ML VIAL SQ SCH ×2 (06:26→18:19)
[2020-05-18] MEDS ORDERED: 0.9 % Sodium Chloride 250 ML IVC PRN (07:13)
[2020-05-18] MEDS: predniSONE 5 MG TABLET PO SCH ×2 (08:00→18:18)
[2020-05-18] MEDS: Cholecalciferol (D-3) 1,000 UNIT (25MCG) TABLET PO SCH (08:00)
[2020-05-18] MEDS: Zinc Sulfate 220 MG CAPSULE PO SCH (08:01)
[2020-05-18] MEDS: Levothyroxine Sodium 100 MCG VIAL IVP SCH (08:01)
[2020-05-18] MEDS: Folic Acid 1 MG in 0.9 % Sodium Chloride 50 ML IVPB SCH (08:25)
[2020-05-18 19:12] VITALS: BP 95/66
== END 2020-05-18 19:58 | disposition home health service (06) ==
LOC: EMEROOARM 08:57 → 3ANU 08:57 → SUATTDRO 13:38 → 3ANU 14:01
PROVIDERS: ADMIT Internal Medicine; ATTEND Internal Medicine

== ENCOUNTER 2020-06-15 11:31 | Observation (INO) ==
[2020-06-15 12:51] LABS: Basophils % 0.1 %; Eosinophils % 0.4 %; Hematocrit 36.7 % (35.3-44.9); Hemoglobin 11.3 g/dL (11.5-15.4); Immature Granulocytes % 0.5 % (0-4); Lymphocytes # 0.9 K/mcL (0.6-4.6); Lymphocytes % 11.8 %; Mean Corpuscular HGB Conc 30.8 g/dL (31.6-35.5); Mean Corpuscular Hemoglobin 39.2 pg (28.0-33.3); Mean Corpuscular Volume 127.4 fL (83.0-100.0); Mean Platelet Volume 11.8 fL (9.4-12.4); Monocytes # 0.5 K/mcL (0.0-1.3); Monocytes % 6.2 %; Neutrophils # 5.9 K/mcL (1.6-8.9); Nucleated Red Blood Cells 0.8 /100 WBC (0); Platelet Count 101 K/mcL (140-400); Red Blood Count 2.88 M/mcL (3.82-4.97); White Blood Count 7.3 K/mcL (4.3-11.1)
[2020-06-15 13:13] LABS: BUN/Creatinine Ratio 3 (6-26); Blood Urea Nitrogen 11 mg/dL (6-20); Calcium 8.5 mg/dL (8.6-10.3); Carbon Dioxide 13 mEq/L (23-29); Chloride 108 mEq/L (98-107); Glucose 127 mg/dL (70-105); Osmolality,Calculated 301 (280-300); Potassium 3.2 mEq/L (3.5-5.1); Sodium 145 mEq/L (136-145); Troponin I < 0.03 ng/mL (< 0.04); eGFR For African Americans 17 (> 60); eGFR For Non-African Americans 14 (> 60)
[2020-06-15 13:34] LABS: Macrocytosis Present (Not Present); Platelet Estimate Slight Decrease (Normal)
[2020-06-15 14:40] LABS: Bacteria,Urine Few per hpf (None-Few); Bilirubin,Urine Negative (Negative); Blood,Urine Small (Negative); Clarity,Urine Turbid (Clear); Color,Urine Yellow (Yellow); Glucose,Urine (UA) 70 mg/dL (Normal); Ketones,Urine Negative (Negative); Leukocyte Esterase,Urine Large (Negative); Mucus,Urine Few per lpf (None-Few); Nitrite,Urine Negative (Negative); PH,Urine 5.5 pH Units (5.0-8.0); Protein,Urine 70 mg/dL (Neg-Trace); RBC,Urine 0-3 per hpf (0-3); Specific Gravity,Urine 1.012 (1.010-1.025); Urobilinogen,Urine Normal (Normal); WBC,Urine TNTC per hpf (0-3)
[2020-06-15] MEDS ORDERED: cefTRIAXone 1,000 MG in 0.9 % Sodium Chloride Mini Bag 100 ML IVPB ONE (14:44)
[2020-06-15] MEDS ORDERED: *HR* LORazepam 1 MG TABLET PO ONE (14:44)
[2020-06-15] MEDS ORDERED: Ondansetron 4 MG/2 ML VIAL IVP PRN (15:40)
[2020-06-15] MEDS ORDERED: Acetaminophen 325 MG TABLET PO PRN (15:40)
[2020-06-15] MEDS ORDERED: Cefepime HCl 1,000 MG in Water for inj. (sterile) 10 ML IVP SCH (16:00)
[2020-06-15 16:51] LABS: Thyroid Stimulating Hormone 7.428 mcIU/mL (0.340-5.600)
[2020-06-15] MEDS ORDERED: Cefepime HCl 2,000 MG in Water for inj. (sterile) 20 ML IVP SCH (17:00)
[2020-06-15] MEDS: *HR* Heparin 5,000 UNIT/ML VIAL SQ SCH (21:50)
[2020-06-16 02:59] LABS: Hematocrit 32.8 % (35.3-44.9); Hemoglobin 9.9 g/dL (11.5-15.4); Immature Platelets 6.9 % (1.1-6.1); Mean Corpuscular HGB Conc 30.2 g/dL (31.6-35.5); Mean Corpuscular Hemoglobin 38.8 pg (28.0-33.3); Mean Corpuscular Volume 128.6 fL (83.0-100.0); Mean Platelet Volume 12.2 fL (9.4-12.4); Red Blood Count 2.55 M/mcL (3.82-4.97); Red Cell Distribution Width 16.7 % (11.5-14.5); White Blood Count 5.4 K/mcL (4.3-11.1)
[2020-06-16] MEDS ORDERED: hydrOXYzine pamoate 25 MG CAPSULE PO ONE (03:02)
[2020-06-16 03:16] LABS: Potassium 3.2 mEq/L (3.5-5.1)
[2020-06-16] MEDS: *HR* Heparin 5,000 UNIT/ML VIAL SQ SCH ×4 (06:42→21:56)
[2020-06-16] MEDS ORDERED: 0.9 % Sodium Chloride 250 ML IVC PRN (07:05)
[2020-06-16] MEDS ORDERED: 0.9 % Sodium Chloride 1,000 ML PRIME SCH (07:15)
[2020-06-16 07:48] LABS: Hepatitis B Surface Antibody < 3.10 mIU/mL
[2020-06-16 07:59] LABS: Hepatitis B Surface Antigen Nonreactive (Nonreactive)
[2020-06-16] MEDS: Cholecalciferol (D-3) 1,000 UNIT (25MCG) TABLET PO SCH (09:00)
[2020-06-16] MEDS: predniSONE 5 MG TABLET PO SCH ×2 (09:00→17:23)
[2020-06-16] MEDS: Cefepime HCl 1,000 MG in Water for inj. (sterile) 10 ML IVP SCH (17:23)
[2020-06-16] MEDS: *HR* LORazepam Oral Conc 2 MG/ML PO PRN (18:08)
[2020-06-17 03:25] LABS: Hematocrit 27.6 % (35.3-44.9); Hemoglobin 9.1 g/dL (11.5-15.4); Mean Corpuscular Hemoglobin 39.6 pg (28.0-33.3); Mean Platelet Volume 12.1 fL (9.4-12.4); Red Cell Distribution Width 16.6 % (11.5-14.5); White Blood Count 5.6 K/mcL (4.3-11.1)
[2020-06-17 03:26] LABS: Platelet Count 59 K/mcL (140-400)
[2020-06-17 03:42] LABS: Calcium 7.2 mg/dL (8.6-10.3); Potassium 4.3 mEq/L (3.5-5.1)
[2020-06-17] MEDS: *HR* Heparin 5,000 UNIT/ML VIAL SQ SCH ×3 (05:49→20:39)
[2020-06-17] MEDS: predniSONE 5 MG TABLET PO SCH ×2 (08:15→17:26)
[2020-06-17] MEDS: Cholecalciferol (D-3) 1,000 UNIT (25MCG) TABLET PO SCH (08:16)
[2020-06-17] MEDS: Cefepime HCl 1,000 MG in Water for inj. (sterile) 10 ML IVP SCH (17:26)
[2020-06-17] MEDS ORDERED: *HR* HYDROcodone/Acet 5/325 mg TABLET PO PRN (18:06)
[2020-06-17] MEDS: *HR* LORazepam Oral Conc 2 MG/ML PO PRN (21:08)
[2020-06-18] MEDS: *HR* Heparin 5,000 UNIT/ML VIAL SQ SCH ×3 (05:05→20:32)
[2020-06-18] MEDS ORDERED: 0.9 % Sodium Chloride 250 ML IVC PRN (07:18)
[2020-06-18] MEDS: Cholecalciferol (D-3) 1,000 UNIT (25MCG) TABLET PO SCH (08:12)
[2020-06-18] MEDS: predniSONE 5 MG TABLET PO SCH ×2 (08:13→17:30)
[2020-06-18 08:35] LABS: Calcium 7.4 mg/dL (8.6-10.3); Potassium 3.8 mEq/L (3.5-5.1)
[2020-06-18] MEDS: Cefepime HCl 1,000 MG in Water for inj. (sterile) 10 ML IVP SCH (17:31)
[2020-06-18] MEDS: *HR* LORazepam Oral Conc 2 MG/ML PO PRN (20:31)
[2020-06-19] MEDS: *HR* Heparin 5,000 UNIT/ML VIAL SQ SCH (05:15)
[2020-06-19 06:12] LABS: Basophils % 0.2 %; Hemoglobin 8.3 g/dL (11.5-15.4); Red Blood Count 2.13 M/mcL (3.82-4.97)
[2020-06-19 06:14] LABS: Eosinophils % 0.7 %; Hematocrit 25.4 % (35.3-44.9); Immature Granulocytes % 0.2 % (0-4); Immature Platelets 12.6 % (1.1-6.1); Lymphocytes # 1.8 K/mcL (0.6-4.6); Mean Corpuscular HGB Conc 32.7 g/dL (31.6-35.5); Mean Corpuscular Volume 119.2 fL (83.0-100.0); Mean Platelet Volume 12.7 fL (9.4-12.4); Monocytes # 0.3 K/mcL (0.0-1.3); Monocytes % 5.9 %; Neutrophils # 3.2 K/mcL (1.6-8.9); Red Cell Distribution Width 15.9 % (11.5-14.5); White Blood Count 5.4 K/mcL (4.3-11.1)
[2020-06-19 06:27] LABS: Platelet Count 36 K/mcL (140-400)
[2020-06-19 06:51] LABS: Platelet Estimate Decreased (Normal)
[2020-06-19 06:52] LABS: Anisocytosis 1+ (Not Present); Hypochromasia Present (Not Present)
[2020-06-19] MEDS ORDERED: 0.9 % Sodium Chloride 250 ML IVC PRN (07:16)
[2020-06-19 07:23] LABS: Calcium 7.1 mg/dL (8.6-10.3); Potassium 4.1 mEq/L (3.5-5.1)
[2020-06-19] MEDS: Cholecalciferol (D-3) 1,000 UNIT (25MCG) TABLET PO SCH (08:30)
[2020-06-19] MEDS: predniSONE 5 MG TABLET PO SCH (08:30)
[2020-06-19 11:38] VITALS: BP 100/55
[2020-06-19 11:59] LABS: Adenovirus Not Detected (Not Detect); Bordetella Pertussis Not Detected (Not Detect); Chlamydophila pneumoniae Not Detected (Not Detect); Coronavirus 229E Not Detected (Not Detect); Coronavirus HKU1 Not Detected (Not Detect); Coronavirus NL63 Not Detected (Not Detect); Coronavirus OC43 Not Detected (Not Detect); Human Metapneumovirus Not Detected (Not Detect); Human Rhinovirus/Enterovirus Not Detected (Not Detect); Influenza A Subtype 2009 H1 Not Detected (Not Detect); Influenza B Not Detected (Not Detect); Mycoplasma pneumoniae Not Detected (Not Detect); Parainfluenza Virus 1 Not Detected (Not Detect); Parainfluenza Virus 2 Not Detected (Not Detect); Parainfluenza Virus 3 Not Detected (Not Detect); Parainfluenza Virus 4 Not Detected (Not Detect); Respiratory Syncytial Virus Not Detected (Not Detect); SARS-CoV-2 Not Detected (Not Detect)
== END 2020-06-19 13:55 ==
LOC: 2ANU 11:31 → EMEROOARM 11:31 → SUATTDRO 15:37 → 2ANU 17:30
PROVIDERS: ADMIT General Practice; ATTEND Internal Medicine

== ENCOUNTER 2020-08-02 11:47 | Inpatient (IN) ==
[2020-08-02 13:09] LABS: Basophils % 0.1 %; Eosinophils % 0.3 %; Hematocrit 26.6 % (35.3-44.9); Hemoglobin 8.1 g/dL (11.5-15.4); Immature Granulocytes % 0.4 % (0-4); Lymphocytes # 1.3 K/mcL (0.6-4.6); Lymphocytes % 10.6 %; Mean Corpuscular HGB Conc 30.5 g/dL (31.6-35.5); Mean Corpuscular Hemoglobin 38.4 pg (28.0-33.3); Mean Corpuscular Volume 126.1 fL (83.0-100.0); Mean Platelet Volume 11.8 fL (9.4-12.4); Monocytes # 0.7 K/mcL (0.0-1.3); Neutrophils # 9.9 K/mcL (1.6-8.9); Nucleated Red Blood Cells 0.4 /100 WBC (0); Red Blood Count 2.11 M/mcL (3.82-4.97); Red Cell Distribution Width 17.7 % (11.5-14.5); Segmented Neutrophils % 82.6 %
[2020-08-02] MEDS ORDERED: *HR* LORazepam 2 MG/ML VIAL IM ONE (13:09)
[2020-08-02 13:10] LABS: Platelet Count 68 K/mcL (140-400)
[2020-08-02 13:28] LABS: BUN/Creatinine Ratio 2 (6-26); Blood Urea Nitrogen 6 mg/dL (6-20); C-Reactive Protein 16 mg/L (Less than 10); Calcium 7.7 mg/dL (8.6-10.3); Carbon Dioxide 22 mEq/L (23-29); Chloride 106 mEq/L (98-107); Glucose 81 mg/dL (70-105); Osmolality,Calculated 293 (280-300); Potassium 3.3 mEq/L (3.5-5.1); Sodium 143 mEq/L (136-145); Troponin I < 0.03 ng/mL (< 0.04); eGFR For African Americans 22 (> 60); eGFR For Non-African Americans 18 (> 60)
[2020-08-02 13:35] LABS: Anisocytosis 1+ (Not Present); Macrocytosis Present (Not Present); Platelet Estimate Decreased (Normal)
[2020-08-02] MEDS ORDERED: Piperacillin/Tazobactam 3.375 GM in 0.9 % Sodium Chloride Mini Bag 100 ML IVPB ONE (14:47)
[2020-08-02] MEDS ORDERED: Ondansetron 4 MG/2 ML VIAL IVP PRN (16:36)
[2020-08-02] MEDS ORDERED: Melatonin 3 MG TABLET PO PRN (16:36)
[2020-08-02] MEDS ORDERED: Naloxone 0.4 MG/ML INJ IVP PRN (16:36)
[2020-08-02] MEDS ORDERED: Acetaminophen 325 MG TABLET PO PRN (16:36)
[2020-08-02] MEDS ORDERED: Ipratropium/Albuterol Neb 3 ML IH PRN (17:24)
[2020-08-02] MEDS: predniSONE 5 MG TABLET PO SCH (17:32)
[2020-08-02] MEDS ORDERED: *HR* Heparin 5,000 UNIT/ML VIAL SQ SCH (18:00)
[2020-08-02] MEDS: PROTEASE PO SCH (20:30)
[2020-08-02] MEDS: AMYLASE PO SCH (20:30)
[2020-08-02] MEDS: LIPASE PO SCH (20:30)
[2020-08-02] MEDS: *HR* HYDROcodone/Acet 5/325 mg TABLET PO PRN (20:31)
[2020-08-02] MEDS: Lactobacillus 1 EACH CAP.SPRINK PO SCH (20:31)
[2020-08-03] MEDS: *HR* HYDROcodone/Acet 5/325 mg TABLET PO PRN ×2 (04:05→22:32)
[2020-08-03 04:35] LABS: Basophils % 0.1 %; Eosinophils % 0.1 %; Hemoglobin 7.3 g/dL (11.5-15.4); Immature Granulocytes % 0.5 % (0-4); Nucleated Red Blood Cells 0.5 /100 WBC (0); Red Cell Distribution Width 17.9 % (11.5-14.5)
[2020-08-03 04:36] LABS: Hematocrit 24.3 % (35.3-44.9); Lymphocytes # 1.8 K/mcL (0.6-4.6); Lymphocytes % 18.4 %; Mean Corpuscular Hemoglobin 37.6 pg (28.0-33.3); Mean Corpuscular Volume 125.3 fL (83.0-100.0); Mean Platelet Volume 12.3 fL (9.4-12.4); Monocytes # 0.5 K/mcL (0.0-1.3); Monocytes % 4.5 %; Neutrophils # 7.6 K/mcL (1.6-8.9); Red Blood Count 1.94 M/mcL (3.82-4.97); Segmented Neutrophils % 76.4 %
[2020-08-03 04:37] LABS: Platelet Count 61 K/mcL (140-400)
[2020-08-03 04:54] LABS: Albumin 1.8 g/dL (3.5-5.7); Albumin/Globulin Ratio 1.1 (1.1-2.2); Bilirubin,Total 0.5 mg/dL (0.3-1.0); Calcium 7.6 mg/dL (8.6-10.3); Globulin 1.7 g/dL (2.4-3.5); Magnesium 1.9 mg/dL (1.6-2.6); Phosphorous 3.6 mg/dL (2.7-4.5); Potassium 3.8 mEq/L (3.5-5.1); Total Protein 3.5 g/dL (6.4-8.9)
[2020-08-03 04:58] LABS: Anisocytosis 1+ (Not Present); Macrocytosis Present (Not Present); Platelet Estimate Decreased (Normal)
[2020-08-03] MEDS ORDERED: 0.9 % Sodium Chloride 250 ML IVC PRN (07:39)
[2020-08-03] MEDS ORDERED: 0.9 % Sodium Chloride 1,000 ML PRIME SCH (07:45)
[2020-08-03 07:55] LABS: Hepatitis B Surface Antibody < 3.10 mIU/mL
[2020-08-03 08:06] LABS: Hepatitis B Surface Antigen Nonreactive (Nonreactive)
[2020-08-03] MEDS ORDERED: Sulfamethoxazole/Trimeth DS 1 EACH TABLET PO SCH (09:00)
[2020-08-03] MEDS ORDERED: Sulfamethoxazole/Trimeth DS 1 EACH TABLET PO ONE (09:40)
[2020-08-03] MEDS ORDERED: Albumin 25% 25gram/100mL 25 GM/100 ML IV.SOLN ONE (10:15)
[2020-08-03] MEDS: Lactobacillus 1 EACH CAP.SPRINK PO SCH ×2 (12:44→22:33)
[2020-08-03] MEDS: predniSONE 5 MG TABLET PO SCH ×2 (12:45→18:40)
[2020-08-03] MEDS: PROTEASE PO SCH (12:46)
[2020-08-03] MEDS: AMYLASE PO SCH (12:46)
[2020-08-03] MEDS: LIPASE PO SCH (12:46)
[2020-08-04 03:12] LABS: Hematocrit 21.4 % (35.3-44.9); Hemoglobin 6.4 g/dL (11.5-15.4); Mean Corpuscular HGB Conc 29.9 g/dL (31.6-35.5); Mean Corpuscular Volume 123.7 fL (83.0-100.0); Mean Platelet Volume 12.2 fL (9.4-12.4); Red Blood Count 1.73 M/mcL (3.82-4.97); Red Cell Distribution Width 17.9 % (11.5-14.5); White Blood Count 8.9 K/mcL (4.3-11.1)
[2020-08-04 03:35] LABS: Calcium 7.3 mg/dL (8.6-10.3); Magnesium 1.7 mg/dL (1.6-2.6); Phosphorous 2.1 mg/dL (2.7-4.5)
[2020-08-04] MEDS ORDERED: 0.9 % Sodium Chloride 250 ML IVC SCH (06:30)
[2020-08-04] MEDS: predniSONE 5 MG TABLET PO SCH ×2 (09:32→17:01)
[2020-08-04] MEDS: Lactobacillus 1 EACH CAP.SPRINK PO SCH ×2 (09:33→20:57)
[2020-08-04] MEDS: Sulfamethoxazole/Trimeth SS 1 TAB PO SCH ×2 (09:34→20:57)
[2020-08-04] MEDS ORDERED: *HR* LORazepam 0.5 MG TABLET PO PRN (11:10)
[2020-08-04] MEDS ORDERED: Cyanocobalamin (B-12) 1,000 MCG/ML VIAL IM SCH (13:00)
[2020-08-04] MEDS: Pantoprazole 40 MG VIAL IVP SCH ×2 (13:14→17:00)
[2020-08-04 14:29] LABS: Adenovirus Not Detected (Not Detect); Bordetella Pertussis Not Detected (Not Detect); Chlamydophila pneumoniae Not Detected (Not Detect); Coronavirus 229E Not Detected (Not Detect); Coronavirus HKU1 Not Detected (Not Detect); Coronavirus NL63 Not Detected (Not Detect); Coronavirus OC43 Not Detected (Not Detect); Human Metapneumovirus Not Detected (Not Detect); Human Rhinovirus/Enterovirus Not Detected (Not Detect); Influenza A Subtype 2009 H1 Not Detected (Not Detect); Influenza B Not Detected (Not Detect); Mycoplasma pneumoniae Not Detected (Not Detect); Parainfluenza Virus 1 Not Detected (Not Detect); Parainfluenza Virus 2 Not Detected (Not Detect); Parainfluenza Virus 3 Not Detected (Not Detect); Parainfluenza Virus 4 Not Detected (Not Detect); Respiratory Syncytial Virus Not Detected (Not Detect)
[2020-08-04 14:31] LABS: SARS-CoV-2 DETECTED (Not Detect)
[2020-08-04] MEDS: PROTEASE PO SCH (16:27)
[2020-08-04] MEDS: AMYLASE PO SCH (16:27)
[2020-08-04] MEDS: LIPASE PO SCH (16:27)
[2020-08-04 17:21] LABS: Hematocrit 29.1 % (35.3-44.9)
[2020-08-04 17:23] LABS: Hemoglobin 9.4 g/dL (11.5-15.4)
[2020-08-04] MEDS ORDERED: *HR* Propofol 500 MG/50 ML BOTTLE IVP ONE (18:02)
[2020-08-04] MEDS ORDERED: Lidocaine -MPF 2% 5 ML VIAL SQ ONE (18:02)
[2020-08-04] MEDS ORDERED: VITAMIN E ACID SUCCINATE 100 UNIT PO SCH (21:00)
[2020-08-04] MEDS ORDERED: VITAMIN A 10000 UNIT PO SCH (21:00)
[2020-08-05] MEDS: Pantoprazole 40 MG VIAL IVP SCH (05:31)
[2020-08-05 05:58] LABS: Hemoglobin 9.3 g/dL (11.5-15.4); Mean Corpuscular Hemoglobin 35.1 pg (28.0-33.3); Mean Corpuscular Volume 113.2 fL (83.0-100.0); Red Blood Count 2.65 M/mcL (3.82-4.97); Red Cell Distribution Width 24.2 % (11.5-14.5); White Blood Count 9.8 K/mcL (4.3-11.1)
[2020-08-05 06:15] LABS: Calcium 7.2 mg/dL (8.6-10.3); Magnesium 1.7 mg/dL (1.6-2.6); Phosphorous 2.7 mg/dL (2.7-4.5); Potassium 3.8 mEq/L (3.5-5.1)
[2020-08-05 06:39] LABS: Ferritin > 1500 ng/mL (10-120); Iron 45 mcg/dL (50-170); Transferrin < 75 mg/dL (203-362)
[2020-08-05 06:40] LABS: Folate 9.2 ng/mL (3.0-16.0)
[2020-08-05 06:47] LABS: Vitamin B12 > 1500 pg/mL (250-1100)
[2020-08-05] MEDS ORDERED: 0.9 % Sodium Chloride 250 ML IVC PRN (07:07)
[2020-08-05] MEDS ORDERED: 0.9 % Sodium Chloride 1,000 ML PRIME SCH (07:15)
[2020-08-05] MEDS ORDERED: Cholecalciferol (D-3) 1,000 UNIT (25MCG) TABLET PO SCH (09:00)
[2020-08-05] MEDS ORDERED: Renal Vitamin 1 CAP CAPSULE PO SCH (09:00)
[2020-08-05] MEDS ORDERED: Folic Acid 1 MG TABLET PO SCH (09:00)
[2020-08-05] MEDS ORDERED: NON-FORMULARY MEDICATION 1 EACH EACH (Zinc Gluconate [Zinc] 50 MG Tablet) PO SCH (09:00)
[2020-08-05] MEDS: Sulfamethoxazole/Trimeth SS 1 TAB PO SCH (11:08)
[2020-08-05] MEDS: Lactobacillus 1 EACH CAP.SPRINK PO SCH (11:08)
[2020-08-05] MEDS: predniSONE 5 MG TABLET PO SCH (11:08)
[2020-08-05 11:32] VITALS: BP 105/62
== END 2020-08-05 18:03 | disposition home health service (06) | DRG 602 ==
LOC: EMEROOARM 11:47 → 2ANU 11:47 → SUATTDRO 15:01 → 2ANU 15:14
PROVIDERS: ADMIT Internal Medicine; ATTEND Internal Medicine